=== PATIENT | male | born 1930 | race Caucasian/White ===

== ENCOUNTER 2016-05-30 17:24 | Inpatient (IN) | payer MEDICARE ==
[~2016-05-30] VITALS: Ht 182.9 cm; Wt 77.4 kg
[~2016-05-30 17:24] MED LIST: COLL30T TOP; HYDR12.57 PO; LEVA750T PO; METR500T10 PO; MORP1TAB25 PO; NIFE30TA61 PO; OXYC1TAB63 PO; POTA10TA2 PO; SENN8.6C PO
[2016-05-30 17:49] VITALS: BP 132/75; PULSE 103; RESP 17; TEMP 99.3; O2SAT 96
[2016-05-30 17:53] VITALS: BP 140/67; PULSE 96; RESP 16; O2SAT 94
[2016-05-30] MEDS ORDERED: VANCOMYCIN INJ 1,000 MG in SODIUM CHLOR 0.9% 250 ML INJ 250 ML IV STA (18:05)
[2016-05-30] MEDS ORDERED: CEFEPIME INJ 1,000 MG in SODIUM CHLORIDE 0.9% INJ 100 ML IV ONE (18:15)
[2016-05-30] MEDS ORDERED: HYDROmorphone HCL PF 1 MG/ML VIAL IV PUSH ONE (18:30)
[2016-05-30 18:42] LABS: AUTOMATED NEUTROPHIL # 8.3 TH/MM3 (1.8-7.7); BASOPHIL % 0.4 % (0.0-2.0); EOSINOPHIL # 0.3 TH/MM3 (0-0.4); EOSINOPHIL % 2.3 % (0.0-4.0); HEMATOCRIT 33.2 % (39.0-51.0); HEMO FLAGS DIFF FINAL; LYMPH % 24.4 % (9.0-44.0); LYMPHOCYTE # 3.2 TH/MM3 (1.0-4.8); MEAN CELL VOLUME 87.2 FL (80.0-100.0); MEAN CORPUSCULAR HEMOGLOBIN 28.9 PG (27.0-34.0); MEAN CORPUSCULAR HGB CONC 33.1 % (32.0-36.0); MONO % 9.7 % (0.0-8.0); NEUT % 63.2 % (16.0-70.0); PLATELET COUNT 483 TH/MM3 (150-450); RED BLOOD COUNT 3.81 MIL/MM3 (4.50-5.90); RED CELL DISTRIBUTION WIDTH 15.2 % (11.6-17.2); WHITE BLOOD COUNT 13.1 TH/MM3 (4.0-11.0)
[2016-05-30] MEDS ORDERED: COLL30T TOPICAL (18:47)
[2016-05-30] MEDS ORDERED: [UNRECOGNIZED DRUG - OTHER] TOP (18:56)
[2016-05-30] MEDS ORDERED: GENT TOP (18:56)
[2016-05-30] MEDS ORDERED: DULC10SU3 RECTAL (18:56)
[2016-05-30] MEDS ORDERED: PERC10TA27 PO (19:03)
[2016-05-30] MEDS ORDERED: MILKSUS PO (19:03)
[2016-05-30] MEDS ORDERED: THERTAB27 PO (19:03)
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
[2016-05-30] MEDS ORDERED: HYDROmorphone HCL PF 1 MG/ML VIAL IVS ONE (19:45)
[2016-05-30 20:22] VITALS: BP 155/78; PULSE 98; RESP 16; O2SAT 95
[2016-05-30] MEDS ORDERED: ONDANSETRON HCL 4 MG/2 ML VIAL IVP PRN (20:30)
[2016-05-30] MEDS ORDERED: Vancomycin Consult Pharmacy 1 EA OTHER SCH (20:30)
[2016-05-30] MEDS ORDERED: NALOXONE HCL 0.4 MG/ML AMP IV PRN (20:30)
[2016-05-30] MEDS ORDERED: HYDROmorphone HCL PF 1 MG/ML VIAL IV PUSH PRN (20:30)
--- NOTE | 2016-05-30 20:32 | PD ---
Physical Exam Date Seen by Provider: May 30, 2016 Time Seen by Provider: 19:30 Narrative Patient is here for a decubitus ulcer which has been an ongoing problem but is now associated with fever. Data Data Last Documented VS Vital Signs Date Time Temp Pulse Resp B/P Pulse Ox O2 Delivery O2 Flow Rate FiO2 05/30/16 17:53 96 16 140/67 94 Room Air 05/30/16 17:49 99.3 Orders Complete Blood Count With Diff (05/30/16 18:05) Blood Culture (05/30/16 18:05) Wound Culture And Gram Stain (05/30/16 18:05) Iv Access Insert/Monitor (05/30/16 18:05) Vancomycin Inj (Vancomycin Inj) (05/30/16 18:05) Cefepime Inj (Maxipime Inj) (05/30/16 18:15) C-Reactive Protein (Crp) (05/30/16 18:05) Westergren Sedimentation Rate (05/30/16 18:05) Hydromorphone Pf Inj (Dilaudid Pf Inj) (05/30/16 18:30) Lactic Acid (05/30/16 19:32) Urinalysis - C+S If Indicated (05/30/16 19:41) Hydromorphone Pf Inj (Dilaudid Pf Inj) (05/30/16 19:45) Admit Order (Ed Use Only) (05/30/16 19:55) Labs Laboratory Tests Test 05/30/16 05/30/16 18:23 19:39 White Blood Count 13.1 TH/MM3 Red Blood Count 3.81 MIL/MM3 Hemoglobin 11.0 GM/DL Hematocrit 33.2 % Mean Corpuscular Volume 87.2 FL Mean Corpuscular Hemoglobin 28.9 PG Mean Corpuscular Hemoglobin 33.1 % Concent Red Cell Distribution Width 15.2 % Platelet Count 483 TH/MM3 Mean Platelet Volume 7.7 FL Neutrophils (%) (Auto) 63.2 % Lymphocytes (%) (Auto) 24.4 % Monocytes (%) (Auto) 9.7 % Eosinophils (%) (Auto) 2.3 % Basophils (%) (Auto) 0.4 % Neutrophils # (Auto) 8.3 TH/MM3 Lymphocytes # (Auto) 3.2 TH/MM3 Monocytes # (Auto) 1.3 TH/MM3 Eosinophils # (Auto) 0.3 TH/MM3 Basophils # (Auto) 0.0 TH/MM3 CBC Comment DIFF FINAL Differential Comment Erythrocyte Sedimentation Rate 70 mm/hr C-Reactive Protein 7.80 MG/DL Lactic Acid Level 1.1 mmol/L MDM Supervised Visit with CHELO: Yes Narrative Course I, Dr. Trimble, have reviewed the advance practice practitioner's documentation and am in agreement, met with the patient face to face, made the diagnosis, and the medical decision making was done by me. *My assessment and Findings: This is a lucid, otherwise healthy-appearing man who has partial paralysis of his lower extremities. Diagnosis Primary Impression: Sacral decubitus ulcer Qualified Code: L89.154 - Decubitus ulcer of sacral region, stage 4 Additional Impressions: Fever Qualified Code: R50.9 - Fever, unspecified fever cause Cellulitis Qualified Code: L03.317 - Cellulitis of buttock Condition: Stable Seda Trimble MD May 30, 2016 20:32
[2016-05-30] MEDS: SODIUM CHLORIDE 0.9% FLUSH 5 ML FLUSH FLUSH SCH (20:50)
[2016-05-30 21:06] LABS: BACTERIA, URINE RARE /hpf; BLOOD, URINE MOD (NEG); COMMENT (UR) CULTURE INDICATED; CULTURE IF INDICATED CULTURE INDICATED; GLUCOSE,URINE NEG (NEG); KETONE, URINE NEG (NEG); MUCUS URINE FEW /lpf (OCC); PH, URINE 6.5 (5.0-8.5); URINE COLOR YELLOW (YELLW/STRAW)
[2016-05-30 21:07] LABS: NITRITE,URINE POS (NEG)
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
[2016-05-30] MEDS: HYDROmorphone HCL PF 1 MG/ML VIAL IV PUSH PRN (22:11)
[2016-05-30 22:14] VITALS: BP 164/72; PULSE 98; RESP 16; O2SAT 93
[2016-05-30] MEDS ORDERED: BISACODYL 10 MG SUPP RECTAL PRN (23:30)
[2016-05-30] MEDS ORDERED: MAGNESIUM HYDROXIDE SUSP 30 ML CUP PO PRN (23:30)
[2016-05-31] VITALS (7 sets, daily range): BP systolic 121–140; BP diastolic 70–88; PULSE 78–103; RESP 16–21; TEMP 97.6–98.9; O2SAT 93–99
[2016-05-31] MEDS: HYDROmorphone HCL PF 1 MG/ML VIAL IV PUSH PRN (01:58)
[2016-05-31] MEDS: CEFEPIME INJ 2,000 MG in SODIUM CHLORIDE 0.9% INJ 100 ML IV SCH ×3 (01:59→17:18)
[2016-05-31] MEDS: MORPHINE SULFATE 30 MG CONTROLLED RELEASE TAB PO SCH ×3 (05:49→22:44)
[2016-05-31] MEDS: VANCOMYCIN 1,000 MG/NS 250 ML IV SCH ×4 (05:49→18:15)
[2016-05-31 06:03] LABS: BASOPHIL # 0.1 TH/MM3 (0-0.2); BASOPHIL % 0.5 % (0.0-2.0); EOSINOPHIL # 0.1 TH/MM3 (0-0.4); EOSINOPHIL % 0.6 % (0.0-4.0); HEMATOCRIT 33.8 % (39.0-51.0); HEMO FLAGS DIFF FINAL; LYMPH % 20.1 % (9.0-44.0); LYMPHOCYTE # 3.1 TH/MM3 (1.0-4.8); MEAN CELL VOLUME 87.8 FL (80.0-100.0); MEAN CORPUSCULAR HEMOGLOBIN 28.9 PG (27.0-34.0); MEAN CORPUSCULAR HGB CONC 32.9 % (32.0-36.0); MONO % 7.4 % (0.0-8.0); NEUT % 71.4 % (16.0-70.0); PLATELET COUNT 441 TH/MM3 (150-450); RED BLOOD COUNT 3.86 MIL/MM3 (4.50-5.90); RED CELL DISTRIBUTION WIDTH 15.3 % (11.6-17.2); WHITE BLOOD COUNT 15.4 TH/MM3 (4.0-11.0)
[2016-05-31 06:34] LABS: POTASSIUM 3.7 MEQ/L (3.5-5.1)
[2016-05-31] MEDS: SODIUM CHLORIDE 0.9% FLUSH 5 ML FLUSH FLUSH SCH ×2 (09:00→22:47)
[2016-05-31] MEDS ORDERED: NIFEdipine 30 MG SUSTAINED RELEASE TAB PO SCH (09:00)
[2016-05-31] MEDS ORDERED: POTASSIUM CHLORIDE 10 MEQ CONTROLLED RELEASE TAB PO SCH (09:00)
[2016-05-31] MEDS: HYDROCHLOROTHIAZIDE 12.5 MG CAP PO SCH (09:00)
[2016-05-31] MEDS: SENNOSIDES 8.6 MG TAB PO SCH ×2 (09:00→22:45)
[2016-05-31] MEDS: ENOXAPARIN SODIUM 40 MG/0.4 ML SYRINGE SQ SCH (09:11)
[2016-05-31] MEDS: LACTOBACILLUS ACIDOPHILUS 1 GM PACKET PO SCH ×5 (09:11→22:46)
[2016-05-31] MEDS: MULTIVITAMINS/MINERALS THERAPEUTIC TAB PO SCH (09:11)
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
[2016-05-31] MEDS: oxyCODONE/ACETAMINOPHEN 10 MG/325 MG TAB PO PRN ×2 (11:29→17:18)
[2016-05-31] MEDS: MUPIROCIN 2% CREAM 15 GM TOPICAL SCH ×2 (11:30→22:46)
[2016-05-31] MEDS ORDERED: HYDROmorphone HCL PF 1 MG/ML VIAL IV PUSH PRN (12:00)
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
[2016-05-31 20:19] LABS: HEMOGLOBIN A1a 1.2 %; HEMOGLOBIN F 1.4 %
[2016-05-31 20:20] LABS: HEMOGLOBIN Ao 84.6 %; HEMOGLOBIN P3 4.2 %
[2016-06-01] VITALS (7 sets, daily range): BP systolic 115–143; BP diastolic 68–83; PULSE 67–92; RESP 16–18; TEMP 97.9–99.8; O2SAT 94–98
[2016-06-01] MEDS: oxyCODONE/ACETAMINOPHEN 10 MG/325 MG TAB PO PRN ×4 (00:40→22:33)
[2016-06-01] MEDS: CEFEPIME INJ 2,000 MG in SODIUM CHLORIDE 0.9% INJ 100 ML IV SCH (02:15)
[2016-06-01] MEDS ORDERED: PHARMACY ORDERED LAB XX ONE (05:45)
[2016-06-01] MEDS: VANCOMYCIN 1,000 MG/NS 250 ML IV SCH ×2 (06:10)
[2016-06-01] MEDS: MORPHINE SULFATE 30 MG CONTROLLED RELEASE TAB PO SCH ×3 (06:11→21:21)
[2016-06-01] MEDS: SENNOSIDES 8.6 MG TAB PO SCH ×2 (08:06→21:00)
[2016-06-01] MEDS: POTASSIUM CL 40 MEQ/30 ML LIQ UDC NG SCH (08:07)
[2016-06-01 08:22] LABS: HEMATOCRIT 31.2 % (39.0-51.0); HEMO FLAGS DIFF FINAL; MEAN CORPUSCULAR HEMOGLOBIN 28.2 PG (27.0-34.0); MEAN CORPUSCULAR HGB CONC 32.4 % (32.0-36.0); PLATELET COUNT 399 TH/MM3 (150-450); RED BLOOD COUNT 3.59 MIL/MM3 (4.50-5.90); RED CELL DISTRIBUTION WIDTH 14.9 % (11.6-17.2); WHITE BLOOD COUNT 11.9 TH/MM3 (4.0-11.0)
[2016-06-01 08:23] LABS: AUTOMATED NEUTROPHIL # 8.2 TH/MM3 (1.8-7.7); BASOPHIL # 0.1 TH/MM3 (0-0.2); BASOPHIL % 0.6 % (0.0-2.0); EOSINOPHIL # 0.7 TH/MM3 (0-0.4); LYMPH % 16.5 % (9.0-44.0); MONO % 8.4 % (0.0-8.0); NEUT % 68.5 % (16.0-70.0)
[2016-06-01 08:49] LABS: BICARBONATE 28.5 MEQ/L (21.0-32.0); MAGNESIUM 1.9 MG/DL (1.5-2.5); POTASSIUM 3.5 MEQ/L (3.5-5.1)
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
[2016-06-01] MEDS: HYDROCHLOROTHIAZIDE 12.5 MG CAP PO SCH (10:38)
[2016-06-01] MEDS: ENOXAPARIN SODIUM 40 MG/0.4 ML SYRINGE SQ SCH (10:38)
[2016-06-01] MEDS: MULTIVITAMINS/MINERALS THERAPEUTIC TAB PO SCH (10:38)
[2016-06-01] MEDS: SODIUM CHLORIDE 0.9% FLUSH 5 ML FLUSH FLUSH SCH ×2 (10:38→21:00)
[2016-06-01] MEDS ORDERED: OXYC1TAB36 PO (10:54)
[2016-06-01] MEDS ORDERED: MORP1TAB25 PO (10:54)
[2016-06-01] MEDS: LACTOBACILLUS ACIDOPHILUS 1 GM PACKET PO SCH ×4 (11:13→21:21)
[2016-06-01] MEDS: MUPIROCIN 2% CREAM 15 GM TOPICAL SCH ×2 (11:17→21:00)
[2016-06-01] MEDS: NIFEdipine 10 MG CAP PO SCH ×2 (16:11→21:26)
--- NOTE | 2016-06-01 17:48 | HHI.DCPOC ---
Discharge Care Plan Diagnosis: (1) UTI (urinary tract infection) (2) Sacral decubitus ulcer Your Health Problems Are: Difficulty with ADL Exercise Tolerance Goals to Promote Your Health * To prevent worsening of your condition and complications * To maintain your health at the optimal level Directions to Meet Your Goals Take your medications as prescribed Follow your dietary instruction Follow activity as directed Keep your appointments as scheduled Take your immunizations and boosters as scheduled If your symptoms worsen call your PCP, if no PCP go to Urgent Care Center or Emergency Room Smoking is Dangerous to Your Health. Avoid second hand smoke Call the 24-hour hour crisis hotline for domestic abuse at Shin Oconnor MD Jun 01, 2016 17:48
[2016-06-01] MEDS ORDERED: BACT400T PO (17:52)
[2016-06-01] MEDS ORDERED: LACTG PO (17:52)
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
[2016-06-01] MEDS: SULFAMETHOXAZOLE-TRIMETHOPRIM 400-80 MG TAB PO SCH (21:24)
[2016-06-02] VITALS (9 sets, daily range): BP systolic 101–149; BP diastolic 63–93; PULSE 77–102; RESP 18–21; TEMP 98–99.5; O2SAT 94–98
[2016-06-02] MEDS: NIFEdipine 10 MG CAP PO SCH ×3 (05:28→23:39)
[2016-06-02] MEDS: MORPHINE SULFATE 30 MG CONTROLLED RELEASE TAB PO SCH ×3 (05:29→23:38)
[2016-06-02] MEDS ORDERED: PHARMACY ORDERED LAB XX ONE (05:45)
[2016-06-02] MEDS: oxyCODONE/ACETAMINOPHEN 10 MG/325 MG TAB PO PRN ×3 (06:23→18:51)
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
[2016-06-02] MEDS: SULFAMETHOXAZOLE-TRIMETHOPRIM 400-80 MG TAB PO SCH ×2 (10:25→23:39)
[2016-06-02] MEDS: MULTIVITAMINS/MINERALS THERAPEUTIC TAB PO SCH (10:26)
[2016-06-02] MEDS: LACTOBACILLUS ACIDOPHILUS 1 GM PACKET PO SCH ×3 (10:26→17:31)
[2016-06-02] MEDS: ENOXAPARIN SODIUM 40 MG/0.4 ML SYRINGE SQ SCH (10:26)
[2016-06-02] MEDS: SENNOSIDES 8.6 MG TAB PO SCH ×2 (10:26→21:00)
[2016-06-02] MEDS: HYDROCHLOROTHIAZIDE 12.5 MG CAP PO SCH (10:26)
[2016-06-02] MEDS: SODIUM CHLORIDE 0.9% FLUSH 5 ML FLUSH FLUSH SCH ×2 (10:27→23:37)
[2016-06-02] MEDS: POTASSIUM CL 40 MEQ/30 ML LIQ UDC NG SCH (10:27)
[2016-06-02] MEDS: MUPIROCIN 2% CREAM 15 GM TOPICAL SCH ×2 (12:00→23:41)
[2016-06-03] MEDS: LACTOBACILLUS ACIDOPHILUS 1 GM PACKET PO SCH ×5 (00:07→20:22)
[2016-06-03] MEDS: oxyCODONE/ACETAMINOPHEN 10 MG/325 MG TAB PO PRN ×4 (00:49→22:52)
[2016-06-03 04:22] VITALS: BP 116/75; PULSE 76; RESP 20; TEMP 98.5; O2SAT 96
[2016-06-03] MEDS: NIFEdipine 10 MG CAP PO SCH ×4 (05:20→20:38)
[2016-06-03] MEDS: MORPHINE SULFATE 30 MG CONTROLLED RELEASE TAB PO SCH ×3 (05:20→20:22)
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
[2016-06-03] MEDS: MULTIVITAMINS/MINERALS THERAPEUTIC TAB PO SCH (09:58)
[2016-06-03] MEDS: ENOXAPARIN SODIUM 40 MG/0.4 ML SYRINGE SQ SCH (09:59)
[2016-06-03] MEDS: POTASSIUM CL 40 MEQ/30 ML LIQ UDC NG SCH ×2 (09:59→10:07)
[2016-06-03] MEDS: MUPIROCIN 2% CREAM 15 GM TOPICAL SCH ×2 (10:00→20:26)
[2016-06-03] MEDS: SULFAMETHOXAZOLE-TRIMETHOPRIM 400-80 MG TAB PO SCH ×2 (10:00→20:22)
[2016-06-03] MEDS: SENNOSIDES 8.6 MG TAB PO SCH ×2 (10:02→20:23)
[2016-06-03] MEDS: HYDROCHLOROTHIAZIDE 12.5 MG CAP PO SCH (10:02)
[2016-06-03] MEDS: SODIUM CHLORIDE 0.9% FLUSH 5 ML FLUSH FLUSH SCH ×2 (10:21→20:19)
[2016-06-03 17:18] VITALS: BP 105/66; PULSE 86; RESP 18; TEMP 98.2; O2SAT 95
[2016-06-03 19:42] VITALS: BP_SYST 107; PULSE 86; RESP 20; TEMP 97.7; O2SAT 94
[2016-06-03 20:00] VITALS: PULSE 93
[2016-06-03] MEDS: HYDROmorphone HCL PF 1 MG/ML VIAL IV PUSH PRN (20:24)
[2016-06-04] VITALS (7 sets, daily range): BP systolic 92–130; BP diastolic 55–89; PULSE 82–99; RESP 17–20; TEMP 97.5–98.3; O2SAT 93–97
[2016-06-04] MEDS: HYDROmorphone HCL PF 1 MG/ML VIAL IV PUSH PRN ×3 (00:48→22:59)
[2016-06-04] MEDS: NIFEdipine 10 MG CAP PO SCH (05:25)
[2016-06-04] MEDS: MORPHINE SULFATE 30 MG CONTROLLED RELEASE TAB PO SCH ×3 (05:25→21:18)
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
[2016-06-04] MEDS: HYDROCHLOROTHIAZIDE 12.5 MG CAP PO SCH (09:00)
[2016-06-04] MEDS: MULTIVITAMINS/MINERALS THERAPEUTIC TAB PO SCH (09:00)
[2016-06-04] MEDS: SENNOSIDES 8.6 MG TAB PO SCH (10:35)
[2016-06-04] MEDS: SULFAMETHOXAZOLE-TRIMETHOPRIM 400-80 MG TAB PO SCH ×2 (10:56→21:17)
[2016-06-04] MEDS: SODIUM CHLORIDE 0.9% FLUSH 5 ML FLUSH FLUSH SCH ×2 (10:56→21:19)
[2016-06-04] MEDS: ENOXAPARIN SODIUM 40 MG/0.4 ML SYRINGE SQ SCH (10:59)
[2016-06-04] MEDS: LACTOBACILLUS ACIDOPHILUS 1 GM PACKET PO SCH ×4 (10:59→21:00)
[2016-06-04] MEDS: oxyCODONE/ACETAMINOPHEN 10 MG/325 MG TAB PO PRN ×2 (11:00→17:51)
[2016-06-04] MEDS: MUPIROCIN 2% CREAM 15 GM TOPICAL SCH ×2 (15:06→21:17)
[2016-06-05] VITALS (9 sets, daily range): BP systolic 101–128; BP diastolic 56–76; PULSE 74–117; RESP 16–20; TEMP 96.3–99.1; O2SAT 93–99
[2016-06-05] MEDS: oxyCODONE/ACETAMINOPHEN 10 MG/325 MG TAB PO PRN ×3 (01:15→17:34)
[2016-06-05] MEDS: MORPHINE SULFATE 30 MG CONTROLLED RELEASE TAB PO SCH ×3 (05:51→23:10)
[2016-06-05 06:20] LABS: BICARBONATE 26.5 MEQ/L (21.0-32.0); POTASSIUM 4.3 MEQ/L (3.5-5.1)
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
[2016-06-05] MEDS: POTASSIUM CL 40 MEQ/30 ML LIQ UDC NG SCH (10:29)
[2016-06-05] MEDS: LACTOBACILLUS ACIDOPHILUS 1 GM PACKET PO SCH ×4 (10:29→21:00)
[2016-06-05] MEDS: SENNOSIDES 8.6 MG TAB PO SCH (10:30)
[2016-06-05] MEDS: MULTIVITAMINS/MINERALS THERAPEUTIC TAB PO SCH (10:30)
[2016-06-05] MEDS: HYDROCHLOROTHIAZIDE 12.5 MG CAP PO SCH (10:30)
[2016-06-05] MEDS: SODIUM CHLORIDE 0.9% FLUSH 5 ML FLUSH FLUSH SCH ×2 (10:31→23:11)
[2016-06-05] MEDS: ENOXAPARIN SODIUM 40 MG/0.4 ML SYRINGE SQ SCH (10:31)
[2016-06-05] MEDS: SULFAMETHOXAZOLE-TRIMETHOPRIM 400-80 MG TAB PO SCH ×2 (10:32→23:10)
[2016-06-05] MEDS: MUPIROCIN 2% CREAM 15 GM TOPICAL SCH ×2 (10:32→23:11)
[2016-06-05] MEDS: SODIUM HYPOCHLORITE 0.5% 500 ML BTL TOPICAL SCH (19:16)
[2016-06-05] MEDS: HYDROmorphone HCL PF 1 MG/ML VIAL IV PUSH PRN (20:48)
[2016-06-06] MEDS: oxyCODONE/ACETAMINOPHEN 10 MG/325 MG TAB PO PRN ×4 (00:34→20:41)
[2016-06-06 05:19] VITALS: BP 144/73; PULSE 86; RESP 20; TEMP 97.7; O2SAT 96
[2016-06-06] MEDS: MORPHINE SULFATE 30 MG CONTROLLED RELEASE TAB PO SCH ×3 (05:25→22:24)
[2016-06-06 08:00] VITALS: BP 133/73; PULSE 70; PULSE 74; PULSE 78; RESP 18; TEMP 97; O2SAT 96
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
[2016-06-06] MEDS: POTASSIUM CL 40 MEQ/30 ML LIQ UDC NG SCH (09:00)
[2016-06-06] MEDS: LACTOBACILLUS ACIDOPHILUS 1 GM PACKET PO SCH ×4 (09:00→20:41)
[2016-06-06] MEDS: MULTIVITAMINS/MINERALS THERAPEUTIC TAB PO SCH (09:00)
[2016-06-06] MEDS: SENNOSIDES 8.6 MG TAB PO SCH (09:00)
[2016-06-06] MEDS: HYDROCHLOROTHIAZIDE 12.5 MG CAP PO SCH (09:00)
[2016-06-06] MEDS: SODIUM CHLORIDE 0.9% FLUSH 5 ML FLUSH FLUSH SCH ×2 (09:59→20:42)
[2016-06-06] MEDS: ENOXAPARIN SODIUM 40 MG/0.4 ML SYRINGE SQ SCH (09:59)
[2016-06-06] MEDS: SULFAMETHOXAZOLE-TRIMETHOPRIM 400-80 MG TAB PO SCH ×2 (10:00→20:41)
[2016-06-06] MEDS: SODIUM HYPOCHLORITE 0.5% 500 ML BTL TOPICAL SCH (10:05)
[2016-06-06] MEDS: MUPIROCIN 2% CREAM 15 GM TOPICAL SCH ×2 (10:06→20:42)
[2016-06-06] MEDS: HYDROmorphone HCL PF 1 MG/ML VIAL IV PUSH PRN ×2 (10:21→17:29)
[2016-06-06 12:00] VITALS: BP 106/64; PULSE 74; RESP 18; TEMP 96.3; O2SAT 96
[2016-06-06 16:00] VITALS: BP 126/68; PULSE 89; RESP 18; TEMP 99; O2SAT 95
[2016-06-06 19:38] VITALS: BP 126/77; PULSE 88; RESP 20; TEMP 98; O2SAT 96
[2016-06-06 20:37] VITALS: PULSE 98
[2016-06-07 01:24] VITALS: BP 116/73; PULSE 78; RESP 18; TEMP 98.3; O2SAT 97
[2016-06-07] MEDS: oxyCODONE/ACETAMINOPHEN 10 MG/325 MG TAB PO PRN ×4 (02:48→21:49)
[2016-06-07 05:23] VITALS: BP 136/70; PULSE 84; RESP 18; TEMP 98.1; O2SAT 96
[2016-06-07] MEDS: MORPHINE SULFATE 30 MG CONTROLLED RELEASE TAB PO SCH ×3 (07:04→21:50)
[2016-06-07 08:00] VITALS: PULSE 90
[2016-06-07 08:41] VITALS: BP 123/69; PULSE 80; RESP 16; TEMP 97.6; O2SAT 97
[2016-06-07] MEDS: POTASSIUM CL 40 MEQ/30 ML LIQ UDC NG SCH (09:00)
[2016-06-07] MEDS: SENNOSIDES 8.6 MG TAB PO SCH (09:00)
[2016-06-07] MEDS: SODIUM CHLORIDE 0.9% FLUSH 5 ML FLUSH FLUSH SCH ×2 (09:00→21:49)
[2016-06-07] MEDS: HYDROCHLOROTHIAZIDE 12.5 MG CAP PO SCH (09:00)
[2016-06-07] MEDS: LACTOBACILLUS ACIDOPHILUS 1 GM PACKET PO SCH ×4 (09:00→21:00)
[2016-06-07] MEDS: MULTIVITAMINS/MINERALS THERAPEUTIC TAB PO SCH (09:00)
[2016-06-07] MEDS: ENOXAPARIN SODIUM 40 MG/0.4 ML SYRINGE SQ SCH (09:11)
[2016-06-07] MEDS: SULFAMETHOXAZOLE-TRIMETHOPRIM 400-80 MG TAB PO SCH ×2 (09:11→21:51)
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
[2016-06-07] MEDS: MUPIROCIN 2% CREAM 15 GM TOPICAL SCH ×2 (10:38→21:54)
[2016-06-07] MEDS: SODIUM HYPOCHLORITE 0.5% 500 ML BTL TOPICAL SCH (10:38)
[2016-06-07] MEDS: HYDROmorphone HCL PF 1 MG/ML VIAL IV PUSH PRN ×3 (11:50→19:07)
[2016-06-07] MEDS: LACTIC ACID (AMMONIUM LACTATE) 12% LOTION 225 GM BTL TOPICAL SCH ×2 (11:50→21:53)
[2016-06-07 11:57] VITALS: BP 140/72; PULSE 102; RESP 16; TEMP 98.3; O2SAT 96
[2016-06-07 15:51] VITALS: BP 155/77; PULSE 85; RESP 16; TEMP 97.9; O2SAT 95
[2016-06-08 00:16] VITALS: BP 150/79; PULSE 80; RESP 18; TEMP 97.6; O2SAT 95
[2016-06-08] MEDS: HYDROmorphone HCL PF 1 MG/ML VIAL IV PUSH PRN ×3 (01:05→21:29)
[2016-06-08 04:41] VITALS: BP 147/72; PULSE 68; RESP 18; TEMP 97.9; O2SAT 97
[2016-06-08] MEDS: oxyCODONE/ACETAMINOPHEN 10 MG/325 MG TAB PO PRN ×4 (04:59→22:56)
[2016-06-08] MEDS: MORPHINE SULFATE 30 MG CONTROLLED RELEASE TAB PO SCH ×3 (05:00→21:28)
[2016-06-08] MEDS: MUPIROCIN 2% CREAM 15 GM TOPICAL SCH ×2 (09:00→21:00)
[2016-06-08] MEDS: LACTOBACILLUS ACIDOPHILUS 1 GM PACKET PO SCH ×4 (09:00→21:00)
[2016-06-08] MEDS: SODIUM CHLORIDE 0.9% FLUSH 5 ML FLUSH FLUSH SCH ×2 (09:00→21:30)
[2016-06-08] MEDS: HYDROCHLOROTHIAZIDE 12.5 MG CAP PO SCH (09:00)
[2016-06-08] MEDS: MULTIVITAMINS/MINERALS THERAPEUTIC TAB PO SCH (09:00)
[2016-06-08] MEDS: SENNOSIDES 8.6 MG TAB PO SCH (09:00)
[2016-06-08] MEDS: POTASSIUM CL 40 MEQ/30 ML LIQ UDC NG SCH (09:00)
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
[2016-06-08] MEDS: ENOXAPARIN SODIUM 40 MG/0.4 ML SYRINGE SQ SCH (11:18)
[2016-06-08] MEDS: SULFAMETHOXAZOLE-TRIMETHOPRIM 400-80 MG TAB PO SCH ×2 (11:18→21:28)
[2016-06-08] MEDS: LACTIC ACID (AMMONIUM LACTATE) 12% LOTION 225 GM BTL TOPICAL SCH ×2 (11:21→21:31)
[2016-06-08] MEDS: SODIUM HYPOCHLORITE 0.5% 500 ML BTL TOPICAL SCH (11:21)
[2016-06-08 12:41] VITALS: BP 127/76; PULSE 77; RESP 18; TEMP 97.8; O2SAT 96
[2016-06-08] MEDS: hydrOXYzine HCL 10 MG TAB PO PRN (14:10)
[2016-06-08 23:07] VITALS: BP 121/72; PULSE 92; RESP 16; TEMP 96.5; O2SAT 95
[2016-06-09 04:00] VITALS: BP 135/76; PULSE 80; RESP 16; TEMP 97.6; O2SAT 97
[2016-06-09] MEDS: HYDROmorphone HCL PF 1 MG/ML VIAL IV PUSH PRN ×3 (04:19→17:05)
[2016-06-09] MEDS: oxyCODONE/ACETAMINOPHEN 10 MG/325 MG TAB PO PRN ×3 (05:48→17:38)
[2016-06-09] MEDS: MORPHINE SULFATE 30 MG CONTROLLED RELEASE TAB PO SCH ×3 (05:49→21:21)
[2016-06-09 08:00] VITALS: BP 129/65; PULSE 85; RESP 18; TEMP 97.3; O2SAT 94
[2016-06-09] MEDS: ENOXAPARIN SODIUM 40 MG/0.4 ML SYRINGE SQ SCH (08:59)
[2016-06-09] MEDS: SODIUM CHLORIDE 0.9% FLUSH 5 ML FLUSH FLUSH SCH ×2 (08:59→20:23)
[2016-06-09] MEDS: SENNOSIDES 8.6 MG TAB PO SCH (08:59)
[2016-06-09] MEDS: MULTIVITAMINS/MINERALS THERAPEUTIC TAB PO SCH (09:00)
[2016-06-09] MEDS: HYDROCHLOROTHIAZIDE 12.5 MG CAP PO SCH (09:00)
[2016-06-09] MEDS: POTASSIUM CL 40 MEQ/30 ML LIQ UDC NG SCH (09:00)
[2016-06-09] MEDS: MUPIROCIN 2% CREAM 15 GM TOPICAL SCH ×2 (09:00→20:28)
[2016-06-09] MEDS: SULFAMETHOXAZOLE-TRIMETHOPRIM 400-80 MG TAB PO SCH ×2 (09:00→20:22)
[2016-06-09] MEDS: LACTOBACILLUS ACIDOPHILUS 1 GM PACKET PO SCH ×4 (09:08→20:23)
[2016-06-09] MEDS: LACTIC ACID (AMMONIUM LACTATE) 12% LOTION 225 GM BTL TOPICAL SCH ×2 (09:09→20:26)
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
[2016-06-09 12:00] VITALS: BP 130/73; PULSE 76; RESP 18; TEMP 97.2; O2SAT 94
[2016-06-09] MEDS: SODIUM HYPOCHLORITE 0.5% 500 ML BTL TOPICAL SCH (15:30)
[2016-06-09 16:00] VITALS: BP 128/70; PULSE 82; RESP 18; TEMP 97.5; O2SAT 94
--- NOTE | 2016-06-09 17:32 | PD.RAD ---
Post Procedure Progress Note Pre Procedure Diagnosis: (1) Pneumonia Post Procedure Diagnosis: (1) Pneumonia Procedure Date: Jun 09, 2016 Supervising Radiologist: Mariano Ramires JR Proceduralist/Assist: Nika Longoria, RT(R)(CV), RT Trudi(R)() Anesthesia: Other Plan of Activity Patient to Unit: Nursing Unit Patient Condition: Good Additional Comments: Patient desires removal of G tube. Taking PO. G tube removed without difficulty. See PACS Report for procedural detail/treatment Jr. Ike,Mariano Sanches MD Jun 09, 2016 17:32
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
[2016-06-09 20:00] VITALS: BP 116/69; PULSE 90; RESP 18; TEMP 97.6; O2SAT 96
[2016-06-09] MEDS: hydrOXYzine HCL 10 MG TAB PO PRN (21:21)
[2016-06-10] VITALS: BP 112/65; PULSE 114; RESP 18; TEMP 99.1; O2SAT 93
[2016-06-10] MEDS: oxyCODONE/ACETAMINOPHEN 10 MG/325 MG TAB PO PRN ×4 (00:38→19:28)
[2016-06-10 04:00] VITALS: BP 119/68; PULSE 81; RESP 18; TEMP 97.7; O2SAT 98
[2016-06-10] MEDS: HYDROmorphone HCL PF 1 MG/ML VIAL IV PUSH PRN ×4 (04:46→21:57)
[2016-06-10] MEDS: MORPHINE SULFATE 30 MG CONTROLLED RELEASE TAB PO SCH ×3 (05:34→21:57)
[2016-06-10 08:00] VITALS: BP 102/58; PULSE 76; RESP 16; TEMP 96.3; O2SAT 97
[2016-06-10] MEDS: ENOXAPARIN SODIUM 40 MG/0.4 ML SYRINGE SQ SCH (08:50)
[2016-06-10] MEDS: SULFAMETHOXAZOLE-TRIMETHOPRIM 400-80 MG TAB PO SCH ×2 (08:53→19:28)
[2016-06-10] MEDS: LACTOBACILLUS ACIDOPHILUS 1 GM PACKET PO SCH ×4 (08:53→19:29)
[2016-06-10] MEDS: SODIUM CHLORIDE 0.9% FLUSH 5 ML FLUSH FLUSH SCH ×2 (08:53→19:29)
[2016-06-10] MEDS: POTASSIUM CL 40 MEQ/30 ML LIQ UDC NG SCH (08:54)
[2016-06-10] MEDS: HYDROCHLOROTHIAZIDE 12.5 MG CAP PO SCH (08:54)
[2016-06-10] MEDS: SENNOSIDES 8.6 MG TAB PO SCH (08:54)
[2016-06-10] MEDS: MUPIROCIN 2% CREAM 15 GM TOPICAL SCH ×2 (08:54→19:33)
[2016-06-10] MEDS: MULTIVITAMINS/MINERALS THERAPEUTIC TAB PO SCH (08:54)
[2016-06-10 09:31] LABS: BICARBONATE 27.5 MEQ/L (21.0-32.0); POTASSIUM 4.3 MEQ/L (3.5-5.1)
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
[2016-06-10 12:00] VITALS: BP 111/65; PULSE 77; RESP 18; TEMP 97.2; O2SAT 96
[2016-06-10 16:00] VITALS: BP 115/63; PULSE 73; RESP 16; TEMP 96.6; O2SAT 96
[2016-06-10] MEDS: LACTIC ACID (AMMONIUM LACTATE) 12% LOTION 225 GM BTL TOPICAL SCH ×2 (17:43→19:32)
[2016-06-10] MEDS: SODIUM HYPOCHLORITE 0.5% 500 ML BTL TOPICAL SCH (17:43)
[2016-06-10 20:00] VITALS: BP 104/66; PULSE 106; RESP 16; TEMP 97.2; O2SAT 94
[2016-06-11] VITALS: BP 107/68; PULSE 94; RESP 16; TEMP 97.4; O2SAT 95
[2016-06-11] MEDS: oxyCODONE/ACETAMINOPHEN 10 MG/325 MG TAB PO PRN ×4 (01:19→19:39)
[2016-06-11] MEDS: HYDROmorphone HCL PF 1 MG/ML VIAL IV PUSH PRN ×2 (03:11→09:16)
[2016-06-11 04:00] VITALS: BP 125/71; PULSE 73; RESP 16; TEMP 97.3; O2SAT 97
[2016-06-11] MEDS: MORPHINE SULFATE 30 MG CONTROLLED RELEASE TAB PO SCH ×3 (05:47→21:54)
[2016-06-11 08:00] VITALS: BP 110/65; PULSE 79; RESP 16; TEMP 97.4; O2SAT 96
[2016-06-11] MEDS: LACTOBACILLUS ACIDOPHILUS 1 GM PACKET PO SCH ×4 (09:00→21:00)
[2016-06-11] MEDS: MULTIVITAMINS/MINERALS THERAPEUTIC TAB PO SCH (09:00)
[2016-06-11] MEDS: MUPIROCIN 2% CREAM 15 GM TOPICAL SCH ×2 (09:00→21:55)
[2016-06-11] MEDS: ENOXAPARIN SODIUM 40 MG/0.4 ML SYRINGE SQ SCH (09:00)
[2016-06-11] MEDS: HYDROCHLOROTHIAZIDE 12.5 MG CAP PO SCH (09:00)
[2016-06-11] MEDS: POTASSIUM CL 40 MEQ/30 ML LIQ UDC NG SCH (09:00)
[2016-06-11] MEDS: SULFAMETHOXAZOLE-TRIMETHOPRIM 400-80 MG TAB PO SCH ×2 (09:01→21:48)
[2016-06-11] MEDS: SENNOSIDES 8.6 MG TAB PO SCH (09:02)
[2016-06-11] MEDS: SODIUM CHLORIDE 0.9% FLUSH 5 ML FLUSH FLUSH SCH ×2 (09:04→21:56)
[2016-06-11] MEDS: LACTIC ACID (AMMONIUM LACTATE) 12% LOTION 225 GM BTL TOPICAL SCH ×2 (09:08→21:57)
[2016-06-11] MEDS: SODIUM HYPOCHLORITE 0.5% 500 ML BTL TOPICAL SCH (09:08)
[2016-06-11 12:00] VITALS: BP 118/56; PULSE 115; RESP 18; TEMP 97.6; O2SAT 96
[2016-06-11] MEDS: hydrOXYzine HCL 10 MG TAB PO PRN (12:05)
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
[2016-06-11] MEDS ORDERED: LACTULOSE SYRUP 20 GM/30 ML CUP PO PRN (14:00)
[2016-06-11] MEDS ORDERED: ACETAMINOPHEN 325 MG TAB PO PRN (14:15)
[2016-06-11] MEDS: DOCUSATE SODIUM 50 MG/SENNA 8.6 MG TAB PO SCH ×2 (14:51→21:00)
[2016-06-11] MEDS ORDERED: DOCUSATE SODIUM 100 MG CAP PO PRN (15:00)
[2016-06-11] MEDS ORDERED: SENN1TAB PO (15:12)
[2016-06-11 16:00] VITALS: BP 115/62; PULSE 95; RESP 18; TEMP 98.2; O2SAT 96
[2016-06-11] MEDS: MORPHINE SULFATE 4 MG/ML INJ IV PRN ×2 (17:25→23:36)
[2016-06-11 20:00] VITALS: BP 109/69; PULSE 98; RESP 18; TEMP 97.2; O2SAT 95
[2016-06-11] MEDS: SODIUM CHLORIDE 0.9% FLUSH 5 ML FLUSH FLUSH PRN (23:41)
[2016-06-12] VITALS: BP 121/56; PULSE 96; RESP 20; TEMP 97.8; O2SAT 97
[2016-06-12] MEDS: oxyCODONE/ACETAMINOPHEN 10 MG/325 MG TAB PO PRN ×4 (01:31→22:46)
[2016-06-12 04:47] VITALS: BP 118/57; PULSE 87; RESP 18; TEMP 97; O2SAT 100
[2016-06-12] MEDS: SODIUM CHLORIDE 0.9% FLUSH 5 ML FLUSH FLUSH PRN (05:06)
[2016-06-12] MEDS: MORPHINE SULFATE 4 MG/ML INJ IV PRN ×2 (05:06→17:33)
[2016-06-12] MEDS: MORPHINE SULFATE 30 MG CONTROLLED RELEASE TAB PO SCH ×3 (05:59→21:38)
[2016-06-12 08:00] VITALS: BP 101/56; PULSE 78; RESP 20; TEMP 97.6; O2SAT 94
[2016-06-12] MEDS: HYDROCHLOROTHIAZIDE 12.5 MG CAP PO SCH (09:00)
[2016-06-12] MEDS: ENOXAPARIN SODIUM 40 MG/0.4 ML SYRINGE SQ SCH (09:00)
[2016-06-12] MEDS: POTASSIUM CL 40 MEQ/30 ML LIQ UDC NG SCH (09:00)
[2016-06-12] MEDS: MUPIROCIN 2% CREAM 15 GM TOPICAL SCH ×2 (09:00→21:40)
[2016-06-12] MEDS: MULTIVITAMINS/MINERALS THERAPEUTIC TAB PO SCH (09:00)
[2016-06-12] MEDS: DOCUSATE SODIUM 50 MG/SENNA 8.6 MG TAB PO SCH ×2 (09:00→21:40)
[2016-06-12] MEDS: LACTOBACILLUS ACIDOPHILUS 1 GM PACKET PO SCH ×4 (09:00→21:00)
[2016-06-12 09:32] LABS: AUTOMATED NEUTROPHIL # 4.6 TH/MM3 (1.8-7.7); BASOPHIL % 0.5 % (0.0-2.0); EOSINOPHIL # 0.5 TH/MM3 (0-0.4); EOSINOPHIL % 5.9 % (0.0-4.0); HEMATOCRIT 29.3 % (39.0-51.0); HEMO FLAGS DIFF FINAL; LYMPH % 24.3 % (9.0-44.0); LYMPHOCYTE # 1.9 TH/MM3 (1.0-4.8); MEAN CORPUSCULAR HEMOGLOBIN 28.5 PG (27.0-34.0); MEAN CORPUSCULAR HGB CONC 33.1 % (32.0-36.0); MONO % 11.7 % (0.0-8.0); NEUT % 57.6 % (16.0-70.0); PLATELET COUNT 420 TH/MM3 (150-450); RED BLOOD COUNT 3.41 MIL/MM3 (4.50-5.90); RED CELL DISTRIBUTION WIDTH 15.4 % (11.6-17.2)
[2016-06-12] MEDS: SODIUM CHLORIDE 0.9% FLUSH 5 ML FLUSH FLUSH SCH ×2 (09:52→21:48)
[2016-06-12] MEDS: SULFAMETHOXAZOLE-TRIMETHOPRIM 400-80 MG TAB PO SCH ×2 (09:52→21:39)
[2016-06-12] MEDS: LACTIC ACID (AMMONIUM LACTATE) 12% LOTION 225 GM BTL TOPICAL SCH ×2 (09:54→21:40)
[2016-06-12] MEDS: SODIUM HYPOCHLORITE 0.5% 500 ML BTL TOPICAL SCH (09:55)
[2016-06-12 10:04] LABS: BICARBONATE 28.7 MEQ/L (21.0-32.0)
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
[2016-06-12 12:35] VITALS: BP 134/70; PULSE 78; RESP 22; TEMP 96.6; O2SAT 96
[2016-06-12] MEDS: hydrOXYzine HCL 10 MG TAB PO PRN (15:32)
[2016-06-12 16:00] VITALS: BP 138/74; PULSE 98; RESP 22; TEMP 96.1; O2SAT 96
[2016-06-12 20:00] VITALS: BP 142/64; PULSE 84; RESP 18; TEMP 98.2; O2SAT 95
[2016-06-13] VITALS: BP 120/68; PULSE 78; RESP 16; TEMP 97.2; O2SAT 96
[2016-06-13] MEDS: MORPHINE SULFATE 4 MG/ML INJ IV PRN ×5 (00:21→18:24)
[2016-06-13 04:00] VITALS: BP 120/72; PULSE 75; RESP 18; TEMP 96.6; O2SAT 99
[2016-06-13] MEDS: SODIUM CHLORIDE 0.9% FLUSH 5 ML FLUSH FLUSH PRN (04:28)
[2016-06-13] MEDS: oxyCODONE/ACETAMINOPHEN 10 MG/325 MG TAB PO PRN ×4 (05:05→23:56)
[2016-06-13] MEDS: MORPHINE SULFATE 30 MG CONTROLLED RELEASE TAB PO SCH ×3 (05:57→22:53)
[2016-06-13 08:00] VITALS: BP 129/69; PULSE 73; RESP 18; TEMP 96.4; O2SAT 96
[2016-06-13] MEDS: DOCUSATE SODIUM 50 MG/SENNA 8.6 MG TAB PO SCH ×2 (08:45→19:59)
[2016-06-13] MEDS: MULTIVITAMINS/MINERALS THERAPEUTIC TAB PO SCH (08:45)
[2016-06-13] MEDS: SULFAMETHOXAZOLE-TRIMETHOPRIM 400-80 MG TAB PO SCH ×2 (08:50→19:59)
[2016-06-13] MEDS: SODIUM CHLORIDE 0.9% FLUSH 5 ML FLUSH FLUSH SCH ×2 (08:50→20:01)
[2016-06-13] MEDS: ENOXAPARIN SODIUM 40 MG/0.4 ML SYRINGE SQ SCH (08:50)
[2016-06-13] MEDS: LACTOBACILLUS ACIDOPHILUS 1 GM PACKET PO SCH ×4 (09:00→19:59)
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
[2016-06-13] MEDS: LACTIC ACID (AMMONIUM LACTATE) 12% LOTION 225 GM BTL TOPICAL SCH ×2 (11:33→20:01)
[2016-06-13] MEDS: SODIUM HYPOCHLORITE 0.5% 500 ML BTL TOPICAL SCH (11:40)
[2016-06-13] MEDS: MUPIROCIN 2% CREAM 15 GM TOPICAL SCH ×2 (11:40→20:00)
[2016-06-13 12:00] VITALS: BP 121/67; PULSE 92; RESP 20; TEMP 98.3; O2SAT 96
[2016-06-13 16:00] VITALS: BP 110/66; PULSE 90; RESP 18; TEMP 97.6; O2SAT 95
[2016-06-13 20:00] VITALS: BP 129/70; PULSE 74; RESP 18; TEMP 97; O2SAT 94
[2016-06-14] VITALS: BP 136/63; PULSE 93; RESP 18; TEMP 97.4; O2SAT 97
[2016-06-14] MEDS: MORPHINE SULFATE 4 MG/ML INJ IV PRN ×5 (00:58→19:56)
[2016-06-14 04:00] VITALS: BP 138/77; PULSE 79; RESP 18; TEMP 98.5; O2SAT 96
[2016-06-14] MEDS: MORPHINE SULFATE 30 MG CONTROLLED RELEASE TAB PO SCH ×3 (04:58→22:08)
[2016-06-14] MEDS: oxyCODONE/ACETAMINOPHEN 10 MG/325 MG TAB PO PRN ×4 (05:57→23:20)
[2016-06-14 08:00] VITALS: BP 120/69; PULSE 75; RESP 16; TEMP 96.8; O2SAT 96
[2016-06-14] MEDS: MULTIVITAMINS/MINERALS THERAPEUTIC TAB PO SCH (09:00)
[2016-06-14] MEDS: MUPIROCIN 2% CREAM 15 GM TOPICAL SCH ×2 (09:00→21:00)
[2016-06-14] MEDS: LACTOBACILLUS ACIDOPHILUS 1 GM PACKET PO SCH ×4 (09:00→21:00)
[2016-06-14] MEDS: DOCUSATE SODIUM 50 MG/SENNA 8.6 MG TAB PO SCH ×2 (09:00→21:00)
[2016-06-14] MEDS: LACTIC ACID (AMMONIUM LACTATE) 12% LOTION 225 GM BTL TOPICAL SCH ×2 (09:00→22:09)
[2016-06-14] MEDS: SODIUM HYPOCHLORITE 0.5% 500 ML BTL TOPICAL SCH ×2 (09:00→22:09)
[2016-06-14] MEDS: SULFAMETHOXAZOLE-TRIMETHOPRIM 400-80 MG TAB PO SCH ×2 (09:15→22:08)
[2016-06-14] MEDS: SODIUM CHLORIDE 0.9% FLUSH 5 ML FLUSH FLUSH SCH ×2 (09:16→19:56)
[2016-06-14] MEDS: ENOXAPARIN SODIUM 40 MG/0.4 ML SYRINGE SQ SCH (09:18)
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
[2016-06-14 16:00] VITALS: BP 136/65; PULSE 79; RESP 20; TEMP 97.6; O2SAT 98
[2016-06-14 20:00] VITALS: BP 125/70; PULSE 76; RESP 18; TEMP 97.9; O2SAT 96
[2016-06-15] VITALS: BP 110/62; PULSE 75; RESP 18; TEMP 97; O2SAT 95
[2016-06-15] MEDS: MORPHINE SULFATE 4 MG/ML INJ IV PRN ×5 (00:31→21:57)
[2016-06-15 04:00] VITALS: BP 133/72; PULSE 80; RESP 18; TEMP 97; O2SAT 98
[2016-06-15] MEDS: MORPHINE SULFATE 30 MG CONTROLLED RELEASE TAB PO SCH ×3 (04:40→21:56)
[2016-06-15] MEDS: oxyCODONE/ACETAMINOPHEN 10 MG/325 MG TAB PO PRN ×4 (04:41→23:15)
[2016-06-15 08:00] VITALS: BP 121/63; PULSE 66; RESP 16; TEMP 97.9; O2SAT 96
[2016-06-15] MEDS: MUPIROCIN 2% CREAM 15 GM TOPICAL SCH ×2 (09:00→21:00)
[2016-06-15] MEDS: LACTOBACILLUS ACIDOPHILUS 1 GM PACKET PO SCH ×4 (09:00→21:00)
[2016-06-15] MEDS: MULTIVITAMINS/MINERALS THERAPEUTIC TAB PO SCH (09:00)
[2016-06-15] MEDS: LACTIC ACID (AMMONIUM LACTATE) 12% LOTION 225 GM BTL TOPICAL SCH ×2 (09:00→22:07)
[2016-06-15] MEDS: DOCUSATE SODIUM 50 MG/SENNA 8.6 MG TAB PO SCH ×2 (09:00→21:00)
[2016-06-15] MEDS: SULFAMETHOXAZOLE-TRIMETHOPRIM 400-80 MG TAB PO SCH ×2 (09:01→22:02)
[2016-06-15] MEDS: ENOXAPARIN SODIUM 40 MG/0.4 ML SYRINGE SQ SCH (09:01)
[2016-06-15] MEDS: SODIUM CHLORIDE 0.9% FLUSH 5 ML FLUSH FLUSH SCH ×2 (09:02→22:07)
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
[2016-06-15 12:00] VITALS: BP 154/68; PULSE 88; RESP 16; TEMP 98.4; O2SAT 98
[2016-06-15] MEDS: SODIUM HYPOCHLORITE 0.5% 500 ML BTL TOPICAL SCH (12:15)
[2016-06-15] MEDS: hydrOXYzine HCL 10 MG TAB PO PRN (14:18)
[2016-06-15 16:00] VITALS: BP 152/68; PULSE 81; RESP 16; TEMP 98; O2SAT 98
[2016-06-15 20:00] VITALS: BP 124/67; PULSE 89; RESP 18; TEMP 99.4; O2SAT 95
[2016-06-16] VITALS (7 sets, daily range): BP systolic 115–159; BP diastolic 62–88; PULSE 86–113; RESP 16–24; TEMP 97.7–100.8; O2SAT 95–97
[2016-06-16] MEDS: hydrOXYzine HCL 10 MG TAB PO PRN ×3 (01:01→23:59)
[2016-06-16] MEDS: MORPHINE SULFATE 4 MG/ML INJ IV PRN ×4 (04:26→19:52)
[2016-06-16] MEDS: MORPHINE SULFATE 30 MG CONTROLLED RELEASE TAB PO SCH ×3 (05:39→23:58)
[2016-06-16] MEDS: oxyCODONE/ACETAMINOPHEN 10 MG/325 MG TAB PO PRN ×4 (05:40→23:59)
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
[2016-06-16] MEDS: LACTOBACILLUS ACIDOPHILUS 1 GM PACKET PO SCH ×4 (09:00→20:40)
[2016-06-16] MEDS: DOCUSATE SODIUM 50 MG/SENNA 8.6 MG TAB PO SCH ×2 (09:00→20:40)
[2016-06-16] MEDS: MUPIROCIN 2% CREAM 15 GM TOPICAL SCH ×2 (09:00→21:00)
[2016-06-16] MEDS: MULTIVITAMINS/MINERALS THERAPEUTIC TAB PO SCH (09:00)
[2016-06-16] MEDS: LACTIC ACID (AMMONIUM LACTATE) 12% LOTION 225 GM BTL TOPICAL SCH ×2 (09:00→21:00)
[2016-06-16] MEDS: ENOXAPARIN SODIUM 40 MG/0.4 ML SYRINGE SQ SCH (09:59)
[2016-06-16] MEDS: SULFAMETHOXAZOLE-TRIMETHOPRIM 400-80 MG TAB PO SCH (09:59)
[2016-06-16] MEDS: SODIUM CHLORIDE 0.9% FLUSH 5 ML FLUSH FLUSH SCH ×2 (09:59→21:00)
[2016-06-16] MEDS: SODIUM HYPOCHLORITE 0.5% 500 ML BTL TOPICAL SCH (12:00)
[2016-06-17] VITALS: BP 115/58; PULSE 89; RESP 17; TEMP 100.4; O2SAT 96
[2016-06-17 02:18] LABS: C. DIFF EPI 027 PRESUMPTIVE POSITIVE (NEGATIVE)
[2016-06-17 02:20] LABS: C. DIFF TOXIN PCR POSITIVE (NEGATIVE)
[2016-06-17 04:00] VITALS: BP 139/67; PULSE 79; RESP 16; TEMP 96.5; O2SAT 96
[2016-06-17] MEDS: metroNIDAZOLE 500 MG INJ 100 ML IV SCH ×3 (04:10→17:31)
[2016-06-17] MEDS: MORPHINE SULFATE 4 MG/ML INJ IV PRN ×5 (04:22→22:37)
[2016-06-17] MEDS: MORPHINE SULFATE 30 MG CONTROLLED RELEASE TAB PO SCH ×3 (05:49→22:23)
[2016-06-17] MEDS: oxyCODONE/ACETAMINOPHEN 10 MG/325 MG TAB PO PRN ×3 (05:49→19:02)
[2016-06-17] MEDS: LACTIC ACID (AMMONIUM LACTATE) 12% LOTION 225 GM BTL TOPICAL SCH ×2 (09:00→22:33)
[2016-06-17] MEDS: DOCUSATE SODIUM 50 MG/SENNA 8.6 MG TAB PO SCH (09:00)
[2016-06-17] MEDS: MULTIVITAMINS/MINERALS THERAPEUTIC TAB PO SCH (09:00)
[2016-06-17] MEDS: MUPIROCIN 2% CREAM 15 GM TOPICAL SCH ×2 (09:00→22:33)
[2016-06-17] MEDS: ENOXAPARIN SODIUM 40 MG/0.4 ML SYRINGE SQ SCH (09:27)
[2016-06-17] MEDS: SODIUM CHLORIDE 0.9% FLUSH 5 ML FLUSH FLUSH SCH ×2 (09:28→22:31)
[2016-06-17] MEDS: LACTOBACILLUS ACIDOPHILUS 1 GM PACKET PO SCH ×4 (09:28→22:25)
[2016-06-17 10:07] VITALS: BP 128/77; PULSE 74; RESP 20; TEMP 96.6; O2SAT 97
[2016-06-17 12:30] VITALS: BP 110/58; PULSE 110; RESP 22; TEMP 97.4; O2SAT 96
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
[2016-06-17] MEDS ORDERED: metroNIDAZOLE 500 MG TAB PO SCH (14:00)
[2016-06-17] MEDS: hydrOXYzine HCL 10 MG TAB PO PRN (15:22)
[2016-06-17 17:33] VITALS: BP 121/66; PULSE 74; RESP 20; TEMP 97.2; O2SAT 96
[2016-06-17 20:00] VITALS: BP 150/90; PULSE 78; RESP 17; TEMP 98.7; O2SAT 96
[2016-06-18] VITALS: BP 137/81; PULSE 77; RESP 15; TEMP 97.3; O2SAT 97
[2016-06-18] MEDS: oxyCODONE/ACETAMINOPHEN 10 MG/325 MG TAB PO PRN ×4 (01:01→19:29)
[2016-06-18] MEDS: metroNIDAZOLE 500 MG INJ 100 ML IV SCH ×2 (01:05→09:56)
[2016-06-18 04:00] VITALS: BP 108/63; PULSE 74; RESP 15; TEMP 97.2; O2SAT 95
[2016-06-18] MEDS: MORPHINE SULFATE 4 MG/ML INJ IV PRN ×5 (04:25→22:53)
[2016-06-18] MEDS: MORPHINE SULFATE 30 MG CONTROLLED RELEASE TAB PO SCH ×3 (06:29→22:45)
[2016-06-18 08:11] LABS: AUTOMATED NEUTROPHIL # 5.6 TH/MM3 (1.8-7.7); BASOPHIL % 0.4 % (0.0-2.0); EOSINOPHIL # 0.5 TH/MM3 (0-0.4); EOSINOPHIL % 4.7 % (0.0-4.0); HEMATOCRIT 28.6 % (39.0-51.0); HEMO FLAGS DIFF FINAL; LYMPH % 26.4 % (9.0-44.0); LYMPHOCYTE # 2.6 TH/MM3 (1.0-4.8); MEAN CELL VOLUME 86.9 FL (80.0-100.0); MEAN CORPUSCULAR HEMOGLOBIN 28.1 PG (27.0-34.0); MEAN CORPUSCULAR HGB CONC 32.3 % (32.0-36.0); MONO % 10.3 % (0.0-8.0); NEUT % 58.2 % (16.0-70.0); PLATELET COUNT 422 TH/MM3 (150-450); RED BLOOD COUNT 3.29 MIL/MM3 (4.50-5.90); RED CELL DISTRIBUTION WIDTH 15.6 % (11.6-17.2); WHITE BLOOD COUNT 9.7 TH/MM3 (4.0-11.0)
[2016-06-18 08:30] VITALS: BP 110/66; PULSE 72; RESP 22; TEMP 96.8; O2SAT 97
[2016-06-18 08:34] LABS: BICARBONATE 28.4 MEQ/L (21.0-32.0); POTASSIUM 3.9 MEQ/L (3.5-5.1)
[2016-06-18] MEDS: MULTIVITAMINS/MINERALS THERAPEUTIC TAB PO SCH (09:00)
[2016-06-18] MEDS: MUPIROCIN 2% CREAM 15 GM TOPICAL SCH ×2 (09:00→21:00)
[2016-06-18] MEDS: SODIUM CHLORIDE 0.9% FLUSH 5 ML FLUSH FLUSH SCH ×2 (09:55→23:09)
[2016-06-18] MEDS: ENOXAPARIN SODIUM 40 MG/0.4 ML SYRINGE SQ SCH (09:55)
[2016-06-18] MEDS: LACTOBACILLUS ACIDOPHILUS 1 GM PACKET PO SCH ×4 (09:56→21:00)
[2016-06-18] MEDS: LACTIC ACID (AMMONIUM LACTATE) 12% LOTION 225 GM BTL TOPICAL SCH ×2 (09:56→23:10)
[2016-06-18] MEDS: SODIUM HYPOCHLORITE 0.5% 500 ML BTL TOPICAL SCH (09:56)
[2016-06-18 14:11] VITALS: BP 126/76; PULSE 102; RESP 22; TEMP 97.5; O2SAT 95
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
[2016-06-18 16:10] VITALS: BP 114/66; PULSE 88; RESP 20; TEMP 96.2; O2SAT 95
[2016-06-18] MEDS: hydrOXYzine HCL 10 MG TAB PO PRN (16:12)
[2016-06-18] MEDS: metroNIDAZOLE 250 MG TAB PO SCH (17:00)
[2016-06-18 20:00] VITALS: BP 107/68; PULSE 107; RESP 18; TEMP 97.4; O2SAT 96
[2016-06-19] VITALS: BP 120/66; PULSE 106; RESP 18; TEMP 97.7; O2SAT 97
[2016-06-19] MEDS: metroNIDAZOLE 250 MG TAB PO SCH ×3 (01:00→17:58)
[2016-06-19] MEDS: oxyCODONE/ACETAMINOPHEN 10 MG/325 MG TAB PO PRN ×4 (01:46→19:45)
[2016-06-19 04:00] VITALS: BP 136/77; PULSE 80; RESP 16; TEMP 97.3; O2SAT 95
[2016-06-19] MEDS: MORPHINE SULFATE 30 MG CONTROLLED RELEASE TAB PO SCH ×3 (06:27→22:46)
[2016-06-19] MEDS: SODIUM CHLORIDE 0.9% FLUSH 5 ML FLUSH FLUSH SCH ×2 (07:47→19:45)
[2016-06-19] MEDS: MULTIVITAMINS/MINERALS THERAPEUTIC TAB PO SCH (07:47)
[2016-06-19] MEDS: LACTOBACILLUS ACIDOPHILUS 1 GM PACKET PO SCH ×4 (07:47→20:33)
[2016-06-19] MEDS: ENOXAPARIN SODIUM 40 MG/0.4 ML SYRINGE SQ SCH (07:47)
[2016-06-19 07:50] VITALS: BP 103/65; PULSE 80; RESP 16; TEMP 96.8; O2SAT 96
[2016-06-19] MEDS: MUPIROCIN 2% CREAM 15 GM TOPICAL SCH ×2 (08:00→20:33)
[2016-06-19] MEDS: LACTIC ACID (AMMONIUM LACTATE) 12% LOTION 225 GM BTL TOPICAL SCH ×2 (08:00→20:33)
[2016-06-19] MEDS: MORPHINE SULFATE 4 MG/ML INJ IV PRN ×3 (10:21→20:29)
[2016-06-19 11:00] VITALS: BP 123/69; PULSE 82; RESP 20; TEMP 96.1; O2SAT 97
[2016-06-19] MEDS: SODIUM HYPOCHLORITE 0.5% 500 ML BTL TOPICAL SCH (11:00)
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
[2016-06-19 15:30] VITALS: BP 111/68; PULSE 94; RESP 20; TEMP 96.4; O2SAT 96
[2016-06-19 20:00] VITALS: BP 125/71; PULSE 92; RESP 18; TEMP 97; O2SAT 96
[2016-06-20] VITALS: BP 120/66; PULSE 95; RESP 17; TEMP 96.9; O2SAT 97
[2016-06-20] MEDS: metroNIDAZOLE 250 MG TAB PO SCH ×3 (00:58→17:00)
[2016-06-20] MEDS: MORPHINE SULFATE 4 MG/ML INJ IV PRN ×4 (00:58→19:33)
[2016-06-20] MEDS: hydrOXYzine HCL 10 MG TAB PO PRN (01:03)
[2016-06-20] MEDS: oxyCODONE/ACETAMINOPHEN 10 MG/325 MG TAB PO PRN ×4 (01:40→22:30)
[2016-06-20 04:00] VITALS: BP 112/65; PULSE 104; RESP 17; TEMP 96.5; O2SAT 95
[2016-06-20] MEDS: MORPHINE SULFATE 30 MG CONTROLLED RELEASE TAB PO SCH ×3 (05:15→22:00)
[2016-06-20] MEDS: ENOXAPARIN SODIUM 40 MG/0.4 ML SYRINGE SQ SCH (07:58)
[2016-06-20] MEDS: MULTIVITAMINS/MINERALS THERAPEUTIC TAB PO SCH (07:58)
[2016-06-20] MEDS: SODIUM CHLORIDE 0.9% FLUSH 5 ML FLUSH FLUSH SCH ×2 (07:58→19:33)
[2016-06-20] MEDS: MUPIROCIN 2% CREAM 15 GM TOPICAL SCH ×2 (07:58→22:28)
[2016-06-20] MEDS: LACTIC ACID (AMMONIUM LACTATE) 12% LOTION 225 GM BTL TOPICAL SCH ×2 (07:59→22:30)
[2016-06-20 08:00] VITALS: BP 101/73; PULSE 96; RESP 16; TEMP 96.6; O2SAT 96
[2016-06-20] MEDS: LACTOBACILLUS ACIDOPHILUS 1 GM PACKET PO SCH ×4 (08:02→22:00)
[2016-06-20] MEDS: SODIUM HYPOCHLORITE 0.5% 500 ML BTL TOPICAL SCH (09:00)
[2016-06-20 12:00] VITALS: BP 112/74; PULSE 88; RESP 16; TEMP 96.8; O2SAT 97
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
[2016-06-20 16:00] VITALS: BP 152/80; PULSE 95; RESP 16; TEMP 95.6; O2SAT 98
[2016-06-20 20:00] VITALS: BP 111/71; PULSE 85; RESP 17; TEMP 97.4; O2SAT 97
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
[2016-06-21] VITALS: BP 120/79; PULSE 76; RESP 17; TEMP 97.7; O2SAT 96
[2016-06-21] MEDS: metroNIDAZOLE 250 MG TAB PO SCH ×3 (01:46→17:03)
[2016-06-21] MEDS: MORPHINE SULFATE 4 MG/ML INJ IV PRN ×3 (02:14→18:07)
[2016-06-21 04:00] VITALS: BP 121/72; PULSE 76; RESP 18; TEMP 96.2; O2SAT 95
[2016-06-21] MEDS: oxyCODONE/ACETAMINOPHEN 10 MG/325 MG TAB PO PRN ×4 (04:26→23:30)
[2016-06-21] MEDS: MORPHINE SULFATE 30 MG CONTROLLED RELEASE TAB PO SCH ×3 (05:43→22:28)
[2016-06-21 09:00] VITALS: BP 137/81; PULSE 80; RESP 18; TEMP 96; O2SAT 100
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
[2016-06-21] MEDS: ENOXAPARIN SODIUM 40 MG/0.4 ML SYRINGE SQ SCH (11:08)
[2016-06-21] MEDS: LACTOBACILLUS ACIDOPHILUS 1 GM PACKET PO SCH ×3 (11:09→17:01)
[2016-06-21] MEDS: MULTIVITAMINS/MINERALS THERAPEUTIC TAB PO SCH (11:09)
[2016-06-21] MEDS: MUPIROCIN 2% CREAM 15 GM TOPICAL SCH ×2 (11:10→22:30)
[2016-06-21] MEDS: LACTIC ACID (AMMONIUM LACTATE) 12% LOTION 225 GM BTL TOPICAL SCH ×2 (11:11→22:29)
[2016-06-21] MEDS: SODIUM HYPOCHLORITE 0.5% 500 ML BTL TOPICAL SCH (11:12)
[2016-06-21] MEDS: SODIUM CHLORIDE 0.9% FLUSH 5 ML FLUSH FLUSH SCH ×2 (11:19→22:28)
[2016-06-21 16:00] VITALS: BP 122/79; PULSE 91; RESP 18; TEMP 96.8; O2SAT 96
[2016-06-21 20:00] VITALS: BP 114/62; PULSE 110; RESP 17; TEMP 97.6; O2SAT 94
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
[2016-06-22] VITALS: BP 110/70; PULSE 99; RESP 18; TEMP 97.8; O2SAT 94
[2016-06-22] MEDS: metroNIDAZOLE 250 MG TAB PO SCH ×3 (02:15→17:48)
[2016-06-22] MEDS: LACTOBACILLUS ACIDOPHILUS 1 GM PACKET PO SCH ×5 (02:15→20:34)
[2016-06-22] MEDS: MORPHINE SULFATE 4 MG/ML INJ IV PRN ×3 (02:21→20:33)
[2016-06-22 04:00] VITALS: BP 108/60; PULSE 86; RESP 16; TEMP 98; O2SAT 96
[2016-06-22] MEDS: oxyCODONE/ACETAMINOPHEN 10 MG/325 MG TAB PO PRN ×3 (05:17→17:47)
[2016-06-22] MEDS: MORPHINE SULFATE 30 MG CONTROLLED RELEASE TAB PO SCH ×3 (06:14→23:11)
[2016-06-22 07:13] LABS: BASOPHIL # 0.1 TH/MM3 (0-0.2); BASOPHIL % 0.7 % (0.0-2.0); EOSINOPHIL # 0.5 TH/MM3 (0-0.4); EOSINOPHIL % 6.3 % (0.0-4.0); HEMATOCRIT 27.7 % (39.0-51.0); HEMO FLAGS DIFF FINAL; LYMPH % 27.2 % (9.0-44.0); LYMPHOCYTE # 2.1 TH/MM3 (1.0-4.8); MEAN CELL VOLUME 85.8 FL (80.0-100.0); MEAN CORPUSCULAR HEMOGLOBIN 28.2 PG (27.0-34.0); MEAN CORPUSCULAR HGB CONC 32.9 % (32.0-36.0); MONO % 14.9 % (0.0-8.0); NEUT % 50.9 % (16.0-70.0); PLATELET COUNT 427 TH/MM3 (150-450); RED BLOOD COUNT 3.23 MIL/MM3 (4.50-5.90); RED CELL DISTRIBUTION WIDTH 15.6 % (11.6-17.2); WHITE BLOOD COUNT 7.8 TH/MM3 (4.0-11.0)
[2016-06-22 07:44] LABS: BICARBONATE 27.9 MEQ/L (21.0-32.0); POTASSIUM 3.5 MEQ/L (3.5-5.1)
[2016-06-22 09:00] VITALS: BP 115/71; PULSE 81; RESP 16; TEMP 98.7; O2SAT 96
[2016-06-22] MEDS: SODIUM CHLORIDE 0.9% FLUSH 5 ML FLUSH FLUSH SCH ×2 (09:00→20:33)
[2016-06-22] MEDS: SODIUM HYPOCHLORITE 0.125% 500 ML BTL TOPICAL SCH ×2 (09:00→20:37)
[2016-06-22] MEDS: ENOXAPARIN SODIUM 40 MG/0.4 ML SYRINGE SQ SCH (09:00)
[2016-06-22] MEDS: MUPIROCIN 2% CREAM 15 GM TOPICAL SCH ×2 (09:00→20:37)
[2016-06-22] MEDS: LACTIC ACID (AMMONIUM LACTATE) 12% LOTION 225 GM BTL TOPICAL SCH ×2 (09:00→20:36)
[2016-06-22] MEDS: MULTIVITAMINS/MINERALS THERAPEUTIC TAB PO SCH (09:00)
[2016-06-22 13:30] VITALS: BP 113/63; PULSE 84; RESP 20; TEMP 99.3; O2SAT 95
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
[2016-06-22 16:00] VITALS: BP 112/71; PULSE 105; RESP 18; TEMP 98.9; O2SAT 96
[2016-06-22 20:00] VITALS: BP 106/66; PULSE 87; RESP 18; TEMP 98; O2SAT 95
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
[2016-06-23] VITALS (7 sets, daily range): BP systolic 102–142; BP diastolic 59–77; PULSE 70–85; RESP 16–19; TEMP 96.5–97.8; O2SAT 94–100
[2016-06-23] MEDS: oxyCODONE/ACETAMINOPHEN 10 MG/325 MG TAB PO PRN ×5 (01:10→22:11)
[2016-06-23] MEDS: metroNIDAZOLE 250 MG TAB PO SCH ×3 (01:14→17:00)
[2016-06-23] MEDS: MORPHINE SULFATE 30 MG CONTROLLED RELEASE TAB PO SCH ×3 (05:38→21:02)
[2016-06-23] MEDS: hydrOXYzine HCL 10 MG TAB PO PRN ×2 (07:50→22:11)
[2016-06-23] MEDS: SODIUM CHLORIDE 0.9% FLUSH 5 ML FLUSH FLUSH SCH ×2 (07:52→20:17)
[2016-06-23] MEDS: ENOXAPARIN SODIUM 40 MG/0.4 ML SYRINGE SQ SCH (07:53)
[2016-06-23] MEDS: SODIUM HYPOCHLORITE 0.125% 500 ML BTL TOPICAL SCH ×2 (07:53→20:18)
[2016-06-23] MEDS: MULTIVITAMINS/MINERALS THERAPEUTIC TAB PO SCH (07:53)
[2016-06-23] MEDS: LACTOBACILLUS ACIDOPHILUS 1 GM PACKET PO SCH ×4 (07:53→20:17)
[2016-06-23] MEDS: MUPIROCIN 2% CREAM 15 GM TOPICAL SCH ×2 (07:53→20:18)
[2016-06-23] MEDS: LACTIC ACID (AMMONIUM LACTATE) 12% LOTION 225 GM BTL TOPICAL SCH ×2 (07:54→20:18)
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
[2016-06-23] MEDS: FLUTICASONE PROPIONATE 50 MCG/ACT 16 GM NASAL SPRAY NASAL SCH (20:17)
[2016-06-24] MEDS: metroNIDAZOLE 250 MG TAB PO SCH ×3 (00:07→21:27)
[2016-06-24 00:12] VITALS: BP 118/70; PULSE 72; RESP 16; TEMP 97.3; O2SAT 96
[2016-06-24] MEDS: oxyCODONE/ACETAMINOPHEN 10 MG/325 MG TAB PO PRN ×5 (02:00→20:54)
[2016-06-24 06:00] VITALS: BP 156/85; PULSE 77; RESP 16; TEMP 98.9; O2SAT 96
[2016-06-24] MEDS: MORPHINE SULFATE 30 MG CONTROLLED RELEASE TAB PO SCH ×3 (06:22→21:25)
[2016-06-24 07:44] VITALS: BP 144/81; PULSE 69; RESP 20; TEMP 96.8; O2SAT 97
[2016-06-24] MEDS: MULTIVITAMINS/MINERALS THERAPEUTIC TAB PO SCH (09:00)
[2016-06-24] MEDS: LACTOBACILLUS ACIDOPHILUS 1 GM PACKET PO SCH ×3 (09:00→20:57)
[2016-06-24] MEDS: MUPIROCIN 2% CREAM 15 GM TOPICAL SCH ×2 (09:00→21:00)
[2016-06-24] MEDS: ENOXAPARIN SODIUM 40 MG/0.4 ML SYRINGE SQ SCH (09:53)
[2016-06-24] MEDS: FLUTICASONE PROPIONATE 50 MCG/ACT 16 GM NASAL SPRAY NASAL SCH ×2 (09:54→20:59)
[2016-06-24] MEDS: SODIUM CHLORIDE 0.9% FLUSH 5 ML FLUSH FLUSH SCH ×2 (09:57→20:59)
[2016-06-24] MEDS: SODIUM HYPOCHLORITE 0.125% 500 ML BTL TOPICAL SCH ×2 (10:02→21:00)
[2016-06-24] MEDS: LACTIC ACID (AMMONIUM LACTATE) 12% LOTION 225 GM BTL TOPICAL SCH ×2 (10:03→21:03)
[2016-06-24 11:30] VITALS: BP 112/69; PULSE 71; RESP 20; TEMP 97.5; O2SAT 97
[2016-06-24 15:50] VITALS: BP 139/77; PULSE 83; RESP 20; TEMP 99.6; O2SAT 95
[2016-06-24] MEDS ORDERED: metroNIDAZOLE 500 MG TAB PO SCH (18:00)
[2016-06-24 21:06] VITALS: BP 113/75; PULSE 85; RESP 20; TEMP 97.7; O2SAT 96
[2016-06-25] MEDS: oxyCODONE/ACETAMINOPHEN 10 MG/325 MG TAB PO PRN ×6 (00:52→22:54)
[2016-06-25 00:53] VITALS: BP 142/90; PULSE 80; RESP 19; TEMP 96.9; O2SAT 96
[2016-06-25] MEDS: metroNIDAZOLE 250 MG TAB PO SCH ×3 (04:59→21:17)
[2016-06-25] MEDS: MORPHINE SULFATE 30 MG CONTROLLED RELEASE TAB PO SCH ×3 (04:59→21:18)
[2016-06-25] MEDS: hydrOXYzine HCL 10 MG TAB PO PRN ×2 (05:30→11:54)
[2016-06-25 07:50] VITALS: BP 121/69; PULSE 81; RESP 20; TEMP 97.2; O2SAT 96
[2016-06-25] MEDS: FLUTICASONE PROPIONATE 50 MCG/ACT 16 GM NASAL SPRAY NASAL SCH ×2 (09:00→21:20)
[2016-06-25] MEDS: LACTIC ACID (AMMONIUM LACTATE) 12% LOTION 225 GM BTL TOPICAL SCH ×2 (09:00→21:21)
[2016-06-25] MEDS: LACTOBACILLUS ACIDOPHILUS 1 GM PACKET PO SCH ×4 (09:00→21:00)
[2016-06-25] MEDS: MULTIVITAMINS/MINERALS THERAPEUTIC TAB PO SCH (09:00)
[2016-06-25] MEDS: MUPIROCIN 2% CREAM 15 GM TOPICAL SCH ×2 (09:00→21:24)
[2016-06-25] MEDS: SODIUM HYPOCHLORITE 0.125% 500 ML BTL TOPICAL SCH ×2 (09:00→21:24)
[2016-06-25] MEDS: ENOXAPARIN SODIUM 40 MG/0.4 ML SYRINGE SQ SCH (09:05)
[2016-06-25] MEDS: SODIUM CHLORIDE 0.9% FLUSH 5 ML FLUSH FLUSH SCH ×2 (09:06→21:26)
[2016-06-25 11:45] VITALS: BP 107/61; PULSE 88; RESP 20; TEMP 96.9; O2SAT 97
[2016-06-25 15:50] VITALS: BP 116/69; PULSE 83; RESP 20; TEMP 98; O2SAT 98
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
[2016-06-25 20:00] VITALS: BP 118/84; PULSE 86; RESP 18; TEMP 99.3; O2SAT 98
[2016-06-26] VITALS: BP 123/72; PULSE 82; RESP 17; TEMP 97.5; O2SAT 96
[2016-06-26] MEDS: hydrOXYzine HCL 10 MG TAB PO PRN (01:10)
[2016-06-26] MEDS: oxyCODONE/ACETAMINOPHEN 10 MG/325 MG TAB PO PRN ×6 (02:48→21:58)
[2016-06-26 04:00] VITALS: BP 125/67; PULSE 74; RESP 19; TEMP 97.8; O2SAT 94
[2016-06-26] MEDS: MORPHINE SULFATE 30 MG CONTROLLED RELEASE TAB PO SCH ×3 (05:19→21:58)
[2016-06-26] MEDS: metroNIDAZOLE 250 MG TAB PO SCH ×3 (05:20→22:00)
[2016-06-26 08:00] VITALS: BP 114/62; PULSE 72; RESP 18; TEMP 97.3; O2SAT 95
[2016-06-26] MEDS: SODIUM CHLORIDE 0.9% FLUSH 5 ML FLUSH FLUSH SCH ×2 (09:00→22:00)
[2016-06-26] MEDS: LACTOBACILLUS ACIDOPHILUS 1 GM PACKET PO SCH ×2 (09:00→14:48)
[2016-06-26] MEDS: MULTIVITAMINS/MINERALS THERAPEUTIC TAB PO SCH (09:00)
[2016-06-26] MEDS: ENOXAPARIN SODIUM 40 MG/0.4 ML SYRINGE SQ SCH (10:45)
[2016-06-26] MEDS: FLUTICASONE PROPIONATE 50 MCG/ACT 16 GM NASAL SPRAY NASAL SCH ×2 (10:56→22:01)
[2016-06-26] MEDS: LACTIC ACID (AMMONIUM LACTATE) 12% LOTION 225 GM BTL TOPICAL SCH ×2 (10:58→21:00)
[2016-06-26] MEDS: MUPIROCIN 2% CREAM 15 GM TOPICAL SCH ×2 (11:01→22:01)
[2016-06-26] MEDS: SODIUM HYPOCHLORITE 0.125% 500 ML BTL TOPICAL SCH ×2 (11:01→22:01)
[2016-06-26 12:00] VITALS: BP 118/67; PULSE 76; RESP 20; TEMP 96.3; O2SAT 97
[2016-06-26 16:00] VITALS: BP 121/65; PULSE 96; RESP 20; TEMP 98.5; O2SAT 97
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
[2016-06-26] MEDS: LACTOBACILLUS ACIDOPHILUS TAB PO SCH (18:00)
[2016-06-26 20:30] VITALS: BP 120/65; PULSE 80; RESP 16; TEMP 99.2; O2SAT 96
[2016-06-26] MEDS: CHOLESTYRAMINE 4 GM PACKET PO SCH (21:57)
[2016-06-27] VITALS (7 sets, daily range): BP systolic 119–148; BP diastolic 62–88; PULSE 65–90; RESP 16–18; TEMP 97.6–98.8; O2SAT 95–98
[2016-06-27] MEDS: oxyCODONE/ACETAMINOPHEN 10 MG/325 MG TAB PO PRN ×5 (02:20→22:59)
[2016-06-27] MEDS: CHOLESTYRAMINE 4 GM PACKET PO SCH ×3 (06:00→23:01)
[2016-06-27] MEDS: MORPHINE SULFATE 30 MG CONTROLLED RELEASE TAB PO SCH ×3 (06:11→21:22)
[2016-06-27] MEDS: metroNIDAZOLE 250 MG TAB PO SCH ×4 (06:12→23:01)
[2016-06-27 06:51] LABS: AUTOMATED NEUTROPHIL # 2.9 TH/MM3 (1.8-7.7); BASOPHIL % 0.6 % (0.0-2.0); EOSINOPHIL # 0.4 TH/MM3 (0-0.4); EOSINOPHIL % 5.8 % (0.0-4.0); HEMATOCRIT 29.1 % (39.0-51.0); HEMO FLAGS DIFF FINAL; LYMPH % 34.8 % (9.0-44.0); LYMPHOCYTE # 2.3 TH/MM3 (1.0-4.8); MEAN CELL VOLUME 85.6 FL (80.0-100.0); MEAN CORPUSCULAR HEMOGLOBIN 28.1 PG (27.0-34.0); MEAN CORPUSCULAR HGB CONC 32.9 % (32.0-36.0); MONO % 14.2 % (0.0-8.0); NEUT % 44.6 % (16.0-70.0); PLATELET COUNT 433 TH/MM3 (150-450); RED CELL DISTRIBUTION WIDTH 15.7 % (11.6-17.2); WHITE BLOOD COUNT 6.5 TH/MM3 (4.0-11.0)
[2016-06-27 07:24] LABS: POTASSIUM 3.9 MEQ/L (3.5-5.1)
[2016-06-27] MEDS: MULTIVITAMINS/MINERALS THERAPEUTIC TAB PO SCH (08:20)
[2016-06-27] MEDS: hydrOXYzine HCL 10 MG TAB PO PRN ×2 (08:20→21:22)
[2016-06-27] MEDS: ENOXAPARIN SODIUM 40 MG/0.4 ML SYRINGE SQ SCH (08:22)
[2016-06-27] MEDS: LACTOBACILLUS ACIDOPHILUS TAB PO SCH ×2 (08:24→12:50)
[2016-06-27] MEDS: FLUTICASONE PROPIONATE 50 MCG/ACT 16 GM NASAL SPRAY NASAL SCH ×2 (08:24→21:22)
[2016-06-27] MEDS: MUPIROCIN 2% CREAM 15 GM TOPICAL SCH ×2 (08:26→21:00)
[2016-06-27] MEDS: SODIUM CHLORIDE 0.9% FLUSH 5 ML FLUSH FLUSH SCH ×2 (08:27→21:22)
[2016-06-27] MEDS: LACTIC ACID (AMMONIUM LACTATE) 12% LOTION 225 GM BTL TOPICAL SCH ×2 (08:27→21:00)
[2016-06-27] MEDS: SODIUM HYPOCHLORITE 0.125% 500 ML BTL TOPICAL SCH ×2 (08:27→23:03)
[2016-06-27] MEDS ORDERED: diphenhydrAMINE HCL 25 MG CAP PO PRN (13:15)
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
[2016-06-27] MEDS ORDERED: BENZONATATE 100 MG CAP PO PRN (14:30)
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
[2016-06-27] MEDS: RESP: ALBUTEROL 2.5 MG/IPRATROPIUM 0.5 MG NEB (SCH) NEB ×2 (16:24→23:37)
[2016-06-27] MEDS: RESP: ACETYLCYSTEINE 10% 30 ML NEB NEB SCH ×2 (16:24→23:38)
[2016-06-27] MEDS: CALCIUM CARBONATE 500 MG CHEWABLE TAB CHEW PRN (16:34)
[2016-06-27] MEDS: guaiFENesin E.R. 600 MG TAB PO SCH (21:00)
[2016-06-28] VITALS (7 sets, daily range): BP systolic 115–160; BP diastolic 58–82; PULSE 79–94; RESP 18–20; TEMP 97.2–98.3; O2SAT 95–97
[2016-06-28] MEDS: oxyCODONE/ACETAMINOPHEN 10 MG/325 MG TAB PO PRN ×6 (02:56→23:39)
[2016-06-28] MEDS: metroNIDAZOLE 250 MG TAB PO SCH ×3 (06:00→21:16)
[2016-06-28] MEDS: CHOLESTYRAMINE 4 GM PACKET PO SCH ×3 (06:10→21:16)
[2016-06-28] MEDS: MORPHINE SULFATE 30 MG CONTROLLED RELEASE TAB PO SCH ×3 (06:10→21:16)
[2016-06-28] MEDS: RESP: ALBUTEROL 2.5 MG/IPRATROPIUM 0.5 MG NEB (SCH) NEB ×2 (07:42→15:09)
[2016-06-28] MEDS: RESP: ACETYLCYSTEINE 10% 30 ML NEB NEB SCH ×2 (07:44→15:09)
[2016-06-28] MEDS: MULTIVITAMINS/MINERALS THERAPEUTIC TAB PO SCH (09:00)
[2016-06-28] MEDS: LACTIC ACID (AMMONIUM LACTATE) 12% LOTION 225 GM BTL TOPICAL SCH ×2 (09:00→21:17)
[2016-06-28] MEDS: SODIUM CHLORIDE 0.9% FLUSH 5 ML FLUSH FLUSH SCH ×2 (09:00→21:17)
[2016-06-28] MEDS: guaiFENesin E.R. 600 MG TAB PO SCH (09:00)
[2016-06-28] MEDS: LACTOBACILLUS ACIDOPHILUS 1 GM PACKET PO SCH (09:40)
[2016-06-28] MEDS: SODIUM HYPOCHLORITE 0.125% 500 ML BTL TOPICAL SCH ×2 (09:44→21:18)
[2016-06-28] MEDS: FLUTICASONE PROPIONATE 50 MCG/ACT 16 GM NASAL SPRAY NASAL SCH ×2 (09:44→21:17)
[2016-06-28] MEDS: ENOXAPARIN SODIUM 40 MG/0.4 ML SYRINGE SQ SCH (09:44)
[2016-06-28] MEDS: MUPIROCIN 2% CREAM 15 GM TOPICAL SCH ×2 (09:45→21:00)
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
[2016-06-28] MEDS: PANTOPRAZOLE SOD 40 MG DELAYED RELEASE TAB PO SCH (11:35)
[2016-06-28] MEDS: hydrOXYzine HCL 10 MG TAB PO PRN (11:38)
[2016-06-29 04:00] VITALS: BP 117/58; PULSE 66; RESP 16; TEMP 96.7; O2SAT 96
[2016-06-29] MEDS: CHOLESTYRAMINE 4 GM PACKET PO SCH ×3 (04:11→21:33)
[2016-06-29] MEDS: CALCIUM CARBONATE 500 MG CHEWABLE TAB CHEW PRN ×2 (04:11→17:00)
[2016-06-29] MEDS: metroNIDAZOLE 250 MG TAB PO SCH ×3 (04:11→21:35)
[2016-06-29] MEDS: MORPHINE SULFATE 30 MG CONTROLLED RELEASE TAB PO SCH ×3 (04:12→21:34)
[2016-06-29] MEDS: oxyCODONE/ACETAMINOPHEN 10 MG/325 MG TAB PO PRN ×5 (04:16→21:35)
[2016-06-29] MEDS: RESP: ALBUTEROL 2.5 MG/IPRATROPIUM 0.5 MG NEB (SCH) NEB ×2 (07:45)
[2016-06-29] MEDS: RESP: ACETYLCYSTEINE 10% 30 ML NEB NEB SCH ×2 (07:45)
[2016-06-29 07:47] VITALS: O2SAT 97
[2016-06-29 08:30] VITALS: BP 131/72; PULSE 70; RESP 16; TEMP 97; O2SAT 92
[2016-06-29] MEDS: FLUTICASONE PROPIONATE 50 MCG/ACT 16 GM NASAL SPRAY NASAL SCH ×2 (08:41→21:33)
[2016-06-29] MEDS: SODIUM CHLORIDE 0.9% FLUSH 5 ML FLUSH FLUSH SCH ×2 (08:41→21:35)
[2016-06-29] MEDS: LACTOBACILLUS ACIDOPHILUS 1 GM PACKET PO SCH (08:42)
[2016-06-29] MEDS: PANTOPRAZOLE SOD 40 MG DELAYED RELEASE TAB PO SCH (08:42)
[2016-06-29] MEDS: MULTIVITAMINS/MINERALS THERAPEUTIC TAB PO SCH (08:43)
[2016-06-29] MEDS: LACTIC ACID (AMMONIUM LACTATE) 12% LOTION 225 GM BTL TOPICAL SCH ×2 (08:44→21:39)
[2016-06-29] MEDS: ENOXAPARIN SODIUM 40 MG/0.4 ML SYRINGE SQ SCH (08:44)
[2016-06-29] MEDS: SODIUM HYPOCHLORITE 0.125% 500 ML BTL TOPICAL SCH ×2 (08:45→21:39)
[2016-06-29] MEDS: MUPIROCIN 2% CREAM 15 GM TOPICAL SCH ×2 (08:45→21:39)
[2016-06-29] MEDS: hydrOXYzine HCL 10 MG TAB PO PRN (11:00)
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
[2016-06-29 16:00] VITALS: BP 131/63; PULSE 82; RESP 18; TEMP 97.7; O2SAT 95
[2016-06-29] MEDS ORDERED: RESP: ALBUTEROL 2.5 MG/IPRATROPIUM 0.5 MG NEB (PRN) NEB (16:00)
[2016-06-29 20:00] VITALS: BP 145/79; PULSE 80; RESP 18; TEMP 98.5; O2SAT 98
[2016-06-29 20:31] VITALS: O2SAT 98
[2016-06-30] VITALS: BP 135/69; PULSE 79; RESP 17; TEMP 97.7; O2SAT 95
[2016-06-30] MEDS: oxyCODONE/ACETAMINOPHEN 10 MG/325 MG TAB PO PRN ×4 (03:35→21:30)
[2016-06-30 04:00] VITALS: BP 125/74; PULSE 76; RESP 17; TEMP 96.7; O2SAT 95
[2016-06-30] MEDS: CHOLESTYRAMINE 4 GM PACKET PO SCH ×3 (05:46→21:29)
[2016-06-30] MEDS: metroNIDAZOLE 250 MG TAB PO SCH (05:46)
[2016-06-30] MEDS: MORPHINE SULFATE 30 MG CONTROLLED RELEASE TAB PO SCH ×3 (05:46→21:30)
[2016-06-30] MEDS: CALCIUM CARBONATE 500 MG CHEWABLE TAB CHEW PRN (05:46)
[2016-06-30 08:00] VITALS: BP 126/72; PULSE 76; RESP 16; TEMP 96.2; O2SAT 97
[2016-06-30] MEDS: ENOXAPARIN SODIUM 40 MG/0.4 ML SYRINGE SQ SCH (09:00)
[2016-06-30] MEDS: MUPIROCIN 2% CREAM 15 GM TOPICAL SCH ×2 (09:00→21:33)
[2016-06-30] MEDS: FLUTICASONE PROPIONATE 50 MCG/ACT 16 GM NASAL SPRAY NASAL SCH ×2 (09:00→21:28)
[2016-06-30] MEDS: MULTIVITAMINS/MINERALS THERAPEUTIC TAB PO SCH (09:00)
[2016-06-30] MEDS: SODIUM CHLORIDE 0.9% FLUSH 5 ML FLUSH FLUSH SCH ×2 (10:49→21:27)
[2016-06-30] MEDS: LACTOBACILLUS ACIDOPHILUS 1 GM PACKET PO SCH (10:49)
[2016-06-30] MEDS: PANTOPRAZOLE SOD 40 MG DELAYED RELEASE TAB PO SCH (10:49)
[2016-06-30] MEDS: LACTIC ACID (AMMONIUM LACTATE) 12% LOTION 225 GM BTL TOPICAL SCH ×2 (10:50→21:31)
[2016-06-30] MEDS: SODIUM HYPOCHLORITE 0.125% 500 ML BTL TOPICAL SCH ×2 (10:50→21:33)
[2016-06-30 12:00] VITALS: BP 110/64; PULSE 90; RESP 16; TEMP 98.4; O2SAT 99
[2016-06-30 16:00] VITALS: BP 122/68; PULSE 78; RESP 16; TEMP 97.5; O2SAT 99
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
[2016-06-30] MEDS: hydrOXYzine HCL 10 MG TAB PO PRN (17:23)
[2016-06-30 20:00] VITALS: BP 120/68; PULSE 96; RESP 17; TEMP 98.4; O2SAT 96
[2016-06-30] MEDS: metroNIDAZOLE 500 MG TAB PO SCH (21:29)
[2016-07-01] VITALS: BP 118/69; PULSE 72; RESP 17; TEMP 97.5; O2SAT 97
[2016-07-01] MEDS: oxyCODONE/ACETAMINOPHEN 10 MG/325 MG TAB PO PRN ×4 (02:44→20:31)
[2016-07-01 04:00] VITALS: BP 138/70; PULSE 69; RESP 17; TEMP 96.3; O2SAT 96
[2016-07-01] MEDS: CHOLESTYRAMINE 4 GM PACKET PO SCH ×3 (05:55→20:31)
[2016-07-01] MEDS: metroNIDAZOLE 500 MG TAB PO SCH ×3 (05:55→20:31)
[2016-07-01] MEDS: MORPHINE SULFATE 30 MG CONTROLLED RELEASE TAB PO SCH ×3 (05:56→23:11)
[2016-07-01 08:00] VITALS: BP 145/76; PULSE 89; RESP 16; TEMP 97.1; O2SAT 98
[2016-07-01] MEDS: MULTIVITAMINS/MINERALS THERAPEUTIC TAB PO SCH (09:00)
[2016-07-01] MEDS: LACTOBACILLUS ACIDOPHILUS 1 GM PACKET PO SCH (09:00)
[2016-07-01] MEDS: SODIUM HYPOCHLORITE 0.125% 500 ML BTL TOPICAL SCH ×2 (09:00→20:37)
[2016-07-01] MEDS: MUPIROCIN 2% CREAM 15 GM TOPICAL SCH ×2 (09:00→20:37)
[2016-07-01] MEDS: PANTOPRAZOLE SOD 40 MG DELAYED RELEASE TAB PO SCH (09:00)
[2016-07-01] MEDS: LACTIC ACID (AMMONIUM LACTATE) 12% LOTION 225 GM BTL TOPICAL SCH ×2 (10:47→20:36)
[2016-07-01] MEDS: FLUTICASONE PROPIONATE 50 MCG/ACT 16 GM NASAL SPRAY NASAL SCH ×2 (10:47→20:35)
[2016-07-01] MEDS: ENOXAPARIN SODIUM 40 MG/0.4 ML SYRINGE SQ SCH (10:54)
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
[2016-07-01 12:00] VITALS: BP 124/69; PULSE 83; RESP 16; TEMP 97.8; O2SAT 99
[2016-07-01] MEDS: SODIUM CHLORIDE 0.9% FLUSH 5 ML FLUSH FLUSH SCH ×2 (14:13→20:32)
[2016-07-01 16:00] VITALS: BP 125/70; PULSE 100; RESP 18; TEMP 97.2; O2SAT 95
[2016-07-01 20:00] VITALS: BP 115/66; PULSE 76; RESP 16; TEMP 98; O2SAT 98
[2016-07-01] MEDS: CALCIUM CARBONATE 500 MG CHEWABLE TAB CHEW PRN (20:31)
[2016-07-01] MEDS: hydrOXYzine HCL 10 MG TAB PO PRN (23:11)
[2016-07-02] VITALS: BP 128/70; PULSE 74; RESP 16; TEMP 97.5; O2SAT 97
[2016-07-02] MEDS: oxyCODONE/ACETAMINOPHEN 10 MG/325 MG TAB PO PRN ×5 (01:01→22:09)
[2016-07-02 05:00] VITALS: BP 139/80; PULSE 79; RESP 17; TEMP 96.9; O2SAT 98
[2016-07-02] MEDS: MORPHINE SULFATE 30 MG CONTROLLED RELEASE TAB PO SCH ×4 (05:05→22:09)
[2016-07-02] MEDS: metroNIDAZOLE 500 MG TAB PO SCH ×3 (05:05→22:10)
[2016-07-02] MEDS: CHOLESTYRAMINE 4 GM PACKET PO SCH ×3 (05:05→22:00)
[2016-07-02 08:00] VITALS: BP 110/65; PULSE 74; RESP 18; TEMP 98.7; O2SAT 94
[2016-07-02] MEDS: FLUTICASONE PROPIONATE 50 MCG/ACT 16 GM NASAL SPRAY NASAL SCH ×2 (09:00→22:12)
[2016-07-02] MEDS: MUPIROCIN 2% CREAM 15 GM TOPICAL SCH ×2 (09:00→21:00)
[2016-07-02] MEDS: SODIUM HYPOCHLORITE 0.125% 500 ML BTL TOPICAL SCH ×2 (09:00→21:00)
[2016-07-02] MEDS: MULTIVITAMINS/MINERALS THERAPEUTIC TAB PO SCH (09:00)
[2016-07-02] MEDS: LACTIC ACID (AMMONIUM LACTATE) 12% LOTION 225 GM BTL TOPICAL SCH ×2 (09:00→22:12)
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
[2016-07-02] MEDS: SODIUM CHLORIDE 0.9% FLUSH 5 ML FLUSH FLUSH SCH ×2 (10:13→22:10)
[2016-07-02] MEDS: ENOXAPARIN SODIUM 40 MG/0.4 ML SYRINGE SQ SCH (10:13)
[2016-07-02] MEDS: PANTOPRAZOLE SOD 40 MG DELAYED RELEASE TAB PO SCH (10:13)
[2016-07-02] MEDS: LACTOBACILLUS ACIDOPHILUS 1 GM PACKET PO SCH (10:13)
[2016-07-02 12:00] VITALS: BP 117/65; PULSE 67; RESP 16; TEMP 97.3; O2SAT 95
[2016-07-02 16:00] VITALS: BP 114/66; PULSE 69; RESP 17; TEMP 97.9; O2SAT 95
[2016-07-02] MEDS: hydrOXYzine HCL 10 MG TAB PO PRN (16:48)
[2016-07-02 20:00] VITALS: BP 116/63; PULSE 85; RESP 18; TEMP 97.9; O2SAT 97
[2016-07-03] VITALS (7 sets, daily range): BP systolic 107–135; BP diastolic 63–75; PULSE 69–85; RESP 16–18; TEMP 96.6–98; O2SAT 95–97
[2016-07-03] MEDS: hydrOXYzine HCL 10 MG TAB PO PRN ×4 (00:54→22:12)
[2016-07-03] MEDS: oxyCODONE/ACETAMINOPHEN 10 MG/325 MG TAB PO PRN ×6 (02:26→22:12)
[2016-07-03] MEDS: metroNIDAZOLE 500 MG TAB PO SCH ×3 (06:00→20:33)
[2016-07-03] MEDS: CHOLESTYRAMINE 4 GM PACKET PO SCH ×3 (06:00→20:35)
[2016-07-03] MEDS: MORPHINE SULFATE 30 MG CONTROLLED RELEASE TAB PO SCH ×3 (06:33→22:12)
[2016-07-03] MEDS: LACTOBACILLUS ACIDOPHILUS 1 GM PACKET PO SCH (08:40)
[2016-07-03] MEDS: ENOXAPARIN SODIUM 40 MG/0.4 ML SYRINGE SQ SCH (08:41)
[2016-07-03] MEDS: FLUTICASONE PROPIONATE 50 MCG/ACT 16 GM NASAL SPRAY NASAL SCH ×2 (08:43→20:31)
[2016-07-03] MEDS: SODIUM CHLORIDE 0.9% FLUSH 5 ML FLUSH FLUSH SCH ×2 (08:44→20:31)
[2016-07-03] MEDS: PANTOPRAZOLE SOD 40 MG DELAYED RELEASE TAB PO SCH (08:45)
[2016-07-03] MEDS: MULTIVITAMINS/MINERALS THERAPEUTIC TAB PO SCH (08:45)
[2016-07-03] MEDS: MUPIROCIN 2% CREAM 15 GM TOPICAL SCH ×2 (08:46→20:32)
[2016-07-03] MEDS: LACTIC ACID (AMMONIUM LACTATE) 12% LOTION 225 GM BTL TOPICAL SCH ×2 (08:46→20:33)
[2016-07-03] MEDS: SODIUM HYPOCHLORITE 0.125% 500 ML BTL TOPICAL SCH ×2 (08:46→20:32)
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
[2016-07-04] MEDS: oxyCODONE/ACETAMINOPHEN 10 MG/325 MG TAB PO PRN ×6 (03:05→23:36)
[2016-07-04 04:00] VITALS: BP 132/62; PULSE 70; RESP 18; TEMP 96.9; O2SAT 96
[2016-07-04] MEDS: CHOLESTYRAMINE 4 GM PACKET PO SCH ×3 (06:00→23:30)
[2016-07-04] MEDS: metroNIDAZOLE 500 MG TAB PO SCH ×3 (06:34→21:58)
[2016-07-04] MEDS: MORPHINE SULFATE 30 MG CONTROLLED RELEASE TAB PO SCH ×3 (06:34→21:59)
[2016-07-04 08:00] VITALS: BP 127/65; PULSE 82; RESP 18; TEMP 97.2; O2SAT 97
[2016-07-04] MEDS: PANTOPRAZOLE SOD 40 MG DELAYED RELEASE TAB PO SCH (10:27)
[2016-07-04] MEDS: LACTOBACILLUS ACIDOPHILUS 1 GM PACKET PO SCH (10:27)
[2016-07-04] MEDS: MULTIVITAMINS/MINERALS THERAPEUTIC TAB PO SCH (10:27)
[2016-07-04] MEDS: SODIUM CHLORIDE 0.9% FLUSH 5 ML FLUSH FLUSH SCH ×2 (10:28→22:04)
[2016-07-04] MEDS: MUPIROCIN 2% CREAM 15 GM TOPICAL SCH ×2 (10:28→21:00)
[2016-07-04] MEDS: LACTIC ACID (AMMONIUM LACTATE) 12% LOTION 225 GM BTL TOPICAL SCH ×2 (10:28→22:01)
[2016-07-04] MEDS: FLUTICASONE PROPIONATE 50 MCG/ACT 16 GM NASAL SPRAY NASAL SCH ×2 (10:28→22:03)
[2016-07-04] MEDS: SODIUM HYPOCHLORITE 0.125% 500 ML BTL TOPICAL SCH ×2 (10:29→21:00)
[2016-07-04] MEDS: ENOXAPARIN SODIUM 40 MG/0.4 ML SYRINGE SQ SCH (10:29)
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
[2016-07-04] MEDS: hydrOXYzine HCL 10 MG TAB PO PRN ×3 (11:04→23:52)
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
[2016-07-04 12:00] VITALS: BP 135/72; PULSE 76; RESP 18; TEMP 97.5; O2SAT 97
[2016-07-04 17:00] VITALS: BP 131/69; PULSE 86; RESP 18; TEMP 97.6; O2SAT 98
[2016-07-04 20:00] VITALS: BP 128/64; PULSE 76; RESP 18; TEMP 98.8; O2SAT 95
[2016-07-05] VITALS: BP 150/70; PULSE 73; RESP 18; TEMP 97; O2SAT 94
[2016-07-05] MEDS: oxyCODONE/ACETAMINOPHEN 10 MG/325 MG TAB PO PRN ×5 (03:35→21:32)
[2016-07-05 05:00] VITALS: BP 115/59; PULSE 63; RESP 16; TEMP 96.2; O2SAT 96
[2016-07-05] MEDS: metroNIDAZOLE 500 MG TAB PO SCH ×3 (06:00→21:31)
[2016-07-05] MEDS: CHOLESTYRAMINE 4 GM PACKET PO SCH ×3 (06:00→21:35)
[2016-07-05] MEDS: MORPHINE SULFATE 30 MG CONTROLLED RELEASE TAB PO SCH ×3 (06:24→21:31)
[2016-07-05] MEDS: MULTIVITAMINS/MINERALS THERAPEUTIC TAB PO SCH (08:38)
[2016-07-05] MEDS: MUPIROCIN 2% CREAM 15 GM TOPICAL SCH ×2 (09:00→21:00)
[2016-07-05] MEDS: PANTOPRAZOLE SOD 40 MG DELAYED RELEASE TAB PO SCH ×2 (09:00→09:32)
[2016-07-05] MEDS: LACTOBACILLUS ACIDOPHILUS 1 GM PACKET PO SCH (09:00)
[2016-07-05] MEDS: SODIUM HYPOCHLORITE 0.125% 500 ML BTL TOPICAL SCH ×2 (09:00→21:00)
[2016-07-05] MEDS: SODIUM CHLORIDE 0.9% FLUSH 5 ML FLUSH FLUSH SCH ×2 (09:00→21:00)
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
[2016-07-05] MEDS: ENOXAPARIN SODIUM 40 MG/0.4 ML SYRINGE SQ SCH (09:32)
[2016-07-05] MEDS: LACTIC ACID (AMMONIUM LACTATE) 12% LOTION 225 GM BTL TOPICAL SCH ×2 (09:35→21:34)
[2016-07-05] MEDS: FLUTICASONE PROPIONATE 50 MCG/ACT 16 GM NASAL SPRAY NASAL SCH ×2 (09:35→21:34)
[2016-07-05] MEDS: SODIUM CHLORIDE 0.9% FLUSH 5 ML FLUSH FLUSH PRN (09:47)
[2016-07-05 09:49] VITALS: BP 138/83; PULSE 67; RESP 18; TEMP 96.3; O2SAT 92
[2016-07-05 12:00] VITALS: BP 130/70; PULSE 69; RESP 16; TEMP 97.5; O2SAT 93
[2016-07-05 20:10] VITALS: BP 118/60; PULSE 80; RESP 18; TEMP 97.7; O2SAT 95
[2016-07-06 00:45] VITALS: BP 131/64; PULSE 75; RESP 18; TEMP 96.6; O2SAT 94
[2016-07-06] MEDS: oxyCODONE/ACETAMINOPHEN 10 MG/325 MG TAB PO PRN ×5 (00:55→20:05)
[2016-07-06 05:00] VITALS: BP 157/73; PULSE 67; RESP 18; TEMP 96.4; O2SAT 98
[2016-07-06] MEDS: MORPHINE SULFATE 30 MG CONTROLLED RELEASE TAB PO SCH ×3 (05:16→22:43)
[2016-07-06] MEDS: CHOLESTYRAMINE 4 GM PACKET PO SCH ×3 (05:16→22:43)
[2016-07-06] MEDS: metroNIDAZOLE 500 MG TAB PO SCH ×3 (05:16→22:43)
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
[2016-07-06 08:00] VITALS: BP 153/79; PULSE 76; RESP 16; TEMP 97.2; O2SAT 97
[2016-07-06] MEDS: LACTIC ACID (AMMONIUM LACTATE) 12% LOTION 225 GM BTL TOPICAL SCH ×2 (09:00→20:08)
[2016-07-06] MEDS: PANTOPRAZOLE SOD 40 MG DELAYED RELEASE TAB PO SCH (09:00)
[2016-07-06] MEDS: MUPIROCIN 2% CREAM 15 GM TOPICAL SCH ×2 (09:00→20:06)
[2016-07-06] MEDS: SODIUM HYPOCHLORITE 0.125% 500 ML BTL TOPICAL SCH (09:00)
[2016-07-06] MEDS: LACTOBACILLUS ACIDOPHILUS 1 GM PACKET PO SCH (09:00)
[2016-07-06] MEDS: MULTIVITAMINS/MINERALS THERAPEUTIC TAB PO SCH (09:00)
[2016-07-06] MEDS: FLUTICASONE PROPIONATE 50 MCG/ACT 16 GM NASAL SPRAY NASAL SCH ×2 (09:37→20:05)
[2016-07-06] MEDS: ENOXAPARIN SODIUM 40 MG/0.4 ML SYRINGE SQ SCH (09:39)
[2016-07-06] MEDS: SODIUM CHLORIDE 0.9% FLUSH 5 ML FLUSH FLUSH SCH ×2 (09:46→20:09)
[2016-07-06 12:00] VITALS: BP 133/80; PULSE 84; RESP 16; TEMP 98.5; O2SAT 96
[2016-07-06 16:00] VITALS: BP 145/79; PULSE 80; RESP 16; TEMP 98; O2SAT 97
[2016-07-06] MEDS: CALCIUM CARBONATE 500 MG CHEWABLE TAB CHEW PRN (16:38)
[2016-07-06 20:00] VITALS: BP 140/67; PULSE 75; RESP 17; TEMP 98.8; O2SAT 94
[2016-07-07] MEDS: oxyCODONE/ACETAMINOPHEN 10 MG/325 MG TAB PO PRN ×6 (00:07→22:06)
[2016-07-07] MEDS: SODIUM HYPOCHLORITE 0.125% 500 ML BTL TOPICAL SCH ×3 (00:08→22:08)
[2016-07-07 00:10] VITALS: BP 118/57; PULSE 67; RESP 18; TEMP 97.1; O2SAT 95
[2016-07-07 04:00] VITALS: BP 144/82; PULSE 64; RESP 16; TEMP 96.4; O2SAT 96
[2016-07-07] MEDS: MORPHINE SULFATE 30 MG CONTROLLED RELEASE TAB PO SCH ×3 (05:09→22:06)
[2016-07-07] MEDS: metroNIDAZOLE 500 MG TAB PO SCH ×2 (05:11→13:32)
[2016-07-07] MEDS: CHOLESTYRAMINE 4 GM PACKET PO SCH ×3 (05:11→22:12)
[2016-07-07] MEDS: CALCIUM CARBONATE 500 MG CHEWABLE TAB CHEW PRN (06:15)
[2016-07-07 08:00] VITALS: BP 125/69; PULSE 70; RESP 16; TEMP 97.2; O2SAT 98
[2016-07-07] MEDS: MULTIVITAMINS/MINERALS THERAPEUTIC TAB PO SCH (09:00)
[2016-07-07] MEDS: MUPIROCIN 2% CREAM 15 GM TOPICAL SCH ×2 (09:00→22:08)
[2016-07-07] MEDS: LACTOBACILLUS ACIDOPHILUS 1 GM PACKET PO SCH (09:00)
[2016-07-07] MEDS: PANTOPRAZOLE SOD 40 MG DELAYED RELEASE TAB PO SCH (09:00)
[2016-07-07] MEDS: ENOXAPARIN SODIUM 40 MG/0.4 ML SYRINGE SQ SCH (09:25)
[2016-07-07] MEDS: FLUTICASONE PROPIONATE 50 MCG/ACT 16 GM NASAL SPRAY NASAL SCH ×2 (09:25→22:08)
[2016-07-07] MEDS: LACTIC ACID (AMMONIUM LACTATE) 12% LOTION 225 GM BTL TOPICAL SCH ×2 (09:26→22:08)
[2016-07-07] MEDS: SODIUM CHLORIDE 0.9% FLUSH 5 ML FLUSH FLUSH SCH ×2 (09:28→22:07)
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
[2016-07-07 12:00] VITALS: BP 132/70; PULSE 66; RESP 16; TEMP 97; O2SAT 99
[2016-07-07 16:00] VITALS: BP 121/74; PULSE 80; RESP 16; TEMP 97.4; O2SAT 99
[2016-07-07 20:00] VITALS: BP 121/54; PULSE 77; RESP 17; TEMP 98; O2SAT 97
[2016-07-08] MEDS: oxyCODONE/ACETAMINOPHEN 10 MG/325 MG TAB PO PRN ×6 (01:53→22:23)
[2016-07-08 05:30] VITALS: BP 111/58; PULSE 65; RESP 16; TEMP 97.4; O2SAT 94
[2016-07-08] MEDS: CHOLESTYRAMINE 4 GM PACKET PO SCH ×3 (05:32→22:00)
[2016-07-08] MEDS: MORPHINE SULFATE 30 MG CONTROLLED RELEASE TAB PO SCH ×3 (05:34→22:22)
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
[2016-07-08 08:55] VITALS: BP 115/67; PULSE 75; RESP 16; TEMP 97.6; O2SAT 96
[2016-07-08] MEDS: PANTOPRAZOLE SOD 40 MG DELAYED RELEASE TAB PO SCH (09:00)
[2016-07-08] MEDS: LACTOBACILLUS ACIDOPHILUS 1 GM PACKET PO SCH (09:00)
[2016-07-08] MEDS: MUPIROCIN 2% CREAM 15 GM TOPICAL SCH ×2 (09:00→20:02)
[2016-07-08] MEDS: SODIUM CHLORIDE 0.9% FLUSH 5 ML FLUSH FLUSH SCH ×2 (09:00→20:04)
[2016-07-08] MEDS: MULTIVITAMINS/MINERALS THERAPEUTIC TAB PO SCH (09:00)
[2016-07-08] MEDS: LACTIC ACID (AMMONIUM LACTATE) 12% LOTION 225 GM BTL TOPICAL SCH ×2 (09:00→20:03)
[2016-07-08] MEDS: hydrOXYzine HCL 10 MG TAB PO PRN ×2 (09:06→15:33)
[2016-07-08] MEDS: FLUTICASONE PROPIONATE 50 MCG/ACT 16 GM NASAL SPRAY NASAL SCH ×2 (09:07→20:00)
[2016-07-08] MEDS: ENOXAPARIN SODIUM 40 MG/0.4 ML SYRINGE SQ SCH (09:07)
[2016-07-08 12:56] VITALS: BP 115/63; PULSE 64; RESP 16; TEMP 97.7; O2SAT 96
[2016-07-08 16:00] VITALS: BP 142/79; PULSE 83; RESP 16; TEMP 97.8; O2SAT 96
[2016-07-08] MEDS: SODIUM HYPOCHLORITE 0.125% 500 ML BTL TOPICAL SCH ×2 (17:00→20:01)
[2016-07-08] MEDS ORDERED: diphenhydrAMINE HCL 25 MG CAP PO ONE (19:45)
[2016-07-08 20:00] VITALS: BP 123/70; PULSE 69; RESP 16; TEMP 97.9; O2SAT 96
[2016-07-09] VITALS: BP 120/68; PULSE 107; RESP 16; TEMP 97.6; O2SAT 95
[2016-07-09] MEDS ORDERED: diphenhydrAMINE HCL 25 MG CAP PO PRN ×2 (00:45→07:45)
[2016-07-09] MEDS: CALCIUM CARBONATE 500 MG CHEWABLE TAB CHEW PRN ×2 (01:00→07:19)
[2016-07-09] MEDS: oxyCODONE/ACETAMINOPHEN 10 MG/325 MG TAB PO PRN ×5 (03:07→19:55)
[2016-07-09 04:00] VITALS: BP 118/62; PULSE 85; RESP 17; TEMP 97.7; O2SAT 94
[2016-07-09] MEDS: CHOLESTYRAMINE 4 GM PACKET PO SCH (05:02)
[2016-07-09] MEDS: MORPHINE SULFATE 30 MG CONTROLLED RELEASE TAB PO SCH ×3 (05:58→22:41)
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
[2016-07-09] MEDS: ENOXAPARIN SODIUM 40 MG/0.4 ML SYRINGE SQ SCH (07:59)
[2016-07-09 08:00] VITALS: BP 110/69; PULSE 77; RESP 16; TEMP 97.5; O2SAT 94
[2016-07-09] MEDS: MULTIVITAMINS/MINERALS THERAPEUTIC TAB PO SCH (08:00)
[2016-07-09] MEDS: PANTOPRAZOLE SOD 40 MG DELAYED RELEASE TAB PO SCH (08:00)
[2016-07-09] MEDS: LACTOBACILLUS ACIDOPHILUS 1 GM PACKET PO SCH (08:00)
[2016-07-09] MEDS: MUPIROCIN 2% CREAM 15 GM TOPICAL SCH ×2 (08:00→22:42)
[2016-07-09] MEDS: SODIUM CHLORIDE 0.9% FLUSH 5 ML FLUSH FLUSH SCH ×2 (08:00→21:00)
[2016-07-09] MEDS: LACTIC ACID (AMMONIUM LACTATE) 12% LOTION 225 GM BTL TOPICAL SCH ×2 (08:01→21:00)
[2016-07-09] MEDS: FLUTICASONE PROPIONATE 50 MCG/ACT 16 GM NASAL SPRAY NASAL SCH ×2 (08:02→22:43)
[2016-07-09] MEDS: SODIUM HYPOCHLORITE 0.125% 500 ML BTL TOPICAL SCH ×2 (09:00→22:42)
[2016-07-09] MEDS ORDERED: ONDANSETRON ODT 4 MG TAB PO PRN (10:45)
[2016-07-09 12:00] VITALS: BP 141/85; PULSE 100; RESP 16; TEMP 98.3; O2SAT 96
[2016-07-09] MEDS: hydrOXYzine HCL 10 MG TAB PO PRN (13:00)
[2016-07-09 16:00] VITALS: BP 114/68; PULSE 90; RESP 16; TEMP 97.5; O2SAT 95
[2016-07-09 22:25] VITALS: BP 120/78; PULSE 89; RESP 20; TEMP 98; O2SAT 96
[2016-07-10] MEDS: oxyCODONE/ACETAMINOPHEN 10 MG/325 MG TAB PO PRN ×5 (00:20→21:05)
[2016-07-10] MEDS: MORPHINE SULFATE 30 MG CONTROLLED RELEASE TAB PO SCH ×3 (06:55→22:40)
[2016-07-10] MEDS: PANTOPRAZOLE SOD 40 MG DELAYED RELEASE TAB PO SCH ×2 (08:31→09:00)
[2016-07-10] MEDS: MULTIVITAMINS/MINERALS THERAPEUTIC TAB PO SCH ×2 (08:31→09:00)
[2016-07-10] MEDS: ENOXAPARIN SODIUM 40 MG/0.4 ML SYRINGE SQ SCH (08:31)
[2016-07-10] MEDS: FLUTICASONE PROPIONATE 50 MCG/ACT 16 GM NASAL SPRAY NASAL SCH ×2 (08:34→21:07)
[2016-07-10] MEDS: SODIUM CHLORIDE 0.9% FLUSH 5 ML FLUSH FLUSH SCH ×2 (08:34→21:00)
[2016-07-10] MEDS: MUPIROCIN 2% CREAM 15 GM TOPICAL SCH ×2 (08:35→21:07)
[2016-07-10] MEDS: SODIUM HYPOCHLORITE 0.125% 500 ML BTL TOPICAL SCH ×2 (08:40→21:07)
[2016-07-10] MEDS: LACTIC ACID (AMMONIUM LACTATE) 12% LOTION 225 GM BTL TOPICAL SCH ×2 (08:40→21:08)
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
[2016-07-10 09:25] VITALS: BP 144/94; PULSE 69; RESP 16; TEMP 96.2; O2SAT 99
[2016-07-10 20:00] VITALS: BP 140/75; PULSE 76; RESP 19; TEMP 97.4; O2SAT 97
[2016-07-11] MEDS: oxyCODONE/ACETAMINOPHEN 10 MG/325 MG TAB PO PRN ×3 (01:15→17:45)
[2016-07-11] MEDS: MORPHINE SULFATE 30 MG CONTROLLED RELEASE TAB PO SCH ×3 (05:24→22:09)
[2016-07-11 08:00] VITALS: BP 106/74; PULSE 72; RESP 18; TEMP 96.3; O2SAT 96
[2016-07-11] MEDS: MULTIVITAMINS/MINERALS THERAPEUTIC TAB PO SCH (08:51)
[2016-07-11] MEDS: PANTOPRAZOLE SOD 40 MG DELAYED RELEASE TAB PO SCH (08:51)
[2016-07-11] MEDS: ENOXAPARIN SODIUM 40 MG/0.4 ML SYRINGE SQ SCH (08:51)
[2016-07-11] MEDS: hydrOXYzine HCL 10 MG TAB PO PRN ×2 (08:52→20:20)
[2016-07-11] MEDS: SODIUM CHLORIDE 0.9% FLUSH 5 ML FLUSH FLUSH SCH (08:54)
[2016-07-11] MEDS: FLUTICASONE PROPIONATE 50 MCG/ACT 16 GM NASAL SPRAY NASAL SCH ×2 (08:55→20:21)
[2016-07-11] MEDS: MUPIROCIN 2% CREAM 15 GM TOPICAL SCH ×2 (08:56→20:21)
[2016-07-11] MEDS: LACTIC ACID (AMMONIUM LACTATE) 12% LOTION 225 GM BTL TOPICAL SCH ×2 (09:00→20:21)
[2016-07-11] MEDS: SODIUM HYPOCHLORITE 0.125% 500 ML BTL TOPICAL SCH ×2 (09:00→20:22)
--- NOTE | 2016-07-11 14:58 | HHI.PR ---
Subjective Remarks Patient seen and examined today. Patient states that he is allergic to cold air. Is requesting the nurse give him Atarax or antihistamine. Otherwise, patient doing well. He is eating well. Bowel movements regular. Objective Vitals Vital Signs Date Time Temp Pulse Resp B/P Pulse Ox O2 Delivery O2 Flow Rate FiO2 07/11/16 09:56 14 07/11/16 08:00 96.3 72 18 106/74 96 07/11/16 06:31 18 07/10/16 20:00 97.4 76 19 140/75 97 I/O 07/10/16 07/10/16 07/10/16 07/11/16 07/11/16 07/11/16 07:00 15:00 23:00 07:00 15:00 23:00 Intake Total 1020 ml 120 ml 600 ml Output Total 450 ml 100 ml 100 ml 250 ml Balance -450 ml 920 ml 20 ml 350 ml Intake Oral 1020 ml 120 ml 600 ml Output Urine Total 450 ml 100 ml 100 ml 250 ml # Bowel Movements 0 3 0 1 Objective Remarks GENERAL: Well-developed, well-nourished, in no acute distress. alert and orientated HEENT: Head is normocephalic without any lesions or masses noted. Facial features are symmetric. Eyes: Extraocular muscles are intact. Conjunctivae were clear. NECK: Supple without any masses. Trachea midline no deviation. No JVD, CARDIAC: Regular rhythm, regular rate. S1/S2 are heard. No murmurs gallops or rubs. LUNGS: Clear to auscultation bilaterally. No wheeze, rhonchi or rales. No use of accessory muscles on inspiration or expiration. ABDOMEN: Soft, nontender. Nondistended. Bowel sounds heard in all 4 quadrants. No organomegaly or masses. Negative rebound, negative guarding EXTREMITIES: No edema, pulses are equal bilaterally. No cyanosis or clubbing NEUROLOGY: Mood and affect appear appropriate. Cranial nerves II through XII grossly intact. Moving upper extremities. Strength 5/5 SACRAL AREA: Patient does have packing noted in the sacral region. Procedures none Urinary Catheter: Yes Assessment to: Continue Morse insert reason: Prolonged Immobilization Date of Insertion: Jul 01, 2016 Vascular Central Line Catheter: No A/P Assessment and Plan Sepsis with complicated UTI in a male with indwelling Morse, secondary to urinary retention from paraplegia: Urine Culture resulted with MRSA S/p antibiotic treatment with Bactrim Changed Morse catheter 07/01/16 Clostridium difficile infection: S/p Flagyl treatment Stage IV sacral decubitus: Wound care physician Dr. Garcia evaluated patient and indicated local wound care Wound care team nurse following. Recommend to continue current treatment of Dakins solution soaked gauze, lightly fluffed, and gently placed into wound bed to allow for tissue growth. Reposition every 2 hours and PRN for comfort. Patient refused diverting colostomy for management Chronic pain: -Continue Oramorph and Percocet -Continue PT Anemia: Hemoglobin stable at 9.6. Hyperglycemia: Resolved likely related to infection. HgbA1c 5.2. Hypertension: Monitor and add medication if needed DVT prophylaxis: Lovenox Discharge Planning At the present time patient is stable for discharge. Awaiting director case management discharge planning. Case management documentation indicates that they're trying to arrange senior care facility if in [place] by his grandson. Jp Keith Jul 11, 2016 14:58
[2016-07-11 20:00] VITALS: BP 146/85; PULSE 97; RESP 21; O2SAT 96
[2016-07-12] MEDS: oxyCODONE/ACETAMINOPHEN 10 MG/325 MG TAB PO PRN ×4 (00:31→18:27)
[2016-07-12] MEDS: MORPHINE SULFATE 30 MG CONTROLLED RELEASE TAB PO SCH ×3 (05:45→21:24)
[2016-07-12 07:35] LABS: AUTOMATED NEUTROPHIL # 2.4 TH/MM3 (1.8-7.7); BASOPHIL # 0.1 TH/MM3 (0-0.2); BASOPHIL % 0.9 % (0.0-2.0); EOSINOPHIL # 0.4 TH/MM3 (0-0.4); EOSINOPHIL % 6.3 % (0.0-4.0); HEMATOCRIT 30.6 % (39.0-51.0); HEMO FLAGS DIFF FINAL; LYMPH % 41.4 % (9.0-44.0); LYMPHOCYTE # 2.4 TH/MM3 (1.0-4.8); MEAN CELL VOLUME 85.9 FL (80.0-100.0); MEAN CORPUSCULAR HEMOGLOBIN 27.4 PG (27.0-34.0); MEAN CORPUSCULAR HGB CONC 31.9 % (32.0-36.0); MONO % 11.4 % (0.0-8.0); PLATELET COUNT 405 TH/MM3 (150-450); RED BLOOD COUNT 3.57 MIL/MM3 (4.50-5.90); RED CELL DISTRIBUTION WIDTH 16.3 % (11.6-17.2)
[2016-07-12 07:41] LABS: POTASSIUM 3.4 MEQ/L (3.5-5.1)
[2016-07-12 07:45] LABS: BICARBONATE 29.3 MEQ/L (21.0-32.0); MAGNESIUM 1.9 MG/DL (1.5-2.5)
[2016-07-12] MEDS: MULTIVITAMINS/MINERALS THERAPEUTIC TAB PO SCH (08:39)
[2016-07-12] MEDS: ENOXAPARIN SODIUM 40 MG/0.4 ML SYRINGE SQ SCH (08:39)
[2016-07-12] MEDS: PANTOPRAZOLE SOD 40 MG DELAYED RELEASE TAB PO SCH (08:39)
[2016-07-12] MEDS: FLUTICASONE PROPIONATE 50 MCG/ACT 16 GM NASAL SPRAY NASAL SCH ×2 (08:41→21:25)
[2016-07-12] MEDS: SODIUM HYPOCHLORITE 0.125% 500 ML BTL TOPICAL SCH ×2 (08:41→21:27)
[2016-07-12] MEDS: MUPIROCIN 2% CREAM 15 GM TOPICAL SCH ×2 (08:41→21:29)
[2016-07-12] MEDS: LACTIC ACID (AMMONIUM LACTATE) 12% LOTION 225 GM BTL TOPICAL SCH ×2 (08:42→21:27)
[2016-07-12 09:45] VITALS: BP 124/72; PULSE 68; RESP 22; TEMP 98.2; O2SAT 98
--- NOTE | 2016-07-12 13:38 | HHI.PR ---
Subjective Remarks Patient seen and examined today with Jenn WANG present, patient very argumentative about his pain medication. Patient is indicating and demanding that we need to increase his medication. He states that we are not prescribing into the way that he is was in the outpatient setting. He indicates that he is on long-acting morphine 30 mg 3 times daily as well as he has taken Percocet 10 mg every 4 hours. I did pull the patient's record on [employer] and it indicates that the patient dating back a year ago that he was taking morphine 30 mg twice daily up until 12/30/15 when he was changed to 3 times daily. As indicated that he was always on Percocet 10, 4 times daily over the last year. However patient is very argumentative, demanding that we increase his pain medication. Requesting to talk to someone who can overrule my decision and give him the increased amount of pain medication that he is requesting. 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 Objective Vitals Vital Signs Date Time Temp Pulse Resp B/P Pulse Ox O2 Delivery O2 Flow Rate FiO2 07/12/16 09:45 98.2 68 22 124/72 98 07/12/16 06:58 14 07/11/16 20:00 97 21 146/85 96 I/O 07/11/16 07/11/16 07/11/16 07/12/16 07/12/16 07/12/16 07:00 15:00 23:00 07:00 15:00 23:00 Intake Total 120 ml 600 ml 480 ml 120 ml Output Total 100 ml 250 ml 275 ml 100 ml Balance 20 ml 350 ml 205 ml 20 ml Intake Oral 120 ml 600 ml 480 ml 120 ml Output Urine Total 100 ml 250 ml 275 ml 100 ml # Voids 1 # Bowel Movements 0 1 0 0 Result Diagram: 07/12/16 0715 07/12/16 0715 Objective Remarks GENERAL: Well-developed, well-nourished, in no acute distress. alert and orientated HEENT: Head is normocephalic without any lesions or masses noted. Facial features are symmetric. Eyes: Extraocular muscles are intact. Conjunctivae were clear. NECK: Supple without any masses. Trachea midline no deviation. No JVD, CARDIAC: Regular rhythm, regular rate. S1/S2 are heard. No murmurs gallops or rubs. LUNGS: Clear to auscultation bilaterally. No wheeze, rhonchi or rales. No use of accessory muscles on inspiration or expiration. ABDOMEN: Soft, nontender. Nondistended. Bowel sounds heard in all 4 quadrants. No organomegaly or masses. Negative rebound, negative guarding EXTREMITIES: No edema, pulses are equal bilaterally. No cyanosis or clubbing NEUROLOGY: Mood and affect appear appropriate. Cranial nerves II through XII grossly intact. Moving upper extremities. Strength 5/5 SACRAL AREA: Patient does have packing noted in the sacral region. Procedures none Urinary Catheter: No Date of Insertion: Jul 01, 2016 Vascular Central Line Catheter: No A/P Assessment and Plan Sepsis with complicated UTI in a male with indwelling Morse, secondary to urinary retention from paraplegia: Urine Culture resulted with MRSA S/p antibiotic treatment with Bactrim Changed Morse catheter 07/01/16 Clostridium difficile infection: S/p Flagyl treatment Stage IV sacral decubitus: Wound care physician Dr. Garcia evaluated patient and indicated local wound care Wound care team nurse following. Recommend to continue current treatment of Dakins solution soaked gauze, lightly fluffed, and gently placed into wound bed to allow for tissue growth. Wound care nurse also indicated patient may benefit from wound VAC placement, this is dependent upon patient's length of stay and discharge planning for recommendations Reposition every 2 hours and PRN for comfort. Patient refused diverting colostomy for management Chronic pain: -Continue patient's outpatient medications to include Oramorph 30 mg 3 times daily and Percocet 10, every 6 hours as needed for pain -The above regimen was confirmed by E force review and printed out and placed on patient's chart -Continue PT Anemia: Hemoglobin stable at 9.6. Hyperglycemia: Resolved likely related to infection. HgbA1c 5.2. Hypertension: Monitor and add medication if needed DVT prophylaxis: Lovenox Discharge Planning At the present time patient is stable for discharge. Awaiting correctional casework specialist discharge planning. Case management documentation indicates that they're trying to arrange retirement facility if in [place] by his grandson. Awaiting response from case management for discharge planning and recommendations for wound care, possible wound VAC placement, post hospital care. Jp Keith Jul 12, 2016 13:38
[2016-07-12 20:00] VITALS: BP 142/87; PULSE 64; RESP 20; TEMP 97.3; O2SAT 98
[2016-07-13] MEDS: oxyCODONE/ACETAMINOPHEN 10 MG/325 MG TAB PO PRN ×4 (00:27→23:48)
[2016-07-13] MEDS: MORPHINE SULFATE 30 MG CONTROLLED RELEASE TAB PO SCH ×3 (05:17→21:28)
[2016-07-13 08:00] VITALS: BP 142/75; PULSE 65; RESP 16; TEMP 96.6; O2SAT 95
--- NOTE | 2016-07-13 09:01 | HHI.PR ---
Subjective Remarks Patient seen and examined today. Patient denies any new complaints. No change in clinical status. Awaiting briefcase sewer discharge planning Objective Vitals Vital Signs Date Time Temp Pulse Resp B/P Pulse Ox O2 Delivery O2 Flow Rate FiO2 07/12/16 20:00 97.3 64 20 142/87 98 07/12/16 13:51 14 07/12/16 09:45 98.2 68 22 124/72 98 I/O 07/12/16 07/12/16 07/12/16 07/13/16 07/13/16 07/13/16 07:00 15:00 23:00 07:00 15:00 23:00 Intake Total 120 ml 240 ml Output Total 100 ml 600 ml 200 ml Balance 20 ml -600 ml 40 ml Intake Oral 120 ml 240 ml Output Urine Total 100 ml 600 ml 200 ml # Voids 1 # Bowel Movements 0 1 Result Diagram: 07/12/16 0715 07/12/16 0715 Objective Remarks GENERAL: Well-developed, well-nourished, in no acute distress. alert and orientated HEENT: Head is normocephalic without any lesions or masses noted. Facial features are symmetric. Eyes: Extraocular muscles are intact. Conjunctivae were clear. NECK: Supple without any masses. Trachea midline no deviation. No JVD, CARDIAC: Regular rhythm, regular rate. S1/S2 are heard. No murmurs gallops or rubs. LUNGS: Clear to auscultation bilaterally. No wheeze, rhonchi or rales. No use of accessory muscles on inspiration or expiration. ABDOMEN: Soft, nontender. Nondistended. Bowel sounds heard in all 4 quadrants. No organomegaly or masses. Negative rebound, negative guarding EXTREMITIES: No edema, pulses are equal bilaterally. No cyanosis or clubbing NEUROLOGY: Mood and affect appear appropriate. Cranial nerves II through XII grossly intact. Moving upper extremities. Strength 5/5 SACRAL AREA: Patient does have packing noted in the sacral region. 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 Garcia evaluated patient and indicated local wound care Wound care team nurse following. Recommend to continue current treatment of Dakins solution soaked gauze, lightly fluffed, and gently placed into wound bed to allow for tissue growth. Wound care nurse also indicated patient may benefit from wound VAC placement, this is dependent upon patient's length of stay and discharge planning for recommendations Reposition every 2 hours and PRN for comfort. Patient refused diverting colostomy for management Chronic pain: -Continue patient's outpatient medications to include Oramorph 30 mg 3 times daily and Percocet 10, every 6 hours as needed for pain -The above regimen was confirmed by E force review and printed out and placed on patient's chart -Continue PT Anemia: Hemoglobin stable at 9.6. Hyperglycemia: Resolved likely related to infection. HgbA1c 5.2. Hypertension: Monitor and add medication if needed DVT prophylaxis: Lovenox Discharge Planning At the present time patient is stable for discharge. Awaiting briefcase sewer discharge planning. Case management documentation indicates that they're trying to arrange halfway facility if in [place] by his grandson. Awaiting response from case management for discharge planning and recommendations for wound care, possible wound VAC placement, post hospital care. Jp Keith Jul 13, 2016 09:01
[2016-07-13] MEDS: MULTIVITAMINS/MINERALS THERAPEUTIC TAB PO SCH (09:22)
[2016-07-13] MEDS: PANTOPRAZOLE SOD 40 MG DELAYED RELEASE TAB PO SCH (09:22)
[2016-07-13] MEDS: ENOXAPARIN SODIUM 40 MG/0.4 ML SYRINGE SQ SCH (09:23)
[2016-07-13] MEDS: SODIUM HYPOCHLORITE 0.125% 500 ML BTL TOPICAL SCH ×2 (09:24→19:48)
[2016-07-13] MEDS: MUPIROCIN 2% CREAM 15 GM TOPICAL SCH ×2 (09:25→19:47)
[2016-07-13] MEDS: LACTIC ACID (AMMONIUM LACTATE) 12% LOTION 225 GM BTL TOPICAL SCH ×2 (09:25→19:47)
[2016-07-13] MEDS: FLUTICASONE PROPIONATE 50 MCG/ACT 16 GM NASAL SPRAY NASAL SCH ×2 (09:27→19:45)
[2016-07-13 20:00] VITALS: BP 140/76; PULSE 75; RESP 20; TEMP 98.1; O2SAT 96
[2016-07-13] MEDS: hydrOXYzine HCL 10 MG TAB PO PRN (21:45)
[2016-07-14] MEDS: MORPHINE SULFATE 30 MG CONTROLLED RELEASE TAB PO SCH ×3 (05:51→21:14)
[2016-07-14 08:00] VITALS: BP 139/80; PULSE 67; RESP 20; TEMP 96.3; O2SAT 97
[2016-07-14] MEDS: PANTOPRAZOLE SOD 40 MG DELAYED RELEASE TAB PO SCH ×2 (08:02→08:10)
[2016-07-14] MEDS: MULTIVITAMINS/MINERALS THERAPEUTIC TAB PO SCH ×2 (08:02→08:10)
[2016-07-14] MEDS: oxyCODONE/ACETAMINOPHEN 10 MG/325 MG TAB PO PRN ×3 (08:02→20:15)
[2016-07-14] MEDS: ENOXAPARIN SODIUM 40 MG/0.4 ML SYRINGE SQ SCH (08:02)
[2016-07-14] MEDS: FLUTICASONE PROPIONATE 50 MCG/ACT 16 GM NASAL SPRAY NASAL SCH ×2 (08:03→21:11)
[2016-07-14] MEDS: SODIUM HYPOCHLORITE 0.125% 500 ML BTL TOPICAL SCH ×2 (08:04→21:11)
[2016-07-14] MEDS: LACTIC ACID (AMMONIUM LACTATE) 12% LOTION 225 GM BTL TOPICAL SCH ×2 (08:04→21:11)
[2016-07-14] MEDS: MUPIROCIN 2% CREAM 15 GM TOPICAL SCH ×2 (08:04→21:12)
--- NOTE | 2016-07-14 10:09 | HHI.PR ---
Subjective Remarks Patient seen and examined today. Patient's only complaint is that he does not feel that is getting enough pain medication when he wants it. We are still waiting for case management for discharge planning. As indicated that we are still awaiting acceptance at a rehabilitation facility in [place]. Objective Vitals Vital Signs Date Time Temp Pulse Resp B/P Pulse Ox O2 Delivery O2 Flow Rate FiO2 07/14/16 08:00 96.3 67 20 139/80 97 07/13/16 20:00 98.1 75 20 140/76 96 I/O 07/13/16 07/13/16 07/13/16 07/14/16 07/14/16 07/14/16 07:00 15:00 23:00 07:00 15:00 23:00 Intake Total 240 ml 1000 ml 240 ml Output Total 200 ml 1000 ml 350 ml Balance 40 ml 0 ml -110 ml Intake Oral 240 ml 1000 ml 240 ml Output Urine Total 200 ml 1000 ml 350 ml # Bowel Movements 1 1 1 Result Diagram: 07/12/1615 07/12/16 0715 Objective Remarks GENERAL: Well-developed, well-nourished, in no acute distress. alert and orientated HEENT: Head is normocephalic without any lesions or masses noted. Facial features are symmetric. Eyes: Extraocular muscles are intact. Conjunctivae were clear. NECK: Supple without any masses. Trachea midline no deviation. No JVD, CARDIAC: Regular rhythm, regular rate. S1/S2 are heard. No murmurs gallops or rubs. LUNGS: Clear to auscultation bilaterally. No wheeze, rhonchi or rales. No use of accessory muscles on inspiration or expiration. ABDOMEN: Soft, nontender. Nondistended. Bowel sounds heard in all 4 quadrants. No organomegaly or masses. Negative rebound, negative guarding EXTREMITIES: No edema, pulses are equal bilaterally. No cyanosis or clubbing NEUROLOGY: Mood and affect appear appropriate. Cranial nerves II through XII grossly intact. Moving upper extremities. Strength 5/5 SACRAL AREA: Patient does have packing noted in the sacral region. 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 Garcia evaluated patient and indicated local wound care Wound care team nurse following. Recommend to continue current treatment of Dakins solution soaked gauze, lightly fluffed, and gently placed into wound bed to allow for tissue growth. Wound care nurse also indicated patient may benefit from wound VAC placement, this is dependent upon patient's length of stay and discharge planning for recommendations Reposition every 2 hours and PRN for comfort. Patient refused diverting colostomy for management Chronic pain: -Continue patient's outpatient medications to include Oramorph 30 mg 3 times daily and Percocet 10, every 6 hours as needed for pain -The above regimen was confirmed by E force review and printed out and placed on patient's chart -Continue PT Anemia: Hemoglobin stable at 9.6. Hyperglycemia: Resolved likely related to infection. HgbA1c 5.2. Hypertension: Monitor and add medication if needed DVT prophylaxis: Lovenox Discharge Planning At the present time patient is stable for discharge. Awaiting director of casework discharge planning. Case management documentation indicates that they're trying to arrange intermediate facility if in [place] by his grandson. Awaiting response from case management for discharge planning and recommendations for wound care, possible wound VAC placement, post hospital care. Jp Keith Jul 14, 2016 10:09
[2016-07-14 20:21] VITALS: BP 150/84; PULSE 63; RESP 18; TEMP 97; O2SAT 95
[2016-07-15] MEDS: oxyCODONE/ACETAMINOPHEN 10 MG/325 MG TAB PO PRN ×4 (02:29→22:11)
[2016-07-15] MEDS: MORPHINE SULFATE 30 MG CONTROLLED RELEASE TAB PO SCH ×3 (06:18→22:11)
[2016-07-15 08:00] VITALS: BP 136/72; PULSE 65; RESP 17; TEMP 97.7; O2SAT 95
[2016-07-15] MEDS: MULTIVITAMINS/MINERALS THERAPEUTIC TAB PO SCH (09:24)
[2016-07-15] MEDS: PANTOPRAZOLE SOD 40 MG DELAYED RELEASE TAB PO SCH (09:24)
[2016-07-15] MEDS: ENOXAPARIN SODIUM 40 MG/0.4 ML SYRINGE SQ SCH (09:24)
[2016-07-15] MEDS: SODIUM HYPOCHLORITE 0.125% 500 ML BTL TOPICAL SCH ×2 (09:32→20:49)
[2016-07-15] MEDS: LACTIC ACID (AMMONIUM LACTATE) 12% LOTION 225 GM BTL TOPICAL SCH ×2 (09:32→20:49)
[2016-07-15] MEDS: MUPIROCIN 2% CREAM 15 GM TOPICAL SCH ×2 (09:33→20:48)
[2016-07-15] MEDS: FLUTICASONE PROPIONATE 50 MCG/ACT 16 GM NASAL SPRAY NASAL SCH ×2 (09:33→20:50)
--- NOTE | 2016-07-15 14:23 | HHI.PR ---
Subjective Remarks Patient seen and examined today. Patient denies any new complaints. Patient had no complaints about his pain medications today. Objective Vitals Vital Signs Date Time Temp Pulse Resp B/P Pulse Ox O2 Delivery O2 Flow Rate FiO2 07/15/16 10:36 14 07/15/16 08:00 97.7 65 17 136/72 95 07/14/16 20:21 97.0 63 18 150/84 95 I/O 07/14/16 07/14/16 07/14/16 07/15/16 07/15/16 07/15/16 07:00 15:00 23:00 07:00 15:00 23:00 Intake Total 240 ml 720 ml 300 ml Output Total 350 ml 350 ml 350 ml 900 ml 500 ml Balance -110 ml 370 ml -50 ml -900 ml -500 ml Intake Oral 240 ml 720 ml 300 ml Output Urine Total 350 ml 350 ml 350 ml 900 ml 500 ml # Bowel Movements 1 Result Diagram: 07/12/1615 07/12/1615 Objective Remarks GENERAL: Well-developed, well-nourished, in no acute distress. alert and orientated HEENT: Head is normocephalic without any lesions or masses noted. Facial features are symmetric. Eyes: Extraocular muscles are intact. Conjunctivae were clear. NECK: Supple without any masses. Trachea midline no deviation. No JVD, CARDIAC: Regular rhythm, regular rate. S1/S2 are heard. No murmurs gallops or rubs. LUNGS: Clear to auscultation bilaterally. No wheeze, rhonchi or rales. No use of accessory muscles on inspiration or expiration. ABDOMEN: Soft, nontender. Nondistended. Bowel sounds heard in all 4 quadrants. No organomegaly or masses. Negative rebound, negative guarding EXTREMITIES: No edema, pulses are equal bilaterally. No cyanosis or clubbing NEUROLOGY: Mood and affect appear appropriate. Cranial nerves II through XII grossly intact. Moving upper extremities. Strength 5/5 SACRAL AREA: Patient does have packing noted in the sacral region. 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 Garcia evaluated patient and indicated local wound care Wound care team nurse following. Recommend to continue current treatment of Dakins solution soaked gauze, lightly fluffed, and gently placed into wound bed to allow for tissue growth. Wound care nurse also indicated patient may benefit from wound VAC placement, this is dependent upon patient's length of stay and discharge planning for recommendations Reposition every 2 hours and PRN for comfort. Patient refused diverting colostomy for management Chronic pain: -Continue patient's outpatient medications to include Oramorph 30 mg 3 times daily and Percocet 10, every 6 hours as needed for pain -The above regimen was confirmed by E force review and printed out and placed on patient's chart -Continue PT Anemia: Hemoglobin stable at 9.6. Hyperglycemia: Resolved likely related to infection. HgbA1c 5.2. Hypertension: Monitor and add medication if needed DVT prophylaxis: Lovenox Discharge Planning At the present time patient is stable for discharge. Awaiting cyanide case hardener discharge planning. Case management documentation indicates that they're trying to arrange shelter facility if in [place] by his grandson. Awaiting response from case management for discharge planning and recommendations for wound care, possible wound VAC placement, post hospital care. Jp Keith Jul 15, 2016 14:23
[2016-07-15 20:00] VITALS: BP 127/73; PULSE 87; RESP 22; TEMP 98.7; O2SAT 97
[2016-07-16] MEDS: oxyCODONE/ACETAMINOPHEN 10 MG/325 MG TAB PO PRN ×4 (04:21→22:04)
[2016-07-16] MEDS: MORPHINE SULFATE 30 MG CONTROLLED RELEASE TAB PO SCH ×3 (05:43→22:05)
[2016-07-16] MEDS: ENOXAPARIN SODIUM 40 MG/0.4 ML SYRINGE SQ SCH (07:50)
[2016-07-16] MEDS: SODIUM HYPOCHLORITE 0.125% 500 ML BTL TOPICAL SCH ×2 (07:50→20:57)
[2016-07-16] MEDS: LACTIC ACID (AMMONIUM LACTATE) 12% LOTION 225 GM BTL TOPICAL SCH ×2 (07:50→20:56)
[2016-07-16] MEDS: PANTOPRAZOLE SOD 40 MG DELAYED RELEASE TAB PO SCH (07:51)
[2016-07-16] MEDS: MUPIROCIN 2% CREAM 15 GM TOPICAL SCH ×2 (07:51→20:57)
[2016-07-16] MEDS: FLUTICASONE PROPIONATE 50 MCG/ACT 16 GM NASAL SPRAY NASAL SCH ×2 (07:51→20:57)
[2016-07-16] MEDS: MULTIVITAMINS/MINERALS THERAPEUTIC TAB PO SCH (07:51)
[2016-07-16 08:00] VITALS: BP 131/76; PULSE 68; RESP 20; TEMP 97.4; O2SAT 96
--- NOTE | 2016-07-16 11:07 | HHI.PR ---
Subjective Remarks Patient seen and examined today. Patient denies any new complaints. Patient did not indicate anything about his pain medicine today. Awaiting acceptance and open bed at nursing facility in [place]. Objective Vitals Vital Signs Date Time Temp Pulse Resp B/P Pulse Ox O2 Delivery O2 Flow Rate FiO2 07/16/16 08:00 97.4 68 20 131/76 96 07/16/16 07:17 16 07/15/16 20:00 98.7 87 22 127/73 97 07/15/16 17:08 12 I/O 07/15/16 07/15/16 07/15/16 07/16/16 07/16/16 07/16/16 07:00 15:00 23:00 07:00 15:00 23:00 Intake Total 120 ml 120 ml Output Total 900 ml 500 ml 225 ml 450 ml Balance -900 ml -500 ml -105 ml -330 ml Intake Oral 120 ml 120 ml Output Urine Total 900 ml 500 ml 225 ml 450 ml # Bowel Movements 0 Result Diagram: 07/12/1615 07/12/16 0715 Objective Remarks GENERAL: Well-developed, well-nourished, in no acute distress. alert and orientated HEENT: Head is normocephalic without any lesions or masses noted. Facial features are symmetric. Eyes: Extraocular muscles are intact. Conjunctivae were clear. NECK: Supple without any masses. Trachea midline no deviation. No JVD, CARDIAC: Regular rhythm, regular rate. S1/S2 are heard. No murmurs gallops or rubs. LUNGS: Clear to auscultation bilaterally. No wheeze, rhonchi or rales. No use of accessory muscles on inspiration or expiration. ABDOMEN: Soft, nontender. Nondistended. Bowel sounds heard in all 4 quadrants. No organomegaly or masses. Negative rebound, negative guarding EXTREMITIES: No edema, pulses are equal bilaterally. No cyanosis or clubbing NEUROLOGY: Mood and affect appear appropriate. Cranial nerves II through XII grossly intact. Moving upper extremities. Strength 5/5 SACRAL AREA: Patient does have packing noted in the sacral region. 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 Garcia evaluated patient and indicated local wound care Wound care team nurse following. Recommend to continue current treatment of Dakins solution soaked gauze, lightly fluffed, and gently placed into wound bed to allow for tissue growth. Wound care nurse also indicated patient may benefit from wound VAC placement, this is dependent upon patient's length of stay and discharge planning for recommendations Reposition every 2 hours and PRN for comfort. Patient refused diverting colostomy for management Chronic pain: -Continue patient's outpatient medications to include Oramorph 30 mg 3 times daily and Percocet 10, every 6 hours as needed for pain -The above regimen was confirmed by E force review and printed out and placed on patient's chart -Continue PT Anemia: Hemoglobin stable at 9.6. Hyperglycemia: Resolved likely related to infection. HgbA1c 5.2. Hypertension: Monitor and add medication if needed DVT prophylaxis: Lovenox No changes in present treatment plan Discharge Planning At the present time patient is stable for discharge. Awaiting director case management discharge planning. Case management documentation indicates that they're trying to arrange [facility] facility if in [place] by his grandson. Awaiting response from case management for discharge planning and recommendations for wound care, possible wound VAC placement, post hospital care. Jp Keith Jul 16, 2016 11:07
[2016-07-16 20:00] VITALS: BP 134/85; PULSE 100; RESP 20; TEMP 98.6; O2SAT 95
[2016-07-16] MEDS: hydrOXYzine HCL 10 MG TAB PO PRN (20:54)
[2016-07-17] MEDS: oxyCODONE/ACETAMINOPHEN 10 MG/325 MG TAB PO PRN ×4 (04:01→22:58)
[2016-07-17] MEDS: MORPHINE SULFATE 30 MG CONTROLLED RELEASE TAB PO SCH ×3 (06:04→21:55)
[2016-07-17] MEDS: ENOXAPARIN SODIUM 40 MG/0.4 ML SYRINGE SQ SCH (07:30)
[2016-07-17] MEDS: FLUTICASONE PROPIONATE 50 MCG/ACT 16 GM NASAL SPRAY NASAL SCH ×2 (07:31→20:55)
[2016-07-17] MEDS: MUPIROCIN 2% CREAM 15 GM TOPICAL SCH ×2 (07:32→20:55)
[2016-07-17] MEDS: MULTIVITAMINS/MINERALS THERAPEUTIC TAB PO SCH (07:38)
[2016-07-17] MEDS: PANTOPRAZOLE SOD 40 MG DELAYED RELEASE TAB PO SCH (07:38)
[2016-07-17 08:00] VITALS: BP 120/74; PULSE 72; RESP 16; TEMP 96.4; O2SAT 99
[2016-07-17] MEDS: LACTIC ACID (AMMONIUM LACTATE) 12% LOTION 225 GM BTL TOPICAL SCH ×2 (09:00→20:55)
[2016-07-17] MEDS: SODIUM HYPOCHLORITE 0.125% 500 ML BTL TOPICAL SCH ×2 (09:00→20:56)
--- NOTE | 2016-07-17 09:49 | HHI.PR ---
Subjective Remarks Patient seen and examined today. Patient denies any new complaints. Patient is requesting a trapeze for his bed so he can with himself up in the bed on his own. Objective Vitals Vital Signs Date Time Temp Pulse Resp B/P Pulse Ox O2 Delivery O2 Flow Rate FiO2 07/17/16 08:00 96.4 72 16 120/74 99 07/16/16 20:00 98.6 100 20 134/85 95 07/16/16 11:32 16 I/O 07/16/16 07/16/16 07/16/16 07/17/16 07/17/16 07/17/16 07:00 15:00 23:00 07:00 15:00 23:00 Intake Total 120 ml 1280 ml 120 ml 50 ml Output Total 450 ml 850 ml 250 ml Balance -330 ml 430 ml -130 ml 50 ml Intake Oral 120 ml 1280 ml 120 ml 50 ml Output Urine Total 450 ml 850 ml 250 ml # Bowel Movements 0 0 0 Objective Remarks GENERAL: Well-developed, well-nourished, in no acute distress. alert and orientated HEENT: Head is normocephalic without any lesions or masses noted. Facial features are symmetric. Eyes: Extraocular muscles are intact. Conjunctivae were clear. NECK: Supple without any masses. Trachea midline no deviation. No JVD, CARDIAC: Regular rhythm, regular rate. S1/S2 are heard. No murmurs gallops or rubs. LUNGS: Clear to auscultation bilaterally. No wheeze, rhonchi or rales. No use of accessory muscles on inspiration or expiration. ABDOMEN: Soft, nontender. Nondistended. Bowel sounds heard in all 4 quadrants. No organomegaly or masses. Negative rebound, negative guarding EXTREMITIES: No edema, pulses are equal bilaterally. No cyanosis or clubbing NEUROLOGY: Mood and affect appear appropriate. Cranial nerves II through XII grossly intact. Moving upper extremities. Strength 5/5 SACRAL AREA: Patient does have packing noted in the sacral region. 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 Garcia evaluated patient and indicated local wound care Wound care team nurse following. Recommend to continue current treatment of Dakins solution soaked gauze, lightly fluffed, and gently placed into wound bed to allow for tissue growth. Wound care nurse also indicated patient may benefit from wound VAC placement, this is dependent upon patient's length of stay and discharge planning for recommendations Reposition every 2 hours and PRN for comfort. Patient refused diverting colostomy for management Chronic pain: -Continue patient's outpatient medications to include Oramorph 30 mg 3 times daily and Percocet 10, every 6 hours as needed for pain -The above regimen was confirmed by E force review and printed out and placed on patient's chart -Continue PT Anemia: Hemoglobin stable at 9.6. Hyperglycemia: Resolved likely related to infection. HgbA1c 5.2. Hypertension: Monitor and add medication if needed DVT prophylaxis: Lovenox No changes in present treatment plan Discharge Planning At the present time patient is stable for discharge. Awaiting case finisher discharge planning. Case management documentation indicates that they're trying to arrange long term facility if in [place] by his grandson. Still Awaiting response from case management for discharge planning and recommendations for wound care, possible wound VAC placement, post hospital care. Jp Keith Jul 17, 2016 09:49
[2016-07-17] MEDS: hydrOXYzine HCL 10 MG TAB PO PRN ×2 (13:38→21:53)
[2016-07-17 20:00] VITALS: BP 108/76; PULSE 80; RESP 18; TEMP 97.3; O2SAT 100
[2016-07-18] MEDS: oxyCODONE/ACETAMINOPHEN 10 MG/325 MG TAB PO PRN ×4 (05:03→23:01)
[2016-07-18] MEDS: MORPHINE SULFATE 30 MG CONTROLLED RELEASE TAB PO SCH ×3 (06:10→21:51)
[2016-07-18] MEDS: ENOXAPARIN SODIUM 40 MG/0.4 ML SYRINGE SQ SCH (07:49)
[2016-07-18] MEDS: MULTIVITAMINS/MINERALS THERAPEUTIC TAB PO SCH (07:54)
[2016-07-18] MEDS: PANTOPRAZOLE SOD 40 MG DELAYED RELEASE TAB PO SCH (07:54)
[2016-07-18] MEDS: FLUTICASONE PROPIONATE 50 MCG/ACT 16 GM NASAL SPRAY NASAL SCH ×2 (07:54→20:21)
[2016-07-18] MEDS: MUPIROCIN 2% CREAM 15 GM TOPICAL SCH ×2 (07:55→20:20)
[2016-07-18] MEDS: LACTIC ACID (AMMONIUM LACTATE) 12% LOTION 225 GM BTL TOPICAL SCH ×2 (07:55→20:20)
[2016-07-18] MEDS: SODIUM HYPOCHLORITE 0.125% 500 ML BTL TOPICAL SCH ×2 (07:55→20:19)
[2016-07-18 08:00] VITALS: BP 156/81; PULSE 72; RESP 19; TEMP 97.8; O2SAT 93
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
[2016-07-18 15:57] LABS: AUTOMATED NEUTROPHIL # 4.8 TH/MM3 (1.8-7.7); BASOPHIL % 0.6 % (0.0-2.0); EOSINOPHIL # 0.3 TH/MM3 (0-0.4); EOSINOPHIL % 3.4 % (0.0-4.0); HEMATOCRIT 31.4 % (39.0-51.0); HEMO FLAGS DIFF FINAL; LYMPH % 23.2 % (9.0-44.0); LYMPHOCYTE # 1.9 TH/MM3 (1.0-4.8); MEAN CELL VOLUME 84.9 FL (80.0-100.0); MEAN CORPUSCULAR HEMOGLOBIN 27.3 PG (27.0-34.0); MEAN CORPUSCULAR HGB CONC 32.1 % (32.0-36.0); MONO % 14.1 % (0.0-8.0); NEUT % 58.7 % (16.0-70.0); PLATELET COUNT 365 TH/MM3 (150-450); RED CELL DISTRIBUTION WIDTH 16.3 % (11.6-17.2); WHITE BLOOD COUNT 8.2 TH/MM3 (4.0-11.0)
[2016-07-18 16:12] LABS: BICARBONATE 29.1 MEQ/L (21.0-32.0)
[2016-07-18] MEDS: DOCUSATE SODIUM 100 MG CAP PO SCH ×2 (16:59→20:18)
[2016-07-18 20:00] VITALS: BP 135/80; PULSE 106; RESP 20; TEMP 97.3; O2SAT 96
[2016-07-18] MEDS: hydrOXYzine HCL 10 MG TAB PO PRN (20:18)
[2016-07-19] MEDS: oxyCODONE/ACETAMINOPHEN 10 MG/325 MG TAB PO PRN ×4 (04:58→23:06)
[2016-07-19] MEDS: hydrOXYzine HCL 10 MG TAB PO PRN ×2 (06:00→20:13)
[2016-07-19] MEDS: MORPHINE SULFATE 30 MG CONTROLLED RELEASE TAB PO SCH ×3 (06:01→22:09)
[2016-07-19] MEDS: ENOXAPARIN SODIUM 40 MG/0.4 ML SYRINGE SQ SCH (07:59)
[2016-07-19 08:00] VITALS: BP 112/66; PULSE 75; RESP 16; TEMP 96.8; O2SAT 96
[2016-07-19] MEDS: DOCUSATE SODIUM 100 MG CAP PO SCH (08:00)
[2016-07-19] MEDS: SODIUM HYPOCHLORITE 0.125% 500 ML BTL TOPICAL SCH ×2 (08:01→20:15)
[2016-07-19] MEDS: LACTIC ACID (AMMONIUM LACTATE) 12% LOTION 225 GM BTL TOPICAL SCH ×2 (08:01→20:15)
[2016-07-19] MEDS: FLUTICASONE PROPIONATE 50 MCG/ACT 16 GM NASAL SPRAY NASAL SCH ×2 (08:01→20:15)
[2016-07-19] MEDS: MUPIROCIN 2% CREAM 15 GM TOPICAL SCH ×2 (08:01→20:15)
[2016-07-19] MEDS: PANTOPRAZOLE SOD 40 MG DELAYED RELEASE TAB PO SCH (08:02)
[2016-07-19] MEDS: MULTIVITAMINS/MINERALS THERAPEUTIC TAB PO SCH (08:02)
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
[2016-07-19 20:00] VITALS: BP 131/73; PULSE 84; RESP 18; TEMP 96.5; O2SAT 95
[2016-07-19] MEDS: DOCUSATE SODIUM 50 MG/SENNA 8.6 MG TAB PO SCH (20:13)
[2016-07-20] MEDS: oxyCODONE/ACETAMINOPHEN 10 MG/325 MG TAB PO PRN ×4 (05:19→23:30)
[2016-07-20] MEDS: hydrOXYzine HCL 10 MG TAB PO PRN (05:19)
[2016-07-20] MEDS: MORPHINE SULFATE 30 MG CONTROLLED RELEASE TAB PO SCH ×3 (06:31→21:59)
[2016-07-20 07:15] VITALS: BP 130/83; PULSE 70; RESP 18; TEMP 95.4; O2SAT 98
[2016-07-20] MEDS: MULTIVITAMINS/MINERALS THERAPEUTIC TAB PO SCH (09:00)
[2016-07-20] MEDS: ENOXAPARIN SODIUM 40 MG/0.4 ML SYRINGE SQ SCH (09:00)
[2016-07-20] MEDS: PANTOPRAZOLE SOD 40 MG DELAYED RELEASE TAB PO SCH (09:00)
[2016-07-20] MEDS: FLUTICASONE PROPIONATE 50 MCG/ACT 16 GM NASAL SPRAY NASAL SCH ×2 (09:00→20:07)
[2016-07-20] MEDS: DOCUSATE SODIUM 50 MG/SENNA 8.6 MG TAB PO SCH ×2 (10:28→20:10)
[2016-07-20] MEDS: SODIUM HYPOCHLORITE 0.125% 500 ML BTL TOPICAL SCH ×2 (10:29→20:08)
[2016-07-20] MEDS: LACTIC ACID (AMMONIUM LACTATE) 12% LOTION 225 GM BTL TOPICAL SCH ×2 (10:30→20:08)
[2016-07-20] MEDS: MUPIROCIN 2% CREAM 15 GM TOPICAL SCH ×2 (10:30→20:08)
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
[2016-07-20] MEDS: POLYETHYLENE GLYCOL 17 GM PKG PO SCH (17:47)
[2016-07-20 20:00] VITALS: BP 157/86; PULSE 91; RESP 16; TEMP 97; O2SAT 97
[2016-07-20] MEDS: CALCIUM CARBONATE 500 MG CHEWABLE TAB CHEW PRN (20:19)
[2016-07-21] MEDS: MORPHINE SULFATE 30 MG CONTROLLED RELEASE TAB PO SCH ×3 (06:37→21:55)
[2016-07-21 08:00] VITALS: BP_SYST 119; BP_SYST 132; BP_DIAS 71; BP_DIAS 77; PULSE 76; PULSE 77; RESP 20; TEMP 97.2; TEMP 97.8; O2SAT 96
[2016-07-21] MEDS: MUPIROCIN 2% CREAM 15 GM TOPICAL SCH ×2 (09:00→20:54)
[2016-07-21] MEDS: LACTIC ACID (AMMONIUM LACTATE) 12% LOTION 225 GM BTL TOPICAL SCH ×2 (09:00→20:55)
[2016-07-21] MEDS: MULTIVITAMINS/MINERALS THERAPEUTIC TAB PO SCH (09:00)
[2016-07-21] MEDS: SODIUM HYPOCHLORITE 0.125% 500 ML BTL TOPICAL SCH ×2 (09:00→20:55)
[2016-07-21] MEDS: PANTOPRAZOLE SOD 40 MG DELAYED RELEASE TAB PO SCH (09:00)
[2016-07-21] MEDS: DOCUSATE SODIUM 50 MG/SENNA 8.6 MG TAB PO SCH ×2 (09:00→20:54)
[2016-07-21] MEDS: FLUTICASONE PROPIONATE 50 MCG/ACT 16 GM NASAL SPRAY NASAL SCH ×2 (09:00→20:54)
[2016-07-21] MEDS: POLYETHYLENE GLYCOL 17 GM PKG PO SCH (09:00)
[2016-07-21] MEDS: ENOXAPARIN SODIUM 40 MG/0.4 ML SYRINGE SQ SCH (09:46)
[2016-07-21] MEDS: oxyCODONE/ACETAMINOPHEN 10 MG/325 MG TAB PO PRN ×2 (11:56→18:23)
[2016-07-21 12:00] VITALS: BP 133/86; PULSE 83; RESP 20; TEMP 98.1; O2SAT 97
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
[2016-07-21 16:00] VITALS: BP 131/85; PULSE 87; RESP 20; TEMP 96.5; O2SAT 97
[2016-07-21] MEDS: hydrOXYzine HCL 10 MG TAB PO PRN (16:24)
[2016-07-21 20:00] VITALS: BP 121/71; PULSE 93; RESP 16; TEMP 99.6; O2SAT 95
[2016-07-22] MEDS: oxyCODONE/ACETAMINOPHEN 10 MG/325 MG TAB PO PRN ×4 (00:33→21:35)
[2016-07-22] MEDS: MORPHINE SULFATE 30 MG CONTROLLED RELEASE TAB PO SCH ×3 (06:10→21:34)
[2016-07-22 08:00] VITALS: BP 134/79; PULSE 90; RESP 18; TEMP 97.1; O2SAT 96
[2016-07-22] MEDS: PANTOPRAZOLE SOD 40 MG DELAYED RELEASE TAB PO SCH (09:00)
[2016-07-22] MEDS: MULTIVITAMINS/MINERALS THERAPEUTIC TAB PO SCH (09:00)
[2016-07-22] MEDS: LACTIC ACID (AMMONIUM LACTATE) 12% LOTION 225 GM BTL TOPICAL SCH ×2 (09:00→21:07)
[2016-07-22] MEDS: FLUTICASONE PROPIONATE 50 MCG/ACT 16 GM NASAL SPRAY NASAL SCH ×2 (09:00→21:07)
[2016-07-22] MEDS: POLYETHYLENE GLYCOL 17 GM PKG PO SCH (09:00)
[2016-07-22] MEDS: MUPIROCIN 2% CREAM 15 GM TOPICAL SCH ×2 (09:00→21:09)
[2016-07-22] MEDS: DOCUSATE SODIUM 50 MG/SENNA 8.6 MG TAB PO SCH (09:00)
[2016-07-22] MEDS: SODIUM HYPOCHLORITE 0.125% 500 ML BTL TOPICAL SCH ×2 (09:00→21:07)
[2016-07-22] MEDS: ENOXAPARIN SODIUM 40 MG/0.4 ML SYRINGE SQ SCH (09:41)
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
[2016-07-22] MEDS ORDERED: POLYETHYLENE GLYCOL 17 GM PKG PO PRN (13:15)
[2016-07-22] MEDS: hydrOXYzine HCL 10 MG TAB PO PRN ×2 (13:24→21:06)
[2016-07-22] MEDS: CALCIUM CARBONATE 500 MG CHEWABLE TAB CHEW PRN (16:53)
[2016-07-22 20:41] VITALS: BP 115/63; PULSE 101; RESP 18; TEMP 98.7; O2SAT 97
[2016-07-22] MEDS: DOCUSATE SODIUM 100 MG CAP PO SCH (21:00)
[2016-07-22] MEDS: diphenhydrAMINE HCL 25 MG CAP PO PRN (21:06)
[2016-07-23] MEDS: oxyCODONE/ACETAMINOPHEN 10 MG/325 MG TAB PO PRN ×4 (05:13→22:25)
[2016-07-23] MEDS: MORPHINE SULFATE 30 MG CONTROLLED RELEASE TAB PO SCH ×3 (05:13→22:25)
[2016-07-23 08:00] VITALS: BP 133/80; PULSE 85; RESP 19; TEMP 98; O2SAT 95
[2016-07-23] MEDS: LACTIC ACID (AMMONIUM LACTATE) 12% LOTION 225 GM BTL TOPICAL SCH ×2 (09:00→19:31)
[2016-07-23] MEDS: MUPIROCIN 2% CREAM 15 GM TOPICAL SCH ×2 (09:00→19:34)
[2016-07-23] MEDS: DOCUSATE SODIUM 100 MG CAP PO SCH ×2 (09:00→19:31)
[2016-07-23] MEDS: SODIUM HYPOCHLORITE 0.125% 500 ML BTL TOPICAL SCH ×2 (09:00→19:32)
[2016-07-23] MEDS: PANTOPRAZOLE SOD 40 MG DELAYED RELEASE TAB PO SCH (09:00)
[2016-07-23] MEDS: MULTIVITAMINS/MINERALS THERAPEUTIC TAB PO SCH (09:00)
[2016-07-23] MEDS: ENOXAPARIN SODIUM 40 MG/0.4 ML SYRINGE SQ SCH (09:50)
[2016-07-23] MEDS: FLUTICASONE PROPIONATE 50 MCG/ACT 16 GM NASAL SPRAY NASAL SCH ×2 (09:50→19:31)
[2016-07-23] MEDS: hydrOXYzine HCL 10 MG TAB PO PRN ×3 (11:09→22:25)
--- NOTE | 2016-07-23 17:05 | HHI.PR ---
Objective Vitals Vital Signs Date Time Temp Pulse Resp B/P Pulse Ox O2 Delivery O2 Flow Rate FiO2 07/23/16 14:51 18 07/23/16 12:09 18 07/23/16 08:00 98.0 85 19 133/80 95 07/22/16 20:41 98.7 101 18 115/63 97 I/O 07/22/16 07/22/16 07/22/16 07/23/16 07/23/16 07/23/16 07:00 15:00 23:00 07:00 15:00 23:00 Intake Total 120 ml Output Total 275 ml 1050 ml Balance -155 ml -1050 ml Intake Oral 120 ml Output Urine Total 275 ml 1050 ml # Bowel Movements 0 1 Objective Remarks GENERAL: This is a well-nourished, well-developed patient, in no apparent distress. CARDIOVASCULAR: Regular rate and rhythm without murmurs, gallops, or rubs. RESPIRATORY: Clear to auscultation. Breath sounds equal bilaterally. No wheezes , rales, or rhonchi. GASTROINTESTINAL: Abdomen soft, non-tender, nondistended. Normal active bowel sounds MUSCULOSKELETAL: Extremities without clubbing, cyanosis, or edema. NEURO: Alert & Oriented x4 to person, place, time, situation. paraplegic Procedures none Date of Insertion: Jul 01, 2016 A/P Assessment and Plan Hospital in order 54. Patient follow-up for paraplegia 1. Chronic Morse with urinary retention. Recently changed to 2. Recent treatment for C. difficile Flagyl, resolved 3. Stage IV sacral decubitus: Continue local wound care and repositioning, follow up with Dr. Garcia 4. Hypertension, controlled off moos Leticia Roberts MD Jul 23, 2016 17:05
[2016-07-23] MEDS: CALCIUM CARBONATE 500 MG CHEWABLE TAB CHEW PRN (19:31)
[2016-07-23 21:39] VITALS: BP 120/67; PULSE 91; RESP 16; TEMP 98.7; O2SAT 95
[2016-07-23] MEDS: diphenhydrAMINE HCL 25 MG CAP PO PRN (22:24)
[2016-07-24] MEDS: oxyCODONE/ACETAMINOPHEN 10 MG/325 MG TAB PO PRN ×4 (05:10→23:03)
[2016-07-24] MEDS: MORPHINE SULFATE 30 MG CONTROLLED RELEASE TAB PO SCH ×3 (05:11→21:31)
[2016-07-24 08:00] VITALS: BP 108/68; PULSE 74; RESP 18; TEMP 96.3; O2SAT 96
[2016-07-24] MEDS: DOCUSATE SODIUM 100 MG CAP PO SCH ×2 (09:00→21:00)
[2016-07-24] MEDS: LACTIC ACID (AMMONIUM LACTATE) 12% LOTION 225 GM BTL TOPICAL SCH ×2 (09:00→21:29)
[2016-07-24] MEDS: FLUTICASONE PROPIONATE 50 MCG/ACT 16 GM NASAL SPRAY NASAL SCH ×2 (09:00→21:29)
[2016-07-24] MEDS: SODIUM HYPOCHLORITE 0.125% 500 ML BTL TOPICAL SCH ×2 (09:00→21:29)
[2016-07-24] MEDS: MULTIVITAMINS/MINERALS THERAPEUTIC TAB PO SCH (09:00)
[2016-07-24] MEDS: PANTOPRAZOLE SOD 40 MG DELAYED RELEASE TAB PO SCH (09:00)
[2016-07-24] MEDS: MUPIROCIN 2% CREAM 15 GM TOPICAL SCH ×2 (09:00→21:30)
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
[2016-07-24] MEDS: ENOXAPARIN SODIUM 40 MG/0.4 ML SYRINGE SQ SCH (10:13)
[2016-07-24] MEDS: hydrOXYzine HCL 10 MG TAB PO PRN ×3 (10:14→23:03)
--- NOTE | 2016-07-24 15:42 | PD.PLAS.PN ---
Subjective Remarks The patient has no complaints regarding his sacral decubitus ulcer. Vital Signs Date Time Temp Pulse Resp B/P Pulse Ox O2 Delivery O2 Flow Rate FiO2 07/24/16 12:22 18 07/24/16 08:00 96.3 74 18 108/68 96 07/23/16 21:39 98.7 91 16 120/67 95 I/O 07/23/16 07/23/16 07/23/16 07/24/16 07/24/16 07/24/16 07:00 15:00 23:00 07:00 15:00 23:00 Intake Total 480 ml 360 ml Output Total 1050 ml 1000 ml 650 ml Balance -1050 ml -520 ml -290 ml Intake Oral 480 ml 360 ml Output Urine Total 1050 ml 1000 ml 650 ml # Bowel Movements 1 1 1 0 Exam Findings The wound is clean. There is no evidence of cellulitis. Plan Impression: The wound would benefit from the use of a wound vac. Plan: Orders will be placed for the wound vac. Elayne Garcia MD Jul 24, 2016 15:42
[2016-07-24 20:00] VITALS: BP 145/84; PULSE 89; RESP 20; TEMP 98.5; O2SAT 94
[2016-07-24] MEDS: CALCIUM CARBONATE 500 MG CHEWABLE TAB CHEW PRN (21:28)
[2016-07-24] MEDS: diphenhydrAMINE HCL 25 MG CAP PO PRN (23:03)
[2016-07-25] MEDS: MORPHINE SULFATE 30 MG CONTROLLED RELEASE TAB PO SCH ×3 (05:04→21:41)
[2016-07-25 08:00] VITALS: BP 113/63; PULSE 81; RESP 19; TEMP 97.1; O2SAT 100
[2016-07-25] MEDS: DOCUSATE SODIUM 100 MG CAP PO SCH (10:00)
[2016-07-25] MEDS: PANTOPRAZOLE SOD 40 MG DELAYED RELEASE TAB PO SCH (10:00)
[2016-07-25] MEDS: MULTIVITAMINS/MINERALS THERAPEUTIC TAB PO SCH (10:00)
[2016-07-25] MEDS: ENOXAPARIN SODIUM 40 MG/0.4 ML SYRINGE SQ SCH (10:00)
[2016-07-25] MEDS: FLUTICASONE PROPIONATE 50 MCG/ACT 16 GM NASAL SPRAY NASAL SCH ×2 (10:00→21:40)
[2016-07-25] MEDS: LACTIC ACID (AMMONIUM LACTATE) 12% LOTION 225 GM BTL TOPICAL SCH ×2 (10:01→21:40)
[2016-07-25] MEDS: SODIUM HYPOCHLORITE 0.125% 500 ML BTL TOPICAL SCH ×2 (10:01→21:40)
[2016-07-25] MEDS: MUPIROCIN 2% CREAM 15 GM TOPICAL SCH ×2 (10:02→21:40)
[2016-07-25] MEDS: oxyCODONE/ACETAMINOPHEN 10 MG/325 MG TAB PO PRN ×2 (10:35→17:15)
--- NOTE | 2016-07-25 13:43 | HHI.PR ---
Subjective Remarks Patient seen and examined today. Patient states that he had soft stool. Denies any diarrhea. Awaiting discharge planning to [place] Objective Vitals Vital Signs Date Time Temp Pulse Resp B/P Pulse Ox O2 Delivery O2 Flow Rate FiO2 07/25/16 08:00 97.1 81 19 113/63 100 07/24/16 20:00 98.5 89 20 145/84 94 07/24/16 18:17 18 07/24/16 15:13 18 I/O 07/24/16 07/24/16 07/24/16 07/25/16 07/25/16 07/25/16 07:00 15:00 23:00 07:00 15:00 23:00 Intake Total 480 ml 360 ml 120 ml 120 ml Output Total 1000 ml 650 ml 250 ml 300 ml Balance -520 ml -290 ml -130 ml -180 ml Intake Oral 480 ml 360 ml 120 ml 120 ml Output Urine Total 1000 ml 650 ml 250 ml 300 ml # Bowel Movements 1 0 0 1 Objective Remarks GENERAL: Well-developed, well-nourished, in no acute distress. alert and orientated HEENT: Head is normocephalic without any lesions or masses noted. Facial features are symmetric. Eyes: Extraocular muscles are intact. Conjunctivae were clear. NECK: Supple without any masses. Trachea midline no deviation. No JVD, CARDIAC: Regular rhythm, regular rate. S1/S2 are heard. No murmurs gallops or rubs. LUNGS: Clear to auscultation bilaterally. No wheeze, rhonchi or rales. No use of accessory muscles on inspiration or expiration. ABDOMEN: Soft, nontender. Nondistended. Bowel sounds heard in all 4 quadrants. No organomegaly or masses. Negative rebound, negative guarding EXTREMITIES: No edema, pulses are equal bilaterally. No cyanosis or clubbing NEUROLOGY: Mood and affect appear appropriate. Cranial nerves II through XII grossly intact. Moving upper extremities. Strength 5/5 SACRAL AREA: Patient does have packing noted in the sacral region. 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 Garcia evaluated patient and indicated local wound care Wound care team nurse following. Recommend to continue current treatment of Dakins solution soaked gauze, lightly fluffed, and gently placed into wound bed to allow for tissue growth. Plastic surgery evaluated patient and recommending wound VAC placement. Orders have been given. Awaiting wound care nurse for application Reposition every 2 hours and PRN for comfort. Patient refused diverting colostomy for management Chronic pain: -Continue patient's outpatient medications to include Oramorph 30 mg 3 times daily and Percocet 10, every 6 hours as needed for pain -The above regimen was confirmed by E force review and printed out and placed on patient's chart -Continue PT Anemia: Hemoglobin stable at 9.6. Hyperglycemia: Resolved likely related to infection. HgbA1c 5.2. Hypertension: Monitor and add medication if needed DVT prophylaxis: Lovenox Discharge Planning At the present time patient is stable for discharge. Awaiting continuous pillowcase cutter discharge planning. Case management documentation indicates that they're trying to arrange residential facility if in [place] by his grandson. Last documentation from 07/13/16 indicates that [facility] rehabilitation to evaluate the patient Jp Keith Jul 25, 2016 13:43
[2016-07-25] MEDS: hydrOXYzine HCL 10 MG TAB PO PRN ×2 (15:17→21:41)
[2016-07-25 20:00] VITALS: BP 111/64; PULSE 95; RESP 21; TEMP 98.3; O2SAT 98
[2016-07-26] MEDS: MORPHINE SULFATE 30 MG CONTROLLED RELEASE TAB PO SCH ×3 (05:22→22:21)
[2016-07-26 07:15] VITALS: BP 130/74; PULSE 73; RESP 18; TEMP 95.6; O2SAT 95
[2016-07-26] MEDS: MUPIROCIN 2% CREAM 15 GM TOPICAL SCH ×2 (08:22→20:21)
[2016-07-26] MEDS: LACTIC ACID (AMMONIUM LACTATE) 12% LOTION 225 GM BTL TOPICAL SCH ×2 (08:22→20:22)
[2016-07-26] MEDS: ENOXAPARIN SODIUM 40 MG/0.4 ML SYRINGE SQ SCH (08:22)
[2016-07-26] MEDS: SODIUM HYPOCHLORITE 0.125% 500 ML BTL TOPICAL SCH ×2 (08:22→20:22)
[2016-07-26] MEDS: oxyCODONE/ACETAMINOPHEN 10 MG/325 MG TAB PO PRN ×3 (08:27→20:22)
[2016-07-26] MEDS: FLUTICASONE PROPIONATE 50 MCG/ACT 16 GM NASAL SPRAY NASAL SCH ×2 (09:00→20:21)
[2016-07-26] MEDS: MULTIVITAMINS/MINERALS THERAPEUTIC TAB PO SCH (09:00)
[2016-07-26] MEDS: PANTOPRAZOLE SOD 40 MG DELAYED RELEASE TAB PO SCH (09:00)
[2016-07-26] MEDS: DOCUSATE SODIUM 100 MG CAP PO SCH (09:00)
--- NOTE | 2016-07-26 09:14 | HHI.PR ---
Subjective Remarks Patient seen and examined today. Patient denies any new complaints. Patient refusing wound VAC at this time. Counseled patient extensively on the use wound VAC, wound healing, possible worsening wound requiring surgery. Patient still does not want to have wound VAC placement. Objective Vitals Vital Signs Date Time Temp Pulse Resp B/P Pulse Ox O2 Delivery O2 Flow Rate FiO2 07/25/16 20:00 98.3 95 21 111/64 98 I/O 07/25/16 07/25/16 07/25/16 07/26/16 07/26/16 07/26/16 07:00 15:00 23:00 07:00 15:00 23:00 Intake Total 120 ml 375 ml 220 ml 120 ml 0 ml Output Total 300 ml 650 ml 200 ml 150 ml Balance -180 ml -275 ml 20 ml -30 ml 0 ml Intake Oral 120 ml 375 ml 220 ml 120 ml IV Total 0 ml Output Urine Total 300 ml 650 ml 200 ml 150 ml # Bowel Movements 1 1 0 1 Objective Remarks GENERAL: Well-developed, well-nourished, in no acute distress. alert and orientated HEENT: Head is normocephalic without any lesions or masses noted. Facial features are symmetric. Eyes: Extraocular muscles are intact. Conjunctivae were clear. NECK: Supple without any masses. Trachea midline no deviation. No JVD, CARDIAC: Regular rhythm, regular rate. S1/S2 are heard. No murmurs gallops or rubs. LUNGS: Clear to auscultation bilaterally. No wheeze, rhonchi or rales. No use of accessory muscles on inspiration or expiration. ABDOMEN: Soft, nontender. Nondistended. Bowel sounds heard in all 4 quadrants. No organomegaly or masses. Negative rebound, negative guarding EXTREMITIES: No edema, pulses are equal bilaterally. No cyanosis or clubbing NEUROLOGY: Mood and affect appear appropriate. Cranial nerves II through XII grossly intact. Moving upper extremities. Strength 5/5 SACRAL AREA: Patient does have packing noted in the sacral region. 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 Garcia evaluated patient and indicated local wound care Wound care team nurse following. Recommend to continue current treatment of Dakins solution soaked gauze, lightly fluffed, and gently placed into wound bed to allow for tissue growth. Plastic surgery evaluated patient and recommending wound VAC placement. Orders have been given. Reposition every 2 hours and PRN for comfort. Patient refused diverting colostomy for management Patient refusing wound VAC placement Chronic pain: -Continue patient's outpatient medications to include Oramorph 30 mg 3 times daily and Percocet 10, every 6 hours as needed for pain -The above regimen was confirmed by E force review and printed out and placed on patient's chart -Continue PT Anemia: Hemoglobin stable at 9.6. Hyperglycemia: Resolved likely related to infection. HgbA1c 5.2. Hypertension: Monitor and add medication if needed DVT prophylaxis: Lovenox Discharge Planning At the present time patient is stable for discharge. Awaiting home health care case manager discharge planning. Case management documentation indicates that they're trying to arrange correction facility if in [place] by his grandson. Last documentation from 07/13/16 indicates that [facility] rehabilitation to evaluate the patient Jp Keith Jul 26, 2016 09:14
[2016-07-26 20:00] VITALS: BP 159/83; PULSE 82; RESP 18; TEMP 98.1; O2SAT 93
[2016-07-27] MEDS: MORPHINE SULFATE 30 MG CONTROLLED RELEASE TAB PO SCH ×3 (05:38→21:59)
[2016-07-27] MEDS: oxyCODONE/ACETAMINOPHEN 10 MG/325 MG TAB PO PRN ×3 (05:38→18:09)
[2016-07-27 07:15] VITALS: BP 130/73; PULSE 73; RESP 18; TEMP 97.4; O2SAT 97
[2016-07-27] MEDS: DOCUSATE SODIUM 100 MG CAP PO SCH (09:00)
[2016-07-27] MEDS: LACTIC ACID (AMMONIUM LACTATE) 12% LOTION 225 GM BTL TOPICAL SCH ×2 (09:00→19:30)
[2016-07-27] MEDS: SODIUM HYPOCHLORITE 0.125% 500 ML BTL TOPICAL SCH ×2 (09:00→19:32)
[2016-07-27] MEDS: MULTIVITAMINS/MINERALS THERAPEUTIC TAB PO SCH (09:00)
[2016-07-27] MEDS: MUPIROCIN 2% CREAM 15 GM TOPICAL SCH ×2 (09:00→19:29)
[2016-07-27] MEDS: PANTOPRAZOLE SOD 40 MG DELAYED RELEASE TAB PO SCH (09:00)
[2016-07-27] MEDS: ENOXAPARIN SODIUM 40 MG/0.4 ML SYRINGE SQ SCH (10:02)
[2016-07-27] MEDS: FLUTICASONE PROPIONATE 50 MCG/ACT 16 GM NASAL SPRAY NASAL SCH ×2 (10:02→19:29)
--- NOTE | 2016-07-27 14:17 | HHI.PR ---
Subjective Remarks Patient seen and examined today. Patient denies any new complaints. No change clinical status. Objective Vitals Vital Signs Date Time Temp Pulse Resp B/P Pulse Ox O2 Delivery O2 Flow Rate FiO2 07/27/16 07:15 97.4 73 18 130/73 97 07/26/16 20:00 98.1 82 18 159/83 93 I/O 07/26/16 07/26/16 07/26/16 07/27/16 07/27/16 07/27/16 07:00 15:00 23:00 07:00 15:00 23:00 Intake Total 120 ml 0 ml 220 ml 120 ml 0 ml Output Total 150 ml 50 ml 225 ml Balance -30 ml 0 ml 170 ml -105 ml 0 ml Intake Oral 120 ml 220 ml 120 ml IV Total 0 ml 0 ml Output Urine Total 150 ml 50 ml 225 ml # Bowel Movements 1 0 2 Objective Remarks GENERAL: Well-developed, well-nourished, in no acute distress. alert and orientated HEENT: Head is normocephalic without any lesions or masses noted. Facial features are symmetric. Eyes: Extraocular muscles are intact. Conjunctivae were clear. NECK: Supple without any masses. Trachea midline no deviation. No JVD, CARDIAC: Regular rhythm, regular rate. S1/S2 are heard. No murmurs gallops or rubs. LUNGS: Clear to auscultation bilaterally. No wheeze, rhonchi or rales. No use of accessory muscles on inspiration or expiration. ABDOMEN: Soft, nontender. Nondistended. Bowel sounds heard in all 4 quadrants. No organomegaly or masses. Negative rebound, negative guarding EXTREMITIES: No edema, pulses are equal bilaterally. No cyanosis or clubbing NEUROLOGY: Mood and affect appear appropriate. Cranial nerves II through XII grossly intact. Moving upper extremities. Strength 5/5 SACRAL AREA: Patient does have packing noted in the sacral region. Procedures none Urinary Catheter: Yes Assessment to: Continue Morse insert reason: Stage III/IV Press Ulcer Date of Insertion: Jul 01, 2016 Vascular Central Line Catheter: No A/P Assessment and Plan Sepsis with complicated UTI in a male with indwelling Morse, secondary to urinary retention from paraplegia: Resolved Urine Culture resulted with MRSA S/p antibiotic treatment with Bactrim Changed Morse catheter 07/01/16, changed monthly Clostridium difficile infection: S/p Flagyl treatment Stage IV sacral decubitus: Wound care physician Dr. Garcia evaluated patient and indicated local wound care Wound care team nurse following. Recommend to continue current treatment of Dakins solution soaked gauze, lightly fluffed, and gently placed into wound bed to allow for tissue growth. Plastic surgery evaluated patient and recommending wound VAC placement. Orders have been given. Reposition every 2 hours and PRN for comfort. Patient refused diverting colostomy for management Patient refusing wound VAC placement Chronic pain: -Continue patient's outpatient medications to include Oramorph 30 mg 3 times daily and Percocet 10, every 6 hours as needed for pain -The above regimen was confirmed by E force review and printed out and placed on patient's chart -Continue PT Anemia: Hemoglobin stable at 9.6. Hyperglycemia: Resolved likely related to infection. HgbA1c 5.2. Hypertension: Monitor and add medication if needed DVT prophylaxis: Lovenox Discharge Planning At the present time patient is stable for discharge. Awaiting lining caser discharge planning. Case management documentation indicates that they're trying to arrange alf facility if in [place] by his grandson. Last documentation from 07/13/16 indicates that [facility] to evaluate the patient Jp Keith Jul 27, 2016 14:17
[2016-07-27] MEDS: CALCIUM CARBONATE 500 MG CHEWABLE TAB CHEW PRN (18:10)
[2016-07-27] MEDS: hydrOXYzine HCL 10 MG TAB PO PRN (19:37)
[2016-07-27 20:00] VITALS: BP 133/86; PULSE 77; RESP 18; TEMP 97; O2SAT 95
[2016-07-28] MEDS: oxyCODONE/ACETAMINOPHEN 10 MG/325 MG TAB PO PRN ×4 (01:09→20:30)
[2016-07-28] MEDS: MORPHINE SULFATE 30 MG CONTROLLED RELEASE TAB PO SCH ×3 (06:09→22:01)
[2016-07-28 08:00] VITALS: BP 139/81; PULSE 68; RESP 16; TEMP 97.9; O2SAT 97
[2016-07-28] MEDS: ENOXAPARIN SODIUM 40 MG/0.4 ML SYRINGE SQ SCH (08:32)
[2016-07-28] MEDS: PANTOPRAZOLE SOD 40 MG DELAYED RELEASE TAB PO SCH (08:33)
[2016-07-28] MEDS: MUPIROCIN 2% CREAM 15 GM TOPICAL SCH ×2 (08:33→20:24)
[2016-07-28] MEDS: FLUTICASONE PROPIONATE 50 MCG/ACT 16 GM NASAL SPRAY NASAL SCH ×2 (08:33→20:24)
[2016-07-28] MEDS: MULTIVITAMINS/MINERALS THERAPEUTIC TAB PO SCH (08:33)
[2016-07-28] MEDS: SODIUM HYPOCHLORITE 0.125% 500 ML BTL TOPICAL SCH ×2 (08:33→20:29)
[2016-07-28] MEDS: DOCUSATE SODIUM 100 MG CAP PO SCH (08:33)
[2016-07-28] MEDS: LACTIC ACID (AMMONIUM LACTATE) 12% LOTION 225 GM BTL TOPICAL SCH ×2 (08:34→20:29)
--- NOTE | 2016-07-28 13:57 | HHI.PR ---
Subjective Remarks Patient seen and examined today. Patient denies any new complaints. No change clinical status. Patient states that his stool is getting more solid. He indicates that if it continues to improve then he will agree to have wound VAC placed Objective Vitals Vital Signs Date Time Temp Pulse Resp B/P Pulse Ox O2 Delivery O2 Flow Rate FiO2 07/28/16 08:24 18 07/28/16 08:00 97.9 68 16 139/81 97 07/28/16 07:09 18 07/27/16 20:00 97.0 77 18 133/86 95 I/O 07/27/16 07/27/16 07/27/16 07/28/16 07/28/16 07/28/16 07:00 15:00 23:00 07:00 15:00 23:00 Intake Total 120 ml 0 ml 120 ml 820 ml Output Total 225 ml 225 ml 850 ml Balance -105 ml 0 ml -105 ml -30 ml Intake Oral 120 ml 120 ml 820 ml IV Total 0 ml Output Urine Total 225 ml 225 ml 850 ml # Bowel Movements 2 1 0 Objective Remarks GENERAL: Well-developed, well-nourished, in no acute distress. alert and orientated HEENT: Head is normocephalic without any lesions or masses noted. Facial features are symmetric. Eyes: Extraocular muscles are intact. Conjunctivae were clear. NECK: Supple without any masses. Trachea midline no deviation. No JVD, CARDIAC: Regular rhythm, regular rate. S1/S2 are heard. No murmurs gallops or rubs. LUNGS: Clear to auscultation bilaterally. No wheeze, rhonchi or rales. No use of accessory muscles on inspiration or expiration. ABDOMEN: Soft, nontender. Nondistended. Bowel sounds heard in all 4 quadrants. No organomegaly or masses. Negative rebound, negative guarding EXTREMITIES: No edema, pulses are equal bilaterally. No cyanosis or clubbing NEUROLOGY: Mood and affect appear appropriate. Cranial nerves II through XII grossly intact. Moving upper extremities. Strength 5/5 SACRAL AREA: Patient does have packing noted in the sacral region. Procedures none Urinary Catheter: Yes Assessment to: Continue Date of Insertion: Jul 01, 2016 Vascular Central Line Catheter: No A/P Assessment and Plan Sepsis with complicated UTI in a male with indwelling Morse, secondary to urinary retention from paraplegia: Resolved Urine Culture resulted with MRSA S/p antibiotic treatment with Bactrim Changed Morse catheter 07/01/16, changed monthly Clostridium difficile infection: S/p Flagyl treatment Stage IV sacral decubitus: Wound care physician Dr. Garcia evaluated patient and indicated local wound care Wound care team nurse following. Recommend to continue current treatment of Dakins solution soaked gauze, lightly fluffed, and gently placed into wound bed to allow for tissue growth. Plastic surgery evaluated patient and recommending wound VAC placement. Orders have been given. Reposition every 2 hours and PRN for comfort. Patient refused diverting colostomy for management Patient refusing wound VAC placement Chronic pain: -Continue patient's outpatient medications to include Oramorph 30 mg 3 times daily and Percocet 10, every 6 hours as needed for pain -The above regimen was confirmed by E force review and printed out and placed on patient's chart -Continue PT Anemia: Hemoglobin stable at 9.6. Hyperglycemia: Resolved likely related to infection. HgbA1c 5.2. Hypertension: Monitor and add medication if needed DVT prophylaxis: Lovenox Discharge Planning At the present time patient is stable for discharge. Awaiting rehabilitation case coordinator discharge planning. Case management documentation indicates that they're trying to arrange [facility] facility if in [place] by his grandson. Last documentation from 07/13/16 indicates that [facility] rehabilitation to evaluate the patient Jp Keith Jul 28, 2016 13:57
[2016-07-28] MEDS: hydrOXYzine HCL 10 MG TAB PO PRN (14:38)
[2016-07-28 20:00] VITALS: BP 145/87; PULSE 83; RESP 18; TEMP 98.4; O2SAT 97
[2016-07-29] MEDS: MORPHINE SULFATE 30 MG CONTROLLED RELEASE TAB PO SCH ×3 (06:01→21:45)
[2016-07-29 08:00] VITALS: BP 128/73; PULSE 75; RESP 18; TEMP 97.5; O2SAT 95
[2016-07-29] MEDS: ENOXAPARIN SODIUM 40 MG/0.4 ML SYRINGE SQ SCH (08:27)
[2016-07-29] MEDS: oxyCODONE/ACETAMINOPHEN 10 MG/325 MG TAB PO PRN ×3 (08:31→20:02)
[2016-07-29] MEDS: LACTIC ACID (AMMONIUM LACTATE) 12% LOTION 225 GM BTL TOPICAL SCH ×2 (09:00→20:59)
[2016-07-29] MEDS: MUPIROCIN 2% CREAM 15 GM TOPICAL SCH ×2 (09:00→20:58)
[2016-07-29] MEDS: SODIUM HYPOCHLORITE 0.125% 500 ML BTL TOPICAL SCH ×2 (09:00→20:59)
[2016-07-29] MEDS: PANTOPRAZOLE SOD 40 MG DELAYED RELEASE TAB PO SCH (09:00)
[2016-07-29] MEDS: FLUTICASONE PROPIONATE 50 MCG/ACT 16 GM NASAL SPRAY NASAL SCH ×2 (09:00→20:58)
[2016-07-29] MEDS: MULTIVITAMINS/MINERALS THERAPEUTIC TAB PO SCH (09:00)
[2016-07-29] MEDS: DOCUSATE SODIUM 100 MG CAP PO SCH (09:00)
--- NOTE | 2016-07-29 13:42 | HHI.PR ---
Subjective Remarks Patient seen and examined today. Patient denies any new complaints. Patient states that there still trying to find a place in [place]. Objective Vitals Vital Signs Date Time Temp Pulse Resp B/P Pulse Ox O2 Delivery O2 Flow Rate FiO2 07/29/16 09:47 16 07/29/16 08:00 97.5 75 18 128/73 95 07/29/16 07:05 14 07/28/16 20:00 98.4 83 18 145/87 97 I/O 07/28/16 07/28/16 07/28/16 07/29/16 07/29/16 07/29/16 07:00 15:00 23:00 07:00 15:00 23:00 Intake Total 820 ml 360 ml 240 ml Output Total 850 ml 326 ml 150 ml Balance -30 ml 34 ml 90 ml Intake Oral 820 ml 360 ml 240 ml Output Urine Total 850 ml 325 ml 150 ml Stool Total 1 ml # Bowel Movements 0 0 1 Objective Remarks GENERAL: Well-developed, well-nourished, in no acute distress. alert and orientated HEENT: Head is normocephalic without any lesions or masses noted. Facial features are symmetric. Eyes: Extraocular muscles are intact. Conjunctivae were clear. NECK: Supple without any masses. Trachea midline no deviation. No JVD, CARDIAC: Regular rhythm, regular rate. S1/S2 are heard. No murmurs gallops or rubs. LUNGS: Clear to auscultation bilaterally. No wheeze, rhonchi or rales. No use of accessory muscles on inspiration or expiration. ABDOMEN: Soft, nontender. Nondistended. Bowel sounds heard in all 4 quadrants. No organomegaly or masses. Negative rebound, negative guarding EXTREMITIES: No edema, pulses are equal bilaterally. No cyanosis or clubbing NEUROLOGY: Mood and affect appear appropriate. Cranial nerves II through XII grossly intact. Moving upper extremities. Strength 5/5 SACRAL AREA: Patient does have packing noted in the sacral region. Procedures none Urinary Catheter: No Date of Insertion: Jul 01, 2016 Vascular Central Line Catheter: No A/P Assessment and Plan Sepsis with complicated UTI in a male with indwelling Morse, secondary to urinary retention from paraplegia: Resolved Urine Culture resulted with MRSA S/p antibiotic treatment with Bactrim Changed Morse catheter 07/01/16, changed monthly Clostridium difficile infection: S/p Flagyl treatment Stage IV sacral decubitus: Wound care physician Dr. Garcia evaluated patient and indicated local wound care Wound care team nurse following. Recommend to continue current treatment of Dakins solution soaked gauze, lightly fluffed, and gently placed into wound bed to allow for tissue growth. Plastic surgery evaluated patient and recommending wound VAC placement. Orders have been given. Reposition every 2 hours and PRN for comfort. Patient refused diverting colostomy for management Patient refusing wound VAC placement Chronic pain: -Continue patient's outpatient medications to include Oramorph 30 mg 3 times daily and Percocet 10, every 6 hours as needed for pain -The above regimen was confirmed by E force review and printed out and placed on patient's chart -Continue PT Anemia: Hemoglobin stable at 9.6. Hyperglycemia: Resolved likely related to infection. HgbA1c 5.2. Hypertension: Monitor and add medication if needed DVT prophylaxis: Lovenox Discharge Planning At the present time patient is stable for discharge. Awaiting case loader operator discharge planning. Case management documentation indicates that they're trying to arrange longterm facility if in [place] by his grandson. Last documentation from 07/13/16 indicates that [facility] to evaluate the patient Jp Keith Jul 29, 2016 13:42
[2016-07-29 20:00] VITALS: BP 140/84; PULSE 77; RESP 20; TEMP 97.7; O2SAT 95
[2016-07-30] MEDS: oxyCODONE/ACETAMINOPHEN 10 MG/325 MG TAB PO PRN ×5 (02:23→20:18)
[2016-07-30] MEDS: MORPHINE SULFATE 30 MG CONTROLLED RELEASE TAB PO SCH ×3 (05:26→22:00)
[2016-07-30 08:00] VITALS: BP 125/75; PULSE 72; RESP 18; TEMP 97.3; O2SAT 98
[2016-07-30] MEDS: ENOXAPARIN SODIUM 40 MG/0.4 ML SYRINGE SQ SCH (08:35)
[2016-07-30] MEDS: SODIUM HYPOCHLORITE 0.125% 500 ML BTL TOPICAL SCH ×2 (08:37→20:20)
[2016-07-30] MEDS: FLUTICASONE PROPIONATE 50 MCG/ACT 16 GM NASAL SPRAY NASAL SCH ×2 (08:37→20:19)
[2016-07-30] MEDS: MUPIROCIN 2% CREAM 15 GM TOPICAL SCH ×2 (08:37→21:00)
[2016-07-30] MEDS: LACTIC ACID (AMMONIUM LACTATE) 12% LOTION 225 GM BTL TOPICAL SCH ×2 (08:37→20:20)
[2016-07-30] MEDS: MULTIVITAMINS/MINERALS THERAPEUTIC TAB PO SCH (08:38)
[2016-07-30] MEDS: PANTOPRAZOLE SOD 40 MG DELAYED RELEASE TAB PO SCH (08:38)
[2016-07-30] MEDS: DOCUSATE SODIUM 100 MG CAP PO SCH (08:38)
--- NOTE | 2016-07-30 11:22 | HHI.PR ---
Subjective Remarks Patient seen and examined today. Patient states that his stool is getting more solid. However he still does not want a wound VAC placed Objective Vitals Vital Signs Date Time Temp Pulse Resp B/P Pulse Ox O2 Delivery O2 Flow Rate FiO2 07/30/16 08:00 97.3 72 18 125/75 98 07/30/16 06:26 16 07/30/16 03:23 16 07/29/16 20:00 97.7 77 20 140/84 95 I/O 07/29/16 07/29/16 07/29/16 07/30/16 07/30/16 07/30/16 07:00 15:00 23:00 07:00 15:00 23:00 Intake Total 240 ml 480 ml 120 ml 220 ml Output Total 150 ml 450 ml 125 ml 150 ml Balance 90 ml 30 ml -5 ml 70 ml Intake Oral 240 ml 480 ml 120 ml 220 ml Output Urine Total 150 ml 450 ml 125 ml 150 ml # Bowel Movements 1 1 1 0 Objective Remarks GENERAL: Well-developed, well-nourished, in no acute distress. alert and orientated HEENT: Head is normocephalic without any lesions or masses noted. Facial features are symmetric. Eyes: Extraocular muscles are intact. Conjunctivae were clear. NECK: Supple without any masses. Trachea midline no deviation. No JVD, CARDIAC: Regular rhythm, regular rate. S1/S2 are heard. No murmurs gallops or rubs. LUNGS: Clear to auscultation bilaterally. No wheeze, rhonchi or rales. No use of accessory muscles on inspiration or expiration. ABDOMEN: Soft, nontender. Nondistended. Bowel sounds heard in all 4 quadrants. No organomegaly or masses. Negative rebound, negative guarding EXTREMITIES: No edema, pulses are equal bilaterally. No cyanosis or clubbing NEUROLOGY: Mood and affect appear appropriate. Cranial nerves II through XII grossly intact. Moving upper extremities. Strength 5/5 SACRAL AREA: Patient does have packing noted in the sacral region. Procedures none Urinary Catheter: Yes Assessment to: Continue Morse insert reason: Prolonged Immobilization Date of Insertion: Jul 01, 2016 Vascular Central Line Catheter: No A/P Assessment and Plan Sepsis with complicated UTI in a male with indwelling Morse, secondary to urinary retention from paraplegia: Resolved Urine Culture resulted with MRSA S/p antibiotic treatment with Bactrim Changed Morse catheter 07/01/16, change Morse today Clostridium difficile infection: S/p Flagyl treatment Stage IV sacral decubitus: Wound care physician Dr. Garcia evaluated patient and indicated local wound care Wound care team nurse following. Recommend to continue current treatment of Dakins solution soaked gauze, lightly fluffed, and gently placed into wound bed to allow for tissue growth. Plastic surgery evaluated patient and recommending wound VAC placement. Orders have been given. Reposition every 2 hours and PRN for comfort. Patient refused diverting colostomy for management Patient refusing wound VAC placement Chronic pain: -Continue patient's outpatient medications to include Oramorph 30 mg 3 times daily and Percocet 10, every 6 hours as needed for pain -The above regimen was confirmed by E force review and printed out and placed on patient's chart -Continue PT Anemia: Hemoglobin stable at 9.6. Hyperglycemia: Resolved likely related to infection. HgbA1c 5.2. Hypertension: Monitor and add medication if needed DVT prophylaxis: Lovenox Discharge Planning At the present time patient is stable for discharge. Awaiting case work aide discharge planning. Case management documentation indicates that they're trying to arrange alf facility if in [place] by his grandson. Last documentation from 07/27/16 indicates that [facility] rehabilitation to evaluate for rehabilitation Jp Keith Jul 30, 2016 11:22
[2016-07-30 19:15] VITALS: BP 124/70; PULSE 80; RESP 16; TEMP 97.9; O2SAT 96
[2016-07-31] MEDS: oxyCODONE/ACETAMINOPHEN 10 MG/325 MG TAB PO PRN ×3 (04:49→19:34)
[2016-07-31] MEDS: MORPHINE SULFATE 30 MG CONTROLLED RELEASE TAB PO SCH ×3 (06:20→21:38)
[2016-07-31 08:00] VITALS: BP 118/69; PULSE 66; RESP 16; TEMP 96; O2SAT 96
[2016-07-31] MEDS: ENOXAPARIN SODIUM 40 MG/0.4 ML SYRINGE SQ SCH (08:52)
[2016-07-31] MEDS: SODIUM HYPOCHLORITE 0.125% 500 ML BTL TOPICAL SCH ×2 (08:53→21:43)
[2016-07-31] MEDS: MUPIROCIN 2% CREAM 15 GM TOPICAL SCH ×2 (08:53→21:36)
[2016-07-31] MEDS: LACTIC ACID (AMMONIUM LACTATE) 12% LOTION 225 GM BTL TOPICAL SCH ×2 (08:54→21:37)
[2016-07-31] MEDS: FLUTICASONE PROPIONATE 50 MCG/ACT 16 GM NASAL SPRAY NASAL SCH ×2 (08:54→21:36)
[2016-07-31] MEDS: DOCUSATE SODIUM 100 MG CAP PO SCH (08:54)
[2016-07-31] MEDS: PANTOPRAZOLE SOD 40 MG DELAYED RELEASE TAB PO SCH (08:54)
[2016-07-31] MEDS: MULTIVITAMINS/MINERALS THERAPEUTIC TAB PO SCH (08:55)
--- NOTE | 2016-07-31 12:07 | HHI.PR ---
Subjective Remarks Patient seen and examined. Patient still refusing wound vac. No acute medical issues at this time. No chest pain, SOB or cough. Objective Vitals Vital Signs Date Time Temp Pulse Resp B/P Pulse Ox O2 Delivery O2 Flow Rate FiO2 07/31/16 08:00 96.0 66 16 118/69 96 07/31/16 05:49 16 07/30/16 23:00 16 07/30/16 19:15 97.9 80 16 124/70 96 I/O 07/30/16 07/30/16 07/30/16 07/31/16 07/31/16 07/31/16 07:00 15:00 23:00 07:00 15:00 23:00 Intake Total 220 ml 420 ml 480 ml 220 ml Output Total 150 ml 250 ml 125 ml 200 ml Balance 70 ml 170 ml 355 ml 20 ml Intake Oral 220 ml 420 ml 480 ml 220 ml Output Urine Total 150 ml 250 ml 125 ml 200 ml # Bowel Movements 0 1 0 1 Objective Remarks GENERAL: Well-developed, well-nourished, in no acute distress. alert and orientated HEENT: Head is normocephalic without any lesions or masses noted. Facial features are symmetric. Eyes: Extraocular muscles are intact. Conjunctivae were clear. NECK: Supple without any masses. Trachea midline no deviation. No JVD, CARDIAC: Regular rhythm, regular rate. S1/S2 are heard. No murmurs gallops or rubs. LUNGS: Clear to auscultation bilaterally. No wheeze, rhonchi or rales. No use of accessory muscles on inspiration or expiration. ABDOMEN: Soft, nontender. Nondistended. Bowel sounds heard in all 4 quadrants. No organomegaly or masses. Negative rebound, negative guarding EXTREMITIES: No edema, pulses are equal bilaterally. No cyanosis or clubbing NEUROLOGY: Mood and affect appear appropriate. Cranial nerves II through XII grossly intact. Moving upper extremities. Strength 5/5 SACRAL AREA: Patient does have packing noted in the sacral region. Procedures none Medications and IVs Current Medications Medications (Trade) Dose Ordered Sig/Lorri Route Start Time Stop Time Status Last Admin (Lovenox Inj) 40 mg Q24H SQ 05/31/16 09:00 07/31/16 08:52 (Oramorph Sr) 30 mg Q8HR PO 05/31/16 06:00 07/31/16 06:20 (Theragran M Tab) 1 tab DAILY PO 05/31/16 09:00 07/25/16 10:00 (Bactroban 2% Cream) 1 applic Q12HR TOPICAL 05/31/16 11:00 07/31/16 08:53 (Lac-Hydrin 12% Lotion) 1 applic BID TOPICAL 06/07/16 11:00 07/31/16 08:54 (Atarax) 10 mg Q6H PRN PO 06/07/16 13:00 07/28/16 14:38 (Tylenol) 650 mg Q4H PRN PO 06/11/16 14:15 (Tums Chew) 1,000 mg TID PRN CHEW 06/11/16 14:15 07/27/16 18:10 (Dakin'S 0.125% Soln) 1 ml BID TOPICAL 06/22/16 09:00 07/31/16 08:53 (Flonase Genaro Spr) 1 spray BID NASAL 06/23/16 21:00 07/31/16 08:54 (Protonix) 40 mg DAILY PO 06/28/16 10:01 07/25/16 10:00 (Zofran Odt) 4 mg Q6H PRN PO 07/09/16 10:45 (Percocet 10-325 Mg) 1 tab Q6HR PRN PO 07/11/16 18:00 07/31/16 11:52 (Miralax) 17 gm DAILY PRN PO 07/22/16 13:15 (Colace) 100 mg DAILY PO 07/26/16 09:00 Urinary Catheter: Yes Morse insert reason: Prolonged Immobilization Date of Insertion: Jul 01, 2016 A/P Problem List: (1) Fever ICD Code: R50.9 Status: Resolved (2) 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 Garcia evaluated patient and indicated local wound care Wound care team nurse following. Recommend to continue current treatment of Dakins solution soaked gauze, lightly fluffed, and gently placed into wound bed to allow for tissue growth. Plastic surgery evaluated patient and recommending wound VAC placement. Orders have been given. Reposition every 2 hours and PRN for comfort. Patient refused diverting colostomy for management Patient refusing wound VAC placement - lengthy discussion regarding the benefits and wound VAC placement. Patient still very hesitant stating that he is concerned that it will stay soiled with fecal matter. Again tried to explain to the patient that the wound VAC is his best chance of keeping the wound clean and offer him the best chance of successful resolution of his decubitus. Patient still refuses. Chronic pain: -Continue patient's outpatient medications to include Oramorph 30 mg 3 times daily and Percocet 10, every 6 hours as needed for pain -The above regimen was confirmed by E force review and printed out and placed on patient's chart -Continue PT Anemia: stable Hemoglobin at 10.1 last blood draw 07/18/16. Hyperglycemia: Resolved likely related to infection. HgbA1c 5.2. Hypertension: Well-controlled Monitor and add medication if needed DVT prophylaxis: Lovenox Discharge Planning At the present time patient is stable for discharge. Awaiting porter sample case discharge planning. Case management documentation indicates that [facility] [facility] [place] by his grandson. Last case management note 07/31/16 - [facility] requested to evaluate for possible acceptance. Problem Qualifiers (1) Fever: Qualified Code: R50.9 - Fever, unspecified fever cause (2) Sacral decubitus ulcer: Qualified Code: L89.154 - Decubitus ulcer of sacral region, stage 4 Jenn Flores Jul 31, 2016 12:07
[2016-07-31 20:00] VITALS: BP_SYST 118; BP_SYST 140; BP_DIAS 84; PULSE 74; RESP 16; TEMP 98.6; O2SAT 97
[2016-08-01] MEDS: oxyCODONE/ACETAMINOPHEN 10 MG/325 MG TAB PO PRN ×4 (01:30→19:53)
[2016-08-01] MEDS: MORPHINE SULFATE 30 MG CONTROLLED RELEASE TAB PO SCH ×3 (05:57→21:43)
[2016-08-01] MEDS: ENOXAPARIN SODIUM 40 MG/0.4 ML SYRINGE SQ SCH (07:37)
[2016-08-01 08:00] VITALS: BP 143/83; PULSE 73; RESP 18; TEMP 96.7; O2SAT 95
[2016-08-01] MEDS: LACTIC ACID (AMMONIUM LACTATE) 12% LOTION 225 GM BTL TOPICAL SCH ×2 (09:00→19:54)
[2016-08-01] MEDS: DOCUSATE SODIUM 100 MG CAP PO SCH (09:00)
[2016-08-01] MEDS: MUPIROCIN 2% CREAM 15 GM TOPICAL SCH ×2 (09:00→19:54)
[2016-08-01] MEDS: MULTIVITAMINS/MINERALS THERAPEUTIC TAB PO SCH (09:00)
[2016-08-01] MEDS: PANTOPRAZOLE SOD 40 MG DELAYED RELEASE TAB PO SCH (09:00)
[2016-08-01] MEDS: FLUTICASONE PROPIONATE 50 MCG/ACT 16 GM NASAL SPRAY NASAL SCH ×2 (09:00→19:53)
[2016-08-01] MEDS: SODIUM HYPOCHLORITE 0.125% 500 ML BTL TOPICAL SCH ×2 (09:00→19:55)
[2016-08-01 11:10] LABS: C. DIFF TOXIN PCR POSITIVE (NEGATIVE)
[2016-08-01 11:14] LABS: C. DIFF EPI 027 PRESUMPTIVE POSITIVE (NEGATIVE)
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
[2016-08-01] MEDS: metroNIDAZOLE 500 MG TAB PO SCH ×2 (16:14→21:43)
[2016-08-01 20:00] VITALS: BP 132/81; PULSE 87; RESP 16; TEMP 99.2; O2SAT 95
[2016-08-02] MEDS: oxyCODONE/ACETAMINOPHEN 10 MG/325 MG TAB PO PRN ×4 (02:29→20:41)
[2016-08-02] MEDS: metroNIDAZOLE 500 MG TAB PO SCH ×3 (05:58→22:08)
[2016-08-02] MEDS: MORPHINE SULFATE 30 MG CONTROLLED RELEASE TAB PO SCH ×3 (06:02→22:09)
[2016-08-02 07:35] LABS: AUTOMATED NEUTROPHIL # 3.7 TH/MM3 (1.8-7.7); BASOPHIL % 0.3 % (0.0-2.0); EOSINOPHIL # 0.5 TH/MM3 (0-0.4); EOSINOPHIL % 6.3 % (0.0-4.0); HEMATOCRIT 32.2 % (39.0-51.0); HEMO FLAGS DIFF FINAL; LYMPH % 33.7 % (9.0-44.0); LYMPHOCYTE # 2.7 TH/MM3 (1.0-4.8); MEAN CELL VOLUME 85.6 FL (80.0-100.0); MEAN CORPUSCULAR HEMOGLOBIN 27.9 PG (27.0-34.0); MEAN CORPUSCULAR HGB CONC 32.6 % (32.0-36.0); MONO % 13.4 % (0.0-8.0); NEUT % 46.3 % (16.0-70.0); PLATELET COUNT 398 TH/MM3 (150-450); RED BLOOD COUNT 3.76 MIL/MM3 (4.50-5.90); RED CELL DISTRIBUTION WIDTH 15.9 % (11.6-17.2)
[2016-08-02 07:47] LABS: CHLORIDE 104 MEQ/L (98-107); POTASSIUM 3.3 MEQ/L (3.5-5.1); SODIUM (NA) 140 MEQ/L (136-145)
[2016-08-02 07:51] LABS: ANION GAP 8 MEQ/L (5-15); BICARBONATE 28.2 MEQ/L (21.0-32.0); BLOOD UREA NITROGEN 11 MG/DL (7-18)
[2016-08-02 07:54] LABS: ALT (GPT) 10 U/L (12-78); AST (GOT) 7 U/L (15-37); GLOMERULAR FILTRATION RATE 131 ML/MIN (>89)
[2016-08-02 07:55] LABS: TOTAL BILIRUBIN ADULT 0.2 MG/DL (0.2-1.0)
[2016-08-02 07:57] LABS: ALKALINE PHOSPHATASE 117 U/L (45-117)
[2016-08-02 08:00] VITALS: BP 136/81; PULSE 79; RESP 17; TEMP 97.6; O2SAT 95
[2016-08-02] MEDS: ENOXAPARIN SODIUM 40 MG/0.4 ML SYRINGE SQ SCH (08:41)
[2016-08-02] MEDS: FLUTICASONE PROPIONATE 50 MCG/ACT 16 GM NASAL SPRAY NASAL SCH ×2 (08:41→20:40)
[2016-08-02] MEDS: LACTIC ACID (AMMONIUM LACTATE) 12% LOTION 225 GM BTL TOPICAL SCH ×2 (08:42→20:40)
[2016-08-02] MEDS: MUPIROCIN 2% CREAM 15 GM TOPICAL SCH (08:42)
[2016-08-02] MEDS: SODIUM HYPOCHLORITE 0.125% 500 ML BTL TOPICAL SCH (08:42)
[2016-08-02] MEDS: DOCUSATE SODIUM 100 MG CAP PO SCH (09:00)
[2016-08-02] MEDS ORDERED: POTASSIUM CHLORIDE 20 MEQ CONTROLLED RELEASE TAB PO ONE (09:00)
[2016-08-02] MEDS: MULTIVITAMINS/MINERALS THERAPEUTIC TAB PO SCH (09:00)
[2016-08-02] MEDS: PANTOPRAZOLE SOD 40 MG DELAYED RELEASE TAB PO SCH (09:00)
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
[2016-08-02 20:00] VITALS: BP 117/79; PULSE 98; RESP 20; TEMP 98.2; O2SAT 99
[2016-08-03] MEDS: MORPHINE SULFATE 30 MG CONTROLLED RELEASE TAB PO SCH ×3 (05:07→22:52)
[2016-08-03] MEDS: metroNIDAZOLE 500 MG TAB PO SCH ×4 (05:07→22:52)
[2016-08-03 08:00] VITALS: BP 102/72; PULSE 71; RESP 18; TEMP 95.7; O2SAT 97
[2016-08-03] MEDS: ENOXAPARIN SODIUM 40 MG/0.4 ML SYRINGE SQ SCH (08:17)
[2016-08-03] MEDS: FLUTICASONE PROPIONATE 50 MCG/ACT 16 GM NASAL SPRAY NASAL SCH ×2 (08:17→20:27)
[2016-08-03] MEDS: LACTIC ACID (AMMONIUM LACTATE) 12% LOTION 225 GM BTL TOPICAL SCH ×2 (08:18→20:27)
[2016-08-03 08:19] LABS: POTASSIUM 3.6 MEQ/L (3.5-5.1)
[2016-08-03] MEDS: oxyCODONE/ACETAMINOPHEN 10 MG/325 MG TAB PO PRN ×3 (08:20→20:27)
[2016-08-03 08:22] LABS: BICARBONATE 29.6 MEQ/L (21.0-32.0)
[2016-08-03] MEDS: PANTOPRAZOLE SOD 40 MG DELAYED RELEASE TAB PO SCH (08:22)
[2016-08-03] MEDS: MULTIVITAMINS/MINERALS THERAPEUTIC TAB PO SCH (08:22)
[2016-08-03] MEDS: DOCUSATE SODIUM 100 MG CAP PO SCH (08:22)
[2016-08-03 19:07] LABS: AUTOMATED NEUTROPHIL # 8.1 TH/MM3 (1.8-7.7); BASOPHIL # 0.1 TH/MM3 (0-0.2); BASOPHIL % 0.9 % (0.0-2.0); EOSINOPHIL # 0.3 TH/MM3 (0-0.4); EOSINOPHIL % 2.4 % (0.0-4.0); HEMATOCRIT 32.9 % (39.0-51.0); HEMO FLAGS DIFF FINAL; LYMPH % 24.9 % (9.0-44.0); LYMPHOCYTE # 3.1 TH/MM3 (1.0-4.8); MEAN CELL VOLUME 84.9 FL (80.0-100.0); MEAN CORPUSCULAR HEMOGLOBIN 28.3 PG (27.0-34.0); MEAN CORPUSCULAR HGB CONC 33.4 % (32.0-36.0); MONO % 7.8 % (0.0-8.0); PLATELET COUNT 427 TH/MM3 (150-450); RED BLOOD COUNT 3.88 MIL/MM3 (4.50-5.90); WHITE BLOOD COUNT 12.6 TH/MM3 (4.0-11.0)
[2016-08-03 20:00] VITALS: BP 133/91; PULSE 106; RESP 16; TEMP 99.3; O2SAT 95
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
[2016-08-04] MEDS: oxyCODONE/ACETAMINOPHEN 10 MG/325 MG TAB PO PRN ×4 (02:35→21:26)
[2016-08-04] MEDS: metroNIDAZOLE 500 MG TAB PO SCH ×4 (06:00→22:30)
[2016-08-04] MEDS: MORPHINE SULFATE 30 MG CONTROLLED RELEASE TAB PO SCH ×4 (06:00→22:30)
[2016-08-04 06:42] LABS: AUTOMATED NEUTROPHIL # 4.4 TH/MM3 (1.8-7.7); BASOPHIL % 0.3 % (0.0-2.0); EOSINOPHIL # 0.4 TH/MM3 (0-0.4); EOSINOPHIL % 4.8 % (0.0-4.0); HEMATOCRIT 31.7 % (39.0-51.0); HEMO FLAGS DIFF FINAL; LYMPH % 28.2 % (9.0-44.0); LYMPHOCYTE # 2.4 TH/MM3 (1.0-4.8); MEAN CELL VOLUME 85.1 FL (80.0-100.0); MEAN CORPUSCULAR HEMOGLOBIN 26.9 PG (27.0-34.0); MEAN CORPUSCULAR HGB CONC 31.5 % (32.0-36.0); MONO % 13.7 % (0.0-8.0); PLATELET COUNT 423 TH/MM3 (150-450); RED BLOOD COUNT 3.72 MIL/MM3 (4.50-5.90); RED CELL DISTRIBUTION WIDTH 15.7 % (11.6-17.2); WHITE BLOOD COUNT 8.4 TH/MM3 (4.0-11.0)
[2016-08-04 08:00] VITALS: BP 142/80; PULSE 85; RESP 18; TEMP 97.2; O2SAT 97
[2016-08-04] MEDS: LACTIC ACID (AMMONIUM LACTATE) 12% LOTION 225 GM BTL TOPICAL SCH ×2 (08:41→19:59)
[2016-08-04] MEDS: PANTOPRAZOLE SOD 40 MG DELAYED RELEASE TAB PO SCH (08:41)
[2016-08-04] MEDS: ENOXAPARIN SODIUM 40 MG/0.4 ML SYRINGE SQ SCH (08:41)
[2016-08-04] MEDS: MULTIVITAMINS/MINERALS THERAPEUTIC TAB PO SCH (08:41)
[2016-08-04] MEDS: FLUTICASONE PROPIONATE 50 MCG/ACT 16 GM NASAL SPRAY NASAL SCH ×2 (08:41→19:57)
[2016-08-04] MEDS: hydrOXYzine HCL 10 MG TAB PO PRN (12:57)
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
[2016-08-04 20:00] VITALS: BP 106/71; PULSE 71; RESP 16; TEMP 96.4; O2SAT 97
[2016-08-05] MEDS: oxyCODONE/ACETAMINOPHEN 10 MG/325 MG TAB PO PRN ×4 (03:41→22:10)
[2016-08-05] MEDS: MORPHINE SULFATE 30 MG CONTROLLED RELEASE TAB PO SCH ×3 (05:35→22:10)
[2016-08-05] MEDS: metroNIDAZOLE 500 MG TAB PO SCH ×3 (05:35→22:10)
[2016-08-05 07:15] VITALS: BP 133/78; PULSE 70; RESP 19; TEMP 96.5; O2SAT 96
[2016-08-05] MEDS: PANTOPRAZOLE SOD 40 MG DELAYED RELEASE TAB PO SCH (08:13)
[2016-08-05] MEDS: ENOXAPARIN SODIUM 40 MG/0.4 ML SYRINGE SQ SCH (08:13)
[2016-08-05] MEDS: hydrOXYzine HCL 10 MG TAB PO PRN ×2 (08:13→19:55)
[2016-08-05] MEDS: MULTIVITAMINS/MINERALS THERAPEUTIC TAB PO SCH (08:13)
[2016-08-05] MEDS: LACTIC ACID (AMMONIUM LACTATE) 12% LOTION 225 GM BTL TOPICAL SCH ×2 (09:00→19:56)
[2016-08-05] MEDS: FLUTICASONE PROPIONATE 50 MCG/ACT 16 GM NASAL SPRAY NASAL SCH ×2 (09:00→19:56)
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
[2016-08-05 20:00] VITALS: BP 126/69; PULSE 73; RESP 20; TEMP 96.7; O2SAT 96
[2016-08-06] MEDS: oxyCODONE/ACETAMINOPHEN 10 MG/325 MG TAB PO PRN ×4 (04:19→21:44)
[2016-08-06] MEDS: metroNIDAZOLE 500 MG TAB PO SCH ×3 (06:16→21:43)
[2016-08-06] MEDS: MORPHINE SULFATE 30 MG CONTROLLED RELEASE TAB PO SCH ×3 (06:16→21:44)
[2016-08-06 07:56] VITALS: BP 133/77; PULSE 68; RESP 18; TEMP 97.4; O2SAT 96
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
[2016-08-06] MEDS: MULTIVITAMINS/MINERALS THERAPEUTIC TAB PO SCH (09:00)
[2016-08-06] MEDS: PANTOPRAZOLE SOD 40 MG DELAYED RELEASE TAB PO SCH (09:00)
[2016-08-06] MEDS: FLUTICASONE PROPIONATE 50 MCG/ACT 16 GM NASAL SPRAY NASAL SCH ×2 (10:21→21:46)
[2016-08-06] MEDS: ENOXAPARIN SODIUM 40 MG/0.4 ML SYRINGE SQ SCH (10:21)
[2016-08-06] MEDS: LACTIC ACID (AMMONIUM LACTATE) 12% LOTION 225 GM BTL TOPICAL SCH ×2 (10:22→21:46)
[2016-08-06 20:00] VITALS: BP 104/66; PULSE 98; RESP 19; TEMP 97.1; O2SAT 99
[2016-08-07] MEDS: oxyCODONE/ACETAMINOPHEN 10 MG/325 MG TAB PO PRN ×4 (03:49→21:45)
[2016-08-07] MEDS: metroNIDAZOLE 500 MG TAB PO SCH ×4 (05:45→21:45)
[2016-08-07] MEDS: MORPHINE SULFATE 30 MG CONTROLLED RELEASE TAB PO SCH ×3 (05:45→21:45)
[2016-08-07 08:00] VITALS: BP 132/74; PULSE 76; RESP 20; TEMP 98.9; O2SAT 97
[2016-08-07] MEDS: ENOXAPARIN SODIUM 40 MG/0.4 ML SYRINGE SQ SCH (08:08)
[2016-08-07] MEDS: MULTIVITAMINS/MINERALS THERAPEUTIC TAB PO SCH (08:09)
[2016-08-07] MEDS: PANTOPRAZOLE SOD 40 MG DELAYED RELEASE TAB PO SCH (08:09)
[2016-08-07] MEDS: LACTIC ACID (AMMONIUM LACTATE) 12% LOTION 225 GM BTL TOPICAL SCH ×2 (08:09→21:43)
[2016-08-07] MEDS: FLUTICASONE PROPIONATE 50 MCG/ACT 16 GM NASAL SPRAY NASAL SCH ×2 (08:09→21:43)
[2016-08-07] MEDS: hydrOXYzine HCL 25 MG TAB PO PRN ×2 (12:46→21:45)
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
[2016-08-07 20:00] VITALS: BP 142/86; PULSE 76; RESP 20; TEMP 97; O2SAT 95
[2016-08-08] MEDS: oxyCODONE/ACETAMINOPHEN 10 MG/325 MG TAB PO PRN ×4 (03:55→22:40)
[2016-08-08] MEDS: hydrOXYzine HCL 25 MG TAB PO PRN ×2 (03:55→22:39)
[2016-08-08] MEDS: metroNIDAZOLE 500 MG TAB PO SCH ×3 (06:00→22:40)
[2016-08-08] MEDS: MORPHINE SULFATE 30 MG CONTROLLED RELEASE TAB PO SCH ×3 (06:41→22:38)
[2016-08-08] MEDS: ENOXAPARIN SODIUM 40 MG/0.4 ML SYRINGE SQ SCH (07:45)
[2016-08-08] MEDS: FLUTICASONE PROPIONATE 50 MCG/ACT 16 GM NASAL SPRAY NASAL SCH ×2 (07:45→22:37)
[2016-08-08] MEDS: PANTOPRAZOLE SOD 40 MG DELAYED RELEASE TAB PO SCH (07:46)
[2016-08-08] MEDS: LACTIC ACID (AMMONIUM LACTATE) 12% LOTION 225 GM BTL TOPICAL SCH ×2 (07:46→22:38)
[2016-08-08] MEDS: DOCUSATE SODIUM 100 MG CAP PO SCH (07:46)
[2016-08-08] MEDS: MULTIVITAMINS/MINERALS THERAPEUTIC TAB PO SCH (07:46)
[2016-08-08 08:00] VITALS: BP 117/73; PULSE 68; RESP 16; TEMP 97; O2SAT 96
--- NOTE | 2016-08-08 12:08 | HHI.PR ---
Subjective Remarks Patient seen and examined today. Had a nice lengthy discussion with the patient concerning his medication. 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 He is refusing to take the Flagyl. I discussed with him his need to continue the medication ordered to eliminate the infection. I discussed with her extensively that this infection could lead to severe illness, sepsis and even . Patient states that he will take the medication at this time. Patient indicates that he wants to be discharged to a facility if in [place] , I notified him that there are facilities in the area that her evaluate him. He states that he will continue to refuse any local placement facilities. He will only go to one in [place]. Objective Vitals Vital Signs Date Time Temp Pulse Resp B/P Pulse Ox O2 Delivery O2 Flow Rate FiO2 08/08/16 08:00 97.0 68 16 117/73 96 08/07/16 20:00 97.0 76 20 142/86 95 08/07/16 13:47 14 I/O 08/07/16 08/07/16 08/07/16 08/08/16 08/08/16 08/08/16 07:00 15:00 23:00 07:00 15:00 23:00 Intake Total 120 ml 820 ml Output Total 200.00 ml 750 ml 750 ml Balance -80.00 ml 70 ml -750 ml Intake Oral 120 ml 820 ml Output Urine Total 750 ml 300 ml Drainage Total 450 ml Blood Draw 200.00 ml # Bowel Movements 0 Result Diagram: 08/04/16 0615 Objective Remarks GENERAL: Well-developed, well-nourished, in no acute distress. alert and orientated HEENT: Head is normocephalic without any lesions or masses noted. Facial features are symmetric. Eyes: Extraocular muscles are intact. Conjunctivae were clear. NECK: Supple without any masses. Trachea midline no deviation. No JVD, CARDIAC: Regular rhythm, regular rate. S1/S2 are heard. No murmurs gallops or rubs. LUNGS: Clear to auscultation bilaterally. No wheeze, rhonchi or rales. No use of accessory muscles on inspiration or expiration. ABDOMEN: Soft, nontender. Nondistended. Bowel sounds heard in all 4 quadrants. No organomegaly or masses. Negative rebound, negative guarding EXTREMITIES: No edema, pulses are equal bilaterally. No cyanosis or clubbing NEUROLOGY: Mood and affect appear appropriate. Cranial nerves II through XII grossly intact. Moving upper extremities. Strength 5/5 SACRAL AREA: Patient does have wound VAC in place Procedures none Urinary Catheter: No Date of Insertion: Jul 30, 2016 Vascular Central Line Catheter: No A/P Assessment and Plan Clostridium difficile infection: Recurrent Continue Flagyl for 2 weeks, Start probiotic Sepsis with complicated UTI in a male with indwelling Morse, secondary to urinary retention from paraplegia: Resolved Urine Culture resulted with MRSA S/p antibiotic treatment with Bactrim Changed Morse catheter 07/01/16, change Morse today Stage IV sacral decubitus: Wound care physician Dr. Garcia evaluated patient and indicated local wound care Wound care team nurse following. Recommend to continue current treatment of Dakins solution soaked gauze, lightly fluffed, and gently placed into wound bed to allow for tissue growth. Plastic surgery evaluated patient and recommending wound VAC placement. Orders have been given. Reposition every 2 hours and PRN for comfort. Patient refused diverting colostomy for management Patient refusing wound VAC placement Chronic pain: -Continue patient's outpatient medications to include Oramorph 30 mg 3 times daily and Percocet 10, every 6 hours as needed for pain -The above regimen was confirmed by E force review and printed out and placed on patient's chart -Continue PT Anemia: Hemoglobin stable at 9.6. Hyperglycemia: Resolved likely related to infection. HgbA1c 5.2. Hypertension: Monitor and add medication if needed DVT prophylaxis: Lovenox Discharge Planning Case management for discharge planning. Patient refuses to be discharged to any facility other than one in [place]. Attending Statement Patient seen. Agree with above. Jp Keith Aug 08, 2016 12:08 Jp Quinn MD Aug 08, 2016 14:31
[2016-08-08] MEDS: LACTOBACILLUS ACIDOPHILUS TAB PO SCH ×2 (13:46→22:39)
[2016-08-08 20:00] VITALS: BP 111/74; PULSE 73; RESP 16; TEMP 97.8; O2SAT 94
[2016-08-09] MEDS: oxyCODONE/ACETAMINOPHEN 10 MG/325 MG TAB PO PRN ×3 (04:06→16:15)
[2016-08-09] MEDS: metroNIDAZOLE 500 MG TAB PO SCH ×3 (06:43→20:54)
[2016-08-09] MEDS: MORPHINE SULFATE 30 MG CONTROLLED RELEASE TAB PO SCH ×3 (06:43→20:54)
[2016-08-09 08:00] VITALS: BP 129/76; PULSE 69; RESP 18; TEMP 97.3; O2SAT 96
--- NOTE | 2016-08-09 08:51 | HHI.PR ---
Subjective Remarks Patient seen and examined today. Patient denies any new complaints. Patient is taking Flagyl this time. Objective Vitals Vital Signs Date Time Temp Pulse Resp B/P Pulse Ox O2 Delivery O2 Flow Rate FiO2 08/08/16 20:00 97.8 73 16 111/74 94 I/O 08/08/16 08/08/16 08/08/16 08/09/16 08/09/16 08/09/16 07:00 15:00 23:00 07:00 15:00 23:00 Intake Total 725 ml 240 ml 240 ml Output Total 750 ml 850 ml 175 ml 600 ml Balance -750 ml -125 ml 65 ml -360 ml Intake Oral 725 ml 240 ml 240 ml Output Urine Total 300 ml 850 ml 175 ml 200 ml Drainage Total 450 ml 400 ml # Bowel Movements 0 1 Objective Remarks GENERAL: Well-developed, well-nourished, in no acute distress. alert and orientated HEENT: Head is normocephalic without any lesions or masses noted. Facial features are symmetric. Eyes: Extraocular muscles are intact. Conjunctivae were clear. NECK: Supple without any masses. Trachea midline no deviation. No JVD, CARDIAC: Regular rhythm, regular rate. S1/S2 are heard. No murmurs gallops or rubs. LUNGS: Clear to auscultation bilaterally. No wheeze, rhonchi or rales. No use of accessory muscles on inspiration or expiration. ABDOMEN: Soft, nontender. Nondistended. Bowel sounds heard in all 4 quadrants. No organomegaly or masses. Negative rebound, negative guarding EXTREMITIES: No edema, pulses are equal bilaterally. No cyanosis or clubbing NEUROLOGY: Mood and affect appear appropriate. Cranial nerves II through XII grossly intact. Moving upper extremities. Strength 5/5 SACRAL AREA: Patient does have wound VAC in place Procedures none Urinary Catheter: Yes Assessment to: Continue Date of Insertion: Jul 30, 2016 Vascular Central Line Catheter: No A/P Assessment and Plan Clostridium difficile infection: Recurrent Continue Flagyl for 2 weeks, Continue probiotic Sepsis with complicated UTI in a male with indwelling Morse, secondary to urinary retention from paraplegia: Resolved Urine Culture resulted with MRSA S/p antibiotic treatment with Bactrim Changed Morse catheter 07/01/16, change Morse today Stage IV sacral decubitus: Wound care physician Dr. Garcia evaluated patient and indicated local wound care Wound care team nurse following. Recommend to continue current treatment of Dakins solution soaked gauze, lightly fluffed, and gently placed into wound bed to allow for tissue growth. Plastic surgery evaluated patient and recommending wound VAC placement. Orders have been given. Reposition every 2 hours and PRN for comfort. Patient refused diverting colostomy for management Patient refusing wound VAC placement Chronic pain: -Continue patient's outpatient medications to include Oramorph 30 mg 3 times daily and Percocet 10, every 6 hours as needed for pain -The above regimen was confirmed by E force review and printed out and placed on patient's chart -Continue PT Anemia: Hemoglobin stable at 9.6. Hyperglycemia: Resolved likely related to infection. HgbA1c 5.2. Hypertension: Monitor and add medication if needed DVT prophylaxis: Lovenox Discharge Planning Case management for discharge planning. Patient refuses to be discharged to any facility other than one in [place]. Attending Statement Patient seen. Agree with above. Jp Keith Aug 09, 2016 08:51 Jp Quinn MD Aug 09, 2016 16:34
[2016-08-09] MEDS: MULTIVITAMINS/MINERALS THERAPEUTIC TAB PO SCH (09:00)
[2016-08-09] MEDS: LACTIC ACID (AMMONIUM LACTATE) 12% LOTION 225 GM BTL TOPICAL SCH ×2 (09:00→20:56)
[2016-08-09] MEDS: PANTOPRAZOLE SOD 40 MG DELAYED RELEASE TAB PO SCH (09:00)
[2016-08-09] MEDS: DOCUSATE SODIUM 100 MG CAP PO SCH (09:00)
[2016-08-09] MEDS: LACTOBACILLUS ACIDOPHILUS TAB PO SCH ×2 (09:40→20:54)
[2016-08-09] MEDS: ENOXAPARIN SODIUM 40 MG/0.4 ML SYRINGE SQ SCH (09:40)
[2016-08-09] MEDS: FLUTICASONE PROPIONATE 50 MCG/ACT 16 GM NASAL SPRAY NASAL SCH ×2 (09:41→20:55)
[2016-08-09] MEDS: hydrOXYzine HCL 25 MG TAB PO PRN (09:49)
[2016-08-09 20:00] VITALS: BP 117/85; PULSE 71; RESP 16; TEMP 98; O2SAT 95
[2016-08-10] MEDS: oxyCODONE/ACETAMINOPHEN 10 MG/325 MG TAB PO PRN ×4 (03:13→20:32)
[2016-08-10] MEDS: MORPHINE SULFATE 30 MG CONTROLLED RELEASE TAB PO SCH ×3 (05:51→22:00)
[2016-08-10] MEDS: metroNIDAZOLE 500 MG TAB PO SCH ×3 (05:51→22:00)
[2016-08-10 08:18] VITALS: BP 121/73; PULSE 81; RESP 18; TEMP 96.4; O2SAT 97
[2016-08-10] MEDS: ENOXAPARIN SODIUM 40 MG/0.4 ML SYRINGE SQ SCH (08:28)
[2016-08-10] MEDS: LACTOBACILLUS ACIDOPHILUS TAB PO SCH ×2 (08:29→20:31)
[2016-08-10] MEDS: hydrOXYzine HCL 25 MG TAB PO PRN ×2 (08:29→20:31)
[2016-08-10] MEDS: FLUTICASONE PROPIONATE 50 MCG/ACT 16 GM NASAL SPRAY NASAL SCH ×2 (08:30→20:30)
[2016-08-10] MEDS: LACTIC ACID (AMMONIUM LACTATE) 12% LOTION 225 GM BTL TOPICAL SCH ×2 (08:30→20:31)
[2016-08-10] MEDS: PANTOPRAZOLE SOD 40 MG DELAYED RELEASE TAB PO SCH (08:33)
[2016-08-10] MEDS: DOCUSATE SODIUM 100 MG CAP PO SCH (08:33)
[2016-08-10] MEDS: MULTIVITAMINS/MINERALS THERAPEUTIC TAB PO SCH (08:33)
--- NOTE | 2016-08-10 14:41 | HHI.PR ---
Subjective Remarks Patient seen and examined today. Patient denies any new complaints. Patient states that he is having anxiety this morning and requested his anxiety medication. Objective Vitals Vital Signs Date Time Temp Pulse Resp B/P Pulse Ox O2 Delivery O2 Flow Rate FiO2 08/10/16 08:18 96.4 81 18 121/73 97 08/10/16 06:51 20 08/10/16 04:13 20 08/09/16 20:00 98.0 71 16 117/85 95 I/O 08/09/16 08/09/16 08/09/16 08/10/16 08/10/16 08/10/16 07:00 15:00 23:00 07:00 15:00 23:00 Intake Total 240 ml 240 ml 220 ml 100 ml Output Total 600 ml 800 ml 450 ml Balance -360 ml -560 ml -230 ml 100 ml Intake Oral 240 ml 240 ml 220 ml 100 ml Output Urine Total 200 ml 800 ml 450 ml Drainage Total 400 ml # Bowel Movements 1 0 Objective Remarks GENERAL: Well-developed, well-nourished, in no acute distress. alert and orientated HEENT: Head is normocephalic without any lesions or masses noted. Facial features are symmetric. Eyes: Extraocular muscles are intact. Conjunctivae were clear. NECK: Supple without any masses. Trachea midline no deviation. No JVD, CARDIAC: Regular rhythm, regular rate. S1/S2 are heard. No murmurs gallops or rubs. LUNGS: Clear to auscultation bilaterally. No wheeze, rhonchi or rales. No use of accessory muscles on inspiration or expiration. ABDOMEN: Soft, nontender. Nondistended. Bowel sounds heard in all 4 quadrants. No organomegaly or masses. Negative rebound, negative guarding EXTREMITIES: No edema, pulses are equal bilaterally. No cyanosis or clubbing NEUROLOGY: Mood and affect appear appropriate. Cranial nerves II through XII grossly intact. Moving upper extremities. Strength 5/5 SACRAL AREA: Patient does have wound VAC in place Procedures none Urinary Catheter: Yes Assessment to: Continue Morse insert reason: Stage III/IV Press Ulcer Date of Insertion: Jul 30, 2016 Vascular Central Line Catheter: No A/P Assessment and Plan Clostridium difficile infection: Recurrent Continue Flagyl for 2 weeks, Continue probiotic Sepsis with complicated UTI in a male with indwelling Morse, secondary to urinary retention from paraplegia: Resolved Urine Culture resulted with MRSA S/p antibiotic treatment with Bactrim Changed Morse catheter 07/30/16 Stage IV sacral decubitus: Wound care physician Dr. Garcia evaluated patient and indicated local wound care Wound care team nurse following. Recommend to continue current treatment of Dakins solution soaked gauze, lightly fluffed, and gently placed into wound bed to allow for tissue growth. Plastic surgery evaluated patient and recommending wound VAC placement. Orders have been given. Reposition every 2 hours and PRN for comfort. Patient refused diverting colostomy for management Wound VAC in place. Chronic pain: -Continue patient's outpatient medications to include Oramorph 30 mg 3 times daily and Percocet 10, every 6 hours as needed for pain -The above regimen was confirmed by E force review and printed out and placed on patient's chart -Continue PT Anemia: Hemoglobin stable at 9.6. Hyperglycemia: Resolved likely related to infection. HgbA1c 5.2. Hypertension: Monitor and add medication if needed DVT prophylaxis: Lovenox Discharge Planning Case management for discharge planning. Patient refuses to be discharged to any facility other than one in [place]. Jp Keith Aug 10, 2016 14:41
[2016-08-10 20:00] VITALS: BP 112/70; PULSE 88; RESP 19; TEMP 96.5; O2SAT 95
[2016-08-11] MEDS: oxyCODONE/ACETAMINOPHEN 10 MG/325 MG TAB PO PRN ×4 (02:27→22:09)
[2016-08-11] MEDS: metroNIDAZOLE 500 MG TAB PO SCH ×3 (05:54→21:19)
[2016-08-11] MEDS: MORPHINE SULFATE 30 MG CONTROLLED RELEASE TAB PO SCH ×3 (05:55→21:20)
[2016-08-11 08:00] VITALS: BP 114/74; PULSE 77; RESP 18; TEMP 97; O2SAT 94
[2016-08-11] MEDS: ENOXAPARIN SODIUM 40 MG/0.4 ML SYRINGE SQ SCH (08:35)
[2016-08-11] MEDS: LACTOBACILLUS ACIDOPHILUS TAB PO SCH ×2 (08:37→21:19)
[2016-08-11] MEDS: FLUTICASONE PROPIONATE 50 MCG/ACT 16 GM NASAL SPRAY NASAL SCH ×2 (08:37→21:19)
[2016-08-11] MEDS: DOCUSATE SODIUM 100 MG CAP PO SCH (08:37)
[2016-08-11] MEDS: PANTOPRAZOLE SOD 40 MG DELAYED RELEASE TAB PO SCH (08:38)
[2016-08-11] MEDS: MULTIVITAMINS/MINERALS THERAPEUTIC TAB PO SCH (08:38)
[2016-08-11] MEDS: LACTIC ACID (AMMONIUM LACTATE) 12% LOTION 225 GM BTL TOPICAL SCH ×2 (08:39→21:19)
--- NOTE | 2016-08-11 13:58 | HHI.PR ---
Subjective Remarks Patient seen and examined. Patient denies any new complaints. No change in clinical status. Patient states that he wanted to ask me a question but forgot what he wanted to ask me. Objective Vitals Vital Signs Date Time Temp Pulse Resp B/P Pulse Ox O2 Delivery O2 Flow Rate FiO2 08/11/16 09:36 18 08/11/16 08:00 97.0 77 18 114/74 94 08/11/16 06:55 18 08/10/16 20:00 96.5 88 19 112/70 95 I/O 08/10/16 08/10/16 08/10/16 08/11/16 08/11/16 08/11/16 07:00 15:00 23:00 07:00 15:00 23:00 Intake Total 220 ml 100 ml 840 ml 120 ml Output Total 450 ml 750 ml 250 ml Balance -230 ml 100 ml 90 ml -130 ml Intake Oral 220 ml 100 ml 840 ml 120 ml Output Urine Total 450 ml 750 ml 250 ml Objective Remarks GENERAL: Well-developed, well-nourished, in no acute distress. alert and orientated HEENT: Head is normocephalic without any lesions or masses noted. Facial features are symmetric. Eyes: Extraocular muscles are intact. Conjunctivae were clear. NECK: Supple without any masses. Trachea midline no deviation. No JVD, CARDIAC: Regular rhythm, regular rate. S1/S2 are heard. No murmurs gallops or rubs. LUNGS: Clear to auscultation bilaterally. No wheeze, rhonchi or rales. No use of accessory muscles on inspiration or expiration. ABDOMEN: Soft, nontender. Nondistended. Bowel sounds heard in all 4 quadrants. No organomegaly or masses. Negative rebound, negative guarding EXTREMITIES: No edema, pulses are equal bilaterally. No cyanosis or clubbing NEUROLOGY: Mood and affect appear appropriate. Cranial nerves II through XII grossly intact. Moving upper extremities. Strength 5/5 SACRAL AREA: Patient does have wound VAC in place Procedures none Urinary Catheter: Yes Assessment to: Continue Morse insert reason: Stage III/IV Press Ulcer Date of Insertion: Jul 30, 2016 Vascular Central Line Catheter: No A/P Assessment and Plan Clostridium difficile infection: Recurrent Continue Flagyl for 2 weeks, Continue probiotic Sepsis with complicated UTI in a male with indwelling Morse, secondary to urinary retention from paraplegia: Resolved Urine Culture resulted with MRSA S/p antibiotic treatment with Bactrim Changed Morse catheter 07/30/16 Stage IV sacral decubitus: Wound care physician Dr. Garcia evaluated patient and indicated local wound care Wound care team nurse following. Recommend to continue current treatment of Dakins solution soaked gauze, lightly fluffed, and gently placed into wound bed to allow for tissue growth. Plastic surgery evaluated patient and recommending wound VAC placement. Orders have been given. Reposition every 2 hours and PRN for comfort. Patient refused diverting colostomy for management Wound VAC in place. Chronic pain: -Continue patient's outpatient medications to include Oramorph 30 mg 3 times daily and Percocet 10, every 6 hours as needed for pain -The above regimen was confirmed by E force review and printed out and placed on patient's chart -Continue PT Anemia: Hemoglobin stable Hyperglycemia: Resolved likely related to infection. HgbA1c 5.2. Hypertension: Monitor and add medication if needed DVT prophylaxis: Lovenox Discharge Planning Case management for discharge planning. Patient refuses to be discharged to any facility other than one in [place]. Jp Keith Aug 11, 2016 13:58
[2016-08-11 20:00] VITALS: BP 121/81; PULSE 86; RESP 19; TEMP 98; O2SAT 97
[2016-08-12] MEDS: oxyCODONE/ACETAMINOPHEN 10 MG/325 MG TAB PO PRN ×4 (05:06→23:05)
[2016-08-12] MEDS: metroNIDAZOLE 500 MG TAB PO SCH ×3 (06:26→21:14)
[2016-08-12] MEDS: MORPHINE SULFATE 30 MG CONTROLLED RELEASE TAB PO SCH ×3 (06:27→21:14)
[2016-08-12 08:00] VITALS: BP 122/78; PULSE 86; RESP 18; TEMP 96.5; O2SAT 94
[2016-08-12] MEDS: LACTOBACILLUS ACIDOPHILUS TAB PO SCH ×2 (09:41→21:00)
[2016-08-12] MEDS: DOCUSATE SODIUM 100 MG CAP PO SCH (09:42)
[2016-08-12] MEDS: MULTIVITAMINS/MINERALS THERAPEUTIC TAB PO SCH (09:42)
[2016-08-12] MEDS: PANTOPRAZOLE SOD 40 MG DELAYED RELEASE TAB PO SCH (09:42)
[2016-08-12] MEDS: ENOXAPARIN SODIUM 40 MG/0.4 ML SYRINGE SQ SCH (09:43)
[2016-08-12] MEDS: FLUTICASONE PROPIONATE 50 MCG/ACT 16 GM NASAL SPRAY NASAL SCH ×2 (09:43→20:31)
[2016-08-12] MEDS: LACTIC ACID (AMMONIUM LACTATE) 12% LOTION 225 GM BTL TOPICAL SCH ×2 (09:44→20:31)
[2016-08-12] MEDS: hydrOXYzine HCL 25 MG TAB PO PRN ×2 (11:00→17:06)
--- NOTE | 2016-08-12 11:37 | HHI.PR ---
Subjective Remarks Patient seen and examined today. Patient only complaint is about the timing in which he gets his pain medication. He wants us to instruct the nurses to give him his pain medication whenever he calls for further medications instead of making him weight over an hour every time Objective Vitals Vital Signs Date Time Temp Pulse Resp B/P Pulse Ox O2 Delivery O2 Flow Rate FiO2 08/12/16 09:37 16 08/12/16 08:00 96.5 86 18 122/78 94 08/11/16 20:00 98.0 86 19 121/81 97 08/11/16 16:31 18 I/O 08/11/16 08/11/16 08/11/16 08/12/16 08/12/16 08/12/16 07:00 15:00 23:00 07:00 15:00 23:00 Intake Total 120 ml 950 ml 240 ml 480 ml Output Total 250 ml 200 ml 700 ml 200 ml Balance -130 ml 750 ml -460 ml 280 ml Intake Oral 120 ml 950 ml 240 ml 480 ml Output Urine Total 250 ml 200 ml 700 ml 200 ml # Bowel Movements 1 Objective Remarks GENERAL: Well-developed, well-nourished, in no acute distress. alert and orientated HEENT: Head is normocephalic without any lesions or masses noted. Facial features are symmetric. Eyes: Extraocular muscles are intact. Conjunctivae were clear. NECK: Supple without any masses. Trachea midline no deviation. No JVD, CARDIAC: Regular rhythm, regular rate. S1/S2 are heard. No murmurs gallops or rubs. LUNGS: Clear to auscultation bilaterally. No wheeze, rhonchi or rales. No use of accessory muscles on inspiration or expiration. ABDOMEN: Soft, nontender. Nondistended. Bowel sounds heard in all 4 quadrants. No organomegaly or masses. Negative rebound, negative guarding EXTREMITIES: No edema, pulses are equal bilaterally. No cyanosis or clubbing NEUROLOGY: Mood and affect appear appropriate. Cranial nerves II through XII grossly intact. Moving upper extremities. Strength 5/5 SACRAL AREA: Patient does have wound VAC in place Procedures none Urinary Catheter: Yes Assessment to: Continue Morse insert reason: Stage III/IV Press Ulcer Date of Insertion: Jul 30, 2016 Vascular Central Line Catheter: No A/P Assessment and Plan Clostridium difficile infection: Recurrent Continue Flagyl for 2 weeks, Continue probiotic Sepsis with complicated UTI in a male with indwelling Morse, secondary to urinary retention from paraplegia: Resolved Urine Culture resulted with MRSA S/p antibiotic treatment with Bactrim Changed Morse catheter 07/30/16 Stage IV sacral decubitus: Wound care physician Dr. Garcia evaluated patient and indicated local wound care Wound care team nurse following. Recommend to continue current treatment of Dakins solution soaked gauze, lightly fluffed, and gently placed into wound bed to allow for tissue growth. Plastic surgery evaluated patient and recommending wound VAC placement. Orders have been given. Reposition every 2 hours and PRN for comfort. Patient refused diverting colostomy for management Wound VAC in place. Chronic pain: -Continue patient's outpatient medications to include Oramorph 30 mg 3 times daily and Percocet 10, every 6 hours as needed for pain -The above regimen was confirmed by E force review and printed out and placed on patient's chart -Continue PT Anemia: Hemoglobin stable Hyperglycemia: Resolved likely related to infection. HgbA1c 5.2. Hypertension: Monitor and add medication if needed DVT prophylaxis: Lovenox Discharge Planning Case management for discharge planning. Patient refuses to be discharged to any facility other than one in [place]. Jp Keith Aug 12, 2016 11:37
[2016-08-12 20:00] VITALS: BP 127/79; PULSE 75; RESP 18; TEMP 98.1; O2SAT 96
[2016-08-13] MEDS: oxyCODONE/ACETAMINOPHEN 10 MG/325 MG TAB PO PRN ×3 (05:44→18:03)
[2016-08-13] MEDS: MORPHINE SULFATE 30 MG CONTROLLED RELEASE TAB PO SCH ×3 (05:45→21:31)
[2016-08-13] MEDS: metroNIDAZOLE 500 MG TAB PO SCH ×3 (05:46→21:29)
[2016-08-13 08:00] VITALS: BP 104/80; PULSE 85; RESP 18; TEMP 98.3; O2SAT 98
[2016-08-13] MEDS: LACTOBACILLUS ACIDOPHILUS TAB PO SCH ×2 (09:00→21:33)
[2016-08-13] MEDS: PANTOPRAZOLE SOD 40 MG DELAYED RELEASE TAB PO SCH (09:00)
[2016-08-13] MEDS: DOCUSATE SODIUM 100 MG CAP PO SCH (09:00)
[2016-08-13] MEDS: FLUTICASONE PROPIONATE 50 MCG/ACT 16 GM NASAL SPRAY NASAL SCH ×2 (09:00→21:25)
[2016-08-13] MEDS: LACTIC ACID (AMMONIUM LACTATE) 12% LOTION 225 GM BTL TOPICAL SCH ×2 (09:00→21:25)
[2016-08-13] MEDS: MULTIVITAMINS/MINERALS THERAPEUTIC TAB PO SCH (09:00)
[2016-08-13] MEDS: hydrOXYzine HCL 25 MG TAB PO PRN (09:06)
[2016-08-13] MEDS: ENOXAPARIN SODIUM 40 MG/0.4 ML SYRINGE SQ SCH (09:07)
--- NOTE | 2016-08-13 11:51 | HHI.PR ---
Subjective Remarks Patient seen and examined today. Patient tired of taking flagyl and thinks it doesnt seem to be effective. Vitals stable, afebrile. Positive bowel movement this am. Patient states pain is controlled. Objective Vitals Vital Signs Date Time Temp Pulse Resp B/P Pulse Ox O2 Delivery O2 Flow Rate FiO2 08/13/16 08:00 98.3 85 18 104/80 98 08/13/16 06:44 16 08/13/16 06:44 16 08/12/16 20:00 98.1 75 18 127/79 96 I/O 08/12/16 08/12/16 08/12/16 08/13/16 08/13/16 08/13/16 07:00 15:00 23:00 07:00 15:00 23:00 Intake Total 480 ml 420 ml 220 ml 220 ml Output Total 200 ml 250 ml 150 ml 200 ml 1 ml Balance 280 ml 170 ml 70 ml 20 ml -1 ml Intake Oral 480 ml 420 ml 220 ml 220 ml Output Urine Total 200 ml 250 ml 150 ml 200 ml Stool Total 1 ml # Bowel Movements 0 0 0 Objective Remarks GENERAL: Well-developed, well-nourished, in no acute distress. alert and orientated HEENT: Head is normocephalic without any lesions or masses noted. Facial features are symmetric. Eyes: Extraocular muscles are intact. Conjunctivae were clear. NECK: Supple without any masses. Trachea midline no deviation. No JVD, CARDIAC: Regular rhythm, regular rate. S1/S2 are heard. No murmurs gallops or rubs. LUNGS: Clear to auscultation bilaterally. No wheeze, rhonchi or rales. No use of accessory muscles on inspiration or expiration. ABDOMEN: Soft, nontender. Nondistended. Bowel sounds heard in all 4 quadrants. No organomegaly or masses. Negative rebound, negative guarding EXTREMITIES: No edema, pulses are equal bilaterally. No cyanosis or clubbing NEUROLOGY: Mood and affect appear appropriate. Cranial nerves II through XII grossly intact. Moving upper extremities. Strength 5/5 SACRAL AREA: Patient does have wound VAC in place Procedures none Urinary Catheter: Yes Assessment to: Continue Morse insert reason: Stage III/IV Press Ulcer Date of Insertion: Jul 30, 2016 Vascular Central Line Catheter: No A/P Assessment and Plan Clostridium difficile infection: Recurrent Continue Flagyl for 2 weeks, Continue probiotic Sepsis with complicated UTI in a male with indwelling Morse, secondary to urinary retention from paraplegia: Resolved Urine Culture resulted with MRSA S/p antibiotic treatment with Bactrim Changed Morse catheter 07/30/16 Stage IV sacral decubitus: Wound care physician Dr. Garcia evaluated patient and indicated local wound care Wound care team nurse following. Recommend to continue current treatment of Dakins solution soaked gauze, lightly fluffed, and gently placed into wound bed to allow for tissue growth. Plastic surgery evaluated patient and recommending wound VAC placement. Orders have been given. Reposition every 2 hours and PRN for comfort. Patient refused diverting colostomy for management Wound VAC in place. Chronic pain: -Continue patient's outpatient medications to include Oramorph 30 mg 3 times daily and Percocet 10, every 6 hours as needed for pain -The above regimen was confirmed by E force review and printed out and placed on patient's chart -Continue PT Anemia: Hemoglobin stable Hyperglycemia: Resolved likely related to infection. HgbA1c 5.2. Hypertension: Monitor and add medication if needed. Controlled. DVT prophylaxis: Lovenox Discharge Planning Case management for discharge planning. Patient refuses to be discharged to any facility other than one in [place]. Jp Keith Aug 13, 2016 11:51
[2016-08-13 20:00] VITALS: BP 99/67; PULSE 98; RESP 16; TEMP 100.2; O2SAT 93
[2016-08-14] VITALS: TEMP 98.9
[2016-08-14] MEDS: oxyCODONE/ACETAMINOPHEN 10 MG/325 MG TAB PO PRN ×4 (00:19→23:51)
[2016-08-14] MEDS: metroNIDAZOLE 500 MG TAB PO SCH ×3 (05:10→21:09)
[2016-08-14] MEDS: MORPHINE SULFATE 30 MG CONTROLLED RELEASE TAB PO SCH ×3 (05:10→21:09)
[2016-08-14 08:00] VITALS: BP 128/71; PULSE 75; RESP 20; TEMP 96.5; O2SAT 97
[2016-08-14] MEDS: DOCUSATE SODIUM 100 MG CAP PO SCH (09:00)
[2016-08-14] MEDS: PANTOPRAZOLE SOD 40 MG DELAYED RELEASE TAB PO SCH (09:00)
[2016-08-14] MEDS: LACTIC ACID (AMMONIUM LACTATE) 12% LOTION 225 GM BTL TOPICAL SCH ×2 (09:00→21:13)
[2016-08-14] MEDS: LACTOBACILLUS ACIDOPHILUS TAB PO SCH ×2 (09:00→21:08)
[2016-08-14] MEDS: MULTIVITAMINS/MINERALS THERAPEUTIC TAB PO SCH (09:00)
--- NOTE | 2016-08-14 09:21 | HHI.PR ---
Subjective Remarks Patient seen and examined today. Patient denies any new complaints. Patient has decreased from her bowel movement. Patient not know if they are solid or loose. Objective Vitals Vital Signs Date Time Temp Pulse Resp B/P Pulse Ox O2 Delivery O2 Flow Rate FiO2 08/14/16 06:10 16 08/14/16 01:19 16 08/14/16 00:00 98.9 08/13/16 20:00 100.2 98 16 99/67 93 I/O 08/13/16 08/13/16 08/13/16 08/14/16 08/14/16 08/14/16 07:00 15:00 23:00 07:00 15:00 23:00 Intake Total 220 ml 360 ml 360 ml 120 ml Output Total 200 ml 251 ml 150 ml 150 ml Balance 20 ml 109 ml 210 ml -30 ml Intake Oral 220 ml 360 ml 360 ml 120 ml Output Urine Total 200 ml 250 ml 150 ml 150 ml Stool Total 1 ml # Bowel Movements 0 2 0 0 Objective Remarks GENERAL: Well-developed, well-nourished, in no acute distress. alert and orientated HEENT: Head is normocephalic without any lesions or masses noted. Facial features are symmetric. Eyes: Extraocular muscles are intact. Conjunctivae were clear. NECK: Supple without any masses. Trachea midline no deviation. No JVD, CARDIAC: Regular rhythm, regular rate. S1/S2 are heard. No murmurs gallops or rubs. LUNGS: Clear to auscultation bilaterally. No wheeze, rhonchi or rales. No use of accessory muscles on inspiration or expiration. ABDOMEN: Soft, nontender. Nondistended. Bowel sounds heard in all 4 quadrants. No organomegaly or masses. Negative rebound, negative guarding EXTREMITIES: No edema, pulses are equal bilaterally. No cyanosis or clubbing NEUROLOGY: Mood and affect appear appropriate. Cranial nerves II through XII grossly intact. Moving upper extremities. Strength 5/5 SACRAL AREA: Patient does have wound VAC in place Procedures none Urinary Catheter: Yes Assessment to: Continue Morse insert reason: Stage III/IV Press Ulcer Date of Insertion: Jul 30, 2016 Vascular Central Line Catheter: No A/P Assessment and Plan Clostridium difficile infection: Recurrent Continue Flagyl for 2 weeks, Continue probiotic Sepsis with complicated UTI in a male with indwelling Morse, secondary to urinary retention from paraplegia: Resolved Urine Culture resulted with MRSA S/p antibiotic treatment with Bactrim Changed Morse catheter 07/30/16 Stage IV sacral decubitus: Wound care physician Dr. Garcia evaluated patient and indicated local wound care Wound care team nurse following. Recommend to continue current treatment of Dakins solution soaked gauze, lightly fluffed, and gently placed into wound bed to allow for tissue growth. Plastic surgery evaluated patient and recommending wound VAC placement. Orders have been given. Reposition every 2 hours and PRN for comfort. Patient refused diverting colostomy for management Wound VAC in place. Chronic pain: -Continue patient's outpatient medications to include Oramorph 30 mg 3 times daily and Percocet 10, every 6 hours as needed for pain -The above regimen was confirmed by E force review and printed out and placed on patient's chart -Continue PT Anemia: Hemoglobin stable Hyperglycemia: Resolved likely related to infection. HgbA1c 5.2. Hypertension: Monitor and add medication if needed. Controlled. DVT prophylaxis: Lovenox Discharge Planning Case management for discharge planning. Patient completes his treatment for C. difficile on 08/15/16. After that, there is no reason why patient cannot be discharged to a nursing facility. Jp Keith Aug 14, 2016 09:21
[2016-08-14] MEDS: ENOXAPARIN SODIUM 40 MG/0.4 ML SYRINGE SQ SCH (09:43)
[2016-08-14] MEDS: FLUTICASONE PROPIONATE 50 MCG/ACT 16 GM NASAL SPRAY NASAL SCH ×2 (09:46→21:00)
[2016-08-14] MEDS: hydrOXYzine HCL 25 MG TAB PO PRN (17:12)
[2016-08-14] MEDS: CALCIUM CARBONATE 500 MG CHEWABLE TAB CHEW PRN (18:29)
[2016-08-14 20:00] VITALS: BP 97/60; PULSE 86; RESP 20; TEMP 98.6; O2SAT 94
[2016-08-15] MEDS: metroNIDAZOLE 500 MG TAB PO SCH ×3 (05:41→21:04)
[2016-08-15] MEDS: MORPHINE SULFATE 30 MG CONTROLLED RELEASE TAB PO SCH ×3 (05:42→21:04)
[2016-08-15 08:00] VITALS: BP 109/62; PULSE 74; RESP 16; TEMP 96.5; O2SAT 96
[2016-08-15] MEDS: MULTIVITAMINS/MINERALS THERAPEUTIC TAB PO SCH (09:00)
[2016-08-15] MEDS: DOCUSATE SODIUM 100 MG CAP PO SCH (09:00)
[2016-08-15] MEDS: LACTOBACILLUS ACIDOPHILUS TAB PO SCH ×2 (09:00→21:04)
[2016-08-15] MEDS: PANTOPRAZOLE SOD 40 MG DELAYED RELEASE TAB PO SCH (09:00)
[2016-08-15] MEDS: oxyCODONE/ACETAMINOPHEN 10 MG/325 MG TAB PO PRN ×2 (09:40→15:44)
[2016-08-15] MEDS: ENOXAPARIN SODIUM 40 MG/0.4 ML SYRINGE SQ SCH (09:44)
[2016-08-15] MEDS: FLUTICASONE PROPIONATE 50 MCG/ACT 16 GM NASAL SPRAY NASAL SCH ×2 (09:47→21:00)
[2016-08-15] MEDS: LACTIC ACID (AMMONIUM LACTATE) 12% LOTION 225 GM BTL TOPICAL SCH ×2 (09:48→21:07)
--- NOTE | 2016-08-15 12:44 | HHI.PR ---
Subjective Remarks Follow-up for C. difficile, decubitus ulcer. Patient states feels the same. He does admit to having a bowel movement yesterday morning but is unsure if it was loose. Patient is advised that he must continue the Flagyl today since he had skipped 4 doses previously. Patient discussed with RN states the patient has sediment in his urine. Objective Vitals Vital Signs Date Time Temp Pulse Resp B/P Pulse Ox O2 Delivery O2 Flow Rate FiO2 08/15/16 08:00 96.5 74 16 109/62 96 08/15/16 07:00 18 08/15/16 01:00 18 08/14/16 20:00 98.6 86 20 97/60 94 I/O 08/14/16 08/14/16 08/14/16 08/15/16 08/15/16 08/15/16 07:00 15:00 23:00 07:00 15:00 23:00 Intake Total 120 ml 960 ml 570 ml 60 ml Output Total 150 ml 350 ml 100 ml Balance -30 ml 960 ml 220 ml -40 ml Intake Oral 120 ml 960 ml 570 ml 60 ml Output Urine Total 150 ml 350 ml 100 ml # Bowel Movements 0 1 0 0 Objective Remarks GENERAL: Well-developed male in no apparent distress. CARDIOVASCULAR: Regular rate and rhythm. RESPIRATORY: No accessory muscle use. Clear to auscultation. Breath sounds equal bilaterally. GASTROINTESTINAL: Abdomen soft, non-tender, nondistended. NEUROLOGICAL: Awake and alert. Normal speech. PSYCHIATRIC: Judgment normal. Morse bag with dark otilia urine and sediment. Procedures none Urinary Catheter: Yes Assessment to: Continue Morse insert reason: Stage III/IV Press Ulcer Date of Insertion: Jul 30, 2016 Vascular Central Line Catheter: No A/P Problem List: (1) Fever ICD Code: R50.9 Status: Resolved (2) Sacral decubitus ulcer ICD Code: L89.159 Status: Chronic (3) UTI (urinary tract infection) ICD Code: N39.0 Status: Resolved (4) Sepsis ICD Code: A41.9 Status: Resolved (5) Hypokalemia ICD Code: E87.6 Status: Acute Assessment and Plan Clostridium difficile infection: Recurrent Continue Flagyl for 2 weeks, stop date was supposed to be 08/15 but patient refused 4 doses so will continue today; last dose tomorrow am. Continue probiotic Sepsis with complicated UTI in a male with indwelling Morse, secondary to urinary retention from paraplegia: Resolved Urine Culture resulted with MRSA S/p antibiotic treatment with Bactrim Changed Morse catheter 07/30/16 Patient's urine has sediment today. Patient is at risk for infection due to catheter use but also is at risk for colonization due to this. He is afebrile. Will order CBC. Will reevaluate urine tomorrow; if it continues to be abnormal will likely need to obtain UA. Stage IV sacral decubitus: Wound care physician/RN following. Continue wound vac Reposition every 2 hours and PRN for comfort. Patient refused diverting colostomy for management Chronic pain: -Continue patient's outpatient medications to include Oramorph 30 mg 3 times daily and Percocet 10, every 6 hours as needed for pain -The above regimen was confirmed by E force review and printed out and placed on patient's chart -Continue PT Anemia: Hemoglobin stable Hyperglycemia: Resolved likely related to infection. HgbA1c 5.2. Hypertension: Monitor and add medication if needed. Controlled. DVT prophylaxis: Lovenox Discharge Planning 07/07: Per CM patient is looking at placement close to his grandson in [place]. Before a facility can accept for LTC placement, need to ensure patient will qualify for LTC Medicaid. 07/31: Requested [facility] to evaluate for placement. 08/03: [facility] declined 08/07: [facility] to evaluate for placement. Problem Qualifiers (1) Fever: Qualified Code: R50.9 - Fever, unspecified fever cause (2) Sacral decubitus ulcer: Qualified Code: L89.154 - Decubitus ulcer of sacral region, stage 4 Ashanti Yeboah Aug 15, 2016 12:44 07/07: Per CM patient is looking at placement close to his grandson in [place]. Before a facility can accept for LTC placement, need to ensure patient will qualify for LTC Medicaid. 07/31: [facility]. 08/03: [facility] declined 08/07: [facility] to evaluate for placement. Problem Qualifiers (1) Fever: Qualified Code: R50.9 - Fever, unspecified fever cause (2) Sacral decubitus ulcer: Qualified Code: L89.154 - Decubitus ulcer of sacral region, stage 4 Ashanti Yeboah Aug 15, 2016 12:44
[2016-08-15] MEDS: hydrOXYzine HCL 25 MG TAB PO PRN (13:14)
[2016-08-15 20:00] VITALS: BP 129/80; PULSE 77; RESP 20; TEMP 97.7; O2SAT 98
[2016-08-16] MEDS: oxyCODONE/ACETAMINOPHEN 10 MG/325 MG TAB PO PRN ×4 (01:23→20:34)
[2016-08-16] MEDS: metroNIDAZOLE 500 MG TAB PO SCH ×2 (05:53→12:44)
[2016-08-16] MEDS: MORPHINE SULFATE 30 MG CONTROLLED RELEASE TAB PO SCH ×3 (05:54→22:02)
[2016-08-16 06:51] LABS: AUTOMATED NEUTROPHIL # 3.3 TH/MM3 (1.8-7.7); BASOPHIL % 0.7 % (0.0-2.0); EOSINOPHIL # 0.3 TH/MM3 (0-0.4); EOSINOPHIL % 4.9 % (0.0-4.0); HEMO FLAGS DIFF FINAL; LYMPH % 34.2 % (9.0-44.0); LYMPHOCYTE # 2.4 TH/MM3 (1.0-4.8); MEAN CORPUSCULAR HEMOGLOBIN 27.6 PG (27.0-34.0); MEAN CORPUSCULAR HGB CONC 32.5 % (32.0-36.0); MONO % 14.8 % (0.0-8.0); NEUT % 45.4 % (16.0-70.0); PLATELET COUNT 397 TH/MM3 (150-450); RED BLOOD COUNT 3.65 MIL/MM3 (4.50-5.90); RED CELL DISTRIBUTION WIDTH 15.5 % (11.6-17.2)
[2016-08-16 08:00] VITALS: BP 116/69; PULSE 68; RESP 18; TEMP 96.6; O2SAT 97
[2016-08-16] MEDS: hydrOXYzine HCL 25 MG TAB PO PRN ×2 (08:14→20:35)
[2016-08-16] MEDS: LACTOBACILLUS ACIDOPHILUS TAB PO SCH ×2 (08:14→20:33)
[2016-08-16] MEDS: DOCUSATE SODIUM 100 MG CAP PO SCH (08:14)
[2016-08-16] MEDS: ENOXAPARIN SODIUM 40 MG/0.4 ML SYRINGE SQ SCH (08:15)
[2016-08-16] MEDS: LACTIC ACID (AMMONIUM LACTATE) 12% LOTION 225 GM BTL TOPICAL SCH ×2 (08:15→20:38)
[2016-08-16] MEDS: PANTOPRAZOLE SOD 40 MG DELAYED RELEASE TAB PO SCH (08:15)
[2016-08-16] MEDS: MULTIVITAMINS/MINERALS THERAPEUTIC TAB PO SCH (08:15)
[2016-08-16] MEDS: FLUTICASONE PROPIONATE 50 MCG/ACT 16 GM NASAL SPRAY NASAL SCH ×2 (08:16→20:37)
[2016-08-16] MEDS: CALCIUM CARBONATE 500 MG CHEWABLE TAB CHEW PRN (08:17)
[2016-08-16 10:05] LABS: POTASSIUM 3.6 MEQ/L (3.5-5.1)
[2016-08-16 10:09] LABS: BICARBONATE 28.2 MEQ/L (21.0-32.0)
--- NOTE | 2016-08-16 11:36 | HHI.PR ---
Subjective Remarks Follow-up for C. difficile infection, decubitus ulcer. Patient's urine is again noted to be dark with sediment. Output seems to be decreased. The patient denies any fevers or chills. Denies any abdominal pain, nausea, vomiting, or flank pain. He does states he does not hydrate enough. Objective Vitals Vital Signs Date Time Temp Pulse Resp B/P Pulse Ox O2 Delivery O2 Flow Rate FiO2 08/16/16 09:35 18 08/16/16 07:03 20 08/15/16 20:00 97.7 77 20 129/80 98 I/O 08/15/16 08/15/16 08/15/16 08/16/16 08/16/16 08/16/16 07:00 15:00 23:00 07:00 15:00 23:00 Intake Total 60 ml 1380 ml 720 ml 120 ml Output Total 100 ml 250 ml 300 ml 150 ml Balance -40 ml 1130 ml 420 ml -30 ml Intake Oral 60 ml 1380 ml 720 ml 120 ml Output Urine Total 100 ml 250 ml 300 ml 150 ml # Bowel Movements 0 Result Diagram: 08/16/16 0610 08/16/16 0610 Objective Remarks GENERAL: Well-developed male in no apparent distress. CARDIOVASCULAR: Regular rate and rhythm. RESPIRATORY: No accessory muscle use. Clear to auscultation. Breath sounds equal bilaterally. GASTROINTESTINAL: Normoactive bowel sounds. Abdomen soft, non-tender, nondistended. NEUROLOGICAL: Awake and alert. Normal speech. PSYCHIATRIC: Judgment normal. Morse bag with dark otilia urine and sediment. 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 Continue probiotic Sepsis with complicated UTI in a male with indwelling Morse, secondary to urinary retention from paraplegia: Resolved Urine Culture resulted with MRSA S/p antibiotic treatment with Bactrim Changed Morse catheter 07/30/1608/16: Patient's urine again dark with sediment today. CBC with normal white blood cell count. Urine output is decreased but renal function is normal. PO intake is appropriate. Patient remains afebrile. UA ordered and pending. Stage IV sacral decubitus: Wound care physician/RN following. Continue wound vac Reposition every 2 hours and PRN for comfort. Patient refused diverting colostomy for management Chronic pain: -Continue patient's outpatient medications to include Oramorph 30 mg 3 times daily and Percocet 10, every 6 hours as needed for pain -The above regimen was confirmed by E force review and printed out and placed on patient's chart -Continue PT Anemia: Hemoglobin stable Hyperglycemia: Resolved likely related to infection. HgbA1c 5.2. Hypertension: Monitor and add medication if needed. Controlled. DVT prophylaxis: Lovenox Discharge Planning 07/07: Per CM patient is looking at placement close to his grandson in [place]. Before a facility can accept for LTC placement, need to ensure patient will qualify for LTC Medicaid. 07/31: [facility]. 08/03: [facility] declined 08/07: [facility] to evaluate for placement. Problem Qualifiers (1) Fever: Qualified Code: R50.9 - Fever, unspecified fever cause (2) Sacral decubitus ulcer: Qualified Code: L89.154 - Decubitus ulcer of sacral region, stage 4 Ashanti Yeboah Aug 16, 2016 11:36
[2016-08-16 17:16] LABS: BLOOD, URINE LARGE (NEG); GLUCOSE,URINE NEG (NEG); KETONE, URINE TRACE mg/dL (NEG)
[2016-08-16 17:19] LABS: NITRITE,URINE POS (NEG)
[2016-08-16 17:23] LABS: METHOD OF COLLECTION CATH; URINE COLOR YELLOW (YELLW/STRAW)
[2016-08-16 17:24] LABS: BACTERIA, URINE MANY /hpf; COMMENT (UR) CATH-CULTURE IND; CULTURE IF INDICATED CATH CULTURE IND; WBC, URINE 15-19 /hpf (0-5)
[2016-08-16 20:00] VITALS: BP 135/75; PULSE 70; RESP 19; TEMP 98.7; O2SAT 98
[2016-08-17] MEDS: oxyCODONE/ACETAMINOPHEN 10 MG/325 MG TAB PO PRN ×4 (02:36→20:45)
[2016-08-17] MEDS: MORPHINE SULFATE 30 MG CONTROLLED RELEASE TAB PO SCH ×3 (05:51→22:14)
[2016-08-17 08:00] VITALS: BP 124/72; PULSE 78; RESP 20; TEMP 98.5; O2SAT 99
[2016-08-17] MEDS: ENOXAPARIN SODIUM 40 MG/0.4 ML SYRINGE SQ SCH (08:36)
[2016-08-17] MEDS: LACTOBACILLUS ACIDOPHILUS TAB PO SCH ×2 (08:37→20:45)
[2016-08-17] MEDS: FLUTICASONE PROPIONATE 50 MCG/ACT 16 GM NASAL SPRAY NASAL SCH ×2 (08:44→20:44)
[2016-08-17] MEDS: LACTIC ACID (AMMONIUM LACTATE) 12% LOTION 225 GM BTL TOPICAL SCH ×2 (08:44→20:45)
[2016-08-17] MEDS: MULTIVITAMINS/MINERALS THERAPEUTIC TAB PO SCH (08:45)
[2016-08-17] MEDS: DOCUSATE SODIUM 100 MG CAP PO SCH (08:45)
[2016-08-17] MEDS: PANTOPRAZOLE SOD 40 MG DELAYED RELEASE TAB PO SCH (08:45)
--- NOTE | 2016-08-17 09:39 | HHI.PR ---
Subjective Remarks Follow up for decubitus ulcers, C. difficile. Patient has completed Flagyl. Nurse indicates the patient has a new developing stage I ulceration to the right ischium and states the patient continuously refuses to turn. Patient admits to headache. Denies any fevers or chills. Denies any abdominal pain or vomiting. Objective Vitals Vital Signs Date Time Temp Pulse Resp B/P Pulse Ox O2 Delivery O2 Flow Rate FiO2 08/17/16 08:00 98.5 78 20 124/72 99 08/16/16 20:00 98.7 70 19 135/75 98 08/16/16 16:00 18 08/16/16 14:31 16 I/O 08/16/16 08/16/16 08/16/16 08/17/16 08/17/16 08/17/16 07:00 15:00 23:00 07:00 15:00 23:00 Intake Total 120 ml 480 ml 360 ml 100 ml Output Total 150 ml 550 ml 300 ml Balance -30 ml -70 ml 60 ml 100 ml Intake Oral 120 ml 480 ml 360 ml 100 ml IV Total 0 ml 0 ml Output Urine Total 150 ml 550 ml 300 ml # Bowel Movements 1 Result Diagram: 08/16/16 0610 08/16/16 0610 Objective Remarks GENERAL: Well-developed male in no apparent distress. CARDIOVASCULAR: Regular rate and rhythm. RESPIRATORY: No accessory muscle use. Clear to auscultation. Breath sounds equal bilaterally. GASTROINTESTINAL: Abdomen soft, non-tender, nondistended. NEUROLOGICAL: Awake and alert. Normal speech. PSYCHIATRIC: Slightly sad affect. 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 Continue probiotic Sepsis with complicated UTI in a male with indwelling Morse, secondary to urinary retention from paraplegia: Resolved Urine Culture resulted with MRSA S/p antibiotic treatment with Bactrim Changed Morse catheter 07/30/16 45: Patient's urine again dark with sediment today. CBC with normal white blood cell count. Urine output is decreased but renal function is normal. PO intake is appropriate. Patient remains afebrile. 08/17: UA /5 personally interpreted with infection, but will await urine culture prior to initiating antibiotics as urine may be contaminated due to catheter use. Stage IV sacral decubitus: Wound care physician/RN following. Continue wound vac Patient refused diverting colostomy for management Reposition every 2 hours and PRN for comfort. I informed the patient he needs to be turning as he is developing new pressure sore. Chronic pain: -Continue patient's outpatient medications to include Oramorph 30 mg 3 times daily and Percocet 10, every 6 hours as needed for pain -The above regimen was confirmed by E force review and printed out and placed on patient's chart -Continue PT Anemia: Hemoglobin stable Hyperglycemia: Resolved likely related to infection. HgbA1c 5.2. Hypertension: Monitor and add medication if needed. Controlled. DVT prophylaxis: Lovenox Discharge Planning 07/07: Per CM patient is looking at placement close to his grandson in [place]. Before a facility can accept for LTC placement, need to ensure patient will qualify for LTC Medicaid. 07/31: [facility]ed [facility]. 08/03: [facility]: [facility] to evaluate for placement. Problem Qualifiers (1) Fever: Qualified Code: R50.9 - Fever, unspecified fever cause (2) Sacral decubitus ulcer: Qualified Code: L89.154 - Decubitus ulcer of sacral region, stage 4 Ashanti Yeboah Aug 17, 2016 09:39
[2016-08-17 20:00] VITALS: BP 105/66; PULSE 78; RESP 16; TEMP 98.8; O2SAT 98
[2016-08-18] MEDS: oxyCODONE/ACETAMINOPHEN 10 MG/325 MG TAB PO PRN ×4 (02:53→23:15)
[2016-08-18] MEDS: MORPHINE SULFATE 30 MG CONTROLLED RELEASE TAB PO SCH ×3 (06:00→22:08)
[2016-08-18 08:00] VITALS: BP 110/66; PULSE 76; RESP 19; TEMP 97.7; O2SAT 95
[2016-08-18] MEDS: DOCUSATE SODIUM 100 MG CAP PO SCH (09:00)
[2016-08-18] MEDS: MULTIVITAMINS/MINERALS THERAPEUTIC TAB PO SCH (09:00)
[2016-08-18] MEDS: LACTIC ACID (AMMONIUM LACTATE) 12% LOTION 225 GM BTL TOPICAL SCH ×2 (09:00→22:09)
[2016-08-18] MEDS: LACTOBACILLUS ACIDOPHILUS TAB PO SCH ×3 (09:00→22:09)
[2016-08-18] MEDS: PANTOPRAZOLE SOD 40 MG DELAYED RELEASE TAB PO SCH (09:00)
[2016-08-18] MEDS: ENOXAPARIN SODIUM 40 MG/0.4 ML SYRINGE SQ SCH (09:42)
[2016-08-18] MEDS: FLUTICASONE PROPIONATE 50 MCG/ACT 16 GM NASAL SPRAY NASAL SCH ×2 (09:43→22:08)
--- NOTE | 2016-08-18 10:41 | HHI.PR ---
Subjective Remarks Follow-up for decubitus ulcer. Patient complains of a wound to his left abdomen which he got from the wound VAC and states he will not use the wound vac if it is going to rub in this area. He states he is not eating much because he doesn't want to have bowel movements. States he had 2 bowel movements yesterday. The nurse states BMs are soft but formed. Patient denies any fevers or chills. Denies any abdominal pain, nausea, or vomiting. Objective Vitals Vital Signs Date Time Temp Pulse Resp B/P Pulse Ox O2 Delivery O2 Flow Rate FiO2 08/18/16 08:00 97.7 76 19 110/66 95 08/17/16 20:00 98.8 78 16 105/66 98 I/O 08/17/16 08/17/16 08/17/16 08/18/16 08/18/16 08/18/16 07:00 15:00 23:00 07:00 15:00 23:00 Intake Total 360 ml 220 ml 120 ml 120 ml Output Total 300 ml 550 ml 150 ml 150 ml Balance 60 ml -330 ml -30 ml -30 ml Intake Oral 360 ml 220 ml 120 ml 120 ml IV Total 0 ml Output Urine Total 300 ml 550 ml 150 ml 150 ml # Bowel Movements 2 1 0 Result Diagram: 08/16/16 0610 08/16/16 0610 Objective Remarks GENERAL: Well-developed male in no apparent distress. SKIN: Sheared area over the L lateral abdomen. No surrounding erythema; no drainage. CARDIOVASCULAR: Regular rate and rhythm. RESPIRATORY: No accessory muscle use. Clear to auscultation. Breath sounds equal bilaterally. GASTROINTESTINAL: Abdomen soft, non-tender, nondistended. NEUROLOGICAL: Awake and alert. Normal speech. PSYCHIATRIC: Stubborn. 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 Continue probiotic Sepsis with complicated UTI in a male with indwelling Morse, secondary to urinary retention from paraplegia: Resolved Urine Culture resulted with MRSA S/p antibiotic treatment with Bactrim Changed Morse catheter 07/30/16 4: Patient's urine again dark with sediment today. CBC with normal white blood cell count. Urine output is decreased but renal function is normal. PO intake is appropriate. Patient remains afebrile. 08/17: UA / personally interpreted with infection, but will await urine culture prior to initiating antibiotics as urine may be contaminated due to catheter use. 08/18: Preliminary urine culture from 08/16 with gram negative rods, MRSA, and Group D enterococcus; likely contamination and colonization. Patient had MRSA in urine on 05/30/16. Patient remains afebrile and asymptomatic with normal WBC count. Discussed with Dr. Richardson. Will replace Morse today; nurse Clarissa has been informed. Stage IV sacral decubitus: Wound care physician/RN following. Continue wound vac Patient refused diverting colostomy for management Reposition every 2 hours and PRN for comfort. R ischial ulcer, unstageable: Spoke with clinical associate. Cleanse with normal saline only and apply Santyl kareem thick coverage and cover with dry cover dressing, change daily. Santyl ordered. Abrasion L abdomen: shearing from vac tubing. Nurse instructed to apply antibiotic ointment, Telfa, and gauze padding to the area to avoid further friction. Chronic pain: -Continue patient's outpatient medications to include Oramorph 30 mg 3 times daily and Percocet 10, every 6 hours as needed for pain -The above regimen was confirmed by E force review and printed out and placed on patient's chart -Continue PT Anemia: Hemoglobin stable Hyperglycemia: Resolved likely related to infection. HgbA1c 5.2. Hypertension: Monitor and add medication if needed. Controlled. DVT prophylaxis: Lovenox Discharge Planning 07/07: Per CM patient is looking at placement close to his grandson in [place]. Before a facility can accept for LTC placement, need to ensure patient will qualify for LTC Medicaid. 07/31: [facility]. 08/03: [facility] declined 08/07: [facility] to evaluate for placement. Problem Qualifiers (1) Fever: Qualified Code: R50.9 - Fever, unspecified fever cause (2) Sacral decubitus ulcer: Qualified Code: L89.154 - Decubitus ulcer of sacral region, stage 4 Ashanti Yeboah Aug 18, 2016 10:41
[2016-08-18] MEDS: NEOMYCIN/POLYMYXIN/BACITRACIN OINT 15 GM TUBE TOPICAL SCH (16:11)
[2016-08-18] MEDS: COLLAGENASE OINT 30 GM TUBE TOPICAL SCH (16:12)
[2016-08-18] MEDS: hydrOXYzine HCL 25 MG TAB PO PRN (17:27)
[2016-08-18 20:00] VITALS: BP 106/60; PULSE 93; RESP 16; TEMP 98; O2SAT 95
[2016-08-19] MEDS: MORPHINE SULFATE 30 MG CONTROLLED RELEASE TAB PO SCH ×3 (06:00→21:49)
[2016-08-19 08:00] VITALS: BP 108/70; PULSE 66; RESP 18; TEMP 97.8; O2SAT 97
[2016-08-19] MEDS: PANTOPRAZOLE SOD 40 MG DELAYED RELEASE TAB PO SCH (09:00)
[2016-08-19] MEDS: LACTOBACILLUS ACIDOPHILUS TAB PO SCH ×2 (09:00→21:00)
[2016-08-19] MEDS: MULTIVITAMINS/MINERALS THERAPEUTIC TAB PO SCH (09:00)
[2016-08-19] MEDS: DOCUSATE SODIUM 100 MG CAP PO SCH (09:00)
[2016-08-19] MEDS: FLUTICASONE PROPIONATE 50 MCG/ACT 16 GM NASAL SPRAY NASAL SCH ×2 (09:00→21:49)
[2016-08-19] MEDS: LACTIC ACID (AMMONIUM LACTATE) 12% LOTION 225 GM BTL TOPICAL SCH ×2 (09:00→21:49)
[2016-08-19] MEDS: ENOXAPARIN SODIUM 40 MG/0.4 ML SYRINGE SQ SCH (09:35)
[2016-08-19] MEDS: oxyCODONE/ACETAMINOPHEN 10 MG/325 MG TAB PO PRN ×3 (09:35→22:56)
[2016-08-19] MEDS: COLLAGENASE OINT 30 GM TUBE TOPICAL SCH (09:37)
[2016-08-19] MEDS: NEOMYCIN/POLYMYXIN/BACITRACIN OINT 15 GM TUBE TOPICAL SCH (09:37)
--- NOTE | 2016-08-19 12:20 | HHI.PR ---
Subjective Remarks Follow-up for decubitus ulcers, C. difficile. Patient has no acute complaints. Objective Vitals Vital Signs Date Time Temp Pulse Resp B/P Pulse Ox O2 Delivery O2 Flow Rate FiO2 08/19/16 10:35 18 08/19/16 08:00 97.8 66 18 108/70 97 08/18/16 20:00 98.0 93 16 106/60 95 08/18/16 15:08 18 I/O 08/18/16 08/18/16 08/18/16 08/19/16 08/19/16 08/19/16 07:00 15:00 23:00 07:00 15:00 23:00 Intake Total 120 ml 240 ml 240 ml 220 ml Output Total 150 ml 350 ml 200 ml 100 ml Balance -30 ml -110 ml 40 ml 120 ml Intake Oral 120 ml 240 ml 240 ml 220 ml Output Urine Total 150 ml 350 ml 200 ml 100 ml # Bowel Movements 0 0 0 Result Diagram: 08/16/16 0610 08/16/16 0610 Objective Remarks GENERAL: Well-developed male in no apparent distress. CARDIOVASCULAR: Regular rate and rhythm. RESPIRATORY: No accessory muscle use. Clear to auscultation. Breath sounds equal bilaterally. GASTROINTESTINAL: Soft bowel sounds on the right. Abdomen soft, non-tender, nondistended. NEUROLOGICAL: Awake and alert. Normal speech. Procedures none Urinary Catheter: Yes Assessment to: Continue Morse insert reason: Stage III/IV Press Ulcer Date of Insertion: Jul 18, 2016 Vascular Central Line Catheter: No A/P Problem List: (1) Fever ICD Code: R50.9 Status: Resolved (2) Sacral decubitus ulcer ICD Code: L89.159 Status: Chronic (3) UTI (urinary tract infection) ICD Code: N39.0 Status: Resolved (4) Sepsis ICD Code: A41.9 Status: Resolved (5) Hypokalemia ICD Code: E87.6 Status: Acute Assessment and Plan Clostridium difficile infection: Recurrent Completed Flagyl 08/16/16. Continue probiotic Sepsis with complicated UTI in a male with indwelling Morse, secondary to urinary retention from paraplegia: Resolved Urine Culture resulted with MRSA S/p antibiotic treatment with Bactrim Changed Morse catheter 07/30/16 45: Patient's urine again dark with sediment today. CBC with normal white blood cell count. Urine output is decreased but renal function is normal. PO intake is appropriate. Patient remains afebrile. 08/17: UA / personally interpreted with infection, but will await urine culture prior to initiating antibiotics as urine may be contaminated due to catheter use. 08/18: Preliminary urine culture from 08/16 with gram negative rods, MRSA, and Group D enterococcus; likely contamination and colonization. Patient had MRSA in urine on 05/30/16. Patient remains afebrile and asymptomatic with normal WBC count. Discussed with Dr. Richardson. Will replace Morse today; nurse Clarissa has been informed. 08/19: Gram negative rods identified as Morganella Morganii in addition to other organisms above. I contacted ID who agreed that if patient is asymptomatic, no antibiotics are necessary, only catheter change which was performed yesterday. Stage IV sacral decubitus: Wound care physician/RN following. Continue wound vac Patient refused diverting colostomy for management Reposition every 2 hours and PRN for comfort. R ischial ulcer, unstageable: Cleanse with normal saline only and apply Santyl kareem thick coverage and cover with dry cover dressing, change daily. Santyl ordered. Abrasion L abdomen: shearing from vac tubing. Nurse instructed to apply antibiotic ointment, Telfa, and gauze padding to the area to avoid further friction. Chronic pain: -Continue patient's outpatient medications to include Oramorph 30 mg 3 times daily and Percocet 10, every 6 hours as needed for pain -The above regimen was confirmed by E force review and printed out and placed on patient's chart -Continue PT Anemia: Hemoglobin stable Hyperglycemia: Resolved likely related to infection. HgbA1c 5.2. Hypertension: Monitor and add medication if needed. Controlled. DVT prophylaxis: Lovenox Discharge Planning 07/07: Per CM patient is looking at placement close to his grandson in [place]. Before a facility can accept for LTC placement, need to ensure patient will qualify for LTC Medicaid. 07/31: Requested [facility] to evaluate for placement. 08/03: [facility] declined 08/07: [facility] to evaluate for placement. Problem Qualifiers (1) Fever: Qualified Code: R50.9 - Fever, unspecified fever cause (2) Sacral decubitus ulcer: Qualified Code: L89.154 - Decubitus ulcer of sacral region, stage 4 Ashanti Yeboah Aug 19, 2016 12:20
[2016-08-19] MEDS: hydrOXYzine HCL 25 MG TAB PO PRN (15:51)
[2016-08-19 20:00] VITALS: BP 113/76; PULSE 103; RESP 19; TEMP 99; O2SAT 95
[2016-08-20] MEDS: oxyCODONE/ACETAMINOPHEN 10 MG/325 MG TAB PO PRN ×3 (05:06→17:42)
[2016-08-20] MEDS: MORPHINE SULFATE 30 MG CONTROLLED RELEASE TAB PO SCH ×3 (06:00→22:07)
[2016-08-20 08:00] VITALS: BP 113/69; PULSE 69; RESP 17; TEMP 97.3; O2SAT 94
[2016-08-20] MEDS: ENOXAPARIN SODIUM 40 MG/0.4 ML SYRINGE SQ SCH (08:45)
[2016-08-20] MEDS: NEOMYCIN/POLYMYXIN/BACITRACIN OINT 15 GM TUBE TOPICAL SCH (08:46)
[2016-08-20] MEDS: DOCUSATE SODIUM 100 MG CAP PO SCH (08:46)
[2016-08-20] MEDS: COLLAGENASE OINT 30 GM TUBE TOPICAL SCH (08:46)
[2016-08-20] MEDS: FLUTICASONE PROPIONATE 50 MCG/ACT 16 GM NASAL SPRAY NASAL SCH ×2 (08:46→20:55)
[2016-08-20] MEDS: MULTIVITAMINS/MINERALS THERAPEUTIC TAB PO SCH (08:47)
[2016-08-20] MEDS: PANTOPRAZOLE SOD 40 MG DELAYED RELEASE TAB PO SCH (08:47)
[2016-08-20] MEDS: LACTOBACILLUS ACIDOPHILUS TAB PO SCH ×2 (08:47→20:53)
[2016-08-20] MEDS: LACTIC ACID (AMMONIUM LACTATE) 12% LOTION 225 GM BTL TOPICAL SCH ×2 (08:47→20:54)
--- NOTE | 2016-08-20 10:04 | HHI.PR ---
Subjective Remarks Follow-up for decubitus ulcers,, C. difficile. Patient denies any fevers or chills. Denies any abdominal pain, nausea, vomiting. One BM recorded over the past 24 hours. Objective Vitals Vital Signs Date Time Temp Pulse Resp B/P Pulse Ox O2 Delivery O2 Flow Rate FiO2 08/20/16 08:00 97.3 69 17 113/69 94 08/19/16 20:00 99.0 103 19 113/76 95 08/19/16 16:51 18 08/19/16 15:12 18 I/O 08/19/16 08/19/16 08/19/16 08/20/16 08/20/16 08/20/16 07:00 15:00 23:00 07:00 15:00 23:00 Intake Total 220 ml 500 ml 240 ml 240 ml Output Total 100 ml 400 ml 300 ml 200 ml Balance 120 ml 100 ml -60 ml 40 ml Intake Oral 220 ml 500 ml 240 ml 240 ml Output Urine Total 100 ml 400 ml 300 ml 200 ml # Bowel Movements 0 0 1 Result Diagram: 08/16/16 0610 08/16/16 0610 Objective Remarks GENERAL: Well-developed male in no apparent distress. CARDIOVASCULAR: Regular rate and rhythm. RESPIRATORY: No accessory muscle use. Clear to auscultation. Breath sounds equal bilaterally. GASTROINTESTINAL: Normoactive bowel sounds. Abdomen soft, non-tender, nondistended. NEUROLOGICAL: Awake and alert. Normal speech. PSYCHIATRIC: Stubborn mood. Morse bag with clear yellow urine, improved; some sediment in the tubing. Procedures none Urinary Catheter: Yes Assessment to: Continue Morse insert reason: Stage III/IV Press Ulcer Date of Insertion: Aug 18, 2016 Vascular Central Line Catheter: No A/P Problem List: (1) Fever ICD Code: R50.9 Status: Resolved (2) Sacral decubitus ulcer ICD Code: L89.159 Status: Chronic (3) UTI (urinary tract infection) ICD Code: N39.0 Status: Resolved (4) Sepsis ICD Code: A41.9 Status: Resolved (5) Hypokalemia ICD Code: E87.6 Status: Acute Assessment and Plan Clostridium difficile infection: Recurrent Completed Flagyl 08/16/16. Continue probiotic Sepsis with complicated UTI in a male with indwelling Morse, secondary to urinary retention from paraplegia: Resolved Urine Culture resulted with MRSA S/p antibiotic treatment with Bactrim Changed Morse catheter 07/30/1608/16: Patient's urine again dark with sediment today. CBC with normal white blood cell count. Urine output is decreased but renal function is normal. PO intake is appropriate. Patient remains afebrile. 08/17: UA 4/5 personally interpreted with infection, but will await urine culture prior to initiating antibiotics as urine may be contaminated due to catheter use. 08/18: Preliminary urine culture from 08/16 with gram negative rods, MRSA, and Group D enterococcus; likely contamination and colonization. Patient had MRSA in urine on 05/30/16. Patient remains afebrile and asymptomatic with normal WBC count. Discussed with Dr. Richardson. Morse replaced. 08/19: Gram negative rods identified as Morganella Morganii in addition to other organisms above. I contacted ID who agreed that if patient is asymptomatic, no antibiotics are necessary, only catheter change which was performed yesterday. 08/20: Urine color and clarity is improved. Monitor clinically. Advised to increase hydration with water. Stage IV sacral decubitus: Wound care physician/RN following. Continue wound vac Patient refused diverting colostomy for management Reposition every 2 hours and PRN for comfort. R ischial ulcer, unstageable: Cleanse with normal saline only and apply Santyl kareem thick coverage and cover with dry cover dressing, change daily. Santyl ordered. Abrasion L abdomen: shearing from vac tubing. Nurse instructed to apply antibiotic ointment, Telfa, and gauze padding to the area to avoid further friction. Chronic pain: -Continue patient's outpatient medications to include Oramorph 30 mg 3 times daily and Percocet 10, every 6 hours as needed for pain -The above regimen was confirmed by E force review and printed out and placed on patient's chart -Continue PT Anemia: Hemoglobin stable Hyperglycemia: Resolved likely related to infection. HgbA1c 5.2. Hypertension: Monitor and add medication if needed. Controlled. DVT prophylaxis: Lovenox Discharge Planning 07/07: Per CM patient is looking at placement close to his grandson in [place]. Before a facility can accept for LTC placement, need to ensure patient will qualify for LTC Medicaid. 07/31: Requested [facility] to evaluate for placement. 08/03: [facility] declined 08/07: [facility] to evaluate for placement. Problem Qualifiers (1) Fever: Qualified Code: R50.9 - Fever, unspecified fever cause (2) Sacral decubitus ulcer: Qualified Code: L89.154 - Decubitus ulcer of sacral region, stage 4 Ashanti Yeboah Aug 20, 2016 10:04
[2016-08-20] MEDS: hydrOXYzine HCL 25 MG TAB PO PRN (17:43)
[2016-08-20 20:00] VITALS: BP 123/81; PULSE 75; RESP 21; TEMP 98; O2SAT 96
[2016-08-21] MEDS: oxyCODONE/ACETAMINOPHEN 10 MG/325 MG TAB PO PRN ×4 (00:04→18:31)
[2016-08-21] MEDS: MORPHINE SULFATE 30 MG CONTROLLED RELEASE TAB PO SCH ×3 (05:36→22:31)
[2016-08-21 08:00] VITALS: BP 118/77; PULSE 79; RESP 19; TEMP 97.7; O2SAT 94
[2016-08-21] MEDS: DOCUSATE SODIUM 100 MG CAP PO SCH (09:00)
[2016-08-21] MEDS: MULTIVITAMINS/MINERALS THERAPEUTIC TAB PO SCH (09:00)
[2016-08-21] MEDS: PANTOPRAZOLE SOD 40 MG DELAYED RELEASE TAB PO SCH (09:00)
[2016-08-21] MEDS: LACTOBACILLUS ACIDOPHILUS TAB PO SCH ×2 (09:00→21:00)
[2016-08-21] MEDS: LACTIC ACID (AMMONIUM LACTATE) 12% LOTION 225 GM BTL TOPICAL SCH ×2 (09:00→22:33)
[2016-08-21] MEDS: ENOXAPARIN SODIUM 40 MG/0.4 ML SYRINGE SQ SCH (10:07)
[2016-08-21] MEDS: NEOMYCIN/POLYMYXIN/BACITRACIN OINT 15 GM TUBE TOPICAL SCH (10:09)
[2016-08-21] MEDS: COLLAGENASE OINT 30 GM TUBE TOPICAL SCH (10:09)
[2016-08-21] MEDS: FLUTICASONE PROPIONATE 50 MCG/ACT 16 GM NASAL SPRAY NASAL SCH ×2 (10:09→21:00)
--- NOTE | 2016-08-21 15:09 | HHI.PR ---
Subjective Remarks Patient seen and examined today. Patient denies any new complaints. Nursing staff indicates that patient is refusing to move or be returned. He started developing more wounds on his bilateral hips. Objective Vitals Vital Signs Date Time Temp Pulse Resp B/P Pulse Ox O2 Delivery O2 Flow Rate FiO2 08/21/16 13:30 18 08/21/16 08:00 97.7 79 19 118/77 94 08/21/16 07:00 16 08/20/16 20:00 98.0 75 21 123/81 96 I/O 08/20/16 08/20/16 08/20/16 08/21/16 08/21/16 08/21/16 07:00 15:00 23:00 07:00 15:00 23:00 Intake Total 240 ml 480 ml 240 ml 120 ml Output Total 200 ml 500 ml 250 ml 350 ml 250 ml Balance 40 ml -20 ml -10 ml -230 ml -250 ml Intake Oral 240 ml 480 ml 240 ml 120 ml Output Urine Total 200 ml 500 ml 250 ml 350 ml 250 ml # Bowel Movements 0 Objective Remarks GENERAL: Well-developed, well-nourished, in no acute distress. alert and orientated HEENT: Head is normocephalic without any lesions or masses noted. Facial features are symmetric. Eyes: Extraocular muscles are intact. Conjunctivae were clear. NECK: Supple without any masses. Trachea midline no deviation. No JVD, CARDIAC: Regular rhythm, regular rate. S1/S2 are heard. No murmurs gallops or rubs. LUNGS: Clear to auscultation bilaterally. No wheeze, rhonchi or rales. No use of accessory muscles on inspiration or expiration. ABDOMEN: Soft, nontender. Nondistended. Bowel sounds heard in all 4 quadrants. No organomegaly or masses. Negative rebound, negative guarding EXTREMITIES: No edema, pulses are equal bilaterally. No cyanosis or clubbing NEUROLOGY: Mood and affect appear appropriate. Cranial nerves II through XII grossly intact. Moving upper extremities. Strength 5/5 SACRAL AREA: Patient does have wound VAC in place Procedures none Urinary Catheter: Yes Assessment to: Continue Morse insert reason: Stage III/IV Press Ulcer Date of Insertion: Aug 18, 2016 Vascular Central Line Catheter: No A/P Assessment and Plan Stage IV sacral decubitus: Wound care physician Dr. Garcia evaluated patient and indicated local wound care Wound care team nurse following. Recommend to continue current treatment of Dakins solution soaked gauze, lightly fluffed, and gently placed into wound bed to allow for tissue growth. Plastic surgery evaluated patient and recommending wound VAC placement. Orders have been given. Reposition every 2 hours and PRN for comfort. Patient refused diverting colostomy for management Wound VAC in place. Right ischial ulcer Appears that wound VAC has been applied to that area. Wound care nurse is managing the wounds Clostridium difficile infection: Recurrent and treated Continue Flagyl for 2 weeks, Continue probiotic Sepsis with complicated UTI in a male with indwelling Morse, secondary to urinary retention from paraplegia: Resolved Urine Culture resulted with MRSA S/p antibiotic treatment with Bactrim Changed Morse catheter 08/18/16 08/16/16 culture indicates Morganella morganii, staph aureus, enterococcus faecalis. Documentation indicates that infectious disease was contacted and indicated that the patient is asymptomatic no treatment is necessary at this time. Only catheter changes necessary. Left hip skin tear Bandage at this time, wound care is following the patient for other wounds Chronic pain: -Continue patient's outpatient medications to include Oramorph 30 mg 3 times daily and Percocet 10, every 6 hours as needed for pain -The above regimen was confirmed by E force review and printed out and placed on patient's chart -Continue PT Anemia: Hemoglobin stable Hyperglycemia: Resolved likely related to infection. HgbA1c 5.2. Hypertension: Monitor and add medication if needed. Controlled. DVT prophylaxis: Lovenox Discharge Planning Case management for discharge planning. Patient has completed his treatment for C. difficile on 08/15/16. Patient can be discharged to nursing home facility once arrangements made by case management Jp Keith Aug 21, 2016 15:09
[2016-08-21 20:00] VITALS: BP 92/58; PULSE 73; RESP 20; TEMP 98.5; O2SAT 94
[2016-08-22] MEDS: oxyCODONE/ACETAMINOPHEN 10 MG/325 MG TAB PO PRN ×4 (00:20→19:46)
[2016-08-22] MEDS: hydrOXYzine HCL 25 MG TAB PO PRN (00:20)
[2016-08-22] MEDS: MORPHINE SULFATE 30 MG CONTROLLED RELEASE TAB PO SCH ×3 (06:04→21:48)
[2016-08-22 08:00] VITALS: BP 118/77; PULSE 80; RESP 16; TEMP 97.8; O2SAT 98
[2016-08-22] MEDS: ENOXAPARIN SODIUM 40 MG/0.4 ML SYRINGE SQ SCH (08:08)
[2016-08-22] MEDS: FLUTICASONE PROPIONATE 50 MCG/ACT 16 GM NASAL SPRAY NASAL SCH ×2 (08:09→21:47)
[2016-08-22] MEDS: COLLAGENASE OINT 30 GM TUBE TOPICAL SCH (08:09)
[2016-08-22] MEDS: LACTIC ACID (AMMONIUM LACTATE) 12% LOTION 225 GM BTL TOPICAL SCH ×2 (08:10→21:00)
[2016-08-22] MEDS: LACTOBACILLUS ACIDOPHILUS TAB PO SCH ×2 (08:10→21:47)
[2016-08-22] MEDS: DOCUSATE SODIUM 100 MG CAP PO SCH (08:10)
[2016-08-22] MEDS: MULTIVITAMINS/MINERALS THERAPEUTIC TAB PO SCH (08:11)
[2016-08-22] MEDS: PANTOPRAZOLE SOD 40 MG DELAYED RELEASE TAB PO SCH (08:11)
[2016-08-22] MEDS: NEOMYCIN/POLYMYXIN/BACITRACIN OINT 15 GM TUBE TOPICAL SCH (08:11)
--- NOTE | 2016-08-22 10:07 | HHI.PR ---
Subjective Remarks Patient seen and examined today. Patient denies any new complaints. No change in clinical status. Still awaiting case management for placement to skilled facility Objective Vitals Vital Signs Date Time Temp Pulse Resp B/P Pulse Ox O2 Delivery O2 Flow Rate FiO2 08/22/16 08:00 97.8 80 16 118/77 98 08/21/16 20:00 98.5 73 20 92/58 94 08/21/16 15:14 18 08/21/16 13:30 18 I/O 08/21/16 08/21/16 08/21/16 08/22/16 08/22/16 08/22/16 07:00 15:00 23:00 07:00 15:00 23:00 Intake Total 120 ml 240 ml Output Total 350 ml 250 ml 1000 ml Balance -230 ml -250 ml -760 ml Intake Oral 120 ml 240 ml Output Urine Total 350 ml 250 ml 1000 ml # Bowel Movements 0 Objective Remarks GENERAL: Well-developed, well-nourished, in no acute distress. alert and orientated HEENT: Head is normocephalic without any lesions or masses noted. Facial features are symmetric. Eyes: Extraocular muscles are intact. Conjunctivae were clear. NECK: Supple without any masses. Trachea midline no deviation. No JVD, CARDIAC: Regular rhythm, regular rate. S1/S2 are heard. No murmurs gallops or rubs. LUNGS: Clear to auscultation bilaterally. No wheeze, rhonchi or rales. No use of accessory muscles on inspiration or expiration. ABDOMEN: Soft, nontender. Nondistended. Bowel sounds heard in all 4 quadrants. No organomegaly or masses. Negative rebound, negative guarding EXTREMITIES: No edema, pulses are equal bilaterally. No cyanosis or clubbing NEUROLOGY: Mood and affect appear appropriate. Cranial nerves II through XII grossly intact. Moving upper extremities. Strength 5/5 SACRAL AREA: Patient does have wound VAC in place Procedures none Urinary Catheter: Yes Assessment to: Continue Morse insert reason: Stage III/IV Press Ulcer Date of Insertion: Aug 18, 2016 Vascular Central Line Catheter: No A/P Assessment and Plan Stage IV sacral decubitus: Wound care physician Dr. Garcia evaluated patient and indicated local wound care Wound care team nurse following. Recommend to continue current treatment of Dakins solution soaked gauze, lightly fluffed, and gently placed into wound bed to allow for tissue growth. Plastic surgery evaluated patient and recommending wound VAC placement. Orders have been given. Reposition every 2 hours and PRN for comfort. Patient refused diverting colostomy for management Wound VAC in place. Right ischial ulcer Appears that wound VAC has been applied to that area. Wound care nurse is managing the wounds Left hip skin tear Bandage at this time, wound care is following the patient for other wounds Clostridium difficile infection: Recurrent and treated Continue Flagyl for 2 weeks, Continue probiotic Sepsis with complicated UTI in a male with indwelling Morse, secondary to urinary retention from paraplegia: Resolved Urine Culture resulted with MRSA S/p antibiotic treatment with Bactrim Changed Morse catheter 08/18/16 08/16/16 culture indicates Morganella morganii, staph aureus, enterococcus faecalis. Documentation indicates that infectious disease was contacted and indicated that the patient is asymptomatic no treatment is necessary at this time. Only catheter changes necessary. Chronic pain: -Continue patient's outpatient medications to include Oramorph 30 mg 3 times daily and Percocet 10, every 6 hours as needed for pain -The above regimen was confirmed by E force review and printed out and placed on patient's chart -Continue PT Anemia: Hemoglobin stable Hyperglycemia: Resolved likely related to infection. HgbA1c 5.2. Hypertension: Monitor and add medication if needed. Controlled. DVT prophylaxis: Lovenox Discharge Planning Case management for discharge planning. Patient has completed his treatment for C. difficile on 08/15/16. Patient can be discharged to residential facility once arrangements made by case management Jp Keith Aug 22, 2016 10:06
[2016-08-22 20:00] VITALS: BP 121/72; PULSE 85; RESP 20; TEMP 98.6; O2SAT 94
[2016-08-23] MEDS: oxyCODONE/ACETAMINOPHEN 10 MG/325 MG TAB PO PRN ×3 (00:59→19:35)
[2016-08-23] MEDS: MORPHINE SULFATE 30 MG CONTROLLED RELEASE TAB PO SCH ×3 (06:00→21:58)
[2016-08-23] MEDS: LACTOBACILLUS ACIDOPHILUS TAB PO SCH ×2 (07:44→19:37)
[2016-08-23] MEDS: PANTOPRAZOLE SOD 40 MG DELAYED RELEASE TAB PO SCH (07:44)
[2016-08-23] MEDS: ENOXAPARIN SODIUM 40 MG/0.4 ML SYRINGE SQ SCH (07:44)
[2016-08-23] MEDS: MULTIVITAMINS/MINERALS THERAPEUTIC TAB PO SCH (07:44)
[2016-08-23] MEDS: DOCUSATE SODIUM 100 MG CAP PO SCH (07:45)
[2016-08-23] MEDS: FLUTICASONE PROPIONATE 50 MCG/ACT 16 GM NASAL SPRAY NASAL SCH ×2 (07:45→19:37)
[2016-08-23] MEDS: LACTIC ACID (AMMONIUM LACTATE) 12% LOTION 225 GM BTL TOPICAL SCH ×2 (07:46→19:37)
[2016-08-23] MEDS: COLLAGENASE OINT 30 GM TUBE TOPICAL SCH (07:47)
[2016-08-23] MEDS: NEOMYCIN/POLYMYXIN/BACITRACIN OINT 15 GM TUBE TOPICAL SCH (07:47)
[2016-08-23 08:30] VITALS: BP 115/73; PULSE 73; RESP 18; TEMP 97.7; O2SAT 94
--- NOTE | 2016-08-23 10:23 | HHI.PR ---
Subjective Remarks Patient seen and examined today. Patient states that he actually feels as if he is back to his baseline prior day, to the hospital. Still awaiting case management assistant arrange discharge planning to [facility] Objective Vitals Vital Signs Date Time Temp Pulse Resp B/P Pulse Ox O2 Delivery O2 Flow Rate FiO2 08/23/16 08:30 97.7 73 18 115/73 94 08/22/16 20:00 98.6 85 20 121/72 94 I/O 08/22/16 08/22/16 08/22/16 08/23/16 08/23/16 08/23/16 07:00 15:00 23:00 07:00 15:00 23:00 Intake Total 240 ml 560 ml 480 ml Output Total 1000 ml 625 ml 400 ml Balance -760 ml -65 ml 80 ml Intake Oral 240 ml 560 ml 480 ml Output Urine Total 1000 ml 625 ml 400 ml # Bowel Movements 0 1 0 Objective Remarks GENERAL: Well-developed, well-nourished, in no acute distress. alert and orientated HEENT: Head is normocephalic without any lesions or masses noted. Facial features are symmetric. Eyes: Extraocular muscles are intact. Conjunctivae were clear. NECK: Supple without any masses. Trachea midline no deviation. No JVD, CARDIAC: Regular rhythm, regular rate. S1/S2 are heard. No murmurs gallops or rubs. LUNGS: Clear to auscultation bilaterally. No wheeze, rhonchi or rales. No use of accessory muscles on inspiration or expiration. ABDOMEN: Soft, nontender. Nondistended. Bowel sounds heard in all 4 quadrants. No organomegaly or masses. Negative rebound, negative guarding EXTREMITIES: No edema, pulses are equal bilaterally. No cyanosis or clubbing NEUROLOGY: Mood and affect appear appropriate. Cranial nerves II through XII grossly intact. Moving upper extremities. Strength 5/5 SACRAL AREA: Patient does have wound VAC in place Procedures none Urinary Catheter: Yes Assessment to: Continue Morse insert reason: Stage III/IV Press Ulcer Date of Insertion: Aug 18, 2016 Vascular Central Line Catheter: No A/P Assessment and Plan Stage IV sacral decubitus: Wound care physician Dr. Garcia evaluated patient and indicated local wound care Wound care team nurse following. Recommend to continue current treatment of Dakins solution soaked gauze, lightly fluffed, and gently placed into wound bed to allow for tissue growth. Plastic surgery evaluated patient and recommending wound VAC placement. Orders have been given. Reposition every 2 hours and PRN for comfort. Patient refused diverting colostomy for management Wound VAC in place. Right ischial ulcer Appears that wound VAC has been applied to that area. Wound care nurse is managing the wounds Left hip skin tear Bandage at this time, wound care is following the patient for other wounds Clostridium difficile infection: Recurrent and treated Continue Flagyl for 2 weeks, Continue probiotic Sepsis with complicated UTI in a male with indwelling Morse, secondary to urinary retention from paraplegia: Resolved Urine Culture resulted with MRSA S/p antibiotic treatment with Bactrim Changed Morse catheter 08/18/16 08/16/16 culture indicates Morganella morganii, staph aureus, enterococcus faecalis. Documentation indicates that infectious disease was contacted and indicated that the patient is asymptomatic no treatment is necessary at this time. Only catheter changes necessary. Chronic pain: -Continue patient's outpatient medications to include Oramorph 30 mg 3 times daily and Percocet 10, every 6 hours as needed for pain -The above regimen was confirmed by E force review and printed out and placed on patient's chart -Continue PT Anemia: Hemoglobin stable Hyperglycemia: Resolved likely related to infection. HgbA1c 5.2. Hypertension: Monitor and add medication if needed. Controlled. DVT prophylaxis: Lovenox Discharge Planning Case management for discharge planning. Patient has completed his treatment for C. difficile on 08/15/16. Patient can be discharged to [facility] once arrangements made by case management Jp Keith Aug 23, 2016 10:23
[2016-08-23 20:00] VITALS: BP 117/70; PULSE 84; RESP 16; TEMP 98.5; O2SAT 95
[2016-08-24] MEDS: oxyCODONE/ACETAMINOPHEN 10 MG/325 MG TAB PO PRN ×4 (01:58→21:50)
[2016-08-24] MEDS: MORPHINE SULFATE 30 MG CONTROLLED RELEASE TAB PO SCH ×3 (06:02→21:50)
[2016-08-24] MEDS: LACTIC ACID (AMMONIUM LACTATE) 12% LOTION 225 GM BTL TOPICAL SCH ×2 (07:49→21:57)
[2016-08-24] MEDS: FLUTICASONE PROPIONATE 50 MCG/ACT 16 GM NASAL SPRAY NASAL SCH ×2 (07:49→21:00)
[2016-08-24] MEDS: ENOXAPARIN SODIUM 40 MG/0.4 ML SYRINGE SQ SCH (07:49)
[2016-08-24] MEDS: DOCUSATE SODIUM 100 MG CAP PO SCH (07:50)
[2016-08-24] MEDS: PANTOPRAZOLE SOD 40 MG DELAYED RELEASE TAB PO SCH (07:50)
[2016-08-24] MEDS: MULTIVITAMINS/MINERALS THERAPEUTIC TAB PO SCH (07:50)
[2016-08-24] MEDS: LACTOBACILLUS ACIDOPHILUS TAB PO SCH ×2 (07:50→21:50)
[2016-08-24] MEDS: NEOMYCIN/POLYMYXIN/BACITRACIN OINT 15 GM TUBE TOPICAL SCH (07:51)
[2016-08-24] MEDS: COLLAGENASE OINT 30 GM TUBE TOPICAL SCH (07:51)
[2016-08-24 08:00] VITALS: BP 98/64; PULSE 74; RESP 16; TEMP 97.4; O2SAT 94
--- NOTE | 2016-08-24 15:26 | HHI.PR ---
Subjective Remarks Patient seen and examined today. Patient denies any new complaints. No change clinical status. Objective Vitals Vital Signs Date Time Temp Pulse Resp B/P Pulse Ox O2 Delivery O2 Flow Rate FiO2 08/24/16 15:09 14 08/24/16 15:09 14 08/24/16 08:00 97.4 74 16 98/64 94 08/23/16 20:00 98.5 84 16 117/70 95 I/O 08/23/16 08/23/16 08/23/16 08/24/16 08/24/16 08/24/16 07:00 15:00 23:00 07:00 15:00 23:00 Intake Total 480 ml 620 ml 220 ml 240 ml 690 ml Output Total 400 ml 600 ml 250 ml 350 ml 300 ml Balance 80 ml 20 ml -30 ml -110 ml 390 ml Intake Oral 480 ml 620 ml 220 ml 240 ml 690 ml IV Total 0 ml 0 ml Output Urine Total 400 ml 600 ml 250 ml 350 ml 300 ml # Bowel Movements 0 0 0 Objective Remarks GENERAL: Well-developed, well-nourished, in no acute distress. alert and orientated HEENT: Head is normocephalic without any lesions or masses noted. Facial features are symmetric. Eyes: Extraocular muscles are intact. Conjunctivae were clear. NECK: Supple without any masses. Trachea midline no deviation. No JVD, CARDIAC: Regular rhythm, regular rate. S1/S2 are heard. No murmurs gallops or rubs. LUNGS: Clear to auscultation bilaterally. No wheeze, rhonchi or rales. No use of accessory muscles on inspiration or expiration. ABDOMEN: Soft, nontender. Nondistended. Bowel sounds heard in all 4 quadrants. No organomegaly or masses. Negative rebound, negative guarding EXTREMITIES: No edema, pulses are equal bilaterally. No cyanosis or clubbing NEUROLOGY: Mood and affect appear appropriate. Cranial nerves II through XII grossly intact. Moving upper extremities. Strength 5/5 SACRAL AREA: Patient does have wound VAC in place Procedures none Urinary Catheter: No Date of Insertion: Aug 18, 2016 Vascular Central Line Catheter: No A/P Assessment and Plan Stage IV sacral decubitus: Wound care physician Dr. Garcia evaluated patient and indicated local wound care Wound care team nurse following. Recommend to continue current treatment of Dakins solution soaked gauze, lightly fluffed, and gently placed into wound bed to allow for tissue growth. Plastic surgery evaluated patient and recommending wound VAC placement. Orders have been given. Reposition every 2 hours and PRN for comfort. Patient refused diverting colostomy for management Wound VAC in place. Right ischial ulcer Appears that wound VAC has been applied to that area. Wound care nurse is managing the wounds Left hip skin tear Bandage at this time, wound care is following the patient for other wounds Clostridium difficile infection: Recurrent and treated Continue Flagyl for 2 weeks, Continue probiotic Sepsis with complicated UTI in a male with indwelling Morse, secondary to urinary retention from paraplegia: Resolved Urine Culture resulted with MRSA S/p antibiotic treatment with Bactrim Changed Morse catheter 08/18/16 08/16/16 culture indicates Morganella morganii, staph aureus, enterococcus faecalis. Documentation indicates that infectious disease was contacted and indicated that the patient is asymptomatic no treatment is necessary at this time. Only catheter changes necessary. Chronic pain: -Continue patient's outpatient medications to include Oramorph 30 mg 3 times daily and Percocet 10, every 6 hours as needed for pain -The above regimen was confirmed by E force review and printed out and placed on patient's chart -Continue PT Anemia: Hemoglobin stable Hyperglycemia: Resolved likely related to infection. HgbA1c 5.2. Hypertension: Monitor and add medication if needed. Controlled. DVT prophylaxis: Lovenox Discharge Planning Case management for discharge planning. Patient has completed his treatment for C. difficile on 08/15/16. Patient can be discharged to [facility] facility once arrangements made by case management Jp Keith Aug 24, 2016 15:26 Shin Oconnor MD Aug 25, 2016 17:07
[2016-08-24 20:00] VITALS: BP 130/79; PULSE 78; RESP 18; TEMP 97.1; O2SAT 98
[2016-08-24] MEDS: hydrOXYzine HCL 25 MG TAB PO PRN (21:56)
[2016-08-25] MEDS: MORPHINE SULFATE 30 MG CONTROLLED RELEASE TAB PO SCH ×3 (06:20→21:54)
--- NOTE | 2016-08-25 08:31 | HHI.PR ---
Subjective Remarks Patient seen and examined today. Patient denies any new complaints. Patient had wound VAC changed today. Objective Vitals Vital Signs Date Time Temp Pulse Resp B/P Pulse Ox O2 Delivery O2 Flow Rate FiO2 08/25/16 07:20 16 08/24/16 20:00 97.1 78 18 130/79 98 08/24/16 15:09 14 I/O 08/24/16 08/24/16 08/24/16 08/25/16 08/25/16 08/25/16 07:00 15:00 23:00 07:00 15:00 23:00 Intake Total 240 ml 690 ml 450 ml 240 ml Output Total 350 ml 300 ml 400 ml Balance -110 ml 390 ml 450 ml -160 ml Intake Oral 240 ml 690 ml 450 ml 240 ml IV Total 0 ml Output Urine Total 350 ml 300 ml 400 ml # Bowel Movements 0 0 Imaging Last Impressions Chest X-Ray 06/27/16 0000 Signed Impressions: Service Date/Time: Monday, June 27, 2016 15:16 - CONCLUSION: 1. No evidence of pneumonia. 2. Moderate size retrocardiac hiatal hernia. 3. Severe fracture deformity of one of the lower thoracic vertebral bodies. 4. 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 José Crenshaw MD Gastrostomy Tube Removal 06/09/16 0000 Signed Impressions: Service Date/Time: Thursday, June 09, 2016 16:32 - CONCLUSION: Gastrostomy tube removal without difficulty. Mariano Ramires Jr., MD Objective Remarks GENERAL: Well-developed, well-nourished, in no acute distress. alert and orientated HEENT: Head is normocephalic without any lesions or masses noted. Facial features are symmetric. Eyes: Extraocular muscles are intact. Conjunctivae were clear. NECK: Supple without any masses. Trachea midline no deviation. No JVD, CARDIAC: Regular rhythm, regular rate. S1/S2 are heard. No murmurs gallops or rubs. LUNGS: Clear to auscultation bilaterally. No wheeze, rhonchi or rales. No use of accessory muscles on inspiration or expiration. ABDOMEN: Soft, nontender. Nondistended. Bowel sounds heard in all 4 quadrants. No organomegaly or masses. Negative rebound, negative guarding EXTREMITIES: No edema, pulses are equal bilaterally. No cyanosis or clubbing NEUROLOGY: Mood and affect appear appropriate. Cranial nerves II through XII grossly intact. Moving upper extremities. Strength 5/5 SACRAL AREA: Patient does have wound VAC in place Procedures none Urinary Catheter: Yes Assessment to: Continue Morse insert reason: Stage III/IV Press Ulcer Date of Insertion: Aug 18, 2016 Vascular Central Line Catheter: No A/P Assessment and Plan Stage IV sacral decubitus: Wound care physician Dr. Garcia evaluated patient and indicated local wound care Wound care team nurse following. Recommend to continue current treatment of Dakins solution soaked gauze, lightly fluffed, and gently placed into wound bed to allow for tissue growth. Plastic surgery evaluated patient and recommending wound VAC placement. Orders have been given. Reposition every 2 hours and PRN for comfort. Patient refused diverting colostomy for management Wound VAC in place. Right ischial ulcer Appears that wound VAC has been applied to that area. Wound care nurse is managing the wounds Left hip skin tear Bandage at this time, wound care is following the patient for other wounds Clostridium difficile infection: Recurrent and treated Continue Flagyl for 2 weeks, Continue probiotic Sepsis with complicated UTI in a male with indwelling Morse, secondary to urinary retention from paraplegia: Resolved Urine Culture resulted with MRSA S/p antibiotic treatment with Bactrim Changed Morse catheter 08/18/16 08/16/16 culture indicates Morganella morganii, staph aureus, enterococcus faecalis. Documentation indicates that infectious disease was contacted and indicated that the patient is asymptomatic no treatment is necessary at this time. Only catheter changes necessary. Chronic pain: -Continue patient's outpatient medications to include Oramorph 30 mg 3 times daily and Percocet 10, every 6 hours as needed for pain -The above regimen was confirmed by E force review and printed out and placed on patient's chart -Continue PT Anemia: Hemoglobin stable Hyperglycemia: Resolved likely related to infection. HgbA1c 5.2. Hypertension: Monitor and add medication if needed. Controlled. DVT prophylaxis: Lovenox Discharge Planning Case management for discharge planning. Patient has completed his treatment for C. difficile on 08/15/16. Patient can be discharged to intermediate facility once arrangements made by case management Jp Keith Aug 25, 2016 08:31 Shin Oconnor MD Aug 25, 2016 17:07
[2016-08-25 08:34] VITALS: BP 113/68; PULSE 72; RESP 19; TEMP 97.4; O2SAT 97
[2016-08-25] MEDS: oxyCODONE/ACETAMINOPHEN 10 MG/325 MG TAB PO PRN ×3 (08:53→23:04)
[2016-08-25] MEDS: ENOXAPARIN SODIUM 40 MG/0.4 ML SYRINGE SQ SCH (08:53)
[2016-08-25] MEDS: FLUTICASONE PROPIONATE 50 MCG/ACT 16 GM NASAL SPRAY NASAL SCH ×2 (08:54→21:00)
[2016-08-25] MEDS: LACTIC ACID (AMMONIUM LACTATE) 12% LOTION 225 GM BTL TOPICAL SCH ×2 (08:54→21:54)
[2016-08-25] MEDS: PANTOPRAZOLE SOD 40 MG DELAYED RELEASE TAB PO SCH (08:54)
[2016-08-25] MEDS: MULTIVITAMINS/MINERALS THERAPEUTIC TAB PO SCH (08:54)
[2016-08-25] MEDS: DOCUSATE SODIUM 100 MG CAP PO SCH (08:54)
[2016-08-25] MEDS: LACTOBACILLUS ACIDOPHILUS TAB PO SCH ×2 (08:54→21:00)
[2016-08-25] MEDS: COLLAGENASE OINT 30 GM TUBE TOPICAL SCH (08:55)
[2016-08-25] MEDS: NEOMYCIN/POLYMYXIN/BACITRACIN OINT 15 GM TUBE TOPICAL SCH (08:55)
[2016-08-25 20:00] VITALS: BP 107/76; PULSE 85; RESP 21; TEMP 97.6; O2SAT 98
[2016-08-26] MEDS: oxyCODONE/ACETAMINOPHEN 10 MG/325 MG TAB PO PRN ×4 (05:24→23:43)
[2016-08-26] MEDS: MORPHINE SULFATE 30 MG CONTROLLED RELEASE TAB PO SCH ×3 (06:22→21:52)
[2016-08-26 08:00] VITALS: BP 102/65; PULSE 69; RESP 18; TEMP 96.2; O2SAT 95
[2016-08-26] MEDS: LACTOBACILLUS ACIDOPHILUS TAB PO SCH ×2 (09:00→21:00)
[2016-08-26] MEDS: MULTIVITAMINS/MINERALS THERAPEUTIC TAB PO SCH (09:00)
[2016-08-26] MEDS: PANTOPRAZOLE SOD 40 MG DELAYED RELEASE TAB PO SCH (09:00)
[2016-08-26] MEDS: DOCUSATE SODIUM 100 MG CAP PO SCH (09:00)
[2016-08-26] MEDS: ENOXAPARIN SODIUM 40 MG/0.4 ML SYRINGE SQ SCH (11:49)
[2016-08-26] MEDS: NEOMYCIN/POLYMYXIN/BACITRACIN OINT 15 GM TUBE TOPICAL SCH (11:50)
[2016-08-26] MEDS: COLLAGENASE OINT 30 GM TUBE TOPICAL SCH (11:51)
[2016-08-26] MEDS: FLUTICASONE PROPIONATE 50 MCG/ACT 16 GM NASAL SPRAY NASAL SCH ×2 (11:51→21:00)
[2016-08-26] MEDS: LACTIC ACID (AMMONIUM LACTATE) 12% LOTION 225 GM BTL TOPICAL SCH ×2 (11:51→21:00)
--- NOTE | 2016-08-26 12:15 | HHI.PR ---
Subjective Remarks Patient seen and examined today. Patient stating that he feels that his own problems with his skin graft on his right thigh. He wanted me look at it make sure looked okay. Objective Vitals Vital Signs Date Time Temp Pulse Resp B/P Pulse Ox O2 Delivery O2 Flow Rate FiO2 08/26/16 08:00 96.2 69 18 102/65 95 08/25/16 20:00 97.6 85 21 107/76 98 08/25/16 16:32 18 08/25/16 15:20 18 I/O 08/25/16 08/25/16 08/25/16 08/26/16 08/26/16 08/26/16 07:00 15:00 23:00 07:00 15:00 23:00 Intake Total 240 ml 1360 ml 120 ml Output Total 400 ml 900 ml 200 ml Balance -160 ml 460 ml -80 ml Intake Oral 240 ml 1360 ml 120 ml Output Urine Total 400 ml 900 ml 200 ml # Bowel Movements 0 Objective Remarks GENERAL: Well-developed, well-nourished, in no acute distress. alert and orientated HEENT: Head is normocephalic without any lesions or masses noted. Facial features are symmetric. Eyes: Extraocular muscles are intact. Conjunctivae were clear. NECK: Supple without any masses. Trachea midline no deviation. No JVD, CARDIAC: Regular rhythm, regular rate. S1/S2 are heard. No murmurs gallops or rubs. LUNGS: Clear to auscultation bilaterally. No wheeze, rhonchi or rales. No use of accessory muscles on inspiration or expiration. ABDOMEN: Soft, nontender. Nondistended. Bowel sounds heard in all 4 quadrants. No organomegaly or masses. Negative rebound, negative guarding EXTREMITIES: No edema, pulses are equal bilaterally. No cyanosis or clubbing NEUROLOGY: Mood and affect appear appropriate. Cranial nerves II through XII grossly intact. Moving upper extremities. Strength 5/5 SACRAL AREA: Patient does have wound VAC in place RIGHT THIGH: Graft area does have some mild flaking of skin. No fluctuations, excoriations, maybe some maceration from him having a covered all the time. No signs of infection. Procedures none Urinary Catheter: Yes Assessment to: Continue Morse insert reason: Stage III/IV Press Ulcer Date of Insertion: Aug 18, 2016 Vascular Central Line Catheter: No A/P Assessment and Plan Stage IV sacral decubitus: Wound care physician Dr. Garcia evaluated patient and indicated local wound care Wound care team nurse following. Recommend to continue current treatment of Dakins solution soaked gauze, lightly fluffed, and gently placed into wound bed to allow for tissue growth. Plastic surgery evaluated patient and recommending wound VAC placement. Orders have been given. Reposition every 2 hours and PRN for comfort. Patient refused diverting colostomy for management Wound VAC in place. Right ischial ulcer Appears that wound VAC has been applied to that area. Wound care nurse is managing the wounds Left hip skin tear Bandage at this time, wound care is following the patient for other wounds Clostridium difficile infection: Recurrent and treated Continue Flagyl for 2 weeks, Continue probiotic Sepsis with complicated UTI in a male with indwelling Morse, secondary to urinary retention from paraplegia: Resolved Urine Culture resulted with MRSA S/p antibiotic treatment with Bactrim Changed Morse catheter 08/18/16 08/16/16 culture indicates Morganella morganii, staph aureus, enterococcus faecalis. Documentation indicates that infectious disease was contacted and indicated that the patient is asymptomatic no treatment is necessary at this time. Only catheter changes necessary. Chronic pain: -Continue patient's outpatient medications to include Oramorph 30 mg 3 times daily and Percocet 10, every 6 hours as needed for pain -The above regimen was confirmed by E force review and printed out and placed on patient's chart -Continue PT Anemia: Hemoglobin stable Hyperglycemia: Resolved likely related to infection. HgbA1c 5.2. Hypertension: Monitor and add medication if needed. Controlled. DVT prophylaxis: Lovenox Discharge Planning Case management for discharge planning. Patient has completed his treatment for C. difficile on 08/15/16. [facility] once arrangements made by case management Jp Keith Aug 26, 2016 12:15 Shin Oconnor MD Aug 26, 2016 14:15
[2016-08-26 20:00] VITALS: BP 102/62; PULSE 79; RESP 16; TEMP 96.2; O2SAT 95
[2016-08-27] MEDS: MORPHINE SULFATE 30 MG CONTROLLED RELEASE TAB PO SCH ×3 (05:44→21:59)
[2016-08-27] MEDS: oxyCODONE/ACETAMINOPHEN 10 MG/325 MG TAB PO PRN ×3 (06:36→19:38)
[2016-08-27 08:00] VITALS: BP 115/73; PULSE 70; RESP 17; TEMP 97.5; O2SAT 96
[2016-08-27] MEDS: PANTOPRAZOLE SOD 40 MG DELAYED RELEASE TAB PO SCH (09:00)
[2016-08-27] MEDS: DOCUSATE SODIUM 100 MG CAP PO SCH (09:00)
[2016-08-27] MEDS: MULTIVITAMINS/MINERALS THERAPEUTIC TAB PO SCH (09:00)
[2016-08-27] MEDS: LACTOBACILLUS ACIDOPHILUS TAB PO SCH ×2 (09:00→19:38)
[2016-08-27] MEDS: LACTIC ACID (AMMONIUM LACTATE) 12% LOTION 225 GM BTL TOPICAL SCH ×2 (09:52→19:41)
[2016-08-27] MEDS: NEOMYCIN/POLYMYXIN/BACITRACIN OINT 15 GM TUBE TOPICAL SCH (09:52)
[2016-08-27] MEDS: ENOXAPARIN SODIUM 40 MG/0.4 ML SYRINGE SQ SCH (09:52)
[2016-08-27] MEDS: COLLAGENASE OINT 30 GM TUBE TOPICAL SCH (09:52)
[2016-08-27] MEDS: FLUTICASONE PROPIONATE 50 MCG/ACT 16 GM NASAL SPRAY NASAL SCH ×2 (09:52→19:39)
--- NOTE | 2016-08-27 11:53 | HHI.PR ---
Subjective Remarks Patient seen and examined today. Patient denies any new complaints. No change in clinical status. Objective Vitals Vital Signs Date Time Temp Pulse Resp B/P Pulse Ox O2 Delivery O2 Flow Rate FiO2 08/27/16 08:00 97.5 70 17 115/73 96 08/26/16 20:00 96.2 79 16 102/62 95 I/O 08/26/16 08/26/16 08/26/16 08/27/16 08/27/16 08/27/16 07:00 15:00 23:00 07:00 15:00 23:00 Intake Total 120 ml 480 ml 240 ml 220 ml Output Total 200 ml 200 ml 150 ml 200 ml Balance -80 ml 280 ml 90 ml 20 ml Intake Oral 120 ml 480 ml 240 ml 220 ml IV Total 0 ml 0 ml Output Urine Total 200 ml 200 ml 150 ml 200 ml # Bowel Movements 0 1 0 Objective Remarks GENERAL: Well-developed, well-nourished, in no acute distress. alert and orientated HEENT: Head is normocephalic without any lesions or masses noted. Facial features are symmetric. Eyes: Extraocular muscles are intact. Conjunctivae were clear. NECK: Supple without any masses. Trachea midline no deviation. No JVD, CARDIAC: Regular rhythm, regular rate. S1/S2 are heard. No murmurs gallops or rubs. LUNGS: Clear to auscultation bilaterally. No wheeze, rhonchi or rales. No use of accessory muscles on inspiration or expiration. ABDOMEN: Soft, nontender. Nondistended. Bowel sounds heard in all 4 quadrants. No organomegaly or masses. Negative rebound, negative guarding EXTREMITIES: No edema, pulses are equal bilaterally. No cyanosis or clubbing NEUROLOGY: Mood and affect appear appropriate. Cranial nerves II through XII grossly intact. Moving upper extremities. Strength 5/5 SACRAL AREA: Patient does have wound VAC in place RIGHT THIGH: Graft area does have some mild flaking of skin. No fluctuations, excoriations, maybe some maceration from him having a covered all the time. No signs of infection. Procedures none Urinary Catheter: Yes Assessment to: Continue Morse insert reason: Stage III/IV Press Ulcer Date of Insertion: Aug 18, 2016 Vascular Central Line Catheter: No A/P Assessment and Plan Stage IV sacral decubitus: Wound care physician Dr. Radha evaluated patient and indicated local wound care Wound care team nurse following. Recommend to continue current treatment of Dakins solution soaked gauze, lightly fluffed, and gently placed into wound bed to allow for tissue growth. Plastic surgery evaluated patient and recommending wound VAC placement. Orders have been given. Reposition every 2 hours and PRN for comfort. Patient refused diverting colostomy for management Wound VAC in place. Right ischial ulcer Appears that wound VAC has been applied to that area. Wound care nurse is managing the wounds Left hip skin tear Bandage at this time, wound care is following the patient for other wounds Clostridium difficile infection: Recurrent and treated Continue Flagyl for 2 weeks, Continue probiotic Sepsis with complicated UTI in a male with indwelling Morse, secondary to urinary retention from paraplegia: Resolved Urine Culture resulted with MRSA S/p antibiotic treatment with Bactrim Changed Morse catheter 08/18/16 08/16/16 culture indicates Morganella morganii, staph aureus, enterococcus faecalis. Documentation indicates that infectious disease was contacted and indicated that the patient is asymptomatic no treatment is necessary at this time. Only catheter changes necessary. Chronic pain: -Continue patient's outpatient medications to include Oramorph 30 mg 3 times daily and Percocet 10, every 6 hours as needed for pain -The above regimen was confirmed by E force review and printed out and placed on patient's chart -Continue PT Anemia: Hemoglobin stable Hyperglycemia: Resolved likely related to infection. HgbA1c 5.2. Hypertension: Monitor and add medication if needed. Controlled. DVT prophylaxis: Lovenox Discharge Planning Case management for discharge planning. Patient has completed his treatment for C. difficile on 08/15/16. Patient can be discharged to [facility] facility once arrangements made by case management Jp Keith Aug 27, 2016 11:53 Shin Oconnor MD Aug 27, 2016 16:11
[2016-08-27] MEDS: hydrOXYzine HCL 25 MG TAB PO PRN ×2 (15:47→22:00)
[2016-08-27 20:00] VITALS: BP 103/62; PULSE 70; RESP 20; TEMP 98.3; O2SAT 95
[2016-08-28] MEDS: oxyCODONE/ACETAMINOPHEN 10 MG/325 MG TAB PO PRN ×4 (03:27→20:51)
[2016-08-28] MEDS: MORPHINE SULFATE 30 MG CONTROLLED RELEASE TAB PO SCH ×3 (05:58→22:02)
[2016-08-28] MEDS: MULTIVITAMINS/MINERALS THERAPEUTIC TAB PO SCH (09:00)
[2016-08-28] MEDS: PANTOPRAZOLE SOD 40 MG DELAYED RELEASE TAB PO SCH (09:00)
[2016-08-28] MEDS: LACTOBACILLUS ACIDOPHILUS TAB PO SCH ×2 (09:00→20:51)
[2016-08-28] MEDS: DOCUSATE SODIUM 100 MG CAP PO SCH (09:00)
[2016-08-28] MEDS: ENOXAPARIN SODIUM 40 MG/0.4 ML SYRINGE SQ SCH (09:21)
[2016-08-28] MEDS: FLUTICASONE PROPIONATE 50 MCG/ACT 16 GM NASAL SPRAY NASAL SCH ×2 (09:23→20:53)
[2016-08-28] MEDS: COLLAGENASE OINT 30 GM TUBE TOPICAL SCH (09:23)
[2016-08-28] MEDS: NEOMYCIN/POLYMYXIN/BACITRACIN OINT 15 GM TUBE TOPICAL SCH (09:23)
[2016-08-28] MEDS: LACTIC ACID (AMMONIUM LACTATE) 12% LOTION 225 GM BTL TOPICAL SCH ×2 (09:23→20:53)
[2016-08-28] MEDS: hydrOXYzine HCL 25 MG TAB PO PRN ×2 (10:01→20:51)
[2016-08-28 10:13] VITALS: BP 113/67; PULSE 62; RESP 18; TEMP 96.6; O2SAT 96
--- NOTE | 2016-08-28 10:47 | HHI.PR ---
Subjective Remarks Patient seen and examined today in follow-up for sacral wounds and discharge planning. Patient states that he has some loose stool yesterday. Nursing staff does not confirm that he is had any worsening stools or foul-smelling stool. Still awaiting case management for discharge planning to appropriate facility as dictated by the patient. Objective Vitals Vital Signs Date Time Temp Pulse Resp B/P Pulse Ox O2 Delivery O2 Flow Rate FiO2 08/28/16 10:13 96.6 62 18 113/67 96 08/27/16 20:00 98.3 70 20 103/62 95 08/27/16 15:43 14 08/27/16 15:42 14 I/O 08/27/16 08/27/16 08/27/16 08/28/16 08/28/16 08/28/16 07:00 15:00 23:00 07:00 15:00 23:00 Intake Total 220 ml 240 ml 0 ml 60 ml 100 ml Output Total 200 ml 200 ml 200 ml Balance 20 ml 40 ml 0 ml -140 ml 100 ml Intake Oral 220 ml 240 ml 60 ml 100 ml IV Total 0 ml 0 ml 0 ml Output Urine Total 200 ml 200 ml 200 ml # Bowel Movements 0 0 Objective Remarks GENERAL: Well-developed, well-nourished, in no acute distress. alert and orientated HEENT: Head is normocephalic without any lesions or masses noted. Facial features are symmetric. Eyes: Extraocular muscles are intact. Conjunctivae were clear. NECK: Supple without any masses. Trachea midline no deviation. No JVD, CARDIAC: Regular rhythm, regular rate. S1/S2 are heard. No murmurs gallops or rubs. LUNGS: Clear to auscultation bilaterally. No wheeze, rhonchi or rales. No use of accessory muscles on inspiration or expiration. ABDOMEN: Soft, nontender. Nondistended. Bowel sounds heard in all 4 quadrants. No organomegaly or masses. Negative rebound, negative guarding EXTREMITIES: No edema, pulses are equal bilaterally. No cyanosis or clubbing NEUROLOGY: Mood and affect appear appropriate. Cranial nerves II through XII grossly intact. Moving upper extremities. Strength 5/5 SACRAL AREA: Patient does have wound VAC in place RIGHT THIGH: Graft area does have some mild flaking of skin. No fluctuations, excoriations, maybe some maceration from him having a covered all the time. No signs of infection. Procedures none Urinary Catheter: Yes Assessment to: Continue Morse insert reason: Stage III/IV Press Ulcer Date of Insertion: Aug 18, 2016 Vascular Central Line Catheter: No A/P Assessment and Plan Stage IV sacral decubitus: Wound care physician Dr. Garcia evaluated patient and indicated local wound care Wound care team nurse following. Recommend to continue current treatment of Dakins solution soaked gauze, lightly fluffed, and gently placed into wound bed to allow for tissue growth. Plastic surgery evaluated patient and recommending wound VAC placement. Orders have been given. Reposition every 2 hours and PRN for comfort. Patient refused diverting colostomy for management Wound VAC in place. Right ischial ulcer Appears that wound VAC has been applied to that area. Wound care nurse is managing the wounds Left hip skin tear Bandage at this time, wound care is following the patient for other wounds Clostridium difficile infection: Recurrent and treated Continue Flagyl for 2 weeks, Continue probiotic Sepsis with complicated UTI in a male with indwelling Morse, secondary to urinary retention from paraplegia: Resolved Urine Culture resulted with MRSA S/p antibiotic treatment with Bactrim Changed Morse catheter 08/18/16 08/16/16 culture indicates Morganella morganii, staph aureus, enterococcus faecalis. Documentation indicates that infectious disease was contacted and indicated that the patient is asymptomatic no treatment is necessary at this time. Only catheter changes necessary. Chronic pain: -Continue patient's outpatient medications to include Oramorph 30 mg 3 times daily and Percocet 10, every 6 hours as needed for pain -The above regimen was confirmed by E force review and printed out and placed on patient's chart -Continue PT Anemia: Hemoglobin stable Hyperglycemia: Resolved likely related to infection. HgbA1c 5.2. Hypertension: Monitor and add medication if needed. Controlled. DVT prophylaxis: Lovenox Discharge Planning Case management for discharge planning. Patient has completed his treatment for C. difficile on 08/15/16. [facility] once arrangements made by case management Jp Keith Aug 28, 2016 10:47
[2016-08-28 20:00] VITALS: BP 121/71; PULSE 84; RESP 20; TEMP 99.2; O2SAT 93
[2016-08-29] MEDS: oxyCODONE/ACETAMINOPHEN 10 MG/325 MG TAB PO PRN ×4 (02:54→22:00)
[2016-08-29] MEDS: hydrOXYzine HCL 25 MG TAB PO PRN ×3 (02:55→22:00)
[2016-08-29] MEDS: MORPHINE SULFATE 30 MG CONTROLLED RELEASE TAB PO SCH ×3 (05:58→22:00)
[2016-08-29 08:00] VITALS: BP 113/67; PULSE 62; RESP 18; TEMP 96.6; O2SAT 96
[2016-08-29] MEDS: LACTOBACILLUS ACIDOPHILUS TAB PO SCH ×2 (09:00→21:00)
[2016-08-29] MEDS: MULTIVITAMINS/MINERALS THERAPEUTIC TAB PO SCH (09:00)
[2016-08-29] MEDS: PANTOPRAZOLE SOD 40 MG DELAYED RELEASE TAB PO SCH (09:00)
[2016-08-29] MEDS: DOCUSATE SODIUM 100 MG CAP PO SCH (09:00)
[2016-08-29] MEDS: ENOXAPARIN SODIUM 40 MG/0.4 ML SYRINGE SQ SCH (09:38)
[2016-08-29] MEDS: LACTIC ACID (AMMONIUM LACTATE) 12% LOTION 225 GM BTL TOPICAL SCH ×2 (09:41→21:00)
[2016-08-29] MEDS: COLLAGENASE OINT 30 GM TUBE TOPICAL SCH (09:41)
[2016-08-29] MEDS: FLUTICASONE PROPIONATE 50 MCG/ACT 16 GM NASAL SPRAY NASAL SCH ×2 (09:41→22:05)
[2016-08-29] MEDS: NEOMYCIN/POLYMYXIN/BACITRACIN OINT 15 GM TUBE TOPICAL SCH (09:41)
--- NOTE | 2016-08-29 15:21 | HHI.PR ---
Subjective Remarks Follow-up for decubitus ulcers. Patient again complains of abdominal upset when eating stating he gets cramps and has bowel movements so he has been limiting his intake of food. Denies any association with a specific food such as dairy. He states this has been a chronic issue even before hospitalization. He denies any fevers, chills, nausea, or vomiting. Nurse denies patient BMs being watery. He had 2 BMs yesterday and none yesterday. Objective Vitals Vital Signs Date Time Temp Pulse Resp B/P Pulse Ox O2 Delivery O2 Flow Rate FiO2 08/29/16 08:00 96.6 62 18 113/67 96 08/28/16 20:00 99.2 84 20 121/71 93 I/O 08/28/16 08/28/16 08/28/16 08/29/16 08/29/16 08/29/16 07:00 15:00 23:00 07:00 15:00 23:00 Intake Total 60 ml 200 ml 120 ml 0 ml 100 ml Output Total 200 ml 651 ml 150 ml Balance -140 ml 200 ml -531 ml -150 ml 100 ml Intake Oral 60 ml 200 ml 120 ml 100 ml IV Total 0 ml 0 ml 0 ml Output Urine Total 200 ml 650 ml 150 ml Stool Total 1 ml # Bowel Movements 0 0 1 Objective Remarks GENERAL: Well-developed male in no apparent distress. CARDIOVASCULAR: Regular rate and rhythm. RESPIRATORY: No accessory muscle use. Clear to auscultation. Breath sounds equal bilaterally. GASTROINTESTINAL: Normoactive bowel sounds. Abdomen soft, non-tender, nondistended. NEUROLOGICAL: Awake and alert. Normal speech. PSYCHIATRIC: Mildly depressed mood and affect. Morse bag with yellow urine. Procedures none Urinary Catheter: Yes Assessment to: Continue Morse insert reason: Stage III/IV Press Ulcer Date of Insertion: Aug 18, 2016 Vascular Central Line Catheter: No A/P Problem List: (1) Fever ICD Code: R50.9 Status: Resolved (2) Sacral decubitus ulcer ICD Code: L89.159 Status: Chronic (3) UTI (urinary tract infection) ICD Code: N39.0 Status: Resolved (4) Sepsis ICD Code: A41.9 Status: Resolved (5) Hypokalemia ICD Code: E87.6 Status: Acute Assessment and Plan 08/29: Complains of stomach upset with eating but no actual increase in BMs or change in consistency. Afebrile. No pain on exam. Nursing to document percentage of meals eaten as patient states he has been limiting intake. Clostridium difficile infection: Recurrent Completed Flagyl 08/16/16. 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 Morse replaced. I contacted ID who agreed that if patient is asymptomatic, no antibiotics are necessary, only catheter change which was performed. Stage IV sacral decubitus: Wound care physician/RN following. Continue wound vac Patient refused diverting colostomy for management Reposition every 2 hours and PRN for comfort. R ischial ulcer, unstageable: Cleanse with normal saline only and apply Santyl kareem thick coverage and cover with dry cover dressing, change daily. Santyl ordered. Abrasion L abdomen: shearing from vac tubing. Nurse instructed to apply antibiotic ointment, Telfa, and gauze padding to the area to avoid further friction. Chronic pain: -Continue patient's outpatient medications to include Oramorph 30 mg 3 times daily and Percocet 10, every 6 hours as needed for pain -The above regimen was confirmed by E force review and printed out and placed on patient's chart -Continue PT Anemia: Hemoglobin stable Hyperglycemia: Resolved likely related to infection. HgbA1c 5.2. Hypertension: Monitor and add medication if needed. Controlled. DVT prophylaxis: Lovenox Discharge Planning 07/07: Per CM patient is looking at placement close to his grandson in [place]. Before a facility can accept for LTC placement, need to ensure patient will qualify for LTC Medicaid. 07/31: Requested [facility] to evaluate for placement. 08/03: [facility] declined 08/07: [facility] to evaluate for placement. Problem Qualifiers (1) Fever: Qualified Code: R50.9 - Fever, unspecified fever cause (2) Sacral decubitus ulcer: Qualified Code: L89.154 - Decubitus ulcer of sacral region, stage 4 Ashanti Yeboah Aug 29, 2016 15:21
[2016-08-29 20:00] VITALS: BP 103/69; PULSE 74; RESP 20; TEMP 97.7; O2SAT 98
[2016-08-30] MEDS: hydrOXYzine HCL 25 MG TAB PO PRN ×3 (03:47→15:55)
[2016-08-30] MEDS: oxyCODONE/ACETAMINOPHEN 10 MG/325 MG TAB PO PRN ×4 (03:47→22:29)
[2016-08-30] MEDS: MORPHINE SULFATE 30 MG CONTROLLED RELEASE TAB PO SCH ×3 (06:05→20:56)
[2016-08-30 08:00] VITALS: BP 124/72; PULSE 81; RESP 18; TEMP 98.9; O2SAT 97
[2016-08-30] MEDS: COLLAGENASE OINT 30 GM TUBE TOPICAL SCH (09:00)
[2016-08-30] MEDS: NEOMYCIN/POLYMYXIN/BACITRACIN OINT 15 GM TUBE TOPICAL SCH (09:00)
[2016-08-30] MEDS: LACTIC ACID (AMMONIUM LACTATE) 12% LOTION 225 GM BTL TOPICAL SCH ×2 (09:00→21:00)
[2016-08-30] MEDS: LACTOBACILLUS ACIDOPHILUS TAB PO SCH ×2 (09:00→20:56)
[2016-08-30] MEDS: MULTIVITAMINS/MINERALS THERAPEUTIC TAB PO SCH (09:00)
[2016-08-30] MEDS: PANTOPRAZOLE SOD 40 MG DELAYED RELEASE TAB PO SCH (09:00)
[2016-08-30] MEDS: DOCUSATE SODIUM 100 MG CAP PO SCH (09:00)
[2016-08-30] MEDS: ENOXAPARIN SODIUM 40 MG/0.4 ML SYRINGE SQ SCH (09:28)
--- NOTE | 2016-08-30 10:37 | HHI.PR ---
Subjective Remarks Follow-up for decubitus ulcers; s/p C.diff infection. Patient states he still not eating much because every time he eats he gets cramps and an immediate bowel movement. No report of diarrhea by staff. Objective Vitals Vital Signs Date Time Temp Pulse Resp B/P Pulse Ox O2 Delivery O2 Flow Rate FiO2 08/30/16 09:49 18 08/30/16 08:00 98.9 81 18 124/72 97 08/29/16 23:02 18 08/29/16 20:00 97.7 74 20 103/69 98 I/O 08/29/16 08/29/16 08/29/16 08/30/16 08/30/16 08/30/16 07:00 15:00 23:00 07:00 15:00 23:00 Intake Total 0 ml 100 ml 600 ml 120 ml Output Total 150 ml 500 ml 950 ml Balance -150 ml 100 ml 100 ml -830 ml Intake Oral 100 ml 600 ml 120 ml IV Total 0 ml Output Urine Total 150 ml 500 ml 150 ml Drainage Total 800 ml # Bowel Movements 1 1 Objective Remarks GENERAL: Well-developed male in no apparent distress. CARDIOVASCULAR: Regular rate and rhythm. RESPIRATORY: No accessory muscle use. Clear to auscultation. Breath sounds equal bilaterally. GASTROINTESTINAL: Abdomen soft, non-tender, nondistended. NEUROLOGICAL: Awake and alert. Normal speech. PSYCHIATRIC: Normal mood and affect. Procedures none Urinary Catheter: Yes Assessment to: Continue Morse insert reason: Stage III/IV Press Ulcer Date of Insertion: Aug 18, 2016 Vascular Central Line Catheter: No A/P Problem List: (1) Fever ICD Code: R50.9 Status: Resolved (2) Sacral decubitus ulcer ICD Code: L89.159 Status: Chronic (3) UTI (urinary tract infection) ICD Code: N39.0 Status: Resolved (4) Sepsis ICD Code: A41.9 Status: Resolved (5) Hypokalemia ICD Code: E87.6 Status: Acute Assessment and Plan Abdominal cramps: Persistent. Complains again of stomach upset/cramps with eating. Afebrile. No pain on exam. Patient states he takes Imodium at home for this. Patient refusing probiotic. -Discussed with Dr. Quinn. Patient no longer has infection. Will order one time dose of Lomotil to see if patient has improvement. If so will utilize cautiously. -Nursing to document percentage of meals eaten. -Monitor BMs. Clostridium difficile infection: Recurrent Completed Flagyl 08/16/16. Continue probiotic Sepsis with complicated UTI in a male with indwelling Mores, secondary to urinary retention from paraplegia: Resolved Urine Culture resulted with MRSA S/p antibiotic treatment with Bactrim 08/16 Urine culture with multiple organisms. Morse replaced. I contacted ID who agreed that if patient is asymptomatic, no antibiotics are necessary, only catheter change which was performed. Stage IV sacral decubitus: Wound care physician/RN following. Continue wound vac Patient refused diverting colostomy for management Reposition every 2 hours and PRN for comfort. R ischial ulcer, unstageable: Cleanse with normal saline only and apply Santyl kareem thick coverage and cover with dry cover dressing, change daily. Santyl ordered. Abrasion L abdomen: shearing from vac tubing. Nurse instructed to apply antibiotic ointment, Telfa, and gauze padding to the area to avoid further friction. Chronic pain: -Continue patient's outpatient medications to include Oramorph 30 mg 3 times daily and Percocet 10, every 6 hours as needed for pain -The above regimen was confirmed by E force review and printed out and placed on patient's chart -Continue PT Anemia: Hemoglobin stable Hyperglycemia: Resolved likely related to infection. HgbA1c 5.2. Hypertension: Monitor and add medication if needed. Controlled. GI prophylaxis: Refusing Colace and Protonix. DVT prophylaxis: Lovenox Discharge Planning 07/07: Per CM patient is looking at placement close to his grandson in [place]. Before a facility can accept for LTC placement, need to ensure patient will qualify for LTC Medicaid. 07/31: Requested [facility] to evaluate for placement. 08/03: [facility] declined 08/07: [facility] to evaluate for placement. Problem Qualifiers (1) Fever: Qualified Code: R50.9 - Fever, unspecified fever cause (2) Sacral decubitus ulcer: Qualified Code: L89.154 - Decubitus ulcer of sacral region, stage 4 Ashanti Yeboah Aug 30, 2016 10:37
[2016-08-30] MEDS ORDERED: DIPHENOXYLATE/ATROPINE 2.5 MG/0.025 MG TAB PO ONE (10:45)
[2016-08-30] MEDS: FLUTICASONE PROPIONATE 50 MCG/ACT 16 GM NASAL SPRAY NASAL SCH ×2 (12:41→20:42)
[2016-08-30 16:58] VITALS: TEMP 101
[2016-08-30 17:37] LABS: AUTOMATED NEUTROPHIL # 6.3 TH/MM3 (1.8-7.7); BASOPHIL % 0.5 % (0.0-2.0); EOSINOPHIL # 0.4 TH/MM3 (0-0.4); EOSINOPHIL % 4.1 % (0.0-4.0); HEMATOCRIT 32.7 % (39.0-51.0); HEMO FLAGS DIFF FINAL; LYMPH % 14.4 % (9.0-44.0); LYMPHOCYTE # 1.2 TH/MM3 (1.0-4.8); MEAN CELL VOLUME 83.2 FL (80.0-100.0); MEAN CORPUSCULAR HEMOGLOBIN 26.9 PG (27.0-34.0); MEAN CORPUSCULAR HGB CONC 32.3 % (32.0-36.0); MONO % 9.4 % (0.0-8.0); NEUT % 71.6 % (16.0-70.0); PLATELET COUNT 486 TH/MM3 (150-450); RED BLOOD COUNT 3.92 MIL/MM3 (4.50-5.90); WHITE BLOOD COUNT 8.7 TH/MM3 (4.0-11.0)
[2016-08-30 17:40] LABS: BLOOD, URINE SMALL (NEG); GLUCOSE,URINE NEG (NEG); KETONE, URINE NEG (NEG); NITRITE,URINE NEG (NEG)
[2016-08-30 17:43] LABS: PH, URINE GREATER/EQUAL 9.0 (5.0-8.5)
[2016-08-30 17:46] LABS: CHLORIDE 103 MEQ/L (98-107); POTASSIUM 3.6 MEQ/L (3.5-5.1); SODIUM (NA) 139 MEQ/L (136-145)
[2016-08-30 17:50] LABS: ANION GAP 10 MEQ/L (5-15); BICARBONATE 25.6 MEQ/L (21.0-32.0); BLOOD UREA NITROGEN 8 MG/DL (7-18)
[2016-08-30 17:53] LABS: ALT (GPT) 13 U/L (12-78); AST (GOT) 16 U/L (15-37); GLOMERULAR FILTRATION RATE 119 ML/MIN (>89)
[2016-08-30 17:53] LABS: URINE COLOR YELLOW (YELLW/STRAW)
[2016-08-30 17:54] LABS: TOTAL BILIRUBIN ADULT 0.4 MG/DL (0.2-1.0)
[2016-08-30 17:55] LABS: MUCUS URINE MOD /lpf (OCC)
[2016-08-30 17:56] LABS: ALKALINE PHOSPHATASE 136 U/L (45-117)
[2016-08-30 17:56] LABS: BACTERIA, URINE MOD /hpf; SQUAMOUS EPITHELIAL CELL URINE 0-5 /hpf (0-5); TRIPLE PHOSPHATE CRYSTAL,URINE FEW /hpf
[2016-08-30 17:57] LABS: COMMENT (UR) CULTURE INDICATED; CULTURE IF INDICATED CULTURE INDICATED
[2016-08-30 20:00] VITALS: BP 116/97; PULSE 105; RESP 20; TEMP 99.8; O2SAT 95
[2016-08-31] MEDS: oxyCODONE/ACETAMINOPHEN 10 MG/325 MG TAB PO PRN ×4 (04:27→23:52)
[2016-08-31] MEDS: hydrOXYzine HCL 25 MG TAB PO PRN ×2 (04:33→10:41)
[2016-08-31] MEDS: MORPHINE SULFATE 30 MG CONTROLLED RELEASE TAB PO SCH ×3 (06:08→22:12)
[2016-08-31 08:00] VITALS: BP 103/71; PULSE 73; RESP 18; TEMP 96.3; O2SAT 95
[2016-08-31] MEDS: PANTOPRAZOLE SOD 40 MG DELAYED RELEASE TAB PO SCH (09:00)
[2016-08-31] MEDS: FLUTICASONE PROPIONATE 50 MCG/ACT 16 GM NASAL SPRAY NASAL SCH ×2 (09:00→22:12)
[2016-08-31] MEDS: LACTOBACILLUS ACIDOPHILUS TAB PO SCH ×2 (09:00→21:00)
[2016-08-31] MEDS: LACTIC ACID (AMMONIUM LACTATE) 12% LOTION 225 GM BTL TOPICAL SCH ×2 (09:00→22:12)
[2016-08-31] MEDS: MULTIVITAMINS/MINERALS THERAPEUTIC TAB PO SCH (09:00)
[2016-08-31] MEDS: DOCUSATE SODIUM 100 MG CAP PO SCH (09:00)
[2016-08-31] MEDS: ENOXAPARIN SODIUM 40 MG/0.4 ML SYRINGE SQ SCH (09:47)
[2016-08-31] MEDS: NEOMYCIN/POLYMYXIN/BACITRACIN OINT 15 GM TUBE TOPICAL SCH (09:55)
[2016-08-31] MEDS: COLLAGENASE OINT 30 GM TUBE TOPICAL SCH (09:56)
--- NOTE | 2016-08-31 11:12 | HHI.PR ---
Subjective Remarks Follow-up for decubitus ulcers. Patient had a fever of 101 yesterday and states he had chills at that time. Denies any chills this morning. He denies any new cough or shortness of breath. Denies any nausea or vomiting. Still admits to stomach upset when eating with rapid bowel movements, but states the Lomotil helped a little yesterday. Tells me again how he takes Imodium at home. Objective Vitals Vital Signs Date Time Temp Pulse Resp B/P Pulse Ox O2 Delivery O2 Flow Rate FiO2 08/31/16 08:00 96.3 73 18 103/71 95 08/30/16 23:58 20 08/30/16 21:58 20 08/30/16 20:00 99.8 105 20 116/97 95 08/30/16 16:58 101.0 I/O 08/30/16 08/30/16 08/30/16 08/31/16 08/31/16 08/31/16 07:00 15:00 23:00 07:00 15:00 23:00 Intake Total 120 ml 240 ml 0 ml 120 ml Output Total 950 ml 650 ml 0 ml 200 ml Balance -830 ml -410 ml 0 ml -80 ml Intake Oral 120 ml 240 ml 0 ml 120 ml Output Urine Total 150 ml 650 ml 0 ml 200 ml Drainage Total 800 ml # Bowel Movements 1 Result Diagram: 08/30/16 1718 08/30/161717 Objective Remarks GENERAL: Well-developed male in no apparent distress. SKIN: No erythema over bilateral lower extremities. CARDIOVASCULAR: Regular rate and rhythm. RESPIRATORY: No accessory muscle use. Clear to auscultation. Breath sounds equal bilaterally. GASTROINTESTINAL: Normoactive bowel sounds. Abdomen soft, non-tender, nondistended. MUSCULOSKELETAL: No lower extremity edema bilaterally. NEUROLOGICAL: Awake and alert. Normal speech. PSYCHIATRIC: Normal mood and affect. Procedures none Urinary Catheter: Yes Assessment to: Continue Morse insert reason: Stage III/IV Press Ulcer Date of Insertion: Aug 30, 2016 Vascular Central Line Catheter: No A/P Problem List: (1) Fever ICD Code: R50.9 Status: Resolved (2) Sacral decubitus ulcer ICD Code: L89.159 Status: Chronic (3) UTI (urinary tract infection) ICD Code: N39.0 Status: Resolved (4) Sepsis ICD Code: A41.9 Status: Resolved (5) Hypokalemia ICD Code: E87.6 Status: Acute Assessment and Plan Fever: Resolved. Temp 101 yesterday. Afebrile since. CBC yesterday with normal with blood cell count. Blood cultures 2; no growth to date. Alkaline phosphatase mildly elevated at 136, but CMP otherwise unremarkable. Morse was changed yesterday prior to obtaining urine sample. UA with infection and preliminary urine culture indicates gram-negative rods. Will await final culture prior to initiating antibiotics. Abdominal cramps: Persistent. Complains again of stomach upset/cramps with eating. Afebrile. No pain on exam. Patient states he takes Imodium at home for this. Patient refusing probiotic. -Patient no longer has infection. One time dose of Lomotil provided mild improvement yesterday per patient. Discussed with Dr. Quinn. Will order one time dose of Imodium 4 mg today and reassess patient tomorrow. -Nursing to document percentage of meals eaten. -Hold Colace. -RN advised to monitor consistency of BMs and alert me if patient has watery stools. Clostridium difficile infection: Recurrent, treated. Completed Flagyl 08/16/16. Continue probiotic Sepsis with complicated UTI in a male with indwelling Morse, secondary to urinary retention from paraplegia: Resolved Urine Culture resulted with MRSA S/p antibiotic treatment with Bactrim 4/ Urine culture with multiple organisms. Morse replaced. I contacted ID who agreed that if patient is asymptomatic, no antibiotics are necessary, only catheter change which was performed. Stage IV sacral decubitus: Wound care physician/RN following. Continue wound vac Patient refused diverting colostomy for management Reposition every 2 hours and PRN for comfort. R ischial ulcer, unstageable: Cleanse with normal saline only and apply Santyl kareem thick coverage and cover with dry cover dressing, change daily. Santyl ordered. Abrasion L abdomen: shearing from vac tubing. Nurse instructed to apply antibiotic ointment, Telfa, and gauze padding to the area to avoid further friction. Chronic pain: -Continue patient's outpatient medications to include Oramorph 30 mg 3 times daily and Percocet 10, every 6 hours as needed for pain -The above regimen was confirmed by E force review and printed out and placed on patient's chart -Continue PT Anemia: Hemoglobin stable Hyperglycemia: Resolved likely related to infection. HgbA1c 5.2. Hypertension: Monitor and add medication if needed. Controlled. GI prophylaxis: Refusing Colace and Protonix. DVT prophylaxis: Lovenox Discharge Planning 07/07: Per CM patient is looking at placement close to his grandson in [place]. Before a facility can accept for LTC placement, need to ensure patient will qualify for LTC Medicaid. 07/31: [facility]. 08/03: [facility] declined 08/07: [facility] to evaluate for placement. Problem Qualifiers (1) Fever: Qualified Code: R50.9 - Fever, unspecified fever cause (2) Sacral decubitus ulcer: Qualified Code: L89.154 - Decubitus ulcer of sacral region, stage 4 Ashanti Yeboah Aug 31, 2016 11:11
[2016-08-31] MEDS ORDERED: LOPERAMIDE HCL 2 MG CAP PO ONE (15:00)
[2016-08-31 20:00] VITALS: BP 125/72; PULSE 73; RESP 16; TEMP 97.5; O2SAT 98
[2016-09-01] MEDS: MORPHINE SULFATE 30 MG CONTROLLED RELEASE TAB PO SCH ×3 (06:00→21:42)
[2016-09-01] MEDS: oxyCODONE/ACETAMINOPHEN 10 MG/325 MG TAB PO PRN ×4 (06:03→23:44)
[2016-09-01 08:00] VITALS: BP 112/67; PULSE 66; RESP 18; TEMP 97.8; O2SAT 97
[2016-09-01] MEDS: ENOXAPARIN SODIUM 40 MG/0.4 ML SYRINGE SQ SCH (08:51)
[2016-09-01] MEDS: LACTIC ACID (AMMONIUM LACTATE) 12% LOTION 225 GM BTL TOPICAL SCH ×2 (08:52→21:00)
[2016-09-01] MEDS: MULTIVITAMINS/MINERALS THERAPEUTIC TAB PO SCH (08:52)
[2016-09-01] MEDS: FLUTICASONE PROPIONATE 50 MCG/ACT 16 GM NASAL SPRAY NASAL SCH ×2 (08:52→21:44)
[2016-09-01] MEDS: LACTOBACILLUS ACIDOPHILUS TAB PO SCH ×2 (08:52→21:00)
[2016-09-01] MEDS: PANTOPRAZOLE SOD 40 MG DELAYED RELEASE TAB PO SCH (08:52)
[2016-09-01] MEDS: NEOMYCIN/POLYMYXIN/BACITRACIN OINT 15 GM TUBE TOPICAL SCH (08:53)
[2016-09-01] MEDS: COLLAGENASE OINT 30 GM TUBE TOPICAL SCH (08:53)
--- NOTE | 2016-09-01 10:13 | HHI.PR ---
Subjective Remarks Follow-up for decubitus ulcers, UTI, stomach cramps. Patient denies any fevers or chills overnight. He states the Imodium helped yesterday and he had less cramps and less rapid bowel movements. Objective Vitals Vital Signs Date Time Temp Pulse Resp B/P Pulse Ox O2 Delivery O2 Flow Rate FiO2 09/01/16 08:00 97.8 66 18 112/67 97 08/31/16 20:00 97.5 73 16 125/72 98 I/O 08/31/16 08/31/16 08/31/16 09/01/16 09/01/16 09/01/16 07:00 15:00 23:00 07:00 15:00 23:00 Intake Total 120 ml 360 ml 240 ml 120 ml Output Total 200 ml 200 ml 100 ml 100 ml Balance -80 ml 160 ml 140 ml 20 ml Intake Oral 120 ml 360 ml 240 ml 120 ml Output Urine Total 200 ml 200 ml 100 ml 100 ml # Bowel Movements 1 0 Result Diagram: 08/30/16171708/30/161717 Objective Remarks GENERAL: Well-developed male in no apparent distress. CARDIOVASCULAR: Regular rate and rhythm. RESPIRATORY: No accessory muscle use. Clear to auscultation. Breath sounds equal bilaterally. GASTROINTESTINAL: Normoactive bowel sounds. Abdomen soft, non-tender, nondistended. NEUROLOGICAL: Awake and alert. Normal speech. PSYCHIATRIC: Normal mood and affect. Sediment in catheter tubing, concentrated yellow urine in Morse bag. Procedures none Urinary Catheter: Yes Assessment to: Continue Morse insert reason: Stage III/IV Press Ulcer Date of Insertion: Aug 30, 2016 Vascular Central Line Catheter: No A/P Problem List: (1) Fever ICD Code: R50.9 Status: Resolved (2) Sacral decubitus ulcer ICD Code: L89.159 Status: Chronic (3) UTI (urinary tract infection) ICD Code: N39.0 Status: Resolved (4) Sepsis ICD Code: A41.9 Status: Resolved (5) Hypokalemia ICD Code: E87.6 Status: Acute Assessment and Plan Fever: Resolved. Temp 101 on 08/30. Afebrile since. CBC with normal with blood cell count. Blood cultures 2; no growth to date. Alkaline phosphatase mildly elevated at 136, but CMP otherwise unremarkable. Morse was changed 08/30 prior to obtaining urine sample to decrease contamination. UA reveals infection. See below. Abdominal cramps: Persistent. Complains again of stomach upset/cramps with eating. Afebrile. No pain on exam. Patient states he takes Imodium at home for this. Patient refusing probiotic. -Patient no longer has infection. One time dose of Lomotil provided mild improvement yesterday per patient. Discussed with Dr. Quinn. One time dose of Imodium 4 mg helped yesterday. -Nursing to document percentage of meals eaten. -Hold Colace. -RN advised to monitor consistency of BMs and alert me if patient has watery stools. Clostridium difficile infection: Recurrent, treated. Completed Flagyl 08/16/16. 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 Morse replaced. I contacted ID who agreed that if patient is asymptomatic, no antibiotics are necessary, only catheter change which was performed. Morse was changed 08/30 prior to obtaining urine sample to decrease contamination; UA with infection. 09/01: Final urine culture with Proteus and Morganella. Susceptibility report and m.i.c. reviewed. Ceftriaxone was ordered but patient refuses IV antibiotics. He will only take oral. Cipro 500 mg by mouth every 12 hours ordered. Continue Lactinex. Stage IV sacral decubitus: Wound care physician/RN following. Continue wound vac Patient refused diverting colostomy for management Reposition every 2 hours and PRN for comfort. R ischial ulcer, unstageable: Cleanse with normal saline only and apply Santyl kareem thick coverage and cover with dry cover dressing, change daily. Santyl ordered. Abrasion L abdomen: shearing from vac tubing. Nurse instructed to apply antibiotic ointment, Telfa, and gauze padding to the area to avoid further friction. Chronic pain: -Continue patient's outpatient medications to include Oramorph 30 mg 3 times daily and Percocet 10, every 6 hours as needed for pain -The above regimen was confirmed by E force review and printed out and placed on patient's chart -Continue PT Anemia: Hemoglobin stable Hyperglycemia: Resolved likely related to infection. HgbA1c 5.2. Hypertension: Monitor and add medication if needed. Controlled. GI prophylaxis: Refusing Colace and Protonix. DVT prophylaxis: Lovenox Discharge Planning 07/07: Per CM patient is looking at placement close to his grandson in [place]. Before a facility can accept for LTC placement, need to ensure patient will qualify for LTC Medicaid. 07/31: [facility]. 08/[facility]: [facility] declined 08/07: [facility] for [facility]. Problem Qualifiers (1) Fever: Qualified Code: R50.9 - Fever, unspecified fever cause (2) Sacral decubitus ulcer: Qualified Code: L89.154 - Decubitus ulcer of sacral region, stage 4 Ashanti Yeboah Sep 01, 2016 10:13
[2016-09-01] MEDS ORDERED: cefTRIAXone INJ 1,000 MG in SODIUM CHLORIDE 0.9% INJ 100 ML IV SCH (17:00)
[2016-09-01 19:15] VITALS: BP 142/75; PULSE 92; RESP 18; TEMP 98.3; O2SAT 96
[2016-09-01] MEDS: CIPROFLOXACIN 500 MG TAB PO SCH (21:00)
[2016-09-02] MEDS: MORPHINE SULFATE 30 MG CONTROLLED RELEASE TAB PO SCH ×3 (05:50→22:06)
[2016-09-02 08:00] VITALS: BP 122/75; PULSE 73; RESP 18; TEMP 98.2; O2SAT 95
[2016-09-02] MEDS: FLUTICASONE PROPIONATE 50 MCG/ACT 16 GM NASAL SPRAY NASAL SCH ×2 (08:36→21:21)
[2016-09-02] MEDS: ENOXAPARIN SODIUM 40 MG/0.4 ML SYRINGE SQ SCH (08:36)
[2016-09-02] MEDS: NEOMYCIN/POLYMYXIN/BACITRACIN OINT 15 GM TUBE TOPICAL SCH (08:37)
[2016-09-02] MEDS: LACTIC ACID (AMMONIUM LACTATE) 12% LOTION 225 GM BTL TOPICAL SCH ×2 (08:37→21:00)
[2016-09-02] MEDS: MULTIVITAMINS/MINERALS THERAPEUTIC TAB PO SCH (08:37)
[2016-09-02] MEDS: CIPROFLOXACIN 500 MG TAB PO SCH (08:37)
[2016-09-02] MEDS: LACTOBACILLUS ACIDOPHILUS TAB PO SCH (08:37)
[2016-09-02] MEDS: PANTOPRAZOLE SOD 40 MG DELAYED RELEASE TAB PO SCH (08:37)
[2016-09-02] MEDS: COLLAGENASE OINT 30 GM TUBE TOPICAL SCH (08:38)
[2016-09-02] MEDS: oxyCODONE/ACETAMINOPHEN 10 MG/325 MG TAB PO PRN ×3 (08:46→21:21)
--- NOTE | 2016-09-02 11:53 | HHI.PR ---
Subjective Remarks Follow-up for decubitus ulcers, UTI, stomach cramps. Patient denies any fevers or chills overnight. Patient states his stomach is better and he was able to eat dinner last night. He did not receive any Imodium yesterday. Patient refuses the Lactinex and Cipro as well as multiple other medications. Objective Vitals Vital Signs Date Time Temp Pulse Resp B/P Pulse Ox O2 Delivery O2 Flow Rate FiO2 09/02/16 08:00 98.2 73 18 122/75 95 09/01/16 19:15 98.3 92 18 142/75 96 I/O 09/01/16 09/01/16 09/01/16 09/02/16 09/02/16 09/02/16 07:00 15:00 23:00 07:00 15:00 23:00 Intake Total 120 ml 0 ml 360 ml 360 ml Output Total 100 ml 300 ml 350 ml Balance 20 ml 0 ml 60 ml 10 ml Intake Oral 120 ml 360 ml 360 ml IV Total 0 ml Output Urine Total 100 ml 300 ml 350 ml # Bowel Movements 0 Result Diagram: 08/30/16 1718 08/30/161717 Objective Remarks GENERAL: Well-developed male in no apparent distress. CARDIOVASCULAR: Regular rate and rhythm. RESPIRATORY: No accessory muscle use. Clear to auscultation. Breath sounds equal bilaterally. GASTROINTESTINAL: Abdomen soft, non-tender, nondistended. NEUROLOGICAL: Awake and alert. Normal speech. PSYCHIATRIC: Normal mood and affect. Sediment in catheter tubing. Procedures none Urinary Catheter: Yes Assessment to: Continue Morse insert reason: Stage III/IV Press Ulcer Date of Insertion: Aug 30, 2016 Vascular Central Line Catheter: No A/P Problem List: (1) Fever ICD Code: R50.9 Status: Resolved (2) Sacral decubitus ulcer ICD Code: L89.159 Status: Chronic (3) UTI (urinary tract infection) ICD Code: N39.0 Status: Resolved (4) Sepsis ICD Code: A41.9 Status: Resolved (5) Hypokalemia ICD Code: E87.6 Status: Acute Assessment and Plan Fever: Resolved. Temp 101 on 08/30. Afebrile since. CBC with normal with blood cell count. Blood cultures 2; no growth to date. Alkaline phosphatase mildly elevated at 136, but CMP otherwise unremarkable. Morse was changed 08/30 prior to obtaining urine sample to decrease contamination. UA reveals infection. See below. Abdominal cramps: Improved. Complains of stomach upset/cramps with eating. Afebrile. No pain on exam. Patient states he takes Imodium at home for this. Patient refusing probiotic. -Patient no longer has infection. One time dose of Lomotil provided mild improvement and one time dose of Imodium also helped, but patient wasn't given either yesterday and states his stomach feels better. -Nursing to document percentage of meals eaten. -Hold Colace. -RN advised to monitor consistency of BMs and alert me if patient has watery stools. Clostridium difficile infection: Recurrent, treated. Completed Flagyl 08/16/16. Discontinued probiotic as patient refuses to take this although it was explained to him why it is important. 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 Morse replaced. I contacted ID who agreed that if patient is asymptomatic, no antibiotics are necessary, only catheter change which was performed. Morse was changed 08/30 prior to obtaining urine sample to decrease contamination; UA with infection. Final urine culture with Proteus and Morganella. Susceptibility report and m.i.c. reviewed. Ceftriaxone was ordered but patient refuses IV antibiotics. He will only take oral. Cipro 500 mg by mouth every 12 hours ordered but patient refuses to take this. Will discontinue. He remains afebrile. Stage IV sacral decubitus: Wound care physician/RN following. Continue wound vac Patient refused diverting colostomy for management Reposition every 2 hours and PRN for comfort. R ischial ulcer, unstageable: Cleanse with normal saline only and apply Santyl kareem thick coverage and cover with dry cover dressing, change daily. Santyl ordered. Abrasion L abdomen: shearing from vac tubing. Nurse instructed to apply antibiotic ointment, Telfa, and gauze padding to the area to avoid further friction. Chronic pain: -Continue patient's outpatient medications to include Oramorph 30 mg 3 times daily and Percocet 10, every 6 hours as needed for pain -The above regimen was confirmed by E force review and printed out and placed on patient's chart -Continue PT Anemia: Hemoglobin stable Hyperglycemia: Resolved likely related to infection. HgbA1c 5.2. Hypertension: Monitor and add medication if needed. Controlled. GI prophylaxis: Refusing Colace and Protonix. DVT prophylaxis: Lovenox Discharge Planning 07/07: Per CM patient is looking at placement close to his grandson in [place]. Before a facility can accept for LTC placement, need to ensure patient will qualify for LTC Medicaid. 07/31: [facility]. [facility]: [facility] declined 08/07: [facility] to evaluate for placement. Problem Qualifiers (1) Fever: Qualified Code: R50.9 - Fever, unspecified fever cause (2) Sacral decubitus ulcer: Qualified Code: L89.154 - Decubitus ulcer of sacral region, stage 4 Ashanti Yeboah Sep 02, 2016 11:53
[2016-09-02 19:15] VITALS: BP 151/80; PULSE 101; RESP 20; TEMP 100.3; O2SAT 95
[2016-09-03] MEDS: oxyCODONE/ACETAMINOPHEN 10 MG/325 MG TAB PO PRN ×4 (03:24→21:34)
[2016-09-03] MEDS: MORPHINE SULFATE 30 MG CONTROLLED RELEASE TAB PO SCH ×3 (05:52→21:33)
[2016-09-03 08:00] VITALS: BP 140/86; PULSE 83; RESP 20; TEMP 97.9; O2SAT 96
[2016-09-03] MEDS: FLUTICASONE PROPIONATE 50 MCG/ACT 16 GM NASAL SPRAY NASAL SCH ×2 (08:10→21:00)
[2016-09-03] MEDS: NEOMYCIN/POLYMYXIN/BACITRACIN OINT 15 GM TUBE TOPICAL SCH (08:11)
[2016-09-03] MEDS: COLLAGENASE OINT 30 GM TUBE TOPICAL SCH (08:11)
[2016-09-03] MEDS: MULTIVITAMINS/MINERALS THERAPEUTIC TAB PO SCH (08:11)
[2016-09-03] MEDS: LACTIC ACID (AMMONIUM LACTATE) 12% LOTION 225 GM BTL TOPICAL SCH ×2 (08:11→21:33)
[2016-09-03] MEDS: PANTOPRAZOLE SOD 40 MG DELAYED RELEASE TAB PO SCH (08:11)
[2016-09-03] MEDS: ENOXAPARIN SODIUM 40 MG/0.4 ML SYRINGE SQ SCH (08:12)
--- NOTE | 2016-09-03 11:59 | HHI.PR ---
Subjective Remarks Follow-up for decubitus ulcers, UTI, stomach cramps. RN informed me the patient had a temp of 100.3 last night. The patient denies having chills at that time. He states he has no bladder symptoms. He still refuses antibiotics. He will only take them if he has persistent fevers. Patient's stomach upset has improved and he is able to tolerate eating better now. Objective Vitals Vital Signs Date Time Temp Pulse Resp B/P Pulse Ox O2 Delivery O2 Flow Rate FiO2 09/03/16 08:00 97.9 83 20 140/86 96 09/02/16 19:15 100.3 101 20 151/80 95 I/O 09/02/16 09/02/16 09/02/16 09/03/16 09/03/16 09/03/16 07:00 15:00 23:00 07:00 15:00 23:00 Intake Total 360 ml 360 ml Output Total 350 ml 400 ml Balance 10 ml -40 ml Intake Oral 360 ml 360 ml Output Urine Total 350 ml 400 ml Result Diagram: 08/30/16171708/30/161717 Objective Remarks GENERAL: Well-developed male in no apparent distress. CARDIOVASCULAR: Regular rate and rhythm. RESPIRATORY: No accessory muscle use. Clear to auscultation. Breath sounds equal bilaterally. GASTROINTESTINAL: Subtle bowel sounds. Abdomen soft, non-tender, nondistended. NEUROLOGICAL: Awake and alert. Normal speech. PSYCHIATRIC: Normal mood and affect. Procedures none Urinary Catheter: Yes Assessment to: Continue Morse insert reason: Stage III/IV Press Ulcer Date of Insertion: Aug 30, 2016 Vascular Central Line Catheter: No A/P Problem List: (1) Fever ICD Code: R50.9 Status: Resolved (2) Sacral decubitus ulcer ICD Code: L89.159 Status: Chronic (3) UTI (urinary tract infection) ICD Code: N39.0 Status: Resolved (4) Sepsis ICD Code: A41.9 Status: Resolved (5) Hypokalemia ICD Code: E87.6 Status: Acute Assessment and Plan Fever: Resolved. Temp 101 on 08/30. Afebrile since. CBC with normal with blood cell count. Blood cultures 2; no growth to date. Alkaline phosphatase mildly elevated at 136, but CMP otherwise unremarkable. Morse was changed 08/30 prior to obtaining urine sample to decrease contamination. UA reveals infection. See below. Abdominal cramps: Improved. Complains of stomach upset/cramps with eating. Afebrile. No pain on exam. Patient states he takes Imodium at home for this. Patient refusing probiotic. -Patient no longer has infection. One time dose of Lomotil provided mild improvement and one time dose of Imodium also helped, but patient wasn't given either in the last 3 days and states his stomach feels better. -Nursing to document percentage of meals eaten. -Hold Colace. -RN advised to monitor consistency of BMs and alert me if patient has watery stools. Clostridium difficile infection: Recurrent, treated. Completed Flagyl 08/16/16. Discontinued probiotic as patient refuses to take this although it was explained to him why it is important. 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 Morse replaced. I contacted ID who agreed that if patient is asymptomatic, no antibiotics are necessary, only catheter change which was performed. Morse was changed 08/30 prior to obtaining urine sample to decrease contamination; UA with infection. Final urine culture with Proteus and Morganella. Susceptibility report and m.i.c. reviewed. Ceftriaxone was ordered but patient refuses IV antibiotics. He will only take oral. Cipro 500 mg by mouth every 12 hours ordered but patient refuses to take this. Temp of 100.3 last night but afebrile this morning without administration of antipyretics. Patient still refuses antibiotics and will only take if persistent fevers. He remains asymptomatic. Stage IV sacral decubitus: Wound care physician/RN following. Continue wound vac Patient refused diverting colostomy for management Reposition every 2 hours and PRN for comfort. R ischial ulcer, unstageable: Cleanse with normal saline only and apply Santyl kareem thick coverage and cover with dry cover dressing, change daily. Santyl ordered. Abrasion L abdomen: shearing from vac tubing. Nurse instructed to apply antibiotic ointment, Telfa, and gauze padding to the area to avoid further friction. Chronic pain: -Continue patient's outpatient medications to include Oramorph 30 mg 3 times daily and Percocet 10, every 6 hours as needed for pain -The above regimen was confirmed by E force review and printed out and placed on patient's chart -Continue PT Anemia: Hemoglobin stable Hyperglycemia: Resolved likely related to infection. HgbA1c 5.2. Hypertension: Monitor and add medication if needed. Controlled. GI prophylaxis: Refusing Colace and Protonix. DVT prophylaxis: Lovenox Discharge Planning 07/07: Per CM patient is looking at placement close to his grandson in [place]. Before a facility can accept for LTC placement, need to ensure patient will qualify for LTC Medicaid. 07/31: [facility]. 08/03: [facility] and [facility] declined 08/07: [facility] to evaluate for placement. Problem Qualifiers (1) Fever: Qualified Code: R50.9 - Fever, unspecified fever cause (2) Sacral decubitus ulcer: Qualified Code: L89.154 - Decubitus ulcer of sacral region, stage 4 Ashanti Yeboah Sep 03, 2016 11:59
[2016-09-03] MEDS: CALCIUM CARBONATE 500 MG CHEWABLE TAB CHEW PRN (18:42)
[2016-09-03 21:31] VITALS: BP 130/77; PULSE 80; RESP 20; TEMP 98.9; O2SAT 96
[2016-09-04] MEDS: MORPHINE SULFATE 30 MG CONTROLLED RELEASE TAB PO SCH ×3 (05:17→22:04)
[2016-09-04] MEDS: oxyCODONE/ACETAMINOPHEN 10 MG/325 MG TAB PO PRN ×3 (06:57→20:15)
[2016-09-04 07:15] VITALS: BP 118/72; PULSE 76; RESP 18; TEMP 98; O2SAT 98
[2016-09-04] MEDS: LACTIC ACID (AMMONIUM LACTATE) 12% LOTION 225 GM BTL TOPICAL SCH ×2 (09:00→20:17)
[2016-09-04] MEDS: FLUTICASONE PROPIONATE 50 MCG/ACT 16 GM NASAL SPRAY NASAL SCH ×2 (09:00→20:16)
[2016-09-04] MEDS: MULTIVITAMINS/MINERALS THERAPEUTIC TAB PO SCH (09:00)
[2016-09-04] MEDS: PANTOPRAZOLE SOD 40 MG DELAYED RELEASE TAB PO SCH (09:00)
[2016-09-04] MEDS: NEOMYCIN/POLYMYXIN/BACITRACIN OINT 15 GM TUBE TOPICAL SCH (09:00)
[2016-09-04] MEDS: COLLAGENASE OINT 30 GM TUBE TOPICAL SCH (09:00)
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
[2016-09-04] MEDS: ENOXAPARIN SODIUM 40 MG/0.4 ML SYRINGE SQ SCH (11:00)
[2016-09-04 20:00] VITALS: BP 114/68; PULSE 98; RESP 16; TEMP 98; O2SAT 94
[2016-09-04] MEDS: hydrOXYzine HCL 25 MG TAB PO PRN (20:14)
[2016-09-05] MEDS: oxyCODONE/ACETAMINOPHEN 10 MG/325 MG TAB PO PRN ×4 (02:03→20:36)
[2016-09-05] MEDS: MORPHINE SULFATE 30 MG CONTROLLED RELEASE TAB PO SCH ×3 (05:51→21:46)
[2016-09-05 08:00] VITALS: BP 101/68; PULSE 75; RESP 18; TEMP 97.9; O2SAT 96
[2016-09-05] MEDS: PANTOPRAZOLE SOD 40 MG DELAYED RELEASE TAB PO SCH (08:19)
[2016-09-05] MEDS: MULTIVITAMINS/MINERALS THERAPEUTIC TAB PO SCH (08:19)
[2016-09-05] MEDS: ENOXAPARIN SODIUM 40 MG/0.4 ML SYRINGE SQ SCH (08:19)
[2016-09-05] MEDS: FLUTICASONE PROPIONATE 50 MCG/ACT 16 GM NASAL SPRAY NASAL SCH ×2 (08:19→20:38)
[2016-09-05] MEDS: LACTIC ACID (AMMONIUM LACTATE) 12% LOTION 225 GM BTL TOPICAL SCH ×2 (08:20→20:38)
[2016-09-05] MEDS: COLLAGENASE OINT 30 GM TUBE TOPICAL SCH (08:20)
[2016-09-05] MEDS: NEOMYCIN/POLYMYXIN/BACITRACIN OINT 15 GM TUBE TOPICAL SCH (08:20)
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
[2016-09-05 20:00] VITALS: BP 156/96; PULSE 98; RESP 16; TEMP 99; O2SAT 96
[2016-09-05] MEDS: LACTOBACILLUS ACIDOPHILUS TAB PO SCH (20:36)
[2016-09-05] MEDS: hydrOXYzine HCL 25 MG TAB PO PRN (20:39)
[2016-09-06] MEDS: oxyCODONE/ACETAMINOPHEN 10 MG/325 MG TAB PO PRN ×4 (02:29→21:03)
[2016-09-06] MEDS: MORPHINE SULFATE 30 MG CONTROLLED RELEASE TAB PO SCH ×3 (05:50→22:00)
[2016-09-06 08:00] VITALS: BP 130/77; PULSE 85; RESP 17; TEMP 97.6; O2SAT 96
[2016-09-06] MEDS: LACTOBACILLUS ACIDOPHILUS TAB PO SCH ×2 (08:48→21:03)
[2016-09-06] MEDS: ENOXAPARIN SODIUM 40 MG/0.4 ML SYRINGE SQ SCH (08:50)
[2016-09-06] MEDS: LACTIC ACID (AMMONIUM LACTATE) 12% LOTION 225 GM BTL TOPICAL SCH ×2 (09:00→21:04)
[2016-09-06] MEDS: NEOMYCIN/POLYMYXIN/BACITRACIN OINT 15 GM TUBE TOPICAL SCH (09:00)
[2016-09-06] MEDS: PANTOPRAZOLE SOD 40 MG DELAYED RELEASE TAB PO SCH (09:00)
[2016-09-06] MEDS: COLLAGENASE OINT 30 GM TUBE TOPICAL SCH (09:00)
[2016-09-06] MEDS: MULTIVITAMINS/MINERALS THERAPEUTIC TAB PO SCH (09:00)
[2016-09-06] MEDS: FLUTICASONE PROPIONATE 50 MCG/ACT 16 GM NASAL SPRAY NASAL SCH ×2 (09:00→21:04)
--- NOTE | 2016-09-06 11:37 | HHI.PR ---
Subjective Remarks Patient seen and examined today for follow-up on sacral wounds. Patient was seen with granddaughter at bedside. She was also in room during wound care nurse evaluation and management. Discussed grandfathers care with her extensively. Notified her of increased wounds from him using care with turning in the bed. Notified her of his medication noncompliance with medication refusal. Objective Vitals Vital Signs Date Time Temp Pulse Resp B/P Pulse Ox O2 Delivery O2 Flow Rate FiO2 09/06/16 08:00 97.6 85 17 130/77 96 09/05/16 20:00 99.0 98 16 156/96 96 I/O 09/05/16 09/05/16 09/05/16 09/06/16 09/06/16 09/06/16 07:00 15:00 23:00 07:00 15:00 23:00 Intake Total 120 ml 360 ml 220 ml 220 ml Output Total 200 ml 150 ml 150 ml 400 ml Balance -80 ml 210 ml 70 ml -180 ml Intake Oral 120 ml 360 ml 220 ml 220 ml Output Urine Total 200 ml 150 ml 150 ml 400 ml # Voids 1 # Bowel Movements 0 1 0 Objective Remarks GENERAL: Well-developed, well-nourished, in no acute distress. alert and orientated HEENT: Head is normocephalic without any lesions or masses noted. Facial features are symmetric. Eyes: Extraocular muscles are intact. Conjunctivae were clear. NECK: Supple without any masses. Trachea midline no deviation. No JVD, CARDIAC: Regular rhythm, regular rate. S1/S2 are heard. No murmurs gallops or rubs. LUNGS: Clear to auscultation bilaterally. No wheeze, rhonchi or rales. No use of accessory muscles on inspiration or expiration. ABDOMEN: Soft, nontender. Nondistended. Bowel sounds heard in all 4 quadrants. No organomegaly or masses. Negative rebound, negative guarding EXTREMITIES: No edema, pulses are equal bilaterally. No cyanosis or clubbing NEUROLOGY: Mood and affect appear appropriate. Cranial nerves II through XII grossly intact. Moving upper extremities. Strength 5/5 SACRAL AREA: Patient does have wound VAC in place RIGHT THIGH: Graft area does have some mild flaking of skin. No fluctuations, excoriations, maybe some maceration from him having a covered all the time. No signs of infection. Procedures none Urinary Catheter: Yes Assessment to: Continue Morse insert reason: Stage III/IV Press Ulcer Date of Insertion: Aug 30, 2016 Vascular Central Line Catheter: No A/P Assessment and Plan Stage IV sacral decubitus: Wound care physician Dr. Garcia evaluated patient and indicated local wound care Wound care team nurse following. Recommend to continue current treatment of Dakins solution soaked gauze, lightly fluffed, and gently placed into wound bed to allow for tissue growth. Plastic surgery evaluated patient and recommending wound VAC placement. Orders have been given. Reposition every 2 hours and PRN for comfort. Patient refused diverting colostomy for management Wound VAC in place. Wound care has been reconsulted. Apparently family is inquisitive about the patient's wound management and requested be present during Care evaluation. Right ischial ulcer Appears that wound VAC has been applied to that area. Wound care nurse is managing the wounds Left hip skin tear Bandage at this time, wound care is following the patient for other wounds Right thigh maceration Bandage on it this time. 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 Documentation indicates that infectious disease was contacted and indicated that the patient is asymptomatic no treatment is necessary at this time. Only catheter changes necessary. 08/30/16, patient had one fever, urinalysis performed which did show culture with Proteus mirabilis, Morganella morganii. Patient was started on Cipro, Rocephin, however, patient has refused medications. He has not had any recurrent fever or signs of sepsis or infection despite urinary tract infection findings. Chronic pain: -Continue patient's outpatient medications to include Oramorph 30 mg 3 times daily and Percocet 10, every 6 hours as needed for pain -The above regimen was confirmed by E force review and printed out and placed on patient's chart -Continue PT Anemia: Hemoglobin stable Hyperglycemia: Resolved likely related to infection. HgbA1c 5.2. Hypertension: Monitor and add medication if needed. Controlled. DVT prophylaxis: Lovenox Discharge Planning Case management for discharge planning. Patient has completed his treatment for C. difficile on 08/15/16. Patient can be discharged to [facility] facility once arrangements made by case management Jp Keith Sep 06, 2016 11:37
[2016-09-06 20:00] VITALS: BP 98/67; PULSE 89; RESP 20; TEMP 99.2; O2SAT 96
[2016-09-07] MEDS: oxyCODONE/ACETAMINOPHEN 10 MG/325 MG TAB PO PRN ×4 (02:57→21:16)
[2016-09-07] MEDS: MORPHINE SULFATE 30 MG CONTROLLED RELEASE TAB PO SCH ×3 (06:11→21:15)
--- NOTE | 2016-09-07 08:33 | HHI.GIFU ---
Subjective Remarks less abdominal pain, no GI bleed, Objective Vitals I&O Vital Signs Date Time Temp Pulse Resp B/P Pulse Ox O2 Delivery O2 Flow Rate FiO2 09/07/16 03:57 16 09/06/16 23:00 16 09/06/16 20:00 99.2 89 20 98/67 96 I/O 09/06/16 09/06/16 09/06/16 09/07/16 09/07/16 09/07/16 07:00 15:00 23:00 07:00 15:00 23:00 Intake Total 220 ml 360 ml 240 ml 360 ml Output Total 400 ml 200 ml 400 ml 50 ml Balance -180 ml 160 ml -160 ml 310 ml Intake Oral 220 ml 360 ml 240 ml 360 ml Output Urine Total 400 ml 200 ml 400 ml 50 ml # Bowel Movements 0 0 0 0 Physical Exam HEENT: Pupils round and reactive to light; normocephalic; atraumatic; no jaundice. Throat is clear. NECK: Neck is supple, no JVD, no lymphadenopathy. CHEST: Chest is clear to auscultation and percussion. CARDIAC: Regular rate and rhythm with no murmur gallop or rubs. ABDOMEN: Soft, nondistended, mild tenderness ; no hepatosplenomegaly; bowel sounds are present in all four quadrants. EXTREMITIES: No clubbing, cyanosis, or edema. SKIN: Normal; no rash; no jaundice. decub Assessment and Plan Assessment: (1) Abdominal cramping (2) C. difficile colitis (3) Frequent bowel movements Plan This is an 86 year old male with a prolong hospitalization, sepsis, infected decubitis ulcers with C/O of abdominal cramping with eating and BM's occurring rapidly after eating which are chronic issues for him. Could be a degree of irritable bowel syndrome, could be residual colitis form C-diff infection. He refuses a colonoscopy, discussed Probiotics and he is agreeable. 09-07-16 doing better, minimal abdominal discomfort, today refusing any w/u Plan -Add Probiotics -Diet as tolerated -Supportive care - No GI procedures indicated at this time, patient refused colonoscopy we will sign off. Joyce Arriaza MD Sep 07, 2016 08:33
[2016-09-07] MEDS: PANTOPRAZOLE SOD 40 MG DELAYED RELEASE TAB PO SCH (09:09)
[2016-09-07] MEDS: LACTOBACILLUS ACIDOPHILUS TAB PO SCH ×2 (09:09→21:17)
[2016-09-07] MEDS: FLUTICASONE PROPIONATE 50 MCG/ACT 16 GM NASAL SPRAY NASAL SCH ×2 (09:09→21:18)
[2016-09-07] MEDS: MULTIVITAMINS/MINERALS THERAPEUTIC TAB PO SCH (09:09)
[2016-09-07] MEDS: ENOXAPARIN SODIUM 40 MG/0.4 ML SYRINGE SQ SCH (09:11)
[2016-09-07] MEDS: LACTIC ACID (AMMONIUM LACTATE) 12% LOTION 225 GM BTL TOPICAL SCH ×2 (09:14→21:00)
[2016-09-07] MEDS: NEOMYCIN/POLYMYXIN/BACITRACIN OINT 15 GM TUBE TOPICAL SCH (09:18)
[2016-09-07 09:45] VITALS: BP 114/65; PULSE 78; RESP 16; TEMP 98.5; O2SAT 98
[2016-09-07] MEDS: COLLAGENASE OINT 30 GM TUBE TOPICAL SCH (09:46)
--- NOTE | 2016-09-07 11:37 | HHI.PR ---
Subjective Remarks Patient seen and examined today for follow-up on sacral decubitus, weakness. Patient states still having some mild discomfort in his abdomen. Did discuss the case with codifier to indicates that workup is unremarkable from a GI standpoint that they will be signing off. Reconsult if needed. Notified patient that this could be related to his urinary tract infection considering his urine is significantly discolored with cloudiness. However, patient still does not want to take any antibiotics at this time. He Is deferring management. Objective Vitals Vital Signs Date Time Temp Pulse Resp B/P Pulse Ox O2 Delivery O2 Flow Rate FiO2 09/07/16 09:45 98.5 78 16 114/65 98 09/07/16 03:57 16 09/06/16 23:00 16 09/06/16 20:00 99.2 89 20 98/67 96 I/O 09/06/16 09/06/16 09/06/16 09/07/16 09/07/16 09/07/16 07:00 15:00 23:00 07:00 15:00 23:00 Intake Total 220 ml 360 ml 240 ml 360 ml Output Total 400 ml 200 ml 400 ml 50 ml Balance -180 ml 160 ml -160 ml 310 ml Intake Oral 220 ml 360 ml 240 ml 360 ml Output Urine Total 400 ml 200 ml 400 ml 50 ml # Bowel Movements 0 0 0 0 Objective Remarks GENERAL: Well-developed, well-nourished, in no acute distress. alert and orientated HEENT: Head is normocephalic without any lesions or masses noted. Facial features are symmetric. Eyes: Extraocular muscles are intact. Conjunctivae were clear. NECK: Supple without any masses. Trachea midline no deviation. No JVD, CARDIAC: Regular rhythm, regular rate. S1/S2 are heard. No murmurs gallops or rubs. LUNGS: Clear to auscultation bilaterally. No wheeze, rhonchi or rales. No use of accessory muscles on inspiration or expiration. ABDOMEN: Soft, nontender. Nondistended. Bowel sounds heard in all 4 quadrants. No organomegaly or masses. Negative rebound, negative guarding EXTREMITIES: No edema, pulses are equal bilaterally. No cyanosis or clubbing NEUROLOGY: Mood and affect appear appropriate. Cranial nerves II through XII grossly intact. Moving upper extremities. Strength 5/5 SACRAL AREA: Patient does have wound VAC in place RIGHT THIGH: Graft area does have some mild flaking of skin. No fluctuations, excoriations, maybe some maceration from him having a covered all the time. No signs of infection. Procedures none Urinary Catheter: Yes Assessment to: Continue Morse insert reason: Stage III/IV Press Ulcer Date of Insertion: Aug 30, 2016 Vascular Central Line Catheter: No A/P Assessment and Plan Stage IV sacral decubitus: Wound care physician Dr. Garcia evaluated patient and indicated local wound care Wound care team nurse following. Recommend to continue current treatment of Dakins solution soaked gauze, lightly fluffed, and gently placed into wound bed to allow for tissue growth. Plastic surgery evaluated patient and recommending wound VAC placement. Orders have been given. Reposition every 2 hours and PRN for comfort. Patient refused diverting colostomy for management Wound VAC in place. Wound care has been reconsulted. Apparently family is inquisitive about the patient's wound management and requested be present during Care evaluation. Right ischial ulcer Appears that wound VAC has been applied to that area. Wound care nurse is managing the wounds Left hip skin tear Bandage at this time, wound care is following the patient for other wounds Right thigh maceration Bandage on it this time. 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 Urine Culture resulted with MRSA S/p antibiotic treatment with Bactrim Changed Morse catheter 08/18/16 08/16/16 culture indicates Morganella morganii, staph aureus, enterococcus faecalis. Documentation indicates that infectious disease was contacted and indicated that the patient is asymptomatic no treatment is necessary at this time. Only catheter changes necessary. 08/30/16, patient had one fever, urinalysis performed which did show culture with Proteus mirabilis, Morganella morganii. Patient was started on Cipro, Rocephin, however, patient continues to refuse antibiotic treatment. He has not had any recurrent fever or signs of sepsis or infection despite urinary tract infection findings. GI was consulted for the abdominal discomfort. It was indicated that there is no GI etiology of his pain. GI signed off and indicated reconsultation if needed Chronic pain: -Continue patient's outpatient medications to include Oramorph 30 mg 3 times daily and Percocet 10, every 6 hours as needed for pain -The above regimen was confirmed by E force review and printed out and placed on patient's chart -Continue PT Anemia: Hemoglobin stable Hyperglycemia: Resolved likely related to infection. HgbA1c 5.2. Hypertension: Monitor and add medication if needed. Controlled. DVT prophylaxis: Lovenox Discharge Planning Case management for discharge planning. Patient has completed his treatment for C. difficile on 08/15/16. Patient can be discharged to [facility] once arrangements made by case management Jp Keith Sep 07, 2016 11:37
[2016-09-07 20:00] VITALS: BP 110/63; PULSE 89; RESP 20; TEMP 99; O2SAT 96
[2016-09-08] MEDS: oxyCODONE/ACETAMINOPHEN 10 MG/325 MG TAB PO PRN ×4 (03:43→21:58)
[2016-09-08] MEDS: MORPHINE SULFATE 30 MG CONTROLLED RELEASE TAB PO SCH ×3 (06:23→21:58)
[2016-09-08 08:00] VITALS: BP 104/73; PULSE 94; RESP 20; TEMP 98.1; O2SAT 96
[2016-09-08] MEDS: FLUTICASONE PROPIONATE 50 MCG/ACT 16 GM NASAL SPRAY NASAL SCH ×2 (09:00→21:59)
[2016-09-08] MEDS: MULTIVITAMINS/MINERALS THERAPEUTIC TAB PO SCH (09:00)
[2016-09-08] MEDS: LACTIC ACID (AMMONIUM LACTATE) 12% LOTION 225 GM BTL TOPICAL SCH ×2 (09:00→21:00)
[2016-09-08] MEDS: PANTOPRAZOLE SOD 40 MG DELAYED RELEASE TAB PO SCH (09:00)
[2016-09-08] MEDS: ENOXAPARIN SODIUM 40 MG/0.4 ML SYRINGE SQ SCH (09:57)
[2016-09-08] MEDS: COLLAGENASE OINT 30 GM TUBE TOPICAL SCH (09:59)
[2016-09-08] MEDS: NEOMYCIN/POLYMYXIN/BACITRACIN OINT 15 GM TUBE TOPICAL SCH (09:59)
[2016-09-08] MEDS: LACTOBACILLUS ACIDOPHILUS TAB PO SCH ×2 (10:11→21:58)
--- NOTE | 2016-09-08 10:46 | HHI.PR ---
Subjective Remarks Patient seen and examined today for follow-up on decubitus ulcers. Patient seen with charge nurse present. Patient still noncompliant with treatment plan. He is not allowing return in bed. Contributing to worsening ulcerations and new wounds. He is refusing to take medications. He was diagnosed with urinary tract infection and he refuses to take any antibiotics. However he continues to complain of abdominal discomfort after having GI workup performed and there is no etiology for his GI complaints. Likely secondary to complicated urinary tract infection with Morse catheter. However as previous stated patient refusing taking antibiotics as he does not feel as if he has an infection. Patient counseled extensively on multiple occasions that he needs to comply with medical management or he will not improve and he will only progressively get worse. The patient understood the conversation at the time. Patient's only concern is that he gets his pain medication on time. He is counting it down to the second, when it is documented on the board. If he does not get it exactly on time he brings to call bowel, complains to the nursing staff Objective Vitals Vital Signs Date Time Temp Pulse Resp B/P Pulse Ox O2 Delivery O2 Flow Rate FiO2 09/08/16 08:00 98.1 94 20 104/73 96 09/08/16 07:23 18 09/07/16 20:00 99.0 89 20 110/63 96 I/O 09/07/16 09/07/16 09/07/16 09/08/16 09/08/16 09/08/16 07:00 15:00 23:00 07:00 15:00 23:00 Intake Total 360 ml 500 ml 240 ml Output Total 50 ml 100 ml 125 ml Balance 310 ml 400 ml 115 ml Intake Oral 360 ml 500 ml 240 ml IV Total 0 ml Output Urine Total 50 ml 100 ml 125 ml # Bowel Movements 0 0 Objective Remarks GENERAL: Well-developed, well-nourished, in no acute distress. alert and orientated HEENT: Head is normocephalic without any lesions or masses noted. Facial features are symmetric. Eyes: Extraocular muscles are intact. Conjunctivae were clear. NECK: Supple without any masses. Trachea midline no deviation. No JVD, CARDIAC: Regular rhythm, regular rate. S1/S2 are heard. No murmurs gallops or rubs. LUNGS: Clear to auscultation bilaterally. No wheeze, rhonchi or rales. No use of accessory muscles on inspiration or expiration. ABDOMEN: Soft, nontender. Nondistended. Bowel sounds heard in all 4 quadrants. No organomegaly or masses. Negative rebound, negative guarding EXTREMITIES: No edema, pulses are equal bilaterally. No cyanosis or clubbing NEUROLOGY: Mood and affect appear appropriate. Cranial nerves II through XII grossly intact. Moving upper extremities. Strength 5/5 SACRAL AREA: Patient does have wound VAC in place RIGHT THIGH: Graft area does have some mild flaking of skin. No fluctuations, excoriations, maybe some maceration from him having a covered all the time. No signs of infection. Procedures none Urinary Catheter: Yes Assessment to: Continue Morse insert reason: Stage III/IV Press Ulcer Date of Insertion: Aug 30, 2016 Vascular Central Line Catheter: No A/P Assessment and Plan Stage IV sacral decubitus: Wound care physician Dr. Garcia evaluated patient and indicated local wound care Wound care team nurse following. Recommend to continue current treatment of Dakins solution soaked gauze, lightly fluffed, and gently placed into wound bed to allow for tissue growth. Plastic surgery evaluated patient and recommending wound VAC placement. Orders have been given. Reposition every 2 hours and PRN for comfort. However, patient is noncompliant and will not allow to be repositioned Patient refused diverting colostomy for management Wound VAC in place. Wound care has been reconsulted. Apparently family is inquisitive about the patient's wound management and requested be present during Care evaluation. Right ischial ulcer Appears that wound VAC has been applied to that area. Wound care nurse is managing the wounds Due to noncompliance with turning Left hip skin tear Bandage at this time, wound care is following the patient for other wounds Due to noncompliance with turning Right thigh maceration Bandage on it this time. 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 Urine Culture resulted with MRSA S/p antibiotic treatment with Bactrim Changed Morse catheter 08/18/16 08/16/16 culture indicates Morganella morganii, staph aureus, enterococcus faecalis. Documentation indicates that infectious disease was contacted and indicated that the patient is asymptomatic no treatment is necessary at this time. Only catheter changes necessary. 08/30/16, patient had one fever, urinalysis performed which did show culture with Proteus mirabilis, Morganella morganii. Patient was started on Cipro, Rocephin, however, patient continues to refuse antibiotic treatment. He has not had any recurrent fever or signs of sepsis or infection despite urinary tract infection findings. GI was consulted for the abdominal discomfort. It was indicated that there is no GI etiology of his pain. GI signed off and indicated reconsultation if needed Chronic pain: -Continue patient's outpatient medications to include Oramorph 30 mg 3 times daily and Percocet 10, every 6 hours as needed for pain -The above regimen was confirmed by E force review and printed out and placed on patient's chart -Continue PT Anemia: Hemoglobin stable Hyperglycemia: Resolved likely related to infection. HgbA1c 5.2. Hypertension: Monitor and add medication if needed. Controlled. DVT prophylaxis: Lovenox Discharge Planning Case management for discharge planning. Patient has completed his treatment for C. difficile on 08/15/16. [facility] once arrangements made by case management Jp Keith Sep 08, 2016 10:46
[2016-09-08 18:00] LABS: C. DIFF EPI 027 PRESUMPTIVE POSITIVE (NEGATIVE); C. DIFF TOXIN PCR POSITIVE (NEGATIVE)
[2016-09-08 20:00] VITALS: BP 122/64; PULSE 90; RESP 21; TEMP 99.2; O2SAT 95
[2016-09-09] MEDS: MORPHINE SULFATE 30 MG CONTROLLED RELEASE TAB PO SCH ×3 (06:09→21:55)
[2016-09-09] MEDS: oxyCODONE/ACETAMINOPHEN 10 MG/325 MG TAB PO PRN ×3 (06:09→19:09)
[2016-09-09 08:00] VITALS: BP 108/73; PULSE 77; RESP 18; TEMP 97.3; O2SAT 98
[2016-09-09] MEDS: ENOXAPARIN SODIUM 40 MG/0.4 ML SYRINGE SQ SCH (08:13)
[2016-09-09] MEDS: LACTOBACILLUS ACIDOPHILUS TAB PO SCH ×2 (08:13→21:47)
[2016-09-09] MEDS: NEOMYCIN/POLYMYXIN/BACITRACIN OINT 15 GM TUBE TOPICAL SCH (08:14)
[2016-09-09] MEDS: FLUTICASONE PROPIONATE 50 MCG/ACT 16 GM NASAL SPRAY NASAL SCH ×2 (08:14→21:47)
[2016-09-09] MEDS: COLLAGENASE OINT 30 GM TUBE TOPICAL SCH (08:14)
[2016-09-09] MEDS: LACTIC ACID (AMMONIUM LACTATE) 12% LOTION 225 GM BTL TOPICAL SCH ×2 (08:15→21:48)
[2016-09-09] MEDS: PANTOPRAZOLE SOD 40 MG DELAYED RELEASE TAB PO SCH (08:16)
[2016-09-09] MEDS: MULTIVITAMINS/MINERALS THERAPEUTIC TAB PO SCH (08:16)
--- NOTE | 2016-09-09 13:17 | HHI.PR ---
Subjective Remarks Patient seen and examined today for follow-up on a conditioning, skin breakdown , ulceration, wounds. Patient was seen with charge nurse Carina. Patient still mildly cantankerous, discussed with him about talking with his family members concerning his care. He states that he has multiple family members to include daughters, grandchildren in which we can discuss care with. The patient was asked if he would delegate one family member that we can speak with on a regular basis and disperse information out to the rest of the family. Patient is still noncompliant with his diet, turning in bed, taking medications. Patient counseled multiple times on noncompliance. Patient at this time does have loose stools again. Stool was rechecked and he still has C. difficile. We 'll need to start patient on another regimen of medications. I would hope that he would consider taking at this time. Objective Vitals Vital Signs Date Time Temp Pulse Resp B/P Pulse Ox O2 Delivery O2 Flow Rate FiO2 09/09/16 08:00 97.3 77 18 108/73 98 09/09/16 07:09 16 09/09/16 07:09 16 09/08/16 20:00 99.2 90 21 122/64 95 I/O 09/08/16 09/08/16 09/08/16 09/09/16 09/09/16 09/09/16 07:00 15:00 23:00 07:00 15:00 23:00 Intake Total 240 ml 660 ml 120 ml 0 ml Output Total 125 ml 400 ml 350 ml 100 ml Balance 115 ml 260 ml -230 ml -100 ml Intake Oral 240 ml 660 ml 120 ml 0 ml Output Urine Total 125 ml 400 ml 350 ml 100 ml # Bowel Movements 0 1 Objective Remarks GENERAL: Well-developed, well-nourished, in no acute distress. alert and orientated HEENT: Head is normocephalic without any lesions or masses noted. Facial features are symmetric. Eyes: Extraocular muscles are intact. Conjunctivae were clear. NECK: Supple without any masses. Trachea midline no deviation. No JVD, CARDIAC: Regular rhythm, regular rate. S1/S2 are heard. No murmurs gallops or rubs. LUNGS: Clear to auscultation bilaterally. No wheeze, rhonchi or rales. No use of accessory muscles on inspiration or expiration. ABDOMEN: Soft, nontender. Nondistended. Bowel sounds heard in all 4 quadrants. No organomegaly or masses. Negative rebound, negative guarding EXTREMITIES: No edema, pulses are equal bilaterally. No cyanosis or clubbing NEUROLOGY: Mood and affect appear appropriate. Cranial nerves II through XII grossly intact. Moving upper extremities. Strength 5/5 SACRAL AREA: Wound VAC is noted over the left hip area. RIGHT THIGH: Graft area does have some mild flaking of skin. No fluctuations, excoriations, maybe some maceration from him having a covered all the time. No signs of infection. ISCHIAL AREA: Patient does have probably 3 cm annular DVT ulceration with sloughing of skin. SCROTUM: There does appear to be some maceration noted to the inferior posterior aspect of his scrotum with blood noted Procedures none Urinary Catheter: Yes Assessment to: Continue Date of Insertion: Aug 30, 2016 Vascular Central Line Catheter: No A/P Assessment and Plan Stage IV sacral decubitus: Wound care physician Dr. Garcia evaluated patient and indicated local wound care Wound care team nurse following. Recommend to continue current treatment of Dakins solution soaked gauze, lightly fluffed, and gently placed into wound bed to allow for tissue growth. Plastic surgery evaluated patient and recommending wound VAC placement. Orders have been given. Reposition every 2 hours and PRN for comfort. However, patient is noncompliant and will not allow to be repositioned Patient refused diverting colostomy for management Wound VAC in place. Wound care is following the patient. Apparently family is inquisitive about the patient's wound management and requested be present during Care evaluation. Wound care physician has been consulted for recommendations Right ischial ulcer Appears that wound VAC has been applied to that area. Wound care nurse is managing the wounds Due to noncompliance with turning Left hip skin tear Bandage at this time, wound care is following the patient for other wounds Due to noncompliance with turning Right thigh maceration Bandage on it this time. Wound care following the patient Due to noncompliance with turning Clostridium difficile infection: Recurrent Appears patient has undergone at least 3 treatments with by mouth Flagyl Patient has refused cholestyramine previously Continue probiotic Repeat culture shows positive culture again We'll start vancomycin 125 by mouth every 6 hours Consult infectious disease for further recommendations Start cholestyramine if he will take it. 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 Urine Culture resulted with MRSA S/p antibiotic treatment with Bactrim Changed Morse catheter 08/18/16 08/16/16 culture indicates Morganella morganii, staph aureus, enterococcus faecalis. Documentation indicates that infectious disease was contacted and indicated that the patient is asymptomatic no treatment is necessary at this time. Only catheter changes necessary. 08/30/16, patient had one fever, urinalysis performed which did show culture with Proteus mirabilis, Morganella morganii. Patient was started on Cipro, Rocephin, however, patient continues to refuse antibiotic treatment. He has not had any recurrent fever or signs of sepsis or infection despite urinary tract infection findings. GI was consulted for the abdominal discomfort. It was indicated that there is no GI etiology of his pain. GI signed off and indicated reconsultation if needed Chronic pain: -Continue patient's outpatient medications to include Oramorph 30 mg 3 times daily and Percocet 10, every 6 hours as needed for pain -The above regimen was confirmed by E force review and printed out and placed on patient's chart -Continue PT Anemia: Hemoglobin stable Hyperglycemia: Resolved likely related to infection. HgbA1c 5.2. Hypertension: Monitor and add medication if needed. Controlled. DVT prophylaxis: Lovenox Discharge Planning Case management for discharge planning. Jp Keith Sep 09, 2016 13:17
[2016-09-09] MEDS: CHOLESTYRAMINE 4 GM PACKET PO SCH ×2 (14:00→21:47)
[2016-09-09] MEDS: VANCOMYCIN 500 MG VIAL (FOR ORAL USE ONLY) PO SCH ×2 (18:58→21:48)
[2016-09-09 20:00] VITALS: BP 106/68; PULSE 91; RESP 16; TEMP 99.1; O2SAT 95
[2016-09-10] MEDS: oxyCODONE/ACETAMINOPHEN 10 MG/325 MG TAB PO PRN ×4 (01:09→20:49)
[2016-09-10] MEDS: MORPHINE SULFATE 30 MG CONTROLLED RELEASE TAB PO SCH ×3 (06:01→22:04)
[2016-09-10 07:31] LABS: AUTOMATED NEUTROPHIL # 4.4 TH/MM3 (1.8-7.7); BASOPHIL # 0.1 TH/MM3 (0-0.2); BASOPHIL % 1.4 % (0.0-2.0); EOSINOPHIL # 0.6 TH/MM3 (0-0.4); EOSINOPHIL % 7.5 % (0.0-4.0); HEMO FLAGS DIFF FINAL; LYMPH % 24.3 % (9.0-44.0); MEAN CELL VOLUME 82.7 FL (80.0-100.0); MEAN CORPUSCULAR HEMOGLOBIN 27.2 PG (27.0-34.0); MEAN CORPUSCULAR HGB CONC 32.9 % (32.0-36.0); MONO % 11.8 % (0.0-8.0); PLATELET COUNT 460 TH/MM3 (150-450); RED BLOOD COUNT 3.51 MIL/MM3 (4.50-5.90); RED CELL DISTRIBUTION WIDTH 15.8 % (11.6-17.2); WHITE BLOOD COUNT 8.1 TH/MM3 (4.0-11.0)
[2016-09-10 08:00] VITALS: BP 108/76; PULSE 87; RESP 18; TEMP 98.2; O2SAT 97
[2016-09-10 08:42] LABS: POTASSIUM 3.2 MEQ/L (3.5-5.1)
[2016-09-10 08:47] LABS: BICARBONATE 28.5 MEQ/L (21.0-32.0)
[2016-09-10] MEDS: ENOXAPARIN SODIUM 40 MG/0.4 ML SYRINGE SQ SCH (08:56)
[2016-09-10] MEDS: LACTIC ACID (AMMONIUM LACTATE) 12% LOTION 225 GM BTL TOPICAL SCH ×2 (08:57→20:55)
[2016-09-10] MEDS: FLUTICASONE PROPIONATE 50 MCG/ACT 16 GM NASAL SPRAY NASAL SCH ×2 (08:57→20:54)
[2016-09-10] MEDS: hydrOXYzine HCL 25 MG TAB PO PRN (08:58)
[2016-09-10] MEDS: PANTOPRAZOLE SOD 40 MG DELAYED RELEASE TAB PO SCH (08:59)
[2016-09-10] MEDS: COLLAGENASE OINT 30 GM TUBE TOPICAL SCH (09:00)
[2016-09-10] MEDS: VANCOMYCIN 500 MG VIAL (FOR ORAL USE ONLY) PO SCH ×4 (09:00→20:55)
[2016-09-10] MEDS: CHOLESTYRAMINE 4 GM PACKET PO SCH ×2 (09:00→20:54)
[2016-09-10] MEDS: LACTOBACILLUS ACIDOPHILUS TAB PO SCH ×2 (09:00→20:54)
[2016-09-10] MEDS: NEOMYCIN/POLYMYXIN/BACITRACIN OINT 15 GM TUBE TOPICAL SCH (09:00)
[2016-09-10] MEDS: MULTIVITAMINS/MINERALS THERAPEUTIC TAB PO SCH (09:00)
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
[2016-09-10 20:00] VITALS: BP 126/75; PULSE 98; RESP 16; TEMP 98.6; O2SAT 96
[2016-09-11] MEDS: oxyCODONE/ACETAMINOPHEN 10 MG/325 MG TAB PO PRN ×4 (04:00→22:49)
[2016-09-11] MEDS: MORPHINE SULFATE 30 MG CONTROLLED RELEASE TAB PO SCH ×3 (06:52→22:00)
[2016-09-11 08:00] VITALS: BP 118/78; PULSE 65; RESP 18; TEMP 97.6; O2SAT 94
[2016-09-11] MEDS: LACTIC ACID (AMMONIUM LACTATE) 12% LOTION 225 GM BTL TOPICAL SCH ×2 (09:00→20:47)
[2016-09-11] MEDS: CHOLESTYRAMINE 4 GM PACKET PO SCH ×2 (09:00→20:43)
[2016-09-11] MEDS: PANTOPRAZOLE SOD 40 MG DELAYED RELEASE TAB PO SCH (09:00)
[2016-09-11] MEDS: MULTIVITAMINS/MINERALS THERAPEUTIC TAB PO SCH (09:00)
[2016-09-11] MEDS: ENOXAPARIN SODIUM 40 MG/0.4 ML SYRINGE SQ SCH (10:20)
[2016-09-11] MEDS: VANCOMYCIN 500 MG VIAL (FOR ORAL USE ONLY) PO SCH ×4 (10:21→20:43)
[2016-09-11] MEDS: LACTOBACILLUS ACIDOPHILUS TAB PO SCH ×3 (10:21→20:48)
[2016-09-11] MEDS: FLUTICASONE PROPIONATE 50 MCG/ACT 16 GM NASAL SPRAY NASAL SCH ×2 (10:22→20:47)
[2016-09-11] MEDS: NEOMYCIN/POLYMYXIN/BACITRACIN OINT 15 GM TUBE TOPICAL SCH (10:22)
[2016-09-11] MEDS: COLLAGENASE OINT 30 GM TUBE TOPICAL SCH (10:22)
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
--- NOTE | 2016-09-11 13:48 | HHI.PR ---
Subjective Remarks Patient seen and examined today for follow-up on multiple wounds, C. difficile infection. Discussed the case extensively with infectious disease. Notified patient of findings and need to comply with medication regimen. Notified him that we'll require plastic surgery evaluation for his wound management. Objective Vitals Vital Signs Date Time Temp Pulse Resp B/P Pulse Ox O2 Delivery O2 Flow Rate FiO2 09/11/16 11:20 18 09/11/16 08:00 97.6 65 18 118/78 94 09/11/16 07:52 16 09/10/16 20:00 98.6 98 16 126/75 96 I/O 09/10/16 09/10/16 09/10/16 09/11/16 09/11/16 09/11/16 07:00 15:00 23:00 07:00 15:00 23:00 Intake Total 220 ml 360 ml 220 ml 240 ml Output Total 100 ml 275 ml 225 ml 100 ml 250 ml Balance 120 ml 85 ml -5 ml 140 ml -250 ml Intake Oral 220 ml 360 ml 220 ml 240 ml Output Urine Total 100 ml 275 ml 225 ml 100 ml 250 ml # Bowel Movements 0 0 0 Result Diagram: 09/10/16 0714 09/10/16 0816 Objective Remarks GENERAL: Well-developed, well-nourished, in no acute distress. alert and orientated HEENT: Head is normocephalic without any lesions or masses noted. Facial features are symmetric. Eyes: Extraocular muscles are intact. Conjunctivae were clear. NECK: Supple without any masses. Trachea midline no deviation. No JVD, CARDIAC: Regular rhythm, regular rate. S1/S2 are heard. No murmurs gallops or rubs. LUNGS: Clear to auscultation bilaterally. No wheeze, rhonchi or rales. No use of accessory muscles on inspiration or expiration. ABDOMEN: Soft, nontender. Nondistended. Bowel sounds heard in all 4 quadrants. No organomegaly or masses. Negative rebound, negative guarding EXTREMITIES: No edema, pulses are equal bilaterally. No cyanosis or clubbing NEUROLOGY: Mood and affect appear appropriate. Cranial nerves II through XII grossly intact. Moving upper extremities. Strength 5/5 SACRAL AREA: Wound VAC is noted over the left hip area. RIGHT THIGH: Graft area does have some mild flaking of skin. No fluctuations, excoriations, maybe some maceration from him having a covered all the time. No signs of infection. ISCHIAL AREA: Patient does have probably 3 cm annular DVT ulceration with sloughing of skin. SCROTUM: There does appear to be some maceration noted to the inferior posterior aspect of his scrotum with blood noted Procedures none Urinary Catheter: Yes Assessment to: Continue Morse insert reason: Stage III/IV Press Ulcer Date of Insertion: Aug 30, 2016 Vascular Central Line Catheter: No A/P Assessment and Plan Stage IV sacral decubitus: Wound care physician Dr. Garcia evaluated patient and indicated local wound care Wound care team nurse following. Recommend to continue current treatment of Dakins solution soaked gauze, lightly fluffed, and gently placed into wound bed to allow for tissue growth. Plastic surgery evaluated patient and recommending wound VAC placement. Orders have been given. Reposition every 2 hours and PRN for comfort. However, patient is noncompliant and will not allow to be repositioned Patient refused diverting colostomy for management Wound VAC in place. Wound care is following the patient. Family is inquisitive about the patient' s wound management and requested be present during Care evaluation. Wound care physician has been consulted for recommendations, consulted plastic surgeon, because there is no coverage for wound care physician at this time Right ischial ulcer Appears that wound VAC has been applied to that area. Wound care nurse is managing the wounds Due to noncompliance with turning Left hip skin tear Bandage at this time, wound care is following the patient for other wounds Due to noncompliance with turning Right thigh maceration Bandage on it this time. Wound care following the patient Due to noncompliance with turning Clostridium difficile infection: Recurrent Appears patient has undergone at least 3 treatments with by mouth Flagyl Patient has refused cholestyramine previously Continue probiotic, patient is refusing Repeat culture shows positive culture again Continue vancomycin 125 by mouth every 6 hours for 10 days Consult infectious disease evaluated the patient Cholestyramine twice daily, patient is refusing As indicated by infectious disease that if patient does not respond to treatment at this time. 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 Urine Culture resulted with MRSA S/p antibiotic treatment with Bactrim Changed Morse catheter 08/18/16 08/16/16 culture indicates Morganella morganii, staph aureus, enterococcus faecalis. Documentation indicates that infectious disease was contacted and indicated that the patient is asymptomatic no treatment is necessary at this time. Only catheter changes necessary. 08/30/16, patient had one fever, urinalysis performed which did show culture with Proteus mirabilis, Morganella morganii. Patient was started on Cipro, Rocephin, however, patient continues to refuse antibiotic treatment. He has not had any recurrent fever or signs of sepsis or infection despite urinary tract infection findings. GI was consulted for the abdominal discomfort. It was indicated that there is no GI etiology of his pain. GI signed off and indicated reconsultation if needed Chronic pain: -Continue patient's outpatient medications to include Oramorph 30 mg 3 times daily and Percocet 10, every 6 hours as needed for pain -The above regimen was confirmed by E force review and printed out and placed on patient's chart -Continue PT Anemia: Hemoglobin stable Hyperglycemia: Resolved likely related to infection. HgbA1c 5.2. Hypertension: Monitor and add medication if needed. Controlled. DVT prophylaxis: Lovenox Discharge Planning Case management for discharge planning. Jp Keith September 11, 2016 13:48
[2016-09-11 13:54] LABS: BLOOD, URINE SMALL (NEG); GLUCOSE,URINE NEG (NEG); KETONE, URINE NEG (NEG); NITRITE,URINE NEG (NEG)
[2016-09-11 14:05] LABS: METHOD OF COLLECTION CATH; URINE COLOR YELLOW (YELLW/STRAW); WBC, URINE INNUM /hpf (0-5)
[2016-09-11 14:06] LABS: BACTERIA, URINE MOD /hpf; COMMENT (UR) CULTURE INDICATED; CULTURE IF INDICATED CULTURE INDICATED; SQUAMOUS EPITHELIAL CELL URINE 0-2 /hpf (0-5)
[2016-09-11 20:00] VITALS: BP 109/76; PULSE 83; RESP 18; TEMP 98.1; O2SAT 99
[2016-09-11] MEDS: hydrOXYzine HCL 25 MG TAB PO PRN (20:44)
[2016-09-12] MEDS: oxyCODONE/ACETAMINOPHEN 10 MG/325 MG TAB PO PRN ×3 (04:45→18:13)
[2016-09-12] MEDS: MORPHINE SULFATE 30 MG CONTROLLED RELEASE TAB PO SCH ×3 (06:01→21:54)
[2016-09-12 08:00] VITALS: BP 118/67; PULSE 85; RESP 18; TEMP 96.5; O2SAT 98
[2016-09-12] MEDS: PANTOPRAZOLE SOD 40 MG DELAYED RELEASE TAB PO SCH (09:00)
[2016-09-12] MEDS: CHOLESTYRAMINE 4 GM PACKET PO SCH ×2 (09:00→20:11)
[2016-09-12] MEDS: NEOMYCIN/POLYMYXIN/BACITRACIN OINT 15 GM TUBE TOPICAL SCH (09:00)
[2016-09-12] MEDS: ENOXAPARIN SODIUM 40 MG/0.4 ML SYRINGE SQ SCH (09:00)
[2016-09-12] MEDS: COLLAGENASE OINT 30 GM TUBE TOPICAL SCH (09:00)
[2016-09-12] MEDS: MULTIVITAMINS/MINERALS THERAPEUTIC TAB PO SCH (09:00)
[2016-09-12] MEDS: LACTOBACILLUS ACIDOPHILUS TAB PO SCH ×2 (09:22→20:10)
[2016-09-12] MEDS: VANCOMYCIN 500 MG VIAL (FOR ORAL USE ONLY) PO SCH ×4 (09:23→20:10)
[2016-09-12] MEDS: LACTIC ACID (AMMONIUM LACTATE) 12% LOTION 225 GM BTL TOPICAL SCH ×2 (09:28→20:14)
[2016-09-12] MEDS: FLUTICASONE PROPIONATE 50 MCG/ACT 16 GM NASAL SPRAY NASAL SCH ×2 (09:28→20:14)
--- NOTE | 2016-09-12 15:07 | PD.PLAS.PN ---
Subjective Remarks This is an 86 year old male with a history of a sacral pressure ulcer, which is being treated with wound vac. Plastics has been asked to return for reevaluation as the patient has developed a second wound on the buttock. Discussion with KRYS Pedraza, and review of records indicate that the patient has been noncompliant with nutrition and turning. Objective Vital Signs Date Time Temp Pulse Resp B/P Pulse Ox O2 Delivery O2 Flow Rate FiO2 09/12/16 08:00 96.5 85 18 118/67 98 09/11/16 20:00 98.1 83 18 109/76 99 09/11/16 17:52 18 09/11/16 15:06 16 I/O 09/11/16 09/11/16 09/11/16 09/12/16 09/12/16 09/12/16 07:00 15:00 23:00 07:00 15:00 23:00 Intake Total 240 ml 420 ml 200 ml 220 ml 920 ml Output Total 100 ml 650 ml 200 ml 400 ml Balance 140 ml -230 ml 200 ml 20 ml 520 ml Intake Oral 240 ml 420 ml 200 ml 220 ml 920 ml Output Urine Total 100 ml 250 ml 200 ml 400 ml Drainage Total 400 ml # Bowel Movements 0 1 0 Date/Time Procedure Status Source Growth 09/11/16 13:40 Urine Culture - Preliminary Resulted Urine Catheterized Urine Gram Negative Paul Result Diagram: 09/10/16 0714 09/10/16 0816 Exam Findings Patient is lying comfortably in bed. Assessment and Plan Diagnosis: (1) Sacral decubitus ulcer Assessment and Plan The patient is refusing an exam at this time. He states that the wound care nurse will be coming tomorrow to change out the wound vac and if I want to see it, I can come back then. I asked if I could examine the wound that did not have a vac on it and he stated that he did not "feel like rolling over right now." I let him know that our schedules may not allow for myself or Dr. Garcia to return tomorrow during the dressing change and this did not change his answer. Ave Zheng September 12, 2016 15:06
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
--- NOTE | 2016-09-12 19:51 | HHI.IDPN ---
Subjective Subjective Remarks Chart reviewed 86 yo male with paraplegia, chronic williamson and chronic decubitus ulcers Pt had C.diff in jun Rx'd with Flagyl, retreated again end of july Still with some diarrhea- though better No fevers Some abdominal discomfort. Antibiotics vanco 125 Lactinex cholestyramin- refuses Lines PIV Past Medical History Reviewed Allergies: Coded Allergies: *MDRO Multi-Drug Resistant Organism (Verified Adverse Reaction, Unknown, ) MRSA PCR screen POSITIVE - 04/13/16 MRSA (urine)-05/30/16 Review of Systems Constitutional Constitutional Remarks No fever, chills Objective . Vital Signs Date Time Temp Pulse Resp B/P Pulse Ox O2 Delivery O2 Flow Rate FiO2 09/12/16 08:00 96.5 85 18 118/67 98 09/11/16 20:00 98.1 83 18 109/76 99 09/11/16 09/11/16 09/12/16 15:00 23:00 07:00 Intake Total 420 ml 200 ml 220 ml Output Total 650 ml 200 ml Balance -230 ml 200 ml 20 ml Intake Oral 420 ml 200 ml 220 ml Output Urine Total 250 ml 200 ml Drainage Total 400 ml # Bowel Movements 1 0 . Microbiology Date/Time Procedure Status Source Growth 09/11/16 13:40 Urine Culture - Preliminary Resulted Urine Catheterized Urine Gram Negative [facility] Gastrostomy Tube Removal 06/09/16 0000 Signed Impressions: Service Date/Time: Thursday, June 09, 2016 16:32 - CONCLUSION: Gastrostomy tube removal without difficulty. Mariano Ramires Jr., MD Last Impressions Chest X-Ray 06/27/16 0000 Signed Impressions: Service Date/Time: Monday, June 27, 2016 15:16 - CONCLUSION: 1. No evidence of pneumonia. 2. Moderate size retrocardiac hiatal hernia. 3. Severe fracture deformity of one of the lower thoracic vertebral bodies. 4. 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 José Crenshaw MD Gastrostomy Tube Removal 06/09/16 0000 Signed Impressions: Service Date/Time: Thursday, June 09, 2016 16:32 - CONCLUSION: Gastrostomy tube removal without difficulty. Mariano Ramires Jr., MD Physical Exam GENERAL: awake and alert, oriented x 3, in no apparent distress. SKIN: Cool and dry, no generalized rash. No ecchymosis. Patient does have decubitus ulcers HEENT: Arab conjunctivae. No scleral icterus. No injection or drainage. Moist oral mucosa. NECK: Trachea midline. No JVD or lymphadenopathy. Supple, nontender, no meningeal signs. CARDIOVASCULAR: Regular rate and rhythm without murmurs, gallops, or rubs. RESPIRATORY: Clear to auscultation. Breath sounds equal bilaterally. No wheezes , rales, or rhonchi. GASTROINTESTINAL: Abdomen soft, non-tender, mildly distended. Bowel sounds are present and normoactive. No hepato-splenomegaly, or palpable masses. No guarding. Previous PEG site dry MUSCULOSKELETAL: Wasting of lower extremities NEUROLOGICAL: Awake and alert. + paraplegia with 0/5 RLE and 2-3 /5 LLE Normal speech. follows commands with BUE BACK: Did not examine today R ischial stage III to IV ulceration with necrotic foul smelling base PSYCH: Normal affect, calm and cooperative LINE: PIV with no evidence of infection : williamson in place with cloudy yellow urine Assessment & Plan Diagnosis: (1) C. difficile colitis Plan: PO Vancomycin with slow taper Continue qid dose x 2 weeks and then slow taper Continue Lactobacillus (2) Sacral decubitus ulcer Plan: Wound care following (3) Chronic bacteriuria Plan: Patient with chronic williamson and hence positive urine cultures - would not treat it unless symptomatic with a urine infection Problem Qualifiers (1) Sacral decubitus ulcer: Qualified Code: L89.154 - Decubitus ulcer of sacral region, stage 4 Arcelia Mcgraw MD September 12, 2016 19:51
[2016-09-12 20:00] VITALS: BP 109/61; PULSE 95; RESP 19; TEMP 98.7; O2SAT 95
[2016-09-12] MEDS: hydrOXYzine HCL 25 MG TAB PO PRN (20:10)
[2016-09-13] MEDS: oxyCODONE/ACETAMINOPHEN 10 MG/325 MG TAB PO PRN ×6 (00:10→23:28)
[2016-09-13] MEDS: MORPHINE SULFATE 30 MG CONTROLLED RELEASE TAB PO SCH ×3 (06:08→22:01)
[2016-09-13 08:00] VITALS: BP 104/65; PULSE 76; RESP 18; TEMP 96.3; O2SAT 97
[2016-09-13] MEDS: NEOMYCIN/POLYMYXIN/BACITRACIN OINT 15 GM TUBE TOPICAL SCH (09:00)
[2016-09-13] MEDS: PANTOPRAZOLE SOD 40 MG DELAYED RELEASE TAB PO SCH (09:00)
[2016-09-13] MEDS: MULTIVITAMINS/MINERALS THERAPEUTIC TAB PO SCH (09:00)
[2016-09-13] MEDS: LACTIC ACID (AMMONIUM LACTATE) 12% LOTION 225 GM BTL TOPICAL SCH ×2 (09:00→20:08)
[2016-09-13] MEDS: CHOLESTYRAMINE 4 GM PACKET PO SCH ×2 (09:00→20:10)
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
[2016-09-13] MEDS: ENOXAPARIN SODIUM 40 MG/0.4 ML SYRINGE SQ SCH (10:34)
[2016-09-13] MEDS: VANCOMYCIN 500 MG VIAL (FOR ORAL USE ONLY) PO SCH ×4 (10:34→20:10)
[2016-09-13] MEDS: LACTOBACILLUS ACIDOPHILUS TAB PO SCH ×2 (10:35→20:10)
[2016-09-13] MEDS: COLLAGENASE OINT 30 GM TUBE TOPICAL SCH (10:40)
[2016-09-13] MEDS: FLUTICASONE PROPIONATE 50 MCG/ACT 16 GM NASAL SPRAY NASAL SCH ×2 (10:41→20:10)
[2016-09-13 20:00] VITALS: BP 107/66; PULSE 86; RESP 19; TEMP 99.1; O2SAT 96
[2016-09-13] MEDS: hydrOXYzine HCL 25 MG TAB PO PRN (20:20)
[2016-09-14] MEDS: oxyCODONE/ACETAMINOPHEN 10 MG/325 MG TAB PO PRN ×3 (05:29→17:07)
[2016-09-14] MEDS: MORPHINE SULFATE 30 MG CONTROLLED RELEASE TAB PO SCH ×3 (06:00→22:21)
[2016-09-14] MEDS: CHOLESTYRAMINE 4 GM PACKET PO SCH ×2 (09:00→21:19)
[2016-09-14] MEDS: VANCOMYCIN 500 MG VIAL (FOR ORAL USE ONLY) PO SCH ×4 (10:22→21:18)
[2016-09-14] MEDS: PANTOPRAZOLE SOD 40 MG DELAYED RELEASE TAB PO SCH (10:23)
[2016-09-14] MEDS: COLLAGENASE OINT 30 GM TUBE TOPICAL SCH (10:23)
[2016-09-14] MEDS: MULTIVITAMINS/MINERALS THERAPEUTIC TAB PO SCH (10:23)
[2016-09-14] MEDS: LACTOBACILLUS ACIDOPHILUS TAB PO SCH ×2 (10:23→21:17)
[2016-09-14] MEDS: ENOXAPARIN SODIUM 40 MG/0.4 ML SYRINGE SQ SCH (10:23)
[2016-09-14] MEDS: FLUTICASONE PROPIONATE 50 MCG/ACT 16 GM NASAL SPRAY NASAL SCH ×2 (10:24→21:18)
[2016-09-14] MEDS: NEOMYCIN/POLYMYXIN/BACITRACIN OINT 15 GM TUBE TOPICAL SCH (10:24)
[2016-09-14] MEDS: LACTIC ACID (AMMONIUM LACTATE) 12% LOTION 225 GM BTL TOPICAL SCH ×2 (10:24→21:16)
[2016-09-14 11:19] VITALS: BP 112/68; PULSE 78; RESP 14; TEMP 96.6; O2SAT 96
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
--- NOTE | 2016-09-14 19:15 | HHI.IDPN ---
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 Vital Signs Date Time Temp Pulse Resp B/P Pulse Ox O2 Delivery O2 Flow Rate FiO2 09/14/16 15:25 16 09/14/16 12:35 16 09/14/16 11:19 96.6 78 14 112/68 96 09/13/16 20:00 99.1 86 19 107/66 96 09/13/16 09/13/16 09/14/16 15:00 23:00 07:00 Intake Total 240 ml 120 ml 0 ml Output Total 200 ml 150 ml Balance 240 ml -80 ml -150 ml Intake Oral 240 ml 120 ml 0 ml Output Urine Total 200 ml 150 ml Imaging Gastrostomy Tube Removal 06/09/16 0000 Signed Impressions: Service Date/Time: Thursday, June 09, 2016 16:32 - CONCLUSION: Gastrostomy tube removal without difficulty. Mariano Ramires Jr., MD Last Impressions Chest X-Ray 06/27/16 0000 Signed Impressions: Service Date/Time: Monday, June 27, 2016 15:16 - CONCLUSION: 1. No evidence of pneumonia. 2. Moderate size retrocardiac hiatal hernia. 3. Severe fracture deformity of one of the lower thoracic vertebral bodies. 4. 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 José Crenshaw MD Gastrostomy Tube Removal 06/09/16 0000 Signed Impressions: Service Date/Time: Thursday, June 09, 2016 16:32 - CONCLUSION: Gastrostomy tube removal without difficulty. Mariano Ramires Jr., MD Physical Exam GENERAL: awake and alert, oriented x 3, in no apparent distress. SKIN: Cool and dry, no generalized rash. No ecchymosis. Patient does have decubitus ulcers HEENT: Malin conjunctivae. No scleral icterus. No injection or drainage. Moist oral mucosa. NECK: Trachea midline. No JVD or lymphadenopathy. Supple, nontender, no meningeal signs. CARDIOVASCULAR: Regular rate and rhythm without murmurs, gallops, or rubs. RESPIRATORY: Clear to auscultation. Breath sounds equal bilaterally. No wheezes , rales, or rhonchi. GASTROINTESTINAL: Abdomen soft, non-tender, mildly distended. Bowel sounds are present and normoactive. No hepato-splenomegaly, or palpable masses. No guarding. Previous PEG site dry MUSCULOSKELETAL: Wasting of lower extremities NEUROLOGICAL: Awake and alert. + paraplegia with 0/5 RLE and 2-3 /5 LLE Normal speech. follows commands with BUE BACK: Did not examine today R ischial stage III to IV ulceration with necrotic foul smelling base PSYCH: Normal affect, calm and cooperative LINE: PIV with no evidence of infection : williamson in place with cloudy yellow urine Assessment & Plan Diagnosis: (1) C. difficile colitis Plan: PO Vancomycin with slow taper Continue qid dose x 2 weeks and then slow taper Continue Lactobacillus Clinically improved (2) Sacral decubitus ulcer Plan: Wound care following Check CBC CRP Sed rate (3) Chronic bacteriuria Plan: Patient with chronic williamson and hence positive urine cultures - would not treat it unless symptomatic with a urine infection Problem Qualifiers (1) Sacral decubitus ulcer: Qualified Code: L89.154 - Decubitus ulcer of sacral region, stage 4 Arcelia Mcgraw MD September 14, 2016 19:15
[2016-09-14 20:00] VITALS: BP 95/68; PULSE 118; RESP 16; TEMP 100.7; O2SAT 94
[2016-09-15] MEDS: oxyCODONE/ACETAMINOPHEN 10 MG/325 MG TAB PO PRN ×4 (00:11→18:59)
[2016-09-15 04:47] LABS: AUTOMATED NEUTROPHIL # 8.1 TH/MM3 (1.8-7.7); BASOPHIL % 0.4 % (0.0-2.0); EOSINOPHIL # 0.3 TH/MM3 (0-0.4); EOSINOPHIL % 2.2 % (0.0-4.0); HEMATOCRIT 28.2 % (39.0-51.0); HEMO FLAGS DIFF FINAL; LYMPH % 20.2 % (9.0-44.0); LYMPHOCYTE # 2.5 TH/MM3 (1.0-4.8); MEAN CELL VOLUME 83.3 FL (80.0-100.0); MEAN CORPUSCULAR HEMOGLOBIN 26.7 PG (27.0-34.0); MEAN CORPUSCULAR HGB CONC 32.1 % (32.0-36.0); MONO % 11.4 % (0.0-8.0); NEUT % 65.8 % (16.0-70.0); PLATELET COUNT 587 TH/MM3 (150-450); RED BLOOD COUNT 3.39 MIL/MM3 (4.50-5.90); RED CELL DISTRIBUTION WIDTH 15.6 % (11.6-17.2); WHITE BLOOD COUNT 12.3 TH/MM3 (4.0-11.0)
[2016-09-15 05:08] LABS: WESTERGREN SEDIMENTATION RATE 79 mm/hr (0-20)
[2016-09-15] MEDS: MORPHINE SULFATE 30 MG CONTROLLED RELEASE TAB PO SCH ×3 (05:59→22:33)
[2016-09-15 08:58] VITALS: BP 99/65; PULSE 109; RESP 18; TEMP 96.7; O2SAT 96
[2016-09-15] MEDS: CHOLESTYRAMINE 4 GM PACKET PO SCH ×2 (09:00→21:00)
[2016-09-15] MEDS: COLLAGENASE OINT 30 GM TUBE TOPICAL SCH (09:00)
[2016-09-15] MEDS: PANTOPRAZOLE SOD 40 MG DELAYED RELEASE TAB PO SCH (09:00)
[2016-09-15] MEDS: MULTIVITAMINS/MINERALS THERAPEUTIC TAB PO SCH (09:00)
[2016-09-15] MEDS: VANCOMYCIN 500 MG VIAL (FOR ORAL USE ONLY) PO SCH ×3 (09:35→18:30)
[2016-09-15] MEDS: LACTOBACILLUS ACIDOPHILUS TAB PO SCH ×2 (09:35→21:00)
[2016-09-15] MEDS: ENOXAPARIN SODIUM 40 MG/0.4 ML SYRINGE SQ SCH (09:35)
[2016-09-15] MEDS: FLUTICASONE PROPIONATE 50 MCG/ACT 16 GM NASAL SPRAY NASAL SCH ×2 (09:37→21:00)
[2016-09-15] MEDS: LACTIC ACID (AMMONIUM LACTATE) 12% LOTION 225 GM BTL TOPICAL SCH ×2 (09:37→21:00)
[2016-09-15] MEDS: NEOMYCIN/POLYMYXIN/BACITRACIN OINT 15 GM TUBE TOPICAL SCH (09:38)
--- NOTE | 2016-09-15 09:47 | PD.PLAS.PN ---
Subjective Remarks Patient not evaluated at this time. Received a call from Keila, the patient's wound care nurse. She states that he is refusing reapplication of the wound vac. Objective Vital Signs Date Time Temp Pulse Resp B/P Pulse Ox O2 Delivery O2 Flow Rate FiO2 09/15/16 08:58 96.7 109 18 99/65 96 09/15/16 06:59 16 09/15/16 06:59 16 09/14/16 20:00 100.7 118 16 95/68 94 09/14/16 11:19 96.6 78 14 112/68 96 I/O 09/14/16 09/14/16 09/14/16 09/15/16 09/15/16 09/15/16 07:00 15:00 23:00 07:00 15:00 23:00 Intake Total 0 ml 480 ml 920 ml 220 ml Output Total 150 ml 750 ml 150 ml Balance -150 ml 480 ml 170 ml 70 ml Intake Oral 0 ml 480 ml 920 ml 220 ml Output Urine Total 150 ml 750 ml 150 ml # Bowel Movements 0 0 Laboratory Tests Test 09/15/16 04:34 White Blood Count 12.3 Red Blood Count 3.39 Hemoglobin 9.1 Hematocrit 28.2 Mean Corpuscular Volume 83.3 Mean Corpuscular Hemoglobin 26.7 Mean Corpuscular Hemoglobin 32.1 Concent Red Cell Distribution Width 15.6 Platelet Count 587 Mean Platelet Volume 7.0 Neutrophils (%) (Auto) 65.8 Lymphocytes (%) (Auto) 20.2 Monocytes (%) (Auto) 11.4 Eosinophils (%) (Auto) 2.2 Basophils (%) (Auto) 0.4 Neutrophils # (Auto) 8.1 Lymphocytes # (Auto) 2.5 Monocytes # (Auto) 1.4 Eosinophils # (Auto) 0.3 Basophils # (Auto) 0.0 CBC Comment DIFF FINAL Differential Comment Erythrocyte Sedimentation Rate 79 C-Reactive Protein 19.00 Date/Time Procedure Status Source Growth 09/11/16 13:40 Urine Culture - Final Complete Urine Catheterized Urine Proteus Mirabilis Result Diagram: 09/15/16 0434 Exam Findings Patient not examined at this time. Assessment and Plan Diagnosis: (1) Sacral decubitus ulcer Assessment and Plan The patient has been refusing exams and recommended treatments. He is refusing reapplication of the wound vac after dressing change. As such, we will resume daily Dakin's solution wet to dry dressings. Ave Zheng September 15, 2016 09:46
[2016-09-15] MEDS ORDERED: HYDROmorphone HCL PF 1 MG/ML VIAL IV PUSH PRN (10:00)
[2016-09-15] MEDS ORDERED: HYDROmorphone HCL 2 MG TAB PO PRN (10:15)
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
--- NOTE | 2016-09-15 12:47 | RADHPO ---
EXAM DATE/TIME: 09/15/2016 11:43 [facility] COMPARISON: ABDOMEN KUB ONLY, April 18, 2016, 5:08. CT ABDOMEN & PELVIS W CONTRAST, April 15, 2016, 21:50. INDICATIONS : Right hip pain. MEDICAL HISTORY : None. SURGICAL HISTORY : PEG tube ENCOUNTER: Initial ACUITY: >1 year PAIN SCORE: 10/10 LOCATION: Right hip FINDINGS: The hips are symmetric with degenerative changes bilaterally. No evidence of fracture or dislocation. No displaced pelvic fracture is appreciated. There is some osseous irregularity along the greater tu berosity region on the right, however this is a fairly stable appearance. There is abundant stool in the rectum. Mild gaseous distention bowel loops elsewhere CONCLUSION: No definite acute bony findings Henry Hernandez MD on September 15, 2016 at 12:38 Board Certified Radiologist. This report was verified electronically.
[2016-09-15] MEDS: hydrOXYzine HCL 25 MG TAB PO PRN (14:35)
[2016-09-15 20:00] VITALS: BP 100/66; PULSE 101; RESP 16; TEMP 98.1; O2SAT 98
[2016-09-16] MEDS: VANCOMYCIN 500 MG VIAL (FOR ORAL USE ONLY) PO SCH ×5 (00:57→21:49)
[2016-09-16] MEDS: oxyCODONE/ACETAMINOPHEN 10 MG/325 MG TAB PO PRN ×4 (00:58→18:36)
[2016-09-16] MEDS: MORPHINE SULFATE 30 MG CONTROLLED RELEASE TAB PO SCH ×3 (04:55→21:49)
[2016-09-16 08:00] VITALS: BP 98/61; PULSE 88; RESP 18; TEMP 97.3; O2SAT 98
[2016-09-16] MEDS: CHOLESTYRAMINE 4 GM PACKET PO SCH ×2 (09:00→20:28)
[2016-09-16] MEDS: SODIUM HYPOCHLORITE 0.25% 500 ML BTL TOPICAL SCH (09:00)
[2016-09-16] MEDS: PANTOPRAZOLE SOD 40 MG DELAYED RELEASE TAB PO SCH (09:00)
[2016-09-16] MEDS: MULTIVITAMINS/MINERALS THERAPEUTIC TAB PO SCH (09:00)
[2016-09-16] MEDS: ENOXAPARIN SODIUM 40 MG/0.4 ML SYRINGE SQ SCH (09:07)
[2016-09-16] MEDS: LACTOBACILLUS ACIDOPHILUS TAB PO SCH ×2 (09:08→20:28)
[2016-09-16] MEDS: LACTIC ACID (AMMONIUM LACTATE) 12% LOTION 225 GM BTL TOPICAL SCH ×2 (09:09→21:00)
[2016-09-16] MEDS: COLLAGENASE OINT 30 GM TUBE TOPICAL SCH (09:10)
[2016-09-16] MEDS: FLUTICASONE PROPIONATE 50 MCG/ACT 16 GM NASAL SPRAY NASAL SCH ×2 (09:10→20:28)
[2016-09-16] MEDS: NEOMYCIN/POLYMYXIN/BACITRACIN OINT 15 GM TUBE TOPICAL SCH (09:10)
[2016-09-16] MEDS: hydrOXYzine HCL 25 MG TAB PO PRN (09:23)
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
--- NOTE | 2016-09-16 10:23 | HHI.IDPN ---
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 Vital Signs Date Time Temp Pulse Resp B/P Pulse Ox O2 Delivery O2 Flow Rate FiO2 09/16/16 08:00 97.3 88 18 98/61 98 09/16/16 07:30 16 09/15/16 20:00 98.1 101 16 100/66 98 09/15/16 15:01 16 09/15/16 11:54 18 09/15/16 09/15/16 09/16/16 15:00 23:00 07:00 Intake Total 1740 ml 340 ml Output Total 425 ml 150 ml Balance 1315 ml 190 ml Intake Oral 1740 ml 340 ml Output Urine Total 425 ml 150 ml # Voids 4 # Bowel Movements 2 0 . Laboratory Tests Test 09/15/16 04:34 White Blood Count 12.3 TH/MM3 Red Blood Count 3.39 MIL/MM3 Hemoglobin 9.1 GM/DL Hematocrit 28.2 % Mean Corpuscular Volume 83.3 FL Mean Corpuscular Hemoglobin 26.7 PG Mean Corpuscular Hemoglobin 32.1 % Concent Red Cell Distribution Width 15.6 % Platelet Count 587 TH/MM3 Mean Platelet Volume 7.0 FL Neutrophils (%) (Auto) 65.8 % Lymphocytes (%) (Auto) 20.2 % Monocytes (%) (Auto) 11.4 % Eosinophils (%) (Auto) 2.2 % Basophils (%) (Auto) 0.4 % Neutrophils # (Auto) 8.1 TH/MM3 Lymphocytes # (Auto) 2.5 TH/MM3 Monocytes # (Auto) 1.4 TH/MM3 Eosinophils # (Auto) 0.3 TH/MM3 Basophils # (Auto) 0.0 TH/MM3 CBC Comment DIFF FINAL Differential Comment Erythrocyte Sedimentation Rate 79 mm/hr Laboratory Tests Test 09/15/16 04:34 C-Reactive Protein 19.00 MG/DL Imaging Gastrostomy Tube Removal 06/09/16 0000 Signed Impressions: Service Date/Time: Thursday, June 09, 2016 16:32 - CONCLUSION: Gastrostomy tube removal without difficulty. Mariano Ramires Jr., MD Last Impressions Chest X-Ray 06/27/16 0000 Signed Impressions: Service Date/Time: Monday, June 27, 2016 15:16 - CONCLUSION: 1. No evidence of pneumonia. 2. Moderate size retrocardiac hiatal hernia. 3. Severe fracture deformity of one of the lower thoracic vertebral bodies. 4. 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 José Crenshaw MD Gastrostomy Tube Removal 06/09/16 0000 Signed Impressions: Service Date/Time: Thursday, June 09, 2016 16:32 - CONCLUSION: Gastrostomy tube removal without difficulty. Mariano Ramires Jr., MD Physical Exam GENERAL: awake and alert, oriented x 3, in no apparent distress. SKIN: Cool and dry, no generalized rash. No ecchymosis. Patient does have decubitus ulcers HEENT: [place] conjunctivae. No scleral icterus. No injection or drainage. Moist oral mucosa. NECK: Trachea midline. No JVD or lymphadenopathy. Supple, nontender, no meningeal signs. CARDIOVASCULAR: Regular rate and rhythm without murmurs, gallops, or rubs. RESPIRATORY: Clear to auscultation. Breath sounds equal bilaterally. No wheezes , rales, or rhonchi. GASTROINTESTINAL: Abdomen soft, non-tender, mildly distended. Bowel sounds are present and normoactive. No hepato-splenomegaly, or palpable masses. No guarding. Previous PEG site dry MUSCULOSKELETAL: Wasting of lower extremities NEUROLOGICAL: Awake and alert. + paraplegia with 0/5 RLE and 2-3 /5 LLE Normal speech. follows commands with BUE BACK: Did not examine today pt states too painful R ischial stage III to IV ulceration with necrotic foul smelling base PSYCH: Normal affect, calm and cooperative LINE: PIV with no evidence of infection : williamson in place with cloudy yellow urine Assessment & Plan Diagnosis: (1) C. difficile colitis Plan: PO VANCO/LACTINEX (2) Chronic bacteriuria (3) Sacral decubitus ulcer Plan: PT HAS REFUSED CARE FU CLINICALLY HOLD ABX AT THIS TIME Problem Qualifiers (1) Sacral decubitus ulcer: Qualified Code: L89.154 - Decubitus ulcer of sacral region, stage 4 [place] [facility] September 16, 2016 10:23
[2016-09-16 20:00] VITALS: BP 101/62; PULSE 97; RESP 19; TEMP 97.1; O2SAT 96
[2016-09-17] MEDS: oxyCODONE/ACETAMINOPHEN 10 MG/325 MG TAB PO PRN ×4 (00:38→18:26)
[2016-09-17] MEDS: MORPHINE SULFATE 30 MG CONTROLLED RELEASE TAB PO SCH ×3 (05:39→22:03)
[2016-09-17 08:00] VITALS: BP 99/63; PULSE 75; RESP 16; TEMP 98; O2SAT 97
[2016-09-17] MEDS: SODIUM HYPOCHLORITE 0.25% 500 ML BTL TOPICAL SCH (09:00)
[2016-09-17] MEDS: NEOMYCIN/POLYMYXIN/BACITRACIN OINT 15 GM TUBE TOPICAL SCH (09:00)
[2016-09-17] MEDS: PANTOPRAZOLE SOD 40 MG DELAYED RELEASE TAB PO SCH (09:00)
[2016-09-17] MEDS: MULTIVITAMINS/MINERALS THERAPEUTIC TAB PO SCH (09:00)
[2016-09-17] MEDS: CHOLESTYRAMINE 4 GM PACKET PO SCH ×2 (09:00→21:00)
[2016-09-17] MEDS: ENOXAPARIN SODIUM 40 MG/0.4 ML SYRINGE SQ SCH (10:06)
[2016-09-17] MEDS: LACTOBACILLUS ACIDOPHILUS TAB PO SCH ×2 (10:07→21:00)
[2016-09-17] MEDS: FLUTICASONE PROPIONATE 50 MCG/ACT 16 GM NASAL SPRAY NASAL SCH ×2 (10:07→21:00)
[2016-09-17] MEDS: VANCOMYCIN 500 MG VIAL (FOR ORAL USE ONLY) PO SCH ×4 (10:07→22:03)
[2016-09-17] MEDS: LACTIC ACID (AMMONIUM LACTATE) 12% LOTION 225 GM BTL TOPICAL SCH ×2 (10:08→21:00)
[2016-09-17] MEDS: COLLAGENASE OINT 30 GM TUBE TOPICAL SCH (10:08)
--- NOTE | 2016-09-17 10:22 | HHI.PR ---
Subjective Remarks Follow-up for decubitus ulcers. Patient again complains of pain in his right hip and he has propped up a towel under his right thigh which he states provides relief. I informed him he needs to be turned onto his left side to alleviate the pressure, but he states it is too painful. Objective Vitals Vital Signs Date Time Temp Pulse Resp B/P Pulse Ox O2 Delivery O2 Flow Rate FiO2 09/17/16 08:00 98.0 75 16 99/63 97 09/17/16 07:40 16 09/16/16 20:00 97.1 97 19 101/62 96 09/16/16 15:12 18 I/O 09/16/16 09/16/16 09/16/16 09/17/16 09/17/16 09/17/16 07:00 15:00 23:00 07:00 15:00 23:00 Intake Total 340 ml 340 ml 50 ml Output Total 150 ml 400 ml 0 ml Balance 190 ml -60 ml 50 ml Intake Oral 340 ml 340 ml 50 ml Output Urine Total 150 ml 400 ml 0 ml # Bowel Movements 0 0 Result Diagram: 09/15/16 0434 Objective Remarks GENERAL: Well-developed male in no apparent distress. ENT: Hard of hearing. CARDIOVASCULAR: Regular rate and rhythm. RESPIRATORY: No accessory muscle use. Clear to auscultation. Breath sounds equal bilaterally. GASTROINTESTINAL: Abdomen soft, non-tender, nondistended. MUSCULOSKELETAL: Right groin is nontender. 2+ right TP pulse. NEUROLOGICAL: Awake and alert. Normal speech. PSYCHIATRIC: Mood is discouraged. Procedures none Urinary Catheter: Yes Assessment to: Continue Morse insert reason: Stage III/IV Press Ulcer Date of Insertion: Sep 05, 2016 Vascular Central Line Catheter: No A/P Problem List: (1) Fever ICD Code: R50.9 Status: Resolved (2) Sacral decubitus ulcer ICD Code: 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 Garcia evaluated patient and indicated local wound care Wound care team nurse following. Recommend to continue current treatment of Dakins solution soaked gauze, lightly fluffed, and gently placed into wound bed to allow for tissue growth. Plastic surgery evaluated patient and recommended wound VAC placement. Orders have been given. Reposition every 2 hours and PRN for comfort. However, patient is noncompliant and will not allow to be repositioned Patient refused diverting colostomy for management Wound care is following the patient. Family is inquisitive about the patient' s wound management and requested be present during care evaluation. 09/12/16: Plastic surgery PA evaluated the patient but he refused exam. Patient refuses wound vac. Per plastics, resume daily Dakin's solution wet to dry dressings. Right ischial ulcer Due to noncompliance with turning Wound improving per direct entry midwife on 09/13. Patient refused wound vac. Resumed Dakin's solution wet to dry dressings. ID ordered labs on 09/15. WBC count increased to 12.3. CRP 19 (7.8 in May). ESR 79 (70 in May). 09/16: Patient had fever 100.7 at 2000 on 09/14/16. ID evaluated ischial ulcer. Advises holding antibiotics at this time. 09/17: Afebrile since 09/14. Repeat am CBC w/diff. Abrasion L abdomen: shearing from vac tubing. Nurse instructed to apply antibiotic ointment, Telfa, and gauze padding to the area to avoid further friction. Wound R thigh: Sheared area over previously burned skin with mild white drainage around scab which has been dislodged by tape in the area which is securing Morse . RN advised to cleanse with saline, apply Neosporin and Telfa and place tape over intact, not previously burned skin. Right hip/pelvis pain -R hip and pelvis x-rays personally with no acute abnormality -Likely attributed to ischial ulcer as patient has no groin pain. Refuses to turn onto his left side to alleviate pressure. Clostridium difficile infection: Recurrent Appears patient has undergone at multiple courses of Flagyl Patient has been refusing cholestyramine Continue probiotic Lactinex Repeat test positive on 09/08. ID consultation appreciated. 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 08/30/16-patient had one fever, urinalysis performed which did show culture with Proteus mirabilis, Morganella morganii. Refused antibiotic treatment. 09/11: ID recommended repeat urine culture which resulted with Proteus Mirabilis. Per ID, do not treat urine unless symptomatic. Abdominal cramps: Improved. -GI consultation appreciated. It was indicated that there is no GI etiology of his pain. GI signed off and indicated reconsultation if needed. Chronic pain: -Continue patient's outpatient medications to include Oramorph 30 mg 3 times daily and Percocet 10, every 6 hours as needed for pain -The above regimen was confirmed by E force review and printed out and placed on patient's chart -Continue PT Anemia: Hemoglobin stable Hyperglycemia: Resolved likely related to infection. HgbA1c 5.2. Hypertension: Monitor and adjust medication if needed. 09/17: Hypotensive this morning but MAP intact. Monitor. DVT prophylaxis: Lovenox Discharge Planning 09/04: [facility] rehab to evaluate for placement. Problem Qualifiers (1) Fever: Qualified Code: R50.9 - Fever, unspecified fever cause (2) Sacral decubitus ulcer: Qualified Code: L89.154 - Decubitus ulcer of sacral region, stage 4 Ashanti Yeboah September 17, 2016 10:22
[2016-09-17 21:48] VITALS: BP 116/76; PULSE 101; RESP 18; TEMP 97.9; O2SAT 95
[2016-09-18] MEDS: oxyCODONE/ACETAMINOPHEN 10 MG/325 MG TAB PO PRN ×4 (00:33→20:56)
[2016-09-18 05:12] LABS: AUTOMATED NEUTROPHIL # 8.3 TH/MM3 (1.8-7.7); BASOPHIL % 0.4 % (0.0-2.0); EOSINOPHIL # 0.5 TH/MM3 (0-0.4); EOSINOPHIL % 3.7 % (0.0-4.0); HEMATOCRIT 27.1 % (39.0-51.0); HEMO FLAGS DIFF FINAL; LYMPHOCYTE # 2.2 TH/MM3 (1.0-4.8); MEAN CELL VOLUME 82.5 FL (80.0-100.0); MEAN CORPUSCULAR HEMOGLOBIN 26.3 PG (27.0-34.0); MEAN CORPUSCULAR HGB CONC 31.8 % (32.0-36.0); MONO % 9.8 % (0.0-8.0); NEUT % 68.1 % (16.0-70.0); PLATELET COUNT 601 TH/MM3 (150-450); RED BLOOD COUNT 3.28 MIL/MM3 (4.50-5.90); RED CELL DISTRIBUTION WIDTH 15.5 % (11.6-17.2); WHITE BLOOD COUNT 12.2 TH/MM3 (4.0-11.0)
[2016-09-18] MEDS: MORPHINE SULFATE 30 MG CONTROLLED RELEASE TAB PO SCH ×3 (05:28→21:58)
[2016-09-18 08:00] VITALS: BP 120/78; PULSE 91; RESP 18; TEMP 97.5; O2SAT 95
[2016-09-18] MEDS: CHOLESTYRAMINE 4 GM PACKET PO SCH ×2 (09:00→21:00)
[2016-09-18] MEDS: FLUTICASONE PROPIONATE 50 MCG/ACT 16 GM NASAL SPRAY NASAL SCH ×2 (09:00→21:00)
[2016-09-18] MEDS: MULTIVITAMINS/MINERALS THERAPEUTIC TAB PO SCH (09:00)
[2016-09-18] MEDS: LACTOBACILLUS ACIDOPHILUS TAB PO SCH ×3 (09:00→21:00)
[2016-09-18] MEDS: PANTOPRAZOLE SOD 40 MG DELAYED RELEASE TAB PO SCH (09:00)
[2016-09-18] MEDS: NEOMYCIN/POLYMYXIN/BACITRACIN OINT 15 GM TUBE TOPICAL SCH (10:19)
[2016-09-18] MEDS: LACTIC ACID (AMMONIUM LACTATE) 12% LOTION 225 GM BTL TOPICAL SCH ×2 (10:19→21:00)
[2016-09-18] MEDS: COLLAGENASE OINT 30 GM TUBE TOPICAL SCH (10:20)
[2016-09-18] MEDS: VANCOMYCIN 500 MG VIAL (FOR ORAL USE ONLY) PO SCH ×4 (10:22→21:58)
[2016-09-18] MEDS: ENOXAPARIN SODIUM 40 MG/0.4 ML SYRINGE SQ SCH (10:28)
--- NOTE | 2016-09-18 10:30 | HHI.PR ---
Subjective Remarks Follow up for decubitus ulcers. Patient states his hip is "a little better". He states he is "taking it easy". Denies any fevers or chills. Objective Vitals Vital Signs Date Time Temp Pulse Resp B/P Pulse Ox O2 Delivery O2 Flow Rate FiO2 09/18/16 08:00 97.5 91 18 120/78 95 09/17/16 21:48 97.9 101 18 116/76 95 09/17/16 14:55 16 09/17/16 13:42 16 I/O 09/17/16 09/17/16 09/17/16 09/18/16 09/18/16 09/18/16 06:59 14:59 22:59 06:59 14:59 22:59 Intake Total 50 ml 480 ml 60 ml 100 ml Output Total 0 ml 220 ml 170 ml 230 ml Balance 50 ml 480 ml -160 ml -70 ml -230 ml Intake Oral 50 ml 480 ml 60 ml 100 ml Output Urine Total 0 ml 220 ml 170 ml 230 ml # Bowel Movements 0 Result Diagram: 09/18/16 0437 Objective Remarks GENERAL: Well-developed male in no apparent distress. ENT: Hard of hearing. CARDIOVASCULAR: Regular rate and rhythm. RESPIRATORY: No accessory muscle use. Clear to auscultation. Breath sounds equal bilaterally. GASTROINTESTINAL: Normoactive bowel sounds. Abdomen soft, non-tender, nondistended. NEUROLOGICAL: Awake and alert. Normal speech. PSYCHIATRIC: Normal mood and affect. Procedures none Urinary Catheter: Yes Assessment to: Continue Morse insert reason: Stage III/IV Press Ulcer Date of Insertion: Sep 05, 2016 Vascular Central Line Catheter: No A/P Problem List: (1) Fever ICD Code: R50.9 Status: Resolved (2) Sacral decubitus ulcer ICD Code: L89.159 Status: Chronic (3) UTI (urinary tract infection) ICD Code: N39.0 Status: Resolved (4) Sepsis ICD Code: A41.9 Status: Resolved (5) Hypokalemia ICD Code: E87.6 Status: Acute (6) Leukocytosis ICD Code: D72.829 Status: Acute Assessment and Plan Stage IV sacral decubitus: Wound care physician Dr. Garcia evaluated patient and indicated local wound care Wound care team nurse following. Recommend to continue current treatment of Dakins solution soaked gauze, lightly fluffed, and gently placed into wound bed to allow for tissue growth. Plastic surgery evaluated patient and recommended wound VAC placement. Orders have been given. Reposition every 2 hours and PRN for comfort. However, patient is noncompliant and will not allow to be repositioned Patient refused diverting colostomy for management Wound care is following the patient. Family is inquisitive about the patient' s wound management and requested be present during care evaluation. 09/12/16: Plastic surgery PA evaluated the patient but he refused exam. Patient refuses wound vac. Per plastics, resume daily Dakin's solution wet to dry dressings. Right ischial ulcer Due to noncompliance with turning Wound improving per cath lab technologist on 09/13. Patient refused wound vac. Resumed Dakin's solution wet to dry dressings. ID ordered labs on 09/15. WBC count increased to 12.3. CRP 19 (7.8 in May). ESR 79 (70 in May). 09/16: Patient had fever 100.7 at 2000 on 09/14/16. ID evaluated ischial ulcer. Advises holding antibiotics at this time. Leukocytosis: WBC stable at 12.2. Likely remains elevated due to ulcers, hip pain, stress on body. No left shift. Patient remains afebrile. ID following ulcers. -Monitor CBC. Abrasion L abdomen: shearing from vac tubing. Nurse instructed to apply antibiotic ointment, Telfa, and gauze padding to the area to avoid further friction. Wound R thigh: Sheared area over previously burned skin with mild white drainage around scab which has been dislodged by tape in the area which is securing Morse . RN advised to cleanse with saline, apply Neosporin and Telfa and place tape over intact, not previously burned skin. Right hip/pelvis pain -R hip and pelvis x-rays personally with no acute abnormality -Likely attributed to ischial ulcer as patient has no groin pain. Refuses to turn onto his left side to alleviate pressure. Clostridium difficile infection: Recurrent Appears patient has undergone at multiple courses of Flagyl Patient has been refusing cholestyramine Continue probiotic Lactinex Repeat test positive on 09/08. ID consultation appreciated. 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 08/30/16-patient had one fever, urinalysis performed which did show culture with Proteus mirabilis, Morganella morganii. Refused antibiotic treatment. 09/11: ID recommended repeat urine culture which resulted with Proteus Mirabilis. Per ID, do not treat urine unless symptomatic. Abdominal cramps: Improved. -GI consultation appreciated. It was indicated that there is no GI etiology of his pain. GI signed off and indicated reconsultation if needed. Chronic pain: -Continue patient's outpatient medications to include Oramorph 30 mg 3 times daily and Percocet 10, every 6 hours as needed for pain -The above regimen was confirmed by E force review and printed out and placed on patient's chart -Continue PT Anemia: Hemoglobin slightly lower today at 8.6 from 9.1 on 09/15. -Repeat am CBC. Hyperglycemia: Resolved likely related to infection. HgbA1c 5.2. Hypertension: Monitor and adjust medication if needed. 09/17: Hypotensive this morning but MAP intact. Monitor. DVT prophylaxis: Lovenox Patient discussed with Dr. Oconnor. Discharge Planning 09/04: [facility] rehab to evaluate for placement. Problem Qualifiers (1) Fever: Qualified Code: R50.9 - Fever, unspecified fever cause (2) Sacral decubitus ulcer: Qualified Code: L89.154 - Decubitus ulcer of sacral region, stage 4 Ashanti Yeboah September 18, 2016 10:30
[2016-09-18] MEDS: hydrOXYzine HCL 25 MG TAB PO PRN (10:34)
[2016-09-18] MEDS: SODIUM HYPOCHLORITE 0.25% 500 ML BTL TOPICAL SCH (14:38)
[2016-09-18 20:00] VITALS: BP 131/79; PULSE 102; RESP 20; TEMP 99.6; O2SAT 98
[2016-09-19 04:46] LABS: AUTOMATED NEUTROPHIL # 8.3 TH/MM3 (1.8-7.7); BASOPHIL # 0.1 TH/MM3 (0-0.2); BASOPHIL % 0.8 % (0.0-2.0); EOSINOPHIL # 0.6 TH/MM3 (0-0.4); EOSINOPHIL % 4.6 % (0.0-4.0); HEMATOCRIT 28.3 % (39.0-51.0); HEMO FLAGS DIFF FINAL; LYMPH % 18.5 % (9.0-44.0); LYMPHOCYTE # 2.3 TH/MM3 (1.0-4.8); MEAN CORPUSCULAR HEMOGLOBIN 26.1 PG (27.0-34.0); MEAN CORPUSCULAR HGB CONC 31.8 % (32.0-36.0); MONO % 8.9 % (0.0-8.0); NEUT % 67.2 % (16.0-70.0); PLATELET COUNT 602 TH/MM3 (150-450); RED BLOOD COUNT 3.46 MIL/MM3 (4.50-5.90); RED CELL DISTRIBUTION WIDTH 15.5 % (11.6-17.2); WHITE BLOOD COUNT 12.4 TH/MM3 (4.0-11.0)
[2016-09-19] MEDS: oxyCODONE/ACETAMINOPHEN 10 MG/325 MG TAB PO PRN ×4 (05:07→22:31)
[2016-09-19 05:13] VITALS: TEMP 100.1
[2016-09-19 06:05] VITALS: TEMP 97.7
[2016-09-19] MEDS: MORPHINE SULFATE 30 MG CONTROLLED RELEASE TAB PO SCH ×3 (06:07→21:47)
[2016-09-19 08:00] VITALS: BP 106/69; PULSE 81; RESP 17; TEMP 97.6; O2SAT 96
[2016-09-19] MEDS: PANTOPRAZOLE SOD 40 MG DELAYED RELEASE TAB PO SCH (09:00)
[2016-09-19] MEDS: MULTIVITAMINS/MINERALS THERAPEUTIC TAB PO SCH (09:00)
[2016-09-19] MEDS: COLLAGENASE OINT 30 GM TUBE TOPICAL SCH (09:00)
[2016-09-19] MEDS: LACTOBACILLUS ACIDOPHILUS TAB PO SCH ×2 (09:00→20:47)
[2016-09-19] MEDS: CHOLESTYRAMINE 4 GM PACKET PO SCH ×2 (09:00→20:47)
[2016-09-19] MEDS: FLUTICASONE PROPIONATE 50 MCG/ACT 16 GM NASAL SPRAY NASAL SCH ×2 (09:00→20:47)
[2016-09-19] MEDS: LACTIC ACID (AMMONIUM LACTATE) 12% LOTION 225 GM BTL TOPICAL SCH ×2 (09:00→20:46)
[2016-09-19] MEDS: NEOMYCIN/POLYMYXIN/BACITRACIN OINT 15 GM TUBE TOPICAL SCH (09:00)
[2016-09-19] MEDS: SODIUM HYPOCHLORITE 0.25% 500 ML BTL TOPICAL SCH (09:00)
[2016-09-19] MEDS: VANCOMYCIN 500 MG VIAL (FOR ORAL USE ONLY) PO SCH ×2 (11:10→14:50)
[2016-09-19] MEDS: ENOXAPARIN SODIUM 40 MG/0.4 ML SYRINGE SQ SCH (11:17)
--- NOTE | 2016-09-19 11:40 | HHI.PR ---
Subjective Remarks Patient seen and examined today in follow-up for C. difficile infection, sacral wounds. Patient's only complaint that he does not feel that he is getting his pain medications exactly when he is requesting them. Objective Vitals Vital Signs Date Time Temp Pulse Resp B/P Pulse Ox O2 Delivery O2 Flow Rate FiO2 09/19/16 08:00 97.6 81 17 106/69 96 09/19/16 06:05 97.7 09/19/16 05:13 100.1 09/18/16 20:00 99.6 102 20 131/79 98 I/O 09/18/16 09/18/16 09/18/16 09/19/16 09/19/16 09/19/16 07:00 15:00 23:00 07:00 15:00 23:00 Intake Total 100 ml 60 ml 120 ml Output Total 170 ml 580 ml 50 ml 125 ml Balance -70 ml -580 ml 10 ml -5 ml Intake Oral 100 ml 60 ml 120 ml Output Urine Total 170 ml 580 ml 50 ml 125 ml # Voids 1 # Bowel Movements 1 0 0 Result Diagram: 09/19/16 0435 Objective Remarks GENERAL: Well-developed, well-nourished, in no acute distress. alert and orientated HEENT: Head is normocephalic without any lesions or masses noted. Facial features are symmetric. Eyes: Extraocular muscles are intact. Conjunctivae were clear. NECK: Supple without any masses. Trachea midline no deviation. No JVD, CARDIAC: Regular rhythm, regular rate. S1/S2 are heard. No murmurs gallops or rubs. LUNGS: Clear to auscultation bilaterally. No wheeze, rhonchi or rales. No use of accessory muscles on inspiration or expiration. ABDOMEN: Soft, nontender. Nondistended. Bowel sounds heard in all 4 quadrants. No organomegaly or masses. Negative rebound, negative guarding EXTREMITIES: No edema, pulses are equal bilaterally. No cyanosis or clubbing NEUROLOGY: Mood and affect appear appropriate. Cranial nerves II through XII grossly intact. Moving upper extremities. Strength 5/5 SACRAL AREA: Wound VAC is noted over the left hip area. RIGHT THIGH: Graft area does have some mild flaking of skin. No fluctuations, excoriations, maybe some maceration from him having a covered all the time. No signs of infection. ISCHIAL AREA: Patient does have probably 3 cm annular DVT ulceration with sloughing of skin. SCROTUM: There does appear to be some maceration noted to the inferior posterior aspect of his scrotum with blood noted Procedures none Urinary Catheter: Yes Assessment to: Continue Morse insert reason: Stage III/IV Press Ulcer Date of Insertion: Sep 05, 2016 Vascular Central Line Catheter: No A/P Assessment and Plan Medical noncompliance. Patient is refusing and deferring appropriate management recommended by health intensive care medicine specialist Patient is refusing to be evaluated by plastic surgeon Patient is refusing to having wound VAC replaced Patient is refusing for medication management for C. difficile infection Patient is refusing turning in bed to offload his wounds Stage IV sacral decubitus: Wound care physician Dr. Garcia evaluated patient and indicated local wound care Wound care team nurse following. Recommend to continue current treatment of Dakins solution soaked gauze, lightly fluffed, and gently placed into wound bed to allow for tissue growth. Plastic surgery evaluated patient and recommending wound VAC placement. Orders have been given. Reposition every 2 hours and PRN for comfort. However, patient is noncompliant and will not allow to be repositioned Patient refused diverting colostomy for management, Patient refusing to have Wound VAC in place. Wound care is following the patient. Family is inquisitive about the patient' s wound management and requested be present during Care evaluation. Wound care physician has been consulted for recommendations, consulted plastic surgeon, patient is refusing physical evaluation Right ischial ulcer Appears that wound VAC has been applied to that area. Wound care nurse is managing the wounds Due to noncompliance with turning Left hip skin tear Appears to be healed at this time Due to noncompliance with turning Right thigh maceration Appears to be healed at this time Due to noncompliance with turning Clostridium difficile infection: Recurrent Appears patient has undergone at least 3 treatments with by mouth Flagyl Infectious disease was consulted and making recommendations Vancomycin 125 mg by mouth every 6 hours with tapering per infectious disease Continue cholestyramine, patient refusing Continue probiotic, patient is refusing Repeat culture shows positive culture again Leukocytosis: Likely secondary to C. 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 Urine Culture resulted with MRSA S/p antibiotic treatment with Bactrim Changed Morse catheter 09/05/16 08/16/16 culture indicates Morganella morganii, staph aureus, enterococcus faecalis. Documentation indicates that infectious disease was contacted and indicated that the patient is asymptomatic no treatment is necessary at this time. Only catheter changes necessary. 08/30/16, patient had one fever, urinalysis performed which did show culture with Proteus mirabilis, Morganella morganii. Patient was started on Cipro, Rocephin, however, patient continues to refuse antibiotic treatment. He has not had any recurrent fever or signs of sepsis or infection despite urinary tract infection findings. 09/11/16, repeat urinalysis still resulted as Proteus mirabilis. Infectious disease recommending do not treat unless symptomatic Chronic pain: -Continue patient's outpatient medications to include Oramorph 30 mg 3 times daily and Percocet 10, every 6 hours as needed for pain -The above regimen was confirmed by E force review and printed out and placed on patient's chart -Continue PT Anemia: Hemoglobin stable Hyperglycemia: Resolved likely related to infection. HgbA1c 5.2. Hypertension: Monitor and add medication if needed. Controlled. DVT prophylaxis: Lovenox Discharge Planning Case management for discharge planning. Jp Keith September 19, 2016 11:40
[2016-09-19 20:00] VITALS: BP 115/72; PULSE 117; RESP 16; TEMP 100.7; O2SAT 95
[2016-09-19] MEDS: hydrOXYzine HCL 25 MG TAB PO PRN (20:51)
[2016-09-20] MEDS: oxyCODONE/ACETAMINOPHEN 10 MG/325 MG TAB PO PRN ×3 (05:19→18:37)
[2016-09-20] MEDS: MORPHINE SULFATE 30 MG CONTROLLED RELEASE TAB PO SCH ×3 (06:05→21:35)
[2016-09-20 08:00] VITALS: BP 116/70; PULSE 79; RESP 19; TEMP 97; O2SAT 98
[2016-09-20] MEDS: LACTOBACILLUS ACIDOPHILUS TAB PO SCH ×2 (08:45→21:39)
[2016-09-20] MEDS: PANTOPRAZOLE SOD 40 MG DELAYED RELEASE TAB PO SCH (08:46)
[2016-09-20] MEDS: ENOXAPARIN SODIUM 40 MG/0.4 ML SYRINGE SQ SCH (08:46)
[2016-09-20] MEDS: MULTIVITAMINS/MINERALS THERAPEUTIC TAB PO SCH (09:00)
[2016-09-20] MEDS: FLUTICASONE PROPIONATE 50 MCG/ACT 16 GM NASAL SPRAY NASAL SCH ×2 (09:00→21:36)
[2016-09-20] MEDS: CHOLESTYRAMINE 4 GM PACKET PO SCH ×2 (09:00→21:39)
[2016-09-20] MEDS: LACTIC ACID (AMMONIUM LACTATE) 12% LOTION 225 GM BTL TOPICAL SCH ×2 (10:54→21:36)
--- NOTE | 2016-09-20 10:54 | HHI.PR ---
Subjective Remarks Patient seen and examined today for follow-up on wounds, C. difficile infection. Patient still being noncompliant with wound care and management. Patient states that there is no change in his condition. Objective Vitals Vital Signs Date Time Temp Pulse Resp B/P Pulse Ox O2 Delivery O2 Flow Rate FiO2 09/20/16 08:00 97.0 79 19 116/70 98 09/20/16 07:05 20 09/20/16 06:19 16 09/19/16 20:00 100.7 117 16 115/72 95 I/O 09/19/16 09/19/16 09/19/16 09/20/16 09/20/16 09/20/16 07:00 15:00 23:00 07:00 15:00 23:00 Intake Total 120 ml 240 ml 220 ml Output Total 125 ml 350 ml 150 ml 150 ml Balance -5 ml -350 ml 90 ml 70 ml Intake Oral 120 ml 240 ml 220 ml Output Urine Total 125 ml 350 ml 150 ml 150 ml Stool Total 0 ml # Voids 1 # Bowel Movements 0 0 Result Diagram: 09/19/16 0435 Objective Remarks GENERAL: Well-developed, well-nourished, in no acute distress. alert and orientated HEENT: Head is normocephalic without any lesions or masses noted. Facial features are symmetric. Eyes: Extraocular muscles are intact. Conjunctivae were clear. NECK: Supple without any masses. Trachea midline no deviation. No JVD, CARDIAC: Regular rhythm, regular rate. S1/S2 are heard. No murmurs gallops or rubs. LUNGS: Clear to auscultation bilaterally. No wheeze, rhonchi or rales. No use of accessory muscles on inspiration or expiration. ABDOMEN: Soft, nontender. Nondistended. Bowel sounds heard in all 4 quadrants. No organomegaly or masses. Negative rebound, negative guarding EXTREMITIES: No edema, pulses are equal bilaterally. No cyanosis or clubbing NEUROLOGY: Mood and affect appear appropriate. Cranial nerves II through XII grossly intact. Moving upper extremities. Strength 5/5 SACRAL AREA: Wound VAC is noted over the left hip area. RIGHT THIGH: Graft area does have some mild flaking of skin. No fluctuations, excoriations, maybe some maceration from him having a covered all the time. No signs of infection. ISCHIAL AREA: Patient does have probably 3 cm annular DVT ulceration with sloughing of skin. SCROTUM: There does appear to be some maceration noted to the inferior posterior aspect of his scrotum with blood noted Procedures none Urinary Catheter: Yes Assessment to: Continue Morse insert reason: Stage III/IV Press Ulcer Date of Insertion: Sep 05, 2016 Vascular Central Line Catheter: No A/P Assessment and Plan Medical noncompliance. Patient is refusing and deferring appropriate management recommended by health customer care representative Patient is refusing to be evaluated by plastic surgeon Patient is refusing to having wound VAC replaced Patient is refusing for medication management for C. difficile infection Patient is refusing turning in bed to offload his wounds Stage IV sacral decubitus: Wound care physician Dr. Garcia evaluated patient and indicated local wound care Wound care team nurse following. Recommend to continue current treatment of Dakins solution soaked gauze, lightly fluffed, and gently placed into wound bed to allow for tissue growth. Plastic surgery evaluated patient and recommending wound VAC placement. Orders have been given. Reposition every 2 hours and PRN for comfort. However, patient is noncompliant and will not allow to be repositioned Patient refused diverting colostomy for management, Patient refusing to have Wound VAC in place. Wound care is following the patient. Family is inquisitive about the patient' s wound management and requested be present during Care evaluation. Wound care physician has been consulted for recommendations, consulted plastic surgeon, patient is refusing physical evaluation Right ischial ulcer Appears that wound VAC has been applied to that area. Wound care nurse is managing the wounds Due to noncompliance with turning Left hip skin tear Appears to be healed at this time Due to noncompliance with turning Right thigh maceration Appears to be healed at this time Due to noncompliance with turning Clostridium difficile infection: Recurrent Appears patient has undergone at least 3 treatments with by mouth Flagyl Infectious disease was consulted and making recommendations Vancomycin taper protocol Continue cholestyramine, patient refusing Continue probiotic, patient is refusing Leukocytosis: Likely secondary to C. 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 Urine Culture resulted with MRSA S/p antibiotic treatment with Bactrim Changed Morse catheter 09/05/16 08/16/16 culture indicates Morganella morganii, staph aureus, enterococcus faecalis. Documentation indicates that infectious disease was contacted and indicated that the patient is asymptomatic no treatment is necessary at this time. Only catheter changes necessary. 08/30/16, patient had one fever, urinalysis performed which did show culture with Proteus mirabilis, Morganella morganii. Patient was started on Cipro, Rocephin, however, patient continues to refuse antibiotic treatment. He has not had any recurrent fever or signs of sepsis or infection despite urinary tract infection findings. 09/11/16, repeat urinalysis still resulted as Proteus mirabilis. Infectious disease recommending do not treat unless symptomatic Chronic pain: -Continue patient's outpatient medications to include Oramorph 30 mg 3 times daily and Percocet 10, every 6 hours as needed for pain -The above regimen was confirmed by E force review and printed out and placed on patient's chart -Continue PT Anemia: Hemoglobin stable Hyperglycemia: Resolved likely related to infection. HgbA1c 5.2. Hypertension: Monitor and add medication if needed. Controlled. DVT prophylaxis: Lovenox Discharge Planning Case management for discharge planning. Jp Keith September 20, 2016 10:53
[2016-09-20] MEDS: SODIUM HYPOCHLORITE 0.25% 500 ML BTL TOPICAL SCH (10:55)
[2016-09-20] MEDS: NEOMYCIN/POLYMYXIN/BACITRACIN OINT 15 GM TUBE TOPICAL SCH (10:56)
[2016-09-20] MEDS: COLLAGENASE OINT 30 GM TUBE TOPICAL SCH (10:56)
[2016-09-20] MEDS: VANCOMYCIN 500 MG VIAL (FOR ORAL USE ONLY) PO SCH ×2 (12:32→17:52)
[2016-09-20 20:00] VITALS: BP 101/73; PULSE 105; RESP 16; TEMP 99.7; O2SAT 94
[2016-09-21] MEDS: oxyCODONE/ACETAMINOPHEN 10 MG/325 MG TAB PO PRN ×4 (00:43→14:53)
[2016-09-21] MEDS: VANCOMYCIN 500 MG VIAL (FOR ORAL USE ONLY) PO SCH ×3 (06:06→12:26)
[2016-09-21] MEDS: MORPHINE SULFATE 30 MG CONTROLLED RELEASE TAB PO SCH ×2 (06:06→14:55)
[2016-09-21 08:00] VITALS: BP 108/70; PULSE 106; RESP 18; TEMP 97.8; O2SAT 95
[2016-09-21] MEDS: LACTOBACILLUS ACIDOPHILUS TAB PO SCH (09:00)
[2016-09-21] MEDS: FLUTICASONE PROPIONATE 50 MCG/ACT 16 GM NASAL SPRAY NASAL SCH (09:00)
[2016-09-21] MEDS: MULTIVITAMINS/MINERALS THERAPEUTIC TAB PO SCH (09:00)
[2016-09-21] MEDS: PANTOPRAZOLE SOD 40 MG DELAYED RELEASE TAB PO SCH (09:00)
[2016-09-21] MEDS: CHOLESTYRAMINE 4 GM PACKET PO SCH (09:00)
[2016-09-21] MEDS: SODIUM HYPOCHLORITE 0.25% 500 ML BTL TOPICAL SCH (09:54)
[2016-09-21] MEDS: ENOXAPARIN SODIUM 40 MG/0.4 ML SYRINGE SQ SCH (09:54)
[2016-09-21] MEDS: LACTIC ACID (AMMONIUM LACTATE) 12% LOTION 225 GM BTL TOPICAL SCH (09:54)
[2016-09-21] MEDS: NEOMYCIN/POLYMYXIN/BACITRACIN OINT 15 GM TUBE TOPICAL SCH (09:55)
[2016-09-21] MEDS: COLLAGENASE OINT 30 GM TUBE TOPICAL SCH (09:56)
--- NOTE | 2016-09-21 10:15 | HHI.PR ---
Subjective Remarks Patient seen and examined today in follow-up for multiple wounds, C. difficile infection. Patient appears to be more depressed today and is asking if he can go to hospice. He indicates that everything is getting worse and he would just like to have hospice care Objective Vitals Vital Signs Date Time Temp Pulse Resp B/P Pulse Ox O2 Delivery O2 Flow Rate FiO2 09/21/16 07:06 20 09/21/16 07:06 20 09/20/16 20:00 99.7 105 16 101/73 94 I/O 09/20/16 09/20/16 09/20/16 09/21/16 09/21/16 09/21/16 07:00 15:00 23:00 07:00 15:00 23:00 Intake Total 220 ml 240 ml 220 ml 220 ml Output Total 150 ml 350 ml 150 ml 150 ml Balance 70 ml -110 ml 70 ml 70 ml Intake Oral 220 ml 240 ml 220 ml 220 ml Output Urine Total 150 ml 350 ml 150 ml 150 ml # Bowel Movements 0 0 0 Result Diagram: 09/19/16 0435 Objective Remarks GENERAL: Well-developed, well-nourished, in no acute distress. alert and orientated HEENT: Head is normocephalic without any lesions or masses noted. Facial features are symmetric. Eyes: Extraocular muscles are intact. Conjunctivae were clear. NECK: Supple without any masses. Trachea midline no deviation. No JVD, CARDIAC: Regular rhythm, regular rate. S1/S2 are heard. No murmurs gallops or rubs. LUNGS: Clear to auscultation bilaterally. No wheeze, rhonchi or rales. No use of accessory muscles on inspiration or expiration. ABDOMEN: Soft, nontender. Nondistended. Bowel sounds heard in all 4 quadrants. No organomegaly or masses. Negative rebound, negative guarding EXTREMITIES: No edema, pulses are equal bilaterally. No cyanosis or clubbing NEUROLOGY: Mood and affect appear appropriate. Cranial nerves II through XII grossly intact. Moving upper extremities. Strength 5/5 SACRAL AREA: Wound VAC is noted over the left hip area. RIGHT THIGH: Graft area does have some mild flaking of skin. No fluctuations, excoriations, maybe some maceration from him having a covered all the time. No signs of infection. ISCHIAL AREA: Patient does have probably 3 cm annular DVT ulceration with sloughing of skin. SCROTUM: There does appear to be some maceration noted to the inferior posterior aspect of his scrotum with blood noted Procedures none Urinary Catheter: Yes Assessment to: Continue Morse insert reason: Stage III/IV Press Ulcer Date of Insertion: Sep 05, 2016 Vascular Central Line Catheter: No A/P Assessment and Plan Medical noncompliance. Patient is refusing and deferring appropriate management recommended by health health care marketing manager Patient is refusing to be evaluated by plastic surgeon Patient is refusing to having wound VAC replaced Patient is refusing for medication management for C. difficile infection Patient is refusing turning in bed to offload his wounds Stage IV sacral decubitus: Wound care physician Dr. Garcia evaluated patient and indicated local wound care Wound care team nurse following. Recommend to continue current treatment of Dakins solution soaked gauze, lightly fluffed, and gently placed into wound bed to allow for tissue growth. Plastic surgery evaluated patient and recommending wound VAC placement. Orders have been given. Reposition every 2 hours and PRN for comfort. However, patient is noncompliant and will not allow to be repositioned Patient refused diverting colostomy for management, Patient refusing to have Wound VAC in place. Wound care is following the patient. Family is inquisitive about the patient' s wound management and requested be present during Care evaluation. Wound care physician has been consulted for recommendations, consulted plastic surgeon, patient is refusing physical evaluation Right ischial ulcer Appears that wound VAC has been applied to that area. Wound care nurse is managing the wounds Due to noncompliance with turning Left hip skin tear Appears to be healed at this time Due to noncompliance with turning Right thigh maceration Appears to be healed at this time Due to noncompliance with turning Clostridium difficile infection: Recurrent Appears patient has undergone at least 3 treatments with by mouth Flagyl Infectious disease was consulted and made recommendations Vancomycin taper protocol Continue cholestyramine, patient refusing Continue probiotic, patient is refusing Leukocytosis: Likely secondary to C. 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 Urine Culture resulted with MRSA S/p antibiotic treatment with Bactrim Changed Morse catheter 09/05/16 08/16/16 culture indicates Morganella morganii, staph aureus, enterococcus faecalis. Documentation indicates that infectious disease was contacted and indicated that the patient is asymptomatic no treatment is necessary at this time. Only catheter changes necessary. 08/30/16, patient had one fever, urinalysis performed which did show culture with Proteus mirabilis, Morganella morganii. Patient was started on Cipro, Rocephin, however, patient continues to refuse antibiotic treatment. He has not had any recurrent fever or signs of sepsis or infection despite urinary tract infection findings. 09/11/16, repeat urinalysis still resulted as Proteus mirabilis. Infectious disease recommending do not treat unless symptomatic Chronic pain: -Continue patient's outpatient medications to include Oramorph 30 mg 3 times daily and Percocet 10, every 6 hours as needed for pain -The above regimen was confirmed by E force review and printed out and placed on patient's chart -Continue PT Anemia: Hemoglobin stable Hyperglycemia: Resolved likely related to infection. HgbA1c 5.2. Hypertension: Monitor and add medication if needed. Controlled. DVT prophylaxis: Lovenox Discharge Planning Case management for discharge planning. Jp Keith September 21, 2016 10:15
[2016-09-21] MEDS ORDERED: VANC500I3 PO (13:12)
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
[2016-09-21 13:26] VITALS: RESP 20
== END 2016-09-21 15:22 | DRG 698 ==
LOC: NEPC 17:24 → NEDA 19:57 → NEPGCP 23:16 → HOCA 06-08 22:41 → PH5A 07-09 21:00
PROVIDERS: ADMIT Hospitalist; ATTEND Hospitalist
PROC: 0T2BX0Z Change Drainage Device in Bladder, External Approach (ICD-10-PCS; principal; 2016-05-31)
PROC: 0DP6XUZ Removal of Feeding Device from Stomach, External Approach (ICD-10-PCS; 2016-06-09)
PROC: 0T2BX0Z Change Drainage Device in Bladder, External Approach (ICD-10-PCS; 2016-07-01)
PROC: 0T2BX0Z Change Drainage Device in Bladder, External Approach (ICD-10-PCS; 2016-07-30)
PROC: 0T2BX0Z Change Drainage Device in Bladder, External Approach (ICD-10-PCS; 2016-08-18)
PROC: 0T2BX0Z Change Drainage Device in Bladder, External Approach (ICD-10-PCS; 2016-08-30)
PROC: 0T2BX0Z Change Drainage Device in Bladder, External Approach (ICD-10-PCS; 2016-09-05)
DX: T83.511A Infection and inflammatory reaction due to indwelling urethral catheter, initial encounter (principal); L89.154 Pressure ulcer of sacral region, stage 4; A41.9 Sepsis, unspecified organism; A04.7 Enterocolitis due to Clostridium difficile; L89.210 Pressure ulcer of right hip, unstageable; G82.20 Paraplegia, unspecified; L03.317 Cellulitis of buttock; N31.9 Neuromuscular dysfunction of bladder, unspecified; R13.10 Dysphagia, unspecified; N39.0 Urinary tract infection, site not specified; Z86.14 Personal history of Methicillin resistant Staphylococcus aureus infection; G89.29 Other chronic pain; I10 Essential (primary) hypertension; Z93.1 Gastrostomy status; Z66 Do not resuscitate; Y84.6 Urinary catheterization as the cause of abnormal reaction of the patient, or of later complication, without mention of misadventure at the time of the procedure; M54.5 Low back pain; R73.9 Hyperglycemia, unspecified; Z51.5 Encounter for palliative care; Z74.01 Bed confinement status; L85.3 Xerosis cutis; R09.81 Nasal congestion; Z91.19 Patient's noncompliance with other medical treatment and regimen; Z91.14 Patient's other noncompliance with medication regimen; K44.9 Diaphragmatic hernia without obstruction or gangrene; J40 Bronchitis, not specified as acute or chronic; D64.9 Anemia, unspecified; K30 Functional dyspepsia; K58.9 Irritable bowel syndrome, unspecified; E87.6 Hypokalemia; F41.9 Anxiety disorder, unspecified; M19.90 Unspecified osteoarthritis, unspecified site; Z87.440 Personal history of urinary (tract) infections; Z91.11 Patient's noncompliance with dietary regimen; Z53.29 Procedure and treatment not carried out because of patient's decision for other reasons; S71.112A Laceration without foreign body, left thigh, initial encounter; X58.XXXA Exposure to other specified factors, initial encounter; Y93.9 Activity, unspecified; Y92.239 Unspecified place in hospital as the place of occurrence of the external cause; Y99.9 Unspecified external cause status; H91.90 Unspecified hearing loss, unspecified ear
CPT/HCPCS: 71020; 73502; 76000; 76937; 80048; 80053; 80202; 81001; 82565; 83036; 83605; 83735; 85025; 85652; 86140; 86403; 87040; 87070; 87077; 87086; 87147; 87186; 87493; 94150; 94640; 94664; 96374; 96375; C1894; J0692; J1170; J1650; J2270; J3370; J7050; J7608